=== PATIENT | male | born 1940 | race Caucasian/White ===

== ENCOUNTER 2022-07-09 14:04 | Inpatient (IN) | payer MEDICARE, BC, OTHER, SELFPAY ==
[2022-07-09] VITALS (28 sets, daily range): BP systolic 66–112; BP diastolic 41–77; PULSE 80–107; RESP 14–43; TEMP 36.3–37.1; O2SAT 85–96; BMI 31.2
--- NOTE | ~2022-07-09 | XR_ITS ---
EXAMINATION: XR chest 1V portable DATE: 07/20/2022 05:23 INDICATION: Respiratory failure. TECHNIQUE: A single frontal view of the chest was obtained. COMPARISON: Chest single view 07/19/2022 FINDINGS: The lung volumes are small. There are airspace and interstitial opacities throughout the luis ngs bilaterally. No pleural effusion or pneumothorax. The heart size is normal. The endotracheal tube tip is 3.9 cm above the grisel. A left subclavian central venous catheter is seen with tip at the stewart perior cavoatrial junction. There is compression of the catheter between the clavicle and first rib. The nasogastric tube tip is beyond the inferior margin of the radiograph, but at least to the stomach . A right internal jugular central venous catheter is seen with tip at the superior cavoatrial juncti on. A right-sided chest tube is noted. IMPRESSION: 1. Stable diffuse lung disease, consistent with pneumonia versus pulmonary edema versus acute respira tory distress syndrome (ARDS). 2. No pneumothorax. Right-sided chest tube in expected position. 3. Compression of the left subclavian central venous catheter between the clavicle and first rib, whi ch increases the risk of catheter fracture. Reviewed, dictated and finalized at location A. IMPRESSION: 1. Stable diffuse lung disease, consistent with pneumonia versus pulmonary dara a versus acute respiratory distress syndrome (ARDS). 2. No pneumothorax. Right-sided chest tube in expected position. 3. Compression of the left subclavian central venous catheter between the clavi vick and first rib, which increases the risk of catheter fracture.
--- NOTE | ~2022-07-09 | XR_ITS ---
EXAMINATION: XR chest 1V portable DATE: 07/21/2022 05:17 INDICATION: Respiratory failure. TECHNIQUE: A single frontal view of the chest was obtained. COMPARISON: Chest single view 07/20/2022 FINDINGS: Lung volumes are small. There are airspace and interstitial opacities throughout the lungs bilaterally. No pleural effusion or pneumothorax. The heart size is normal. The endotracheal tube tip is 4.3 cm above the grisel. A left subclavian central venous catheter is seen with tip in the proxim al right atrium. A right internal jugular central venous catheter is seen with tip at the superior ca voatrial junction. The nasogastric tube tip is beyond the inferior margin of the radiograph, but at l east to the stomach. A right-sided chest tube is noted. IMPRESSION: 1. Small lung volumes with stable diffuse lung disease, consistent with pneumonia versus pulmonary ed faizan versus acute respiratory distress syndrome (ARDS). 2. No pneumothorax. Right-sided chest tube in expected position. Reviewed, dictated and finalized at location A. IMPRESSION: 1. Small lung volumes with stable diffuse lung disease, consistent with pneumon ia versus pulmonary edema versus acute respiratory distress syndrome (ARDS). 2. No pneumothorax. Right-sided chest tube in expected position.
--- NOTE | ~2022-07-09 | XR_ITS ---
EXAMINATION: XR chest ET placement DATE: 07/10/2022 13:48 INDICATION: Intubation. TECHNIQUE: A single frontal view of the chest was obtained. COMPARISON: Chest single view 07/09/2022, chest CT 07/09/2022 FINDINGS: There are airspace and interstitial opacities throughout the lungs bilaterally. There is a moderate-sized right pneumothorax. No pleural effusion. The heart size is normal. The endotracheal tu be tip is 1.8 cm above the grisel. IMPRESSION: 1. Moderate-sized right pneumothorax. I discussed this finding with Dr. Silva. 2. Worsened diffuse lung disease, consistent with pneumonia versus pulmonary edema. Reviewed, dictated and finalized at location A. IMPRESSION: 1. Moderate-sized right pneumothorax. I discussed this finding with Dr. Jed eaton 2. Worsened diffuse lung disease, consistent with pneumonia versus pulmonary ed faizan.
--- NOTE | ~2022-07-09 | XR_ITS ---
EXAMINATION: XR chest 1V portable INDICATION: Respiratory failure TECHNIQUE: Portable AP chest at 1456 hours COMPARISON: 0518 hours FINDINGS: The endotracheal tube ends approximately 3.0 cm above the grisel. The nasogastric tube is f ollowed as far as the stomach. Its tip is beyond the inferior margin of the radiograph. A right-sided chest tube is unchanged in position. No pneumothorax is identified. A right internal jugular central venous catheter ends with its tip at the superior cavoatrial junction. Diffuse interstitial and airs pace opacities persist with slight worsening on the right. IMPRESSION: 1. Diffuse lung disease with interval worsening on the right, consistent with pneumonia and/or pulmon marni edema. Reviewed, dictated and finalized at location B. IMPRESSION: 1. Diffuse lung disease with interval worsening on the right, consistent with p neumonia and/or pulmonary edema.
--- NOTE | ~2022-07-09 | XR_ITS ---
EXAMINATION: XR chest 1V portable DATE: 07/24/2022 05:22 INDICATION: Respiratory failure TECHNIQUE: frontal view of the chest was obtained. COMPARISON: Chest radiograph dated 07/23/2022 FINDINGS: Endotracheal tube tip 4.0 cm above the grisel. Nasogastric tube extends below the left hemidiaphragm with distal tip collimated off the study. The large-bore dual-lumen likely tunneled left subclavian central venous catheter with distal tip at the caudal superior vena cava. There is also a smaller nadege iber right internal jugular central venous catheter with its tip also in the caudal superior vena cav a. Unchanged apically directed right chest tube. Diffuse airspace opacities throughout the left lung and to a lesser degree in the right mid and upper lung zones. No pneumothorax or definitive pleural effusion. The cardiomediastinal silhouette is norm al. IMPRESSION: 1. No significant change in diffuse bilateral lung disease which could represent pneumonia, pulmonary edema, acute respiratory distress syndrome (ARDS) or combination thereof. Reviewed, dictated and finalized at location A. IMPRESSION: 1. No significant change in diffuse bilateral lung disease which could represen t pneumonia, pulmonary edema, acute respiratory distress syndrome (ARDS) or com bination thereof.
--- NOTE | ~2022-07-09 | XR_ITS ---
EXAMINATION: XR chest 1V portable DATE: 07/14/2022 05:41 INDICATION: Acute respiratory failure. Intubation. TECHNIQUE: A single frontal view of the chest was obtained. COMPARISON: Chest single view 07/13/2022 FINDINGS: There are airspace opacities in all lung zones bilaterally with a lower lung predominance. No pleural effusion or pneumothorax. The heart size is normal. A right-sided chest tube is noted. The endotracheal tube tip is 4.2 cm above the grisel. The nasogastric tube tip is beyond the inferior ma rgin of the radiograph, but at least to the stomach. A right internal jugular central venous catheter is seen with tip at the superior cavoatrial junction. IMPRESSION: 1. Stable diffuse lung disease, consistent with pneumonia versus acute respiratory distress syndrome (ARDS). 2. No pneumothorax. Right-sided chest tube unchanged. Reviewed, dictated and finalized at location A. IMPRESSION: 1. Stable diffuse lung disease, consistent with pneumonia versus acute respirat ory distress syndrome (ARDS). 2. No pneumothorax. Right-sided chest tube unchanged.
--- NOTE | ~2022-07-09 | XR_ITS ---
EXAMINATION: XR chest 1V portable DATE: 07/19/2022 05:35 INDICATION: Respiratory failure TECHNIQUE: frontal view of the chest was obtained. COMPARISON: Chest radiograph dated 07/18/2022 FINDINGS: Endotracheal tube tip 3.9 cm above the grisel. Large-bore dual-lumen left subclavian central venous c atheter with distal tip in the superior vena cava. Smaller caliber right internal jugular central adelina ous catheter with distal tip also in the superior vena cava. Nasogastric tube extends below the left hemidiaphragm with distal tip collimated off the study. Apically directed right chest tube. Slight interval increase in diffuse airspace opacities throughout the left lung and more patchy airsp chuck opacities in the right mid and lower lung zone. No pleural effusion or pneumothorax. Heart size i s normal. IMPRESSION: 1. Lines and tubes in expected positions. 2. Slight worsening of bilateral lung disease which could represent pneumonia, atelectasis, pulmonary edema or some combination thereof. Reviewed, dictated and finalized at location A.
--- NOTE | ~2022-07-09 | US_ITS ---
EXAMINATION: US renal BI DATE: 07/16/2022 08:23 INDICATION: Acute kidney injury TECHNIQUE: Multiple grayscale and Doppler ultrasound images of the kidneys were obtained. COMPARISON: 07/10/2022 FINDINGS: The right kidney measures 10.6 x 5.1 x 5.9 cm. The left kidney measures 12.9 x 4.9 x 7.3 cm and contains a 1.8 cm cyst. The kidneys demonstrate normal parenchymal echogenicity. There is no hyd ronephrosis. The bladder is decompressed by Mitchell catheter. IMPRESSION: 1. Normal kidneys without hydronephrosis. Reviewed, dictated and finalized at location B.
--- NOTE | ~2022-07-09 | XR_ITS ---
EXAMINATION: XR abdomen NG/feed tube insert DATE: 07/10/2022 13:48 INDICATION: Orogastric tube placement. TECHNIQUE: An upright view of the abdomen was obtained. COMPARISON: CT 07/09/2022 FINDINGS: The lower abdomen is excluded. The nasogastric tube tip is in the distal stomach. Surgical clips in the right upper quadrant are likely from cholecystectomy. There are changes of posterior fus ion procedure in lumbar spine. There is a large right pneumothorax. There are airspace and interstiti al opacities throughout the visualized portions of the lungs. IMPRESSION: 1. Nasogastric tube tip in the stomach. 2. Large right pneumothorax. 3. Diffuse lung disease, consistent with pulmonary edema versus pneumonia. Reviewed, dictated and finalized at location A.
--- NOTE | ~2022-07-09 | XR_ITS ---
EXAMINATION: XR chest 1V portable DATE: 07/11/2022 06:37 INDICATION: Acute respiratory failure. TECHNIQUE: A single frontal view of the chest was obtained. COMPARISON: Chest single view 07/10/2022, chest CT 07/09/2022 FINDINGS: There are reticular opacities and patchy airspace opacities in all lung zones bilaterally. Calcified lung nodules and calcified hilar lymph nodes are consistent with old granulomatous disease. There is mild elevation of left hemidiaphragm. No pleural effusion or pneumothorax. A right-sided ch est tube is noted. The heart size is normal. The endotracheal tube tip is 4.7 cm above the grisel. Th e nasogastric tube tip is beyond the inferior margin of the radiograph, but at least to the stomach. A right internal jugular central venous catheter is seen with tip in the superior vena cava. IMPRESSION: 1. Improved diffuse lung disease, consistent with pneumonia. 2. No pneumothorax. Right-sided chest tube in expected position. Reviewed, dictated and finalized at location A.
--- NOTE | ~2022-07-09 | XR_ITS ---
EXAMINATION: XR chest 1V portable DATE: 07/22/2022 06:04 INDICATION: Respiratory failure. TECHNIQUE: A single frontal view of the chest was obtained. COMPARISON: Chest single view 07/21/2022 FINDINGS: The lung volumes are small. There are airspace and interstitial opacities in all lung zones bilaterally, left worse than right. No pleural effusion or pneumothorax. The heart size is normal. T he endotracheal tube tip is 4.9 cm above the grisel. The nasogastric tube tip is beyond the inferior margin of the radiograph, but at least to the stomach. A left subclavian central venous catheter is s een with tip in the right atrium. A right internal jugular central venous catheter is seen with tip a t the superior cavoatrial junction. A right-sided chest tube is noted. IMPRESSION: 1. Small lung volumes with diffuse lung disease with slight improvement, consistent with pneumonia ve rsus pulmonary edema versus acute respiratory distress syndrome (ARDS). 2. No pneumothorax. Right-sided chest tube in expected position. Reviewed, dictated and finalized at location A. IMPRESSION: 1. Small lung volumes with diffuse lung disease with slight improvement, consis tent with pneumonia versus pulmonary edema versus acute respiratory distress sy ndrome (ARDS). 2. No pneumothorax. Right-sided chest tube in expected position.
--- NOTE | ~2022-07-09 | US_ITS ---
EXAMINATION: US venous doppler [facility] DATE: 07/10/2022 10:05 INDICATION: Lower limb edema. TECHNIQUE: Grayscale ultrasound images without and with compression and Doppler ultrasound images of the bilateral lower extremity veins were obtained. COMPARISON: None. FINDINGS: The visualized portions of right common femoral vein, profunda (deep) femoral vein, femoral vein, pop liteal vein, peroneal veins, posterior tibial veins, and greater saphenous vein outflow are patent. The visualized portions of left common femoral vein, profunda femoral vein, femoral vein, popliteal v ein, peroneal veins, posterior tibial veins, and greater saphenous vein outflow are patent. IMPRESSION: 1. No deep venous thrombosis. Reviewed, dictated and finalized at location A.
--- NOTE | ~2022-07-09 | XR_ITS ---
EXAMINATION: XR fl guide central line place DATE: 07/16/2022 14:53 INDICATION: Central line placement. TECHNIQUE: 2 intraoperative fluoroscopic views of the chest were obtained. I was not present. Fluoros copy exposure time was 351 seconds. COMPARISON: Chest single view 07/16/2022 FINDINGS: There is a left subclavian central venous catheter with tip in right atrium. A right international account representative al jugular central venous catheter is seen with tip at superior cavoatrial junction. IMPRESSION: 1. New central line tip in right atrium. Reviewed, dictated and finalized at location A.
--- NOTE | ~2022-07-09 | XR_ITS ---
EXAMINATION: XR chest 1V portable DATE: 07/13/2022 05:44 INDICATION: Acute respiratory failure. Intubation. TECHNIQUE: A single frontal view of the chest was obtained. COMPARISON: Chest single view 07/12/2022 FINDINGS: The patient is rotated to his left. The lung volumes are small. There are airspace and inte rstitial opacities throughout the lungs bilaterally. No pleural effusion or pneumothorax. A right-argenis ed chest tube is noted. The heart size is normal. The endotracheal tube tip is 4.5 cm above the reji a. The nasogastric tube tip is beyond the inferior margin of the radiograph, but at least to the stom ach. Surgical clips in the right upper quadrant are likely from cholecystectomy. A right internal jug ular central venous catheter is seen with tip at the superior cavoatrial junction. IMPRESSION: 1. Diffuse lung disease with mild worsening on the right, consistent with pneumonia versus acute resp iratory distress syndrome (ARDS). 2. No pneumothorax. Right-sided chest tube unchanged. Reviewed, dictated and finalized at location A. IMPRESSION: 1. Diffuse lung disease with mild worsening on the right, consistent with pneum onia versus acute respiratory distress syndrome (ARDS). 2. No pneumothorax. Right-sided chest tube unchanged.
--- NOTE | ~2022-07-09 | CT_ITS ---
EXAMINATION: CTA chest PE abdomen pel DATE: 07/09/2022 15:53 INDICATION: Shortness of breath. Left upper quadrant abdominal pain. TECHNIQUE: Computed tomography angiography (CTA) of the chest was performed with 100 mL Omnipaque-350 intravenous contrast timed to evaluate the pulmonary arteries. Coronal maximum intensity projection 3D-reconstructions were created by the technologist. Computed tomography (CT) of the abdomen and pelv is was performed with intravenous contrast. Automated exposure control and iterative reconstruction t echnique were employed. The dose-length product was 1471.58 mGy-cm. COMPARISON: Chest CT 08/08/2018 FINDINGS: CTA chest: There are airspace opacities, crazy paving, and septal thickening involving all lobes. Terrance cified bilateral lung nodules and calcified hilar and mediastinal lymph nodes are consistent with old granulomatous disease. No pleural effusion. The heart size is normal. There are coronary artery calc ifications. No pericardial effusion. There is no pulmonary embolus. CT abdomen and pelvis: The liver is normal. There are changes of cholecystectomy. Calcifications in t he spleen are consistent with old granulomatous disease. There is a 2.4 cm cyst in the tail of the pa ncreas that was partially visualized on 08/08/2018. The adrenal glands are normal. There are cysts in the kidneys measuring up to 12 mm on the left. The prostate is severely enlarged. There are no dilate d loops of bowel. There are changes of appendectomy. There are no pathologically enlarged lymph nodes . There is no free intraperitoneal fluid. There is a right inguinal hernia containing fat. There are changes of posterior fusion procedure from L2 to L5. There is severe lumbar spondylosis. IMPRESSION: 1. No pulmonary embolus. 2. Diffuse lung disease, new from 08/08/18, likely atypical pneumonia such COVID-19 pneumonia. 3. 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 The differential diagnosis includes pseudocyst, intraductal papillary mucinous neoplasm (IPMN), mucinous cystic neoplasm (MCN), serous cystadenoma, and neuroendo crine tumor. Consider abdomen MRI without and with contrast in 2 years. Reviewed, dictated and finalized at location A. IMPRESSION: 1. No pulmonary embolus. 2. Diffuse lung disease, new from 08/08/18, likely atypical pneumonia such COVID -19 pneumonia. 3. 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 The differential diagnosis includes ps eudocyst, intraductal papillary mucinous neoplasm (IPMN), mucinous cystic neopl asm (MCN), serous cystadenoma, and neuroendocrine tumor. Consider abdomen MRI w ithout and with contrast in 2 years.
--- NOTE | ~2022-07-09 | XR_ITS ---
XR chest 1V portable 07/09/2022 15:14 Indication: Shortness of breath. Hypertension. Procedure: AP portable chest Comparison: No prior studies for comparison. Findings: Cardiomegaly. Patchy bilateral airspace disease. No significant effusion. No pneumothorax. Impression: 1: Patchy bilateral airspace disease which may represent pneumonia or edema. 2: Cardiomegaly. Reviewed, dictated and finalized at location B. Impression: 1: Patchy bilateral airspace disease which may represent pneumonia or edema. 2: Cardiomegaly.
--- NOTE | ~2022-07-09 | XR_ITS ---
EXAMINATION: XR chest port-a-cath/central INDICATION: Dialysis catheter insertion TECHNIQUE: Portable AP chest at 1537 hours COMPARISON: 0506 hours FINDINGS: A left subclavian dialysis catheter has been inserted which ends with its tip in the right atrium. A right internal jugular central venous catheter ends with its tip at the superior cavoatrial junction. There is a right-sided chest tube unchanged in position. No pneumothorax is identified. Th e endotracheal tube ends approximately 2.1 cm above the grisel. The nasogastric tube is followed as f ar as the stomach. Its tip is beyond the inferior margin of the radiograph. The heart size is normal. There are diffuse interstitial and airspace opacities throughout all lung zones without significant change. IMPRESSION: 1. Left subclavian dialysis catheter inserted, extending in the proximal right atrium. No pneumothora x. 2. Stable diffuse lung disease, consistent with pneumonia versus pulmonary edema. Reviewed, dictated and finalized at location B. IMPRESSION: 1. Left subclavian dialysis catheter inserted, extending in the proximal right atrium. No pneumothorax. 2. Stable diffuse lung disease, consistent with pneumonia versus pulmonary dara a.
--- NOTE | ~2022-07-09 | XR_ITS ---
EXAMINATION: XR chest 1V portable DATE: 07/12/2022 05:48 INDICATION: Acute respiratory failure. Intubation. TECHNIQUE: A single frontal view of the chest was obtained. COMPARISON: Chest single view 07/11/2022, chest CT 07/09/2022 FINDINGS: A calcified right lung nodule is consistent with old granulomatous disease. The lung volume s are small. There are airspace and interstitial opacities in all lung zones bilaterally, left worse than right. No pleural effusion or pneumothorax. A right-sided chest tube is noted. The heart size is normal. The endotracheal tube tip is 3.7 cm above the grisel. A right internal jugular central venou s catheter is seen with tip at the superior cavoatrial junction. The nasogastric tube tip is beyond t he inferior margin of the radiograph, but at least to the stomach. IMPRESSION: 1. Stable diffuse lung disease, consistent with pneumonia versus acute respiratory distress syndrome (ARDS). 2. No pneumothorax. Right-sided chest tube in expected position. Reviewed, dictated and finalized at location A. IMPRESSION: 1. Stable diffuse lung disease, consistent with pneumonia versus acute respirat ory distress syndrome (ARDS). 2. No pneumothorax. Right-sided chest tube in expected position.
--- NOTE | ~2022-07-09 | XR_ITS ---
EXAMINATION: XR chest 1V portable DATE: 07/16/2022 05:35 INDICATION: Respiratory failure. TECHNIQUE: A single frontal view of the chest was obtained. COMPARISON: Chest single view 07/15/2022 FINDINGS: The lung volumes are small. There are airspace and interstitial opacities throughout the luis ngs bilaterally. No pleural effusion or pneumothorax. The heart size is normal. The endotracheal tube tip is 3.9 cm above the grisel. The nasogastric tube tip is beyond the inferior margin of the radiog raph, but at least to the stomach. A right internal jugular central venous catheter is seen with tip at the superior cavoatrial junction. A right-sided chest tube is noted. Surgical clips in the right u pper quadrant are likely from cholecystectomy. IMPRESSION: 1. Diffuse lung disease with mild improvement, consistent with pneumonia versus acute respiratory dis tress syndrome (ARDS). 2. No pneumothorax. Right-sided chest tube unchanged. Reviewed, dictated and finalized at location A. IMPRESSION: 1. Diffuse lung disease with mild improvement, consistent with pneumonia versus acute respiratory distress syndrome (ARDS). 2. No pneumothorax. Right-sided chest tube unchanged.
--- NOTE | ~2022-07-09 | US_ITS ---
EXAMINATION: US renal BI DATE: 07/10/2022 10:05 INDICATION: Acute kidney injury. TECHNIQUE: Multiple ultrasound grayscale images of the kidneys were obtained. COMPARISON: CT 07/09/2022 FINDINGS: The right kidney measures 10.7 x 5.7 x 6.4 cm. The left kidney measures 12.3 x 6.5 x 5.6 cm. The kidn eys demonstrate normal parenchymal echogenicity. There is a 1.7 cm cyst in left kidney. There is no h ydronephrosis. The bladder is decompressed by a Mitchell catheter. IMPRESSION: 1. Normal kidney sizes. No hydronephrosis. Reviewed, dictated and finalized at location A.
--- NOTE | ~2022-07-09 | XR_ITS ---
EXAMINATION: XR chest 1V portable INDICATION: Respiratory failure TECHNIQUE: Portable AP chest at 0519 hours COMPARISON: 07/16/2022 FINDINGS: The endotracheal tube ends approximately 4.6 cm above the grisel. The nasogastric tube is f ollowed as far as the stomach. Its tip is beyond the inferior margin of the radiograph. A left subcla vian dialysis catheter ends with its tip at the proximal right atrium. A right internal jugular centr al venous catheter ends with its tip in the superior cavoatrial junction. A right-sided chest tube is unchanged position. No pleural effusion or pneumothorax. Diffuse interstitial and airspace opacities persist with slight improvement. The heart size is normal. IMPRESSION: 1. Diffuse lung disease with interval improvement, consistent with pneumonia and/or pulmonary edema. Reviewed, dictated and finalized at location A. IMPRESSION: 1. Diffuse lung disease with interval improvement, consistent with pneumonia an d/or pulmonary edema.
--- NOTE | ~2022-07-09 | US_ITS ---
EXAMINATION: US venous doppler UE DATE: 07/20/2022 11:26 INDICATION: Hypoxia and respiratory failure TECHNIQUE: Grayscale images without and with compression and Doppler images of the bilateral upper ex tremity veins were obtained. COMPARISON: None. FINDINGS: Noncompressible occlusive thrombus in the distal right basilic and cephalic veins. The right internal jugular vein, subclavian vein, axillary vein, brachial vein, radial vein, and ulnar vein are patent. Noncompressible occlusive thrombus diffusely throughout the left basilic vein. The left internal jugu lar vein, subclavian vein, axillary vein, brachial vein, cephalic vein, radial vein, and ulnar vein a re patent. IMPRESSION: 1. Thrombosis of the bilateral basilic veins and distal right cephalic vein. Findings were discussed with Fran Barrett, the nurse caring for the patient, at 11:40 AM. Reviewed, dictated and finalized at location A. IMPRESSION: 1. Thrombosis of the bilateral basilic veins and distal right cephalic vein. Fi ndings were discussed with Fran Barrett, the nurse caring for the patient, at 11:40 AM.
--- NOTE | ~2022-07-09 | XR_ITS ---
EXAMINATION: XR chest 1V portable DATE: 07/19/2022 09:25 INDICATION: Hypoxia. TECHNIQUE: A single frontal view of the chest was obtained. COMPARISON: Chest single view 07/19/2022 at 5:15 AM FINDINGS: The lung volumes are small. There are airspace and interstitial opacities throughout the luis ngs bilaterally. No pleural effusion or pneumothorax. The heart size is normal. The endotracheal tube tip is 4.2 cm above the grisel. A left subclavian central venous catheter is seen with tip at the stewart perior cavoatrial junction. There is compression of the catheter between the clavicle and first rib. There is a right-sided chest tube in expected position. A right internal jugular central venous xiomara ter is seen with tip at the superior cavoatrial junction. The nasogastric tube tip is beyond the infe rior margin of the radiograph, but at least to the stomach. IMPRESSION: 1. Stable diffuse lung disease, consistent with pneumonia versus pulmonary edema versus acute respira tory distress syndrome (ARDS). 2. No pneumothorax. Right-sided chest tube in expected position. 3. Compression of the left subclavian central venous catheter between the clavicle and first rib, whi ch increases the risk of catheter fracture. Reviewed, dictated and finalized at location A. IMPRESSION: 1. Stable diffuse lung disease, consistent with pneumonia versus pulmonary dara a versus acute respiratory distress syndrome (ARDS). 2. No pneumothorax. Right-sided chest tube in expected position. 3. Compression of the left subclavian central venous catheter between the clavi vick and first rib, which increases the risk of catheter fracture.
--- NOTE | ~2022-07-09 | CT_ITS ---
EXAMINATION: CT brain wo con DATE: 07/10/2022 16:32 INDICATION: dilated left pupil . TECHNIQUE: Computed tomography (CT) of the head was performed without intravenous contrast. The mA wa s adjusted according to patient size. Iterative reconstruction technique was employed. The dose-lengt h product was 681.00 mGy-cm. COMPARISON: None FINDINGS: No acute intracranial hemorrhage or extra-axial fluid collection. No hydrocephalus, mass, or herniation. No acute ischemic infarct. Unremarkable dural venous sinus attenuation. No acute osseous abnormality. Mucosal thickening and small retention cysts or polyps in bilateral maxillary sinuses. Mucosal thicke portillo and opacification in the ethmoid air cells. Otherwise the spaces are clear. Partially visualized endotracheal and orogastric tubes. Moderate atrophy and chronic white matter kwadwo nge. Atherosclerotic intracranial calcification. Bilateral lens replacements. IMPRESSION: No acute intracranial process. Reviewed, dictated and finalized at location K.
--- NOTE | ~2022-07-09 | XR_ITS ---
EXAMINATION: XR chest 1V portable DATE: 07/23/2022 06:02 INDICATION: Respiratory failure. TECHNIQUE: A single frontal view of the chest was obtained. COMPARISON: Chest single view 07/22/2022 FINDINGS: The lung volumes are small. There are airspace and interstitial opacities throughout the luis ngs bilaterally, left worse than right. No pleural effusion or pneumothorax. The heart size is normal . The endotracheal tube tip is 4.1 cm above the grisel. A left subclavian central venous catheter is seen with tip in the proximal right atrium. A right internal jugular central venous catheter is seen with tip at the superior cavoatrial junction. The nasogastric tube tip is in the stomach. A right-argenis ed chest tube is noted. IMPRESSION: 1. Small lung volumes with stable diffuse lung disease, consistent with pneumonia versus pulmonary ed faizan versus acute respiratory distress syndrome (ARDS). 2. No pneumothorax. Right-sided chest tube in expected position. Reviewed, dictated and finalized at location A. IMPRESSION: 1. Small lung volumes with stable diffuse lung disease, consistent with pneumon ia versus pulmonary edema versus acute respiratory distress syndrome (ARDS). 2. No pneumothorax. Right-sided chest tube in expected position.
--- NOTE | ~2022-07-09 | XR_ITS ---
EXAMINATION: XR chest 1V portable INDICATION: Respiratory failure TECHNIQUE: Portable AP chest at 0529 hours COMPARISON: 07/17/2022 FINDINGS: The endotracheal tube ends approximately 3.7 cm above the grisel. The nasogastric tube is f ollowed as far as the stomach. Its tip is beyond the inferior margin of the radiograph. A left subcla vian dialysis catheter ends with its tip in the right atrium. A right internal jugular central venous catheter ends with its tip at the superior cavoatrial junction. Diffuse interstitial and airspace op acities persist with slight worsening in the lung bases. A right-sided chest tube is unchanged in pos ition. No pleural effusion or pneumothorax. Cardiac mediastinal silhouette is stable. IMPRESSION: 1. Diffuse lung disease with interval worsening, consistent with pneumonia and/or pulmonary edema. Reviewed, dictated and finalized at location A. IMPRESSION: 1. Diffuse lung disease with interval worsening, consistent with pneumonia and/ or pulmonary edema.
--- NOTE | ~2022-07-09 | XR_ITS ---
EXAMINATION: XR abdomen obstructive series DATE: 07/20/2022 08:40 INDICATION: Small bowel obstruction. TECHNIQUE: Upright and supine views of the abdomen were obtained. COMPARISON: CT abdomen and pelvis 07/09/2022, chest single view 07/20/2022 FINDINGS: There are no dilated loops of bowel. No free intraperitoneal gas. The nasogastric tube tip is in the distal stomach. Surgical clips in the right upper quadrant are likely from cholecystectomy. The lung volumes are small. There are airspace and interstitial opacities throughout the lungs bilat erally. The endotracheal tube tip is 3.8 cm above the grisel. A left subclavian central venous cathet er is seen with tip at the superior cavoatrial junction. A right internal jugular central venous cath eter is seen with tip in the superior vena cava. A right-sided chest tube is noted. There are changes of posterior fusion procedure in lumbar spine. Surgical clips overlie the pelvis. IMPRESSION: 1. Nonobstructive bowel gas pattern. 2. Stable diffuse lung disease, consistent with pulmonary edema versus pneumonia versus acute respira tory distress syndrome (ARDS). Reviewed, dictated and finalized at location A. IMPRESSION: 1. Nonobstructive bowel gas pattern. 2. Stable diffuse lung disease, consistent with pulmonary edema versus pneumoni a versus acute respiratory distress syndrome (ARDS).
--- NOTE | ~2022-07-09 | XR_ITS ---
EXAMINATION: XR chest port-a-cath/central Exam Date/Time: 07/10/2022 at 2:45 PM and 2:47 PM HISTORY: central line placement Comparison: 07/10/2022 at 1:16 PM. RESULT: Lines, tubes, and devices: Endotracheal tube terminating 3 cm above the grisel. NG tube terminating in the distal stomach. Right chest tube terminating in the right apex. Right IJ central line terminat ing in the cavoatrial junction. Lungs and pleura: Diffuse patchy airspace disease. Confluent opacity in the left lung base. Cardiomediastinal silhouette: Partially obscured. Other: No acute osseous or upper abdominal finding. IMPRESSION: Lines and tubes described above. Left basilar consolidation/atelectasis. Diffuse airspace opacities m ay reflect edema or pneumonia. Reviewed, dictated and finalized at location K. IMPRESSION: Lines and tubes described above. Left basilar consolidation/atelectasis. Diffus e airspace opacities may reflect edema or pneumonia.
--- NOTE | ~2022-07-09 | XR_ITS ---
EXAMINATION: XR chest 1V portable DATE: 07/15/2022 05:27 INDICATION: Acute respiratory failure. Intubation. TECHNIQUE: A single frontal view of the chest was obtained. COMPARISON: Chest single view 07/14/2022 FINDINGS: There are airspace and interstitial opacities in all lung zones bilaterally. No pleural eff usion or pneumothorax. The heart size is normal. The endotracheal tube tip is 3.6 cm above the grisel . The nasogastric tube tip is beyond the inferior margin of the radiograph, but at least to the stoma ch. A right internal jugular central venous catheter is seen with tip at the superior cavoatrial junc tion. A right-sided chest tube is noted. IMPRESSION: 1. Stable diffuse lung disease, consistent with pneumonia versus acute respiratory distress syndrome (ARDS). 2. No pneumothorax. Right-sided chest tube unchanged. Reviewed, dictated and finalized at location A. IMPRESSION: 1. Stable diffuse lung disease, consistent with pneumonia versus acute respirat ory distress syndrome (ARDS). 2. No pneumothorax. Right-sided chest tube unchanged.
--- NOTE | ~2022-07-09 | XR_ITS ---
EXAMINATION: XR chest port-a-cath/central Exam Date/Time: 07/10/2022 at 2:45 PM and 2:47 PM HISTORY: central line placement Comparison: 07/10/2022 at 1:16 PM. RESULT: Lines, tubes, and devices: Endotracheal tube terminating 3 cm above the grisel. NG tube terminating in the distal stomach. Right chest tube terminating in the right apex. Right IJ central line terminat ing in the cavoatrial junction. Lungs and pleura: Diffuse patchy airspace disease. Confluent opacity in the left lung base. Cardiomediastinal silhouette: Partially obscured. Other: No acute osseous or upper abdominal finding. IMPRESSION: Lines and tubes described above. Left basilar consolidation/atelectasis. Diffuse airspace opacities m ay reflect edema or pneumonia. Reviewed, dictated and finalized at location K. IMPRESSION: Lines and tubes described above. Left basilar consolidation/atelectasis. Diffus e airspace opacities may reflect edema or pneumonia.
--- NOTE | 2022-07-09 14:13 | ECG_ITS ---
Measurements Intervals Crane Rate: 91 P: 2 CT: 137 QRS: -40 QRSD: 126 T: 30 QT: 356 QTc: 440 Interpretive Statements SINUS RHYTHM MARKED LEFT AXIS DEVIATION [QRS AXIS < -30] NONSPECIFIC ST-T CHANGES NO PREVIOUS ECG AVAILABLE FOR COMPARISON Electronically Signed On 07-10-2022 13:22:33 CDT by Jina Martinez M.D.
[2022-07-09] MEDS: SODIUM CHLORIDE 0.9% IV 1,000 ML 999 ML IV CONT ×2 (14:32→14:53)
[2022-07-09] MEDS: methylPREDNISolone SOD SUCC 125 MG VIAL 40 MG IV PUSH (14:33)
[2022-07-09 14:37] LABS: Basophils Percent Auto 0.3 % (0.2-1.2); Hematocrit 38.7 % (42.0-52.0); Hemoglobin 12.4 g/dL (14.0-18.0); Immature Granulocyte Absolute 0.22 K/mm3 (0.00-0.031); Immature Granulocyte Percent A 2.3 % (0-0.5); Lymphocytes Absolute Auto 0.53 K/mm3 (0.9-3.2); Lymphocytes Percent Auto 5.5 % (18.3-44.2); Mean Corpuscular Hemoglobin 31.2 pg (26-34); Mean Corpuscular Volume 97.5 fl (80-100); Mean Platelet Volume 9.8 fl (7.4-10.4); Monocytes Absolute Auto 0.7 K/mm3 (0.1-0.6); Monocytes Percent Auto 6.9 % (2.6-8.5); Neutrophils Absolute Auto 8.1 K/mm3 (1.3-6.7); Platelet Count Result 184 k/mm3 (150-375); Red Blood Count 3.97 M/mm3 (4.6-6.20); Red Cell Distribution Width 15.3 % (11.5-14.5); White Blood Count 9.6 K/mm3 (4.5-10.0)
[2022-07-09 14:41] LABS: Lactic Acid Reflex 3.4 mmol/L (0.7-2.0)
[2022-07-09] MEDS: ALBUTEROL SULFATE NEB 2.5 MG/3 ML INH 5 MG INHALATION (14:49)
[2022-07-09] MEDS: IPRATROPIUM BR 0.02% INH SOLN 0.5 MG/2.5 ML VIAL INHALATION (14:50)
--- NOTE | 2022-07-09 14:54 | ED.SOB ---
HPI - SOB/Dyspnea General Chief Complaint: Shortness of Breath/Dyspnea Stated Complaint: shortness of breathh Time Seen by Provider: 07/09/22 14:27 History of Present Illness HPI Narrative: Patient states that over the last few weeks he has been having increasing shortness of breath, and was having generalized weakness, denies any chest pain, back pain, abdominal pain, nausea or vomiting. Today was on his way to see his lung doctor for his adult onset asthma however was unable to make it because he was having some shortness of breath. Feels lightheaded like he may pass out no recent fevers or chills, cough. 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 Related Data Allergies Allergy/AdvReac Type Severity Reaction Status Date / Time No Known Allergies Allergy Verified 07/09/22 14:42 Review of Systems Review of Systems: CONST: generalized weakness HEENT: No sore throat C/V: No chest pain RESP: Shortness of breath GI: No nausea or vomiting : No dysuria. M/S: No joint pain. SKIN: No rash. NEURO: [No headache or focal numbness or weakness] PSYCH: [No depression] [facility] Past Medical History Medical History (Updated 07/09/22 @ 17:20 by Andie Harper PA-C) Asthma Benign prostate hyperplasia Chronic obstructive pulmonary disease Hypertension Nasal polyp Shingles Surgical History Surgical History (Updated 07/09/22 @ 17:20 by Andie Harper PA-C) History of appendectomy History of back surgery History of cholecystectomy History of colonoscopy with polypectomy History of tonsillectomy Exam Narrative: EXAMINATION OF ORGAN SYSTEMS/BODY AREAS: Constitutional: Vital signs per nursing GENERAL: Appears quite winded HEAD: Normal with no signs of head trauma. EYES: EOMI, conjunctiva normal ENT: Hearing grossly intact LUNGS: Nonlabored breathing. HEART: [Regular rate and rhythm] ABD: [Soft], mildly tender to palpation LUQ EXT: Normal range of motion SKIN: [No rashes or lesions.] NEURO: [Alert and oriented x 3. No gross focal sensory or strength deficits.] PSYCH: Normal affect Course Vital Signs Vital signs: Vital Signs Temperature 97.3 F L 07/09/22 14:07 Pulse Rate 95 07/09/22 14:07 Respiratory Rate 16 07/09/22 14:07 Blood Pressure 69/41 L 07/09/22 14:07 Pulse Oximetry 92 07/09/22 14:07 Oxygen Delivery Room Air 07/09/22 14:07 Temperature 97.3 F L 07/09/22 14:07 Pulse Rate 86 07/09/22 17:32 Respiratory Rate 22 H 07/09/22 17:32 Blood Pressure 80/64 L 07/09/22 14:51 Pulse Oximetry 91 07/09/22 17:06 Oxygen Delivery Nasal Cannula 07/09/22 17:06 Oxygen Flow Rate 6 07/09/22 17:06 MDM - SOB/Dyspnea MDM Narrative Medical decision making narrative: 81-year-old male presents with shortness of breath, generalized weakness, vital signs notable for extremely low blood pressure and hypoxia. IV and labs obtained, patient newly placed on monitors, fluids started, his airway is intact, he has breath sounds bilaterally with some coarseness, and pulses in all extremities. My ddx includes and is not limited to, dissection though patient does not endorse chest pain, massive PE, dehydration, sepsis, asthma exacerbation. I did perform bedside ultrasound and noted pericardial effusion but no tamponade. Fluids are started on the patient with immediate improvement of blood pressure, started on 5L O2. Labs including COVID swab obtained. CT-PE negative for PE but there is bilateral pneumonia; patient will be admitted for oxygen and case discussed with hospitalist. Lab Data Result diagrams: 07/09/22 14:18 07/09/22 15:34 Labs: Lab Results 07/09/22 07/09/22 07/09/22 Range/Units 14:18 14:18 15:05 WBC 9.6 (4.5-10.0) K/mm3 RBC 3.97 L (4.6-6.20) M/mm3 Hgb 12.4 L (14.0-18.0) g/dL Hct 38.7 L (42.0-52.0) % MCV 97.5 (80-100) fl MCH 31.2 (26-34) pg MCHC 32.0 (32-36) g/dl RDW 15.3 H (11.5
[2022-07-09 15:26] LABS: Alanine Aminotransferase 24 U/L (6-50); Albumin Level 3.5 g/dL (3.5-5.1); Alkaline Phosphatase 67 U/L (38-126); Anion Gap 9 mmol/L (8-16); Aspartate Amino Transferase 33 U/L (17-59); Bilirubin,Total 1.4 mg/dL (0.2-1.3); Blood Urea Nitrogen 33 mg/dL (9-20); Calcium 8.6 mg/dL (8.4-10.2); Carbon Dioxide 24 mmol/L (22-30); Chloride 98 mmol/L (98-107); Estimated CRCL calculation 32 ml/min; Estimated Glomerular Filt Rate 32; Glucose 125 mg/dL (65-110); Potassium 5.1 mmol/L (3.4-5.0); Sodium 131 mmol/L (137-145)
[2022-07-09 15:37] LABS: Estimated CRCL calculation 32 ml/min; Estimated Glomerular Filt Rate 32
[2022-07-09 15:38] LABS: Troponin I 0.031 ng/mL (0.000-0.034)
[2022-07-09 15:48] LABS: D Dimer 2.91 ug/mL (<0.48)
[2022-07-09 15:56] LABS: SARS-CoV-2 RNA PCR Negative
[2022-07-09 16:43] LABS: Appearance Urine Clear (Clear); Bilirubin Urine Negative (Negative); Blood Urine Negative (Negative); Color Urine Yellow (Yellow); Glucose Urine UA Negative (Negative); Ketones Urine Negative (Negative); Leukocyte Esterase Ur Negative LEU/UL (Negative); Nitrate Urine Negative (Negative); Protein Urine Negative (Negative); Specific Grav Ur 1.015 (1.001-1.035); Urobilinogen Urine 0.2 mg/dL (<2.0)
[2022-07-09 16:44] LABS: Add Urine Microscopic? NO
[2022-07-09 16:51] LABS: Lipase 42 U/L (23-300)
[2022-07-09] MEDS: IPRATROPIUM BR 0.02% INH SOLN 0.5 MG/2.5 ML VIAL 1 MG INHALATION (17:28)
[2022-07-09] MEDS: ALBUTEROL SULFATE NEB 2.5 MG/3 ML INH 15 MG INHALATION (17:28)
[2022-07-09 17:33] LABS: Reflex Lactic Acid Yes or No Add Lactic
--- NOTE | 2022-07-09 18:30 | PM.IMHP ---
H&P: HPI History of Present Illness Date/Time: 07/09/22 18:30 Chief Complaint: Shortness of breath. Narrative: This is an very pleasant 81-year-old male with asthma, COPD, hypertension, benign prostatic hyperplasia, and deep venous thrombosis who presented to the emergency department from home for evaluation of shortness of breath. He has chronic dyspnea on exertion (he needs to rest with a flight of steps) however over the last 3 days he has felt increasingly short of breath on lesser and lesser exertion. He has been using his nebulizers at home though they have not provided him with longstanding relief. Last night he was wakened suddenly from sleep with shortness of breath and he his breathing has been worse since that time. He has also had a nonproductive cough and generalized weakness. 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 On arrival to triage he was afebrile but hypotensive with a systolic blood pressure in the 60s; his SpO2 was 92% on room air. His blood pressure did improve with IV fluid boluses and has remained stable. He was also given a continuous nebulizer treatment which has helped tremendously. Currently his SpO2 was in the mid 90s on 6 L nasal cannula. Pertinent labs include a white blood cell count of 9.6, hemoglobin 12.4, platelets 184, D-dimer 2.91, sodium 131, potassium 5.1, BUN 33, creatinine 2.00, lactic acid 3.4, and troponin 0.026. Patchy bilateral airspace disease was noted on chest x-ray. A subsequent CTA of the chest/abdomen/pelvis showed diffuse lung disease suspicious for atypical pneumonia. There was no evidence of pulmonary embolism. SARS-CoV-2 by PCR was negative. He is now being admitted for acute respiratory failure with hypoxia and multifocal pneumonia. The patient received his COVID vaccinations and boosters. He has not had any sick contacts or exposure to COVID to his knowledge. He has occasional dysphagia with breads and meats though he denies concerns for aspiration. He has not had fever, chills, or sweats. He has chronic sinus and allergy type symptoms and that is unchanged. No sore throat. His appetite has been good. He denies nausea, vomiting, and diarrhea. Regarding his renal function, he does not think he has significant problems with his kidneys. He does have BPH and at times he does not feel as though he empties his bladder fully. Review of Systems Review of Systems: Twelve systems were reviewed and are negative except for as per HPI. [facility] Past Medical History Medical History (Updated 07/10/22 @ 00:01 by Andie Harper PA-C) Asthma Benign prostate hyperplasia Chronic obstructive pulmonary disease Deep venous thrombosis Gastroesophageal reflux disease Hypertension Nasal polyp Shingles Suspected sleep apnea Surgical History Surgical History (Updated 07/09/22 @ 23:53 by Andie Harper PA-C) History of appendectomy History of back surgery History of cataract extraction History of cholecystectomy History of colonoscopy with polypectomy History of tonsillectomy Family History Family History (Updated 07/09/22 @ 23:53 by Andie Harper PA-C) Sibling Acute myocardial infarction Asthma History of blood clots Mother Diabetes mellitus Father Cancer Social History Social History (Updated 07/09/22 @ 23:54 by Andie Harper PA-C) Social History: Surrogate medical decision maker: Lena Judge, spouse. Code status: Full code. Smoking packs per day: 3 Smoking cigarettes per day: 60.0 Smoking status: Former smoker Tobacco type: cigarettes Smoking end date: 11/21/83 Alcohol intake: never Substance use: never Additional living arrangements comments: The patient lives with his in [place]. Additional occupation/education comments: [employer]. Spiritual care concerns: No Meds Home Medications and All
[2022-07-09 18:31] LABS: Lactic Acid 3.5 mmol/L (0.7-2.0)
[2022-07-09 18:44] LABS: Troponin I 0.026 ng/mL (0.000-0.034)
--- NOTE | 2022-07-09 19:17 | PC.NURSE ---
Bedside report given to GUSTAVO Chiang
--- NOTE | 2022-07-09 22:18 | PC.NURSE ---
This patient, Moe Judge, was admitted to IMU Room 203- at 2034. Patient/family oriented to hospital policies and general routines including ID bracelet, bed and alarms, visiting hours, pain management, procedures, bathroom and other care routines, personal items, smoking policy, room service/diet, and visiting hours. Information on how to activate the Rapid Response Team has been discussed. Patient/Family are encouraged to report perceived risks to care and to ask questions if they do not understand what they are told or what they should do.
[2022-07-10] VITALS (92 sets, daily range): BP systolic 59–174; BP diastolic 41–97; PULSE 58–127; RESP 14–30; TEMP 36.5–37.9; O2SAT 82–100
--- NOTE | 2022-07-10 | ECHO_ITS ---
Patient Info Name: Moe Judge Age: 81 years : 1940 Gender: Male Ht: 70 in Wt: 217 lbs BSA: 2.23 m2 HR: 103 bpm BP: 104 / 67 mmHg Heart Rhythm: Sinus Rhythm Technical Quality: Poor Exam Date: 07/10/2022 12:47 PM Exam Location: [facility] Pulmonary Patient Status: Inpatient Admit Date: 07/09/2022 Staff Ordering Physician: Jorge Lovelace MD Maintenance Foreman: Amparo Schofield RDCS Attending Provider: Jorge Lovelace MD Exam Type: CA echo dop color flow w con Study Info Indications R07.1 - Chest pain on breathing Complete two-dimensional, color flow and Doppler transthoracic echocardiogram is performed with contrast to opacify the left ventricle and to improve the deliniation of the left ventricle endocardial borders. Contrast/Agitated Saline Contrast/Ag. Saline: Definity Amount: --- ml Administered By: Amparo Schofield RDCS Reason for Poor Study: poor patient cooperation Summary 1. Technically difficult and abbreviated study due to the patient's respiratory failure. Definity echo contrast used. 2. Normal left ventricular size with sigmoid septum. Overall good systolic function, EF 60%. Grade 1 diastolic dysfunction is present. 3. There is mild tricuspid valve regurgitation. 4. There is mild pulmonic regurgitation. 5. Mild pulmonary hypertension, estimated pulmonary arterial systolic pressure is 40 mmHg. 6. Right ventricular enlargement. 7. Normal sinus rhythm. Left Ventricle Left ventricular chamber dimension is normal. Left ventricular systolic function is normal, estimated at 55-60%. There is no increased left ventricular wall thickness. Left ventricular septal wall motion is normal. The left ventricular diastolic function is grade I diastolic dysfunction. Right Ventricle Right ventricular chamber dimension is mildly enlarged. Right ventricular systolic function is normal. Left Atria Left atrial chamber dimension is normal. Right Atria Right atrial chamber dimension is normal. Aortic Valve The aortic valve is trileaflet. There is no aortic valve sclerosis. There is no aortic valve stenosis. There is no aortic valve regurgitation. Pulmonic Valve The pulmonic valve is normal. There is no pulmonic valve stenosis. There is mild pulmonic regurgitation. Mitral Valve The mitral valve has normal leaflets. There is no mitral valve stenosis. There is no mitral valve regurgitation. Tricuspid Valve The tricuspid valve leaflets are normal. There is no significant tricuspid valve stenosis. There is mild tricuspid valve regurgitation. Mild pulmonary hypertension, estimated pulmonary arterial systolic pressure is 40 mmHg. Pericardium/Pleural The pericardium appears epicardial fat pad. There is no pericardial effusion. Inferior Vena Cava Not well visualized inferior vena cava with >50% collapse upon inspiration consistent with Empty right atrial pressure, 10 mmHg. Aorta The aortic root size at the sinus of Valsalva is not well visualized. The prox ascending aorta size is not well visualized. The aorta arch size is not well visualized measuring Empty. The abdominal aorta size is not well visualized. Left Ventricular Outflow Tract Name Value Normal LVOT 2D
[2022-07-10 00:52] LABS: Hematocrit 36.4 % (42.0-52.0); Hemoglobin 11.5 g/dL (14.0-18.0); Mean Corpuscular HGB Conc 31.6 g/dl (32-36); Mean Corpuscular Hemoglobin 31.3 pg (26-34); Mean Corpuscular Volume 98.9 fl (80-100); Mean Platelet Volume 8.9 fl (7.4-10.4); Platelet Count Result 164 k/mm3 (150-375); Red Blood Count 3.68 M/mm3 (4.6-6.20); Red Cell Distribution Width 15.5 % (11.5-14.5); White Blood Count 6.6 K/mm3 (4.5-10.0)
[2022-07-10 01:14] LABS: Anion Gap 12 mmol/L (8-16); Blood Urea Nitrogen 31 mg/dL (9-20); Calcium 8.7 mg/dL (8.4-10.2); Carbon Dioxide 23 mmol/L (22-30); Chloride 100 mmol/L (98-107); Estimated CRCL calculation 35 ml/min; Estimated Glomerular Filt Rate 36; Glucose 180 mg/dL (65-110); Lactate Dehydrogenase 392 U/L (120-246); Potassium 4.4 mmol/L (3.4-5.0); Sodium 135 mmol/L (137-145)
[2022-07-10 01:20] LABS: CRP 19.1 mg/dL (<1.0)
[2022-07-10 01:54] LABS: Procalcitonin 0.5 ng/mL
[2022-07-10] MEDS: IPRATROPIUM BR 0.02% INH SOLN 0.5 MG/2.5 ML VIAL INHALATION ×4 (02:03→20:15)
[2022-07-10] MEDS: ALBUTEROL SULFATE NEB 2.5 MG/3 ML INH INHALATION ×2 (02:04→07:58)
[2022-07-10 04:49] LABS: Basophils Percent Auto 0.4 % (0.2-1.2); Eosinophils Percent Auto 0.4 % (0-4.4); Hematocrit 35.5 % (42.0-52.0); Hemoglobin 11.5 g/dL (14.0-18.0); Immature Granulocyte Absolute 0.31 K/mm3 (0.00-0.031); Immature Granulocyte Percent A 4.4 % (0-0.5); Lymphocytes Absolute Auto 0.77 K/mm3 (0.9-3.2); Lymphocytes Percent Auto 10.9 % (18.3-44.2); Mean Corpuscular HGB Conc 32.4 g/dl (32-36); Mean Corpuscular Hemoglobin 31.5 pg (26-34); Mean Corpuscular Volume 97.3 fl (80-100); Mean Platelet Volume 9.2 fl (7.4-10.4); Monocytes Absolute Auto 0.5 K/mm3 (0.1-0.6); Monocytes Percent Auto 7.5 % (2.6-8.5); Neutrophils Absolute Auto 5.4 K/mm3 (1.3-6.7); Neutrophils Percent Auto 76.4 % (45.5-73.1); Platelet Count Result 164 k/mm3 (150-375); Red Blood Count 3.65 M/mm3 (4.6-6.20); Red Cell Distribution Width 15.5 % (11.5-14.5); White Blood Count 7.1 K/mm3 (4.5-10.0)
[2022-07-10 05:05] LABS: Alanine Aminotransferase 22 U/L (6-50); Albumin Level 3.3 g/dL (3.5-5.1); Alkaline Phosphatase 66 U/L (38-126); Anion Gap 9 mmol/L (8-16); Aspartate Amino Transferase 35 U/L (17-59); Bilirubin,Total 0.8 mg/dL (0.2-1.3); Blood Urea Nitrogen 31 mg/dL (9-20); Calcium 8.4 mg/dL (8.4-10.2); Carbon Dioxide 27 mmol/L (22-30); Chloride 100 mmol/L (98-107); Estimated CRCL calculation 37 ml/min; Estimated Glomerular Filt Rate 39; Glucose 90 mg/dL (65-110); Potassium 4.7 mmol/L (3.4-5.0); Sodium 136 mmol/L (137-145)
[2022-07-10 05:30] LABS: Cortisol Baseline 5.05 ug/dL
[2022-07-10] MEDS: FUROSEMIDE INJ 40 MG/4 ML VIAL 20 MG IV PUSH (05:40)
[2022-07-10] MEDS: WATER FOR IRRIGATION, STERILE 1,000 ML BOTTLE 1000 ML (06:06)
[2022-07-10] MEDS: ENOXAPARIN 30 MG/0.3 ML SYRINGE SUB-Q (09:49)
[2022-07-10] MEDS: guaiFENesin 12 HR 600 MG TABCR PO (09:50)
[2022-07-10] MEDS: GABAPENTIN 300 MG CAPSULE PO (09:51)
[2022-07-10] MEDS: carvediloL 6.25 MG TABLET PO (09:51)
[2022-07-10] MEDS: PANTOPRAZOLE 40 MG TABLET PO (09:51)
[2022-07-10] MEDS: LORATADINE 10 MG TABLET PO (09:51)
[2022-07-10] MEDS: predniSONE 10 MG TABLET PO (09:51)
[2022-07-10] MEDS: FINASTERIDE 5 MG TABLET PO (09:51)
[2022-07-10] MEDS: FEBUXOSTAT 40 MG TABLET PO (09:51)
[2022-07-10] MEDS: DOXAZOSIN MESYLATE 4 MG TABLET PO (09:51)
--- NOTE | 2022-07-10 11:17 | ECG_ITS ---
Measurements Intervals Dania Rate: 98 P: 18 MO: 143 QRS: -46 QRSD: 126 T: 41 QT: 341 QTc: 436 Interpretive Statements SINUS RHYTHM POSSIBLE RIGHT VENTRICULAR CONDUCTION DELAY [RSR (QR) IN V1/V2] LEFT ANTERIOR FASCICULAR BLOCK NONSPECIFIC ST AND T CHANGES COMPARED TO ECG 07/09/2022 14:16:05 NO SIGNIFICANT CHANGE Electronically Signed On 07-10-2022 13:41:13 CDT by Jina Martinez M.D.
--- NOTE | 2022-07-10 11:28 | PM.IMPN ---
Progress Note: A&P Assessment and Plan (1) Acute respiratory failure with hypoxia: Code(s): J96.01 - Acute respiratory failure with hypoxia Status: Acute Assessment and Plan: CTA chest showing no PE but does show multifocal pneumonia. COVID swab was negative. He does have asthma/COPD though there is no wheezing at this time. Concern for sepsis and acute resp failure from bacterial PNA. CPAP changed to BiPAP. ABG ordered. Will have pulmonary on consult. Returned to the room. Patient more tachypneic and hypoxic. Discussed with television reporter. Plan to move to ICU for intubation. (2) Chest pain: Code(s): R07.9 - Chest pain, unspecified Status: Acute Assessment and Plan: Paient haviing acute onset CP which has been intermittent x 1 month. EKG on admission showing minimal ST depression in the anterior leads. EKG repeated with CP and no change noted. Troponin negative x2. Consider GI etiology. Make NPO. Will repeat a set of Trop. Check Lipase. Also check Echo. Continue tele. (3) Sepsis associated hypotension: Code(s): A41.9 - Sepsis, unspecified organism; I95.9 - Hypotension, unspecified Status: Acute Assessment and Plan: Patient was hypotensive on admission to 69/41. He had elevated lactic acid and elevated CRP. Probably not tachycardic due to being on Coreg. Sepsis felt related to PNA. Blood pressures improved with IV fluid rehydration. Related to adrenal insufficiency?Antihypertensives held for now. BCx pending. CXR showing significant airspace disease. Continue supportive care. Continue IV abx. Add Vanco. Check for COVID again. Discussed with television reporter. (4) Multifocal pneumonia: Code(s): J18.9 - Pneumonia, unspecified organism Status: Acute Assessment and Plan: CTA chest showing no PE but does show multifocal pneumonia. COVID swab was negative. He does have asthma/COPD though there is no wheezing at this time. has a history of DVT and was recently taken off apixaban but no PE and LE doppler negative for DVT. Pneumococcal and Legionella antigens ordered. Will check COVID swab again. Check MRSA nasal swab. Also check for influenzaand sputum. Continue supportive care. (5) Acute kidney injury: Code(s): N17.9 - Acute kidney failure, unspecified Status: Acute Assessment and Plan: Presumed acute kidney injury as the patient does not believe that he has underlying kidney disease. Consider ATN due to the severe hypotension. CT scan showing enlarged prostate but no distended bladder. he did receive contrast last night so will need to monitor renal function closely. Renal US read as normal. He refused a Mitchell catheter. Bladder scan ordered Q shift. Monitor strict I/O. Avoid nephrotoxic agents. (6) Electrolyte abnormality: Code(s): E87.8 - Other disorders of electrolyte and fluid balance, not elsewhere classified Status: Acute Assessment and Plan: Mild hyponatremia and hyperkalemia. Cortisol level okay this morning (though low normal considering the current clinical situation). Related to adrenal suppression? Potassium normal now. Sodium better. BP okay so will hold off on stress dose steroids. (7) Suspected sleep apnea: Code(s): R29.818 - Other symptoms and signs involving the nervous system Status: Acute Assessment and Plan: Patient states to me that he has known sleep apnea but he is having difficulty getting the CPAP unit. As above. Pulmonary to see. (8) Benign prostate hyperplasia: Code(s): N40.0 - Benign prostatic hyperplasia without lower urinary tract symptoms Status: Acute Assessment and Plan: As above. Continue doxazosin and finasteride. (9) Asthma-COPD overlap syndrome: Code(s): J44.9 - Chronic obstructive pulmonary disease, unspecified Status: Acute Assessment and Plan: Continue scheduled bronchodilators and low-dose prednisone (10 mg).
[2022-07-10 11:49] LABS: Base Excess ABG -2.2 mEq/l (+/-2.0); Fractional Inspired Oxygen 60 %; HCO3 ABG 19.9 mEq/l (22.0-26.0); Oxygen Content ABG 15.4 %vol (16.0-22.0); Oxygen Saturation ABG 89.2 % (95.0-100.0); Oxyhemoglobin 88.4 % THb (90.0-100.0); PCO2 ABG 26.7 mmHg (35.0-45.0); PO2 ABG 50.4 mmHg (80.0-100.0); PO2 FiO2 Ratio Arterial Blood 0.84 %; Total Hemoglobin 12.4 g/dL (12.0-18.0)
[2022-07-10 11:51] LABS: Site Drawn LEFT RADIAL
[2022-07-10 11:52] LABS: Device NON-INVASIVE VENT; Modified Allen's Test Pass
[2022-07-10 11:53] LABS: Non-Invasive Expiratory Pressure 8 CMH2O; Non-Invasive Inspiratory Pressure 14 CMH2O; Non-Invasive Vent Rate 14 /MIN
[2022-07-10] MEDS: BELLADONNA ALK/PHENOB ELIX 10 ML, MAG HYDROX/ALUMINUM HYD/SIMETH 30 ML, LIDOCAINE HCL 2... PO (12:42)
[2022-07-10] MEDS: PERFLUTREN LIPID MICROSPHERES 1.5 ML VIAL DILUTED TO 10 ML TOTAL VOLUME IV PUSH (12:47)
[2022-07-10] MEDS: ROCURONIUM BROMIDE 50 MG/5 ML VIAL IV PUSH ×2 (13:32→15:21)
[2022-07-10] MEDS: MIDAZOLAM HCL (*CRX) 2 MG/2 ML VIAL IV PUSH ×2 (13:32→15:21)
--- NOTE | 2022-07-10 13:38 | WPDCNINT ---
Assessment and Plan Assessment and plan (1) Acute respiratory failure with hypoxia: Code(s): J96.01 - Acute respiratory failure with hypoxia Status: Acute Assessment and Plan: Patient presented to the ED on 07/09/2022 with increasing shortness of breath for the last 3 weeks which apparently worsened in the last 3 days. He was admitted to the intermediate Unit where he was placed on BiPAP, oxygen requirements were increasing, I was asked to see the patient. Patient was in impending respiratory failure, tachypneic, was breathing between 40-50 times a minute, O2 sats were in the upper 80s to low 90s. -discussed with the patient and daughters and they were agreeable for intubation -intubation was uneventful on 07/10/2022 -patient developed a right pneumothorax could be related to BiPAP bag-mask ventilation. -currently on CMV mode of ventilation, low tidal volume strategy, peep of 10, 100% FiO2 -chest x-ray reviewed post chest tube placement -ABGs post intubation pending (2) Pneumothorax on right: Code(s): J93.9 - Pneumothorax, unspecified Status: Acute Assessment and Plan: Patient with a right pneumothorax currently multifactorial, patient has COPD, asthma, was on BiPAP, could be possibly secondary bag-mask ventilation -right chest tube was inserted by surgery -O2 sats improved immediately after insertion of the chest tube. -surgery to manage the chest tube (3) Sepsis associated hypotension: Code(s): A41.9 - Sepsis, unspecified organism; I95.9 - Hypotension, unspecified Status: Acute Assessment and Plan: Patient presented to the ED was hypotensive in the 60s, was given IV fluids and then was given Lasix after that. This morning his systolic pressures was 104/67, patient was given a L bolus during intubation -blood pressures currently on the higher side with tachycardia, will continue Coreg -will check lactic acid -patient's antibiotics have been switched levofloxacin, cefepime and vancomycin all renally dosed (4) Asthma-COPD overlap syndrome: Code(s): J44.9 - Chronic obstructive pulmonary disease, unspecified Status: Acute Assessment and Plan: Continue bronchodilators, patient on p.o. prednisone will continue for now -pulmonology has been consulted (5) Acute kidney injury: Code(s): N17.9 - Acute kidney failure, unspecified Status: Acute Assessment and Plan: Acute kidney injury likely related to hypoxia, hypotension, sepsis upon arrival to the ER -urine output has improved, creatinine trending down -will hold IV fluids for now, given ARDS picture, will keep him on the dry side -continue monitor renal function, electrolytes and urine output (6) Multifocal pneumonia: Code(s): J18.9 - Pneumonia, unspecified organism Status: Acute Assessment and Plan: CT scan of the chest shows diffuse bilateral pulmonary infiltrates -continue antibiotics as above, on mechanical ventilation Plan DVT prophylaxis: Lovenox Stress ulcer prophylaxis: Protonix Nutrition: NPO Discussed with daughters and updated them with patient's condition and plan of care. They are aware of the pneumothorax, intubation and central line placement. I answered all questions Code Status: Full code Critical Care Time Spent: 59 minutes Due to a high probability of clinically significant, life threatening deterioration, the patient required my highest level of preparedness to intervene emergently and I personally spent this critical care time directly and personally managing the patient. This critical care time included obtaining a history; examining the patient; pulse oximetry; ordering and review of studies; arranging urgent treatment with development of a management plan; evaluation of patient's response to treatment; frequent reassessment; and discussions with other providers. It was exclusive of separately billable procedures and treating other patients and teaching ti
[2022-07-10] MEDS: MIDAZOLAM 100MG/NS 100ML(*CRX) 100 MG/100 ML BAG IV CONT (13:39)
[2022-07-10] MEDS: FENTANYL 2,500MCG/NS250ML(*CRX 2,500 MCG/250 ML BAG IV CONT (13:40)
[2022-07-10 13:59] LABS: Influenza A QL RT-PCR Negative (Negative); Influenza B QL RT-PCR Negative (Negative); SARS-CoV-2 RNA PCR Negative
--- NOTE | 2022-07-10 14:22 | PM.CNGS ---
Assessment and Plan Assessment and plan (1) Pneumothorax on right: Code(s): J93.9 - Pneumothorax, unspecified Status: Acute Assessment and Plan: will urgently place right chest tube. Discussed with metal sponge making machine operator, Dr. Silva. (2) Acute respiratory failure with hypoxia: Code(s): J96.01 - Acute respiratory failure with hypoxia Status: Acute (3) Sepsis associated hypotension: Code(s): A41.9 - Sepsis, unspecified organism; I95.9 - Hypotension, unspecified Status: Acute History of Present Illness Consult details Consult date: 07/10/22 Reason for consult: chest tube ( Right pneumothorax, patient intubated) Requesting physician: Ben Silva MD Narrative: patient is an 81-year-old man who was admitted yesterday with shortness of breath and bilateral pneumonia. Despite treatment, today he became more short of breath and transferred to the intensive care unit in anticipation of being intubated. He was intubated and the postprocedure chest x-ray showed a large right pneumothorax. I was called urgently to the ICU for placement of a chest tube. I discussed the patient with Dr. Silva, metal sponge making machine operator. Review of Systems Review of Systems: ROS unobtainable: Yes unobtainable due to endotracheal tube PMFSH Past Medical History Medical History (Updated 07/10/22 @ 14:28 by Alexi Philippe MD) Asthma Benign prostate hyperplasia Chronic obstructive pulmonary disease Deep venous thrombosis Gastroesophageal reflux disease Hypertension Nasal polyp Shingles Suspected sleep apnea Surgical History Surgical History (Updated 07/09/22 @ 23:53 by Andie Harper PA-C) History of appendectomy History of back surgery History of cataract extraction History of cholecystectomy History of colonoscopy with polypectomy History of tonsillectomy Family History Family History (Updated 07/09/22 @ 23:53 by Andie Harper PA-C) Sibling Acute myocardial infarction Asthma History of blood clots Mother Diabetes mellitus Father Cancer Social History Social History (Updated 07/09/22 @ 23:54 by Andie Harper PA-C) Social History: Surrogate medical decision maker: Lena Montenegroey, spouse. Code status: Full code. Smoking packs per day: 3 Smoking cigarettes per day: 60.0 Smoking status: Former smoker Tobacco type: cigarettes Smoking end date: 11/21/83 Alcohol intake: never Substance use: never Additional living arrangements comments: The patient lives with his in [place]. Additional occupation/education comments: Ret[employer]. Spiritual care concerns: No Meds Home Medications and Allergies Home Medications Medication Instructions Recorded Confirmed Type albuterol sulfate 90 mcg/actuation 2 puff inhalation Q6H PRN 07/09/22 07/09/22 History aerosol inhaler Shortness Of Breath Or Wheezing amlodipine 10 mg tablet 10 mg PO DAILY 07/09/22 07/09/22 History budesonide 0.5 mg/2 mL suspension 0.5 mg inhalation BID PRN 07/09/22 07/09/22 History for nebulization Shortness Of Breath Or Wheezing carvedilol 6.25 mg tablet 6.25 mg PO BID 07/09/22 07/09/22 History celecoxib 100 mg capsule 100 mg PO BID 07/09/22 07/09/22 History cetirizine 10 mg tablet 10 mg PO BID 07/09/22 07/09/22 History doxazosin 4 mg tablet 4 mg PO BID 07/09/22 07/09/22 History febuxostat 40 mg tablet 40 mg PO DAILY 07/09/22 07/09/22 History finasteride 5 mg tablet 5 mg PO DAILY 07/09/22 07/09/22 History gabapentin 300 mg capsule 300 mg PO TID 07/09/22 07/09/22 History lidocaine 5 % topical patch 1 patch transdermal DAILY PRN Pain 07/09/22 07/09/22 History lisinopril 20 mg tablet 20 mg PO BID 07/09/22 07/09/22 History montelukast 10 mg tablet 10 mg PO HS 07/09/22 07/09/22 History omeprazole 40 mg capsule,delayed 40 mg PO BID 07/09/22 07/09/22 History release oxycodone-acetaminophen 5 mg-325 1 tablet PO Q6H PRN Pain, Moderate 07/09/22 07/09/22 History mg tablet predn
--- NOTE | 2022-07-10 14:29 | W.PM.PROC2 ---
Procedure Note - Detailed Date of Procedure 07/10/22 Pre-op Diagnosis Right pneumothorax Post-op Diagnosis Same Procedure Performed placement right chest tube Surgeon Alexi Philippe MD Anesthesia Other ( patient is sedated on mechanical ventilator) Indications right pneumothorax on recently intubated patient Findings right pneumothorax Description of Procedure patient's right chest was shaved with clippers. Prep with ChloraPrep was carried out. Sterile draping and sterile technique was used. Over the 5th intercostal space, in the midclavicular line, an incision was made. A blunt clamp was then used to tunnel over the adjacent rib and into the right pleural space. A sutton of air came forth. A 28 Setswana trocar chest tube was then advanced along the same tunnel and passed into the right pleural space. The trocar was retracted and the chest tube advanced to the apex of the right chest. Sats immediately went from 90% to 100% once the chest tube was hooked to Pleur-evac. The chest tube was then sutured to the skin with 0 silk suture. A sterile occlusive dressing was placed over the chest tube site and taped securely. Portable chest x-ray is pending. Urine Output 350 Drains No Packing No Pathology None sent Complications No immediate complications Condition Critical Disposition ICU [facility] Billing Surgery - Charge Forward: Surgery Billing ( Placement right chest tube)
[2022-07-10 15:10] LABS: Alveolar/Arterial O2 Gradient 601.4 mmHg; Base Excess ABG -4.5 mEq/l (+/-2.0); Fractional Inspired Oxygen 100 %; HCO3 ABG 21.4 mEq/l (22.0-26.0); Oxygen Content ABG 16.7 %vol (16.0-22.0); Oxygen Saturation ABG 92.6 % (95.0-100.0); Oxyhemoglobin 91.3 % THb (90.0-100.0); PCO2 ABG 42.4 mmHg (35.0-45.0); PO2 ABG 69.2 mmHg (80.0-100.0); PO2 FiO2 Ratio Arterial Blood 0.69 %; pH ABG 7.321 (7.350-7.450)
[2022-07-10 15:11] LABS: Device VENTILATOR; Modified Allen's Test Pass; Site Drawn LEFT RADIAL
[2022-07-10 15:12] LABS: Arterial Blood Gas PEEP 10 cmH2O; Arterial Blood Gas Tidal Volume 440 ml; Arterial Blood Gas Vent Mode CMV; Arterial Blood Gas Ventilator rate 26 /MIN
[2022-07-10] MEDS: ALBUTEROL SULFATE NEB 2.5 MG/3 ML INH 5 MG INHALATION ×2 (15:13→20:14)
--- NOTE | 2022-07-10 15:22 | WPDPROCEDUR ---
Procedures Central Line Placement Right IJ: Central Line Date: 07/10/22 Central Line Time: 14:50 Discussed w/ the patient/family/POA,the placement of a central venous catheter, including its clinical necessity/indication & associated potential risks, benifits and alternatives.: Yes The patient/family/POA understand(s) and acknowledge(s) the need to proceed with central venous catheter insertion as an important element of the patient's clinical management.: Yes Consent: I have discussed with the patient and/or surrogate, the non-emergent placement of a central venous catheter, including its clinical necessity/indication and associated potential risks and complications. The patient and/or surrogate understand(s) and acknowledge(s) the need to proceed with central venous catheter insertion as an important element of the patient's clinical management. Time Out Performed: Yes Patient Position: supine Patient placed on monitor/pulse ox: Yes Provider Prep: mask, sterile gown, sterile gloves, Max. sterile barrier precautions, cap and hand hygiene with conventional soap/water or alcohol based hand rub Central line prep: 2% Chlorhexidine scrub Local anesthesia used: lidocaine 1% Amount of anesthesia used (ml): 3 Sterile US Technique with sterile gel/sterile probe covers: Yes Central line lumen inserted: triple Bengali: 12 Length (cm): 16 Depth of Insertion (cm): 14 Post Procedure: sutured in place, good blood return, all ports aspirated, flushed, capped, transparent dressing, hemostatic product, antimicrobial product, securement product and aseptic technique maintained throughout procedure Post procedure x-ray: tip of catheter in good position Patient tolerated procedure: well Complications: none
--- NOTE | 2022-07-10 15:26 | WPDPROCEDUR ---
Procedures Intubation Intubation Date: 07/10/22 Intubation Time: 13:36 A pre-procedural Time-Out was completed immediately before starting the procedure and confirmed: Patient Identification, Site, Procedure, Patient Position and the Availability of Requisite Equipment: Yes Sedative: etomidate Mg given: 24 Paralytic: rocuronium Mg given: 50 Laryngoscope: fiber optic video scope Assist device used: fiber optic device ET tube size: 8 Tube secured depth (cm): 24 Tube secured location: lips Tube placement confirmation: visualized tube passing through cords, equal breath sounds bilaterally, no breath sounds over epigastrium and confirmation by capnometry Patient tolerated procedure: well Intubation complications: none
[2022-07-10] MEDS: NOREPINEPHRINE 8 MG/D5W 250 ML 8 MG/250 ML BAG 56.25 MG IV CONT ×2 (15:30→19:26)
[2022-07-10 15:32] LABS: Hematocrit 35.1 % (42.0-52.0); Hemoglobin 11.5 g/dL (14.0-18.0); Mean Corpuscular HGB Conc 32.8 g/dl (32-36); Mean Corpuscular Hemoglobin 31.5 pg (26-34); Mean Corpuscular Volume 96.2 fl (80-100); Mean Platelet Volume 9.1 fl (7.4-10.4); Platelet Count Result 158 k/mm3 (150-375); Red Blood Count 3.65 M/mm3 (4.6-6.20); Red Cell Distribution Width 15.3 % (11.5-14.5); White Blood Count 8.7 K/mm3 (4.5-10.0)
[2022-07-10 15:41] LABS: Lactic Acid Reflex 1.6 mmol/L (0.7-2.0)
[2022-07-10 15:42] LABS: INR 1.1; Prothrombin Time 13.9 Seconds (11.1-14.7)
[2022-07-10 15:43] LABS: Partial Thromboplastin Time 32.5 SECONDS (22.3-36.8)
[2022-07-10] MEDS: hetaSTARCH 6%/NACL 500 ML 250 ML IV CONT (15:48)
[2022-07-10] MEDS: CISATRACURIUM BESYLATE 200 MG in DEXTROSE 5% 80 ML 8.89 ML IV CONT (15:50)
[2022-07-10 15:57] LABS: Lipase 31 U/L (23-300)
[2022-07-10 16:00] LABS: Band Neutrophils Percent 5 % (0-6); Lymphocytes Absolute Manual 0.26 K/mm3 (1.1-4.5); Monocytes Absolute Manual 0.43 K/mm3 (0.1-0.90); Monocytes Percent Manual 5 % (3-9); Neutrophils Percent Manual 87 % (46-73); Platelet Estimate Adequate (Adequate); Total Cells Counted 100
[2022-07-10 16:01] LABS: Anisocytosis 2+ (NORMAL)
[2022-07-10 16:07] LABS: Alanine Aminotransferase 23 U/L (6-50); Albumin Level 3.3 g/dL (3.5-5.1); Alkaline Phosphatase 67 U/L (38-126); Anion Gap 16 mmol/L (8-16); Aspartate Amino Transferase 47 U/L (17-59); Bilirubin,Total 1.8 mg/dL (0.2-1.3); Blood Urea Nitrogen 29 mg/dL (9-20); CRP 28.6 mg/dL (<1.0); Calcium 7.9 mg/dL (8.4-10.2); Carbon Dioxide 24 mmol/L (22-30); Chloride 100 mmol/L (98-107); Creatine Kinase 37 U/L (55-170); Estimated CRCL calculation 39 ml/min; Estimated Glomerular Filt Rate 42; Glucose 229 mg/dL (65-110); Magnesium 1.7 mg/dL (1.6-2.3); Phosphorus 4.6 mg/dL (2.5-4.5); Potassium 4.3 mmol/L (3.4-5.0); Sodium 140 mmol/L (137-145)
[2022-07-10] MEDS: HYDROCORTISONE SODIUM SUCCINATE 100 MG/2 ML VIAL IV PUSH ×2 (17:41→20:47)
[2022-07-10 18:48] LABS: Creatinine Urine 59.4 mg/dL
[2022-07-10 18:49] LABS: Sodium Urine Random 39 meq/L
--- NOTE | 2022-07-10 19:01 | PC.NURSE ---
Left messages for Dr. Low for consult at [id number] and [id number]. No return call has been received.
--- NOTE | 2022-07-10 19:02 | PC.NURSE ---
This patient, Moe Judge, was transferred to icu 1 ] on 07/10/22 at 1305 Personal belongings sent with patient. Report given to [ ]. Appropriate documentation sent with patient.
[2022-07-10 19:20] LABS: Eosinophil Urine None Seen % (None Seen)
[2022-07-10] MEDS: CENTRAL LINE FLUSH 10 ML IV PUSH (20:47)
[2022-07-10] MEDS: PANTOPRAZOLE SODIUM IV 40 MG VIAL IV PUSH (20:47)
[2022-07-10] MEDS: MINERAL OIL/WHITE PETROLATUM OINTMENT 1 APPLIC EACH EYE (20:48)
[2022-07-11] VITALS (82 sets, daily range): BP systolic 101–133; BP diastolic 60–75; PULSE 24–857; RESP 19–26; TEMP 34.2–37.2; O2SAT 89–99
[2022-07-11] MEDS: NOREPINEPHRINE 8 MG/D5W 250 ML 8 MG/250 ML BAG 46.88 MG IV CONT (01:40)
[2022-07-11] MEDS: CISATRACURIUM BESYLATE 200 MG in DEXTROSE 5% 80 ML 8.89 ML IV CONT ×3 (01:42→22:25)
[2022-07-11] MEDS: ALBUTEROL SULFATE NEB 2.5 MG/3 ML INH 5 MG INHALATION ×4 (02:48→20:08)
[2022-07-11] MEDS: IPRATROPIUM BR 0.02% INH SOLN 0.5 MG/2.5 ML VIAL INHALATION ×4 (02:49→20:08)
[2022-07-11] MEDS: CENTRAL LINE FLUSH 10 ML IV PUSH ×3 (04:10→19:50)
[2022-07-11] MEDS: NOREPINEPHRINE 8 MG/D5W 250 ML 8 MG/250 ML BAG 43.13 MG IV CONT (05:02)
[2022-07-11 05:44] LABS: Alveolar/Arterial O2 Gradient 307.6 mmHg; Base Excess ABG -2.7 mEq/l (+/-2.0); Carboxyhemoglobin 0.3 % THb (0-2.0); Fractional Inspired Oxygen 60 %; HCO3 ABG 20.4 mEq/l (22.0-26.0); Methemoglobin ABG 0.2 %THb (0-1.5); Oxygen Content ABG 16.4 %vol (16.0-22.0); Oxygen Saturation ABG 97.1 % (95.0-100.0); Oxyhemoglobin 95.7 % THb (90.0-100.0); PCO2 ABG 30.1 mmHg (35.0-45.0); PO2 ABG 87.1 mmHg (80.0-100.0); PO2 FiO2 Ratio Arterial Blood 1.45 %; Reduced Hemoglobin 3.8 %THb (0-5.0); Total Hemoglobin 12.1 g/dL (12.0-18.0); pH ABG 7.448 (7.350-7.450)
[2022-07-11 05:52] LABS: Arterial Blood Gas Vent Mode CMV; Arterial Blood Gas Ventilator rate 26 /MIN; Device VENTILATOR; Modified Allen's Test Pass; Site Drawn RIGHT RADIAL
[2022-07-11 05:53] LABS: Arterial Blood Gas PEEP 10 cmH2O; Arterial Blood Gas Tidal Volume 440 ml
[2022-07-11 06:14] LABS: Basophils Percent Auto 0.3 % (0.2-1.2); Hematocrit 33.3 % (42.0-52.0); Hemoglobin 11.1 g/dL (14.0-18.0); Immature Granulocyte Absolute 0.29 K/mm3 (0.00-0.031); Immature Granulocyte Percent A 3.3 % (0-0.5); Lymphocytes Absolute Auto 0.59 K/mm3 (0.9-3.2); Lymphocytes Percent Auto 6.8 % (18.3-44.2); Mean Corpuscular HGB Conc 33.3 g/dl (32-36); Mean Corpuscular Hemoglobin 31.5 pg (26-34); Mean Corpuscular Volume 94.6 fl (80-100); Mean Platelet Volume 9.4 fl (7.4-10.4); Monocytes Absolute Auto 0.4 K/mm3 (0.1-0.6); Monocytes Percent Auto 4.8 % (2.6-8.5); Neutrophils Absolute Auto 7.4 K/mm3 (1.3-6.7); Neutrophils Percent Auto 84.8 % (45.5-73.1); Platelet Count Result 163 k/mm3 (150-375); Red Blood Count 3.52 M/mm3 (4.6-6.20); White Blood Count 8.7 K/mm3 (4.5-10.0)
[2022-07-11] MEDS: HYDROCORTISONE SODIUM SUCCINATE 100 MG/2 ML VIAL IV PUSH ×3 (06:18→19:50)
[2022-07-11 06:36] LABS: Lactic Acid Reflex 1.4 mmol/L (0.7-2.0)
[2022-07-11 07:48] LABS: Alanine Aminotransferase 19 U/L (6-50); Albumin Level 2.8 g/dL (3.5-5.1); Alkaline Phosphatase 67 U/L (38-126); Anion Gap 9 mmol/L (8-16); Aspartate Amino Transferase 26 U/L (17-59); Bilirubin,Total 0.8 mg/dL (0.2-1.3); Blood Urea Nitrogen 26 mg/dL (9-20); CRP 28.3 mg/dL (<1.0); Calcium 8.3 mg/dL (8.4-10.2); Carbon Dioxide 22 mmol/L (22-30); Chloride 102 mmol/L (98-107); Estimated CRCL calculation 48 ml/min; Estimated Glomerular Filt Rate 53; Glucose 238 mg/dL (65-110); Magnesium 1.9 mg/dL (1.6-2.3); Phosphorus 3.1 mg/dL (2.5-4.5); Potassium 3.3 mmol/L (3.4-5.0); Sodium 133 mmol/L (137-145)
[2022-07-11] MEDS: MINERAL OIL/WHITE PETROLATUM OINTMENT 1 APPLIC EACH EYE ×2 (08:28→19:49)
[2022-07-11] MEDS: ENOXAPARIN 30 MG/0.3 ML SYRINGE SUB-Q (08:28)
[2022-07-11] MEDS: POTASSIUM CHLORIDE 20 MEQ PACKET (FOR LIQUID) 40 MEQ FEED TUBE (08:28)
[2022-07-11] MEDS: PANTOPRAZOLE SODIUM IV 40 MG VIAL IV PUSH ×2 (08:28→19:50)
--- NOTE | 2022-07-11 08:35 | PM.IMPN ---
Progress Note: A&P Assessment and Plan (1) Acute respiratory failure with hypoxia: Code(s): J96.01 - Acute respiratory failure with hypoxia Status: Acute Assessment and Plan: Patient presents with SOB. CTA chest showing no PE but does show multifocal pneumonia. COVID swab was negative (repeat COVID test also negative). Respiratory failure associated with sepsis and HoTN all related to PNA. Patient's condition deteriorated (related to spontaneous PTX?) requiring intubation. CXR showing improved diffuse lung disease. Currently intubated, sedated and paralyzed. Able to wean FiO2. Wean vent settings as tolerated. (2) Pneumothorax on right: Code(s): J93.9 - Pneumothorax, unspecified Status: Acute Assessment and Plan: Patient had acute onset CP prior to intubation. He stated it has been intermittent x 1 month. EKG on admission showing minimal ST depression in the anterior leads. EKG repeated with CP and no change noted. Troponin negative x2. CP could be related to spontaneous PTX which could explain why he decompensated. PTX noted BEFORE central line placement. PTX could be related to bagging/intubation. He has Chest tube in place. Management per conflicts analyst. (3) Sepsis associated hypotension: Code(s): A41.9 - Sepsis, unspecified organism; I95.9 - Hypotension, unspecified Status: Acute Assessment and Plan: Patient was hypotensive on admission to 69/41. He had elevated lactic acid and elevated CRP all consistent with sepsis. Probably not tachycardic due to being on Coreg. Sepsis felt related to PNA. Blood pressures improved with IV fluid rehydration. As patient's respiratory failure worsened, his BP dropped as well requiring Levophed. Related to adrenal insufficiency? Solu-Cortef started. Antihypertensives on hold. BCx pending. Continue IV abx. Discussed with conflicts analyst. (4) Multifocal pneumonia: Code(s): J18.9 - Pneumonia, unspecified organism Status: Acute Assessment and Plan: CTA chest showing no PE but does show multifocal pneumonia. COVID swab was negative (repeat COVID test also negative). Influenza negative. He does have asthma/COPD though there is no wheezing at this time. He has a history of DVT and was recently taken off apixaban but no PE and LE doppler negative for DVT. Pneumococcal and Legionella antigens ordered. MRSA nasal swab ordered. BCx pending. Continue IV abx with Vanco and Cefepime. Continue Nebs. Continue supportive care. Will see if we can get the sputum sample now that he is intubated. (5) Acute kidney injury: Code(s): N17.9 - Acute kidney failure, unspecified Status: Acute Assessment and Plan: Cr 2.0 on admission. Acute kidney injury as the patient does not believe that he has underlying kidney disease. Probably ATN due to the severe hypotension. CT scan showing enlarged prostate but no distended bladder. He did receive contrast 07/09/22. Renal US normal. Mitchell catheter secured. Repeat Cr better at 1.3 today. Monitor strict I/O. Avoid nephrotoxic agents. (6) Electrolyte abnormality: Code(s): E87.8 - Other disorders of electrolyte and fluid balance, not elsewhere classified Status: Acute Assessment and Plan: Mild hyponatremia and hyperkalemia. Cortisol level okay this morning (though low normal considering the current clinical situation). Related to adrenal suppression? Stress dose steroids started. Potassium low now and being replaced. Sodium about the same. Follow. 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 No wheezing. Continue scheduled nebulizers. His low-dose prednisone (10 mg) was stopped. He was started on stress dose steroids due to hypotension. As above. (8) Suspected sleep apnea: Code(s): R29.818 - Other symptoms and signs involving the nervous system
[2022-07-11] MEDS: MIDAZOLAM 100MG/NS 100ML(*CRX) 100 MG/100 ML BAG IV CONT (08:38)
[2022-07-11 08:39] LABS: Glucose Point of Care 218 mg/dl (65-105)
[2022-07-11] MEDS: INSULIN ASPART (*BKC) 100 UNITS/ML SUB-Q (08:39)
--- NOTE | 2022-07-11 09:53 | PCSTNOTE ---
Patient transferred to ICU. Speech therapy services not indicated at this time. Contacted physician and he will reorder services if needed at a later time.
--- NOTE | 2022-07-11 11:30 | WPDINTPN ---
Progress Note: A&P Assessment and Plan (1) Septic shock: Code(s): A41.9 - Sepsis, unspecified organism; R65.21 - Severe sepsis with septic shock Status: Acute Assessment and Plan: Patient presented to the ED was hypotensive in the 60s, was given IV fluids and then was given Lasix after that. This morning his systolic pressures was 104/67, patient was given a L bolus during intubation -patient currently on Levophed, will maintain mean arterial pressures greater than 65 mmHg -urine output has been adequate, lactic acid is within normal limits -continue levofloxacin, cefepime, vancomycin (07/10) -07/10/2022 blood cultures x2 pending -sputum cultures have been ordered -patient was on prednisone at home, have switch to stress dose steroids (2) Acute respiratory failure with hypoxia: Code(s): J96.01 - Acute respiratory failure with hypoxia Status: Acute Assessment and Plan: Patient presented to the ED on 07/09/2022 with increasing shortness of breath for the last 3 weeks which apparently worsened in the last 3 days. He was admitted to the intermediate Unit where he was placed on BiPAP, oxygen requirements were increasing, I was asked to see the patient. Patient was in impending respiratory failure, tachypneic, was breathing between 40-50 times a minute, O2 sats were in the upper 80s to low 90s. -discussed with the patient and daughters and they were agreeable for intubation -intubation was uneventful on 07/10/2022 -patient developed a right pneumothorax could be related to BiPAP, bag-mask ventilation. He was complaining of chest pain when I evaluated him in the intermediate Unit -currently on CMV mode of ventilation, low tidal volume strategy, PF ratio is 145, peep of 10, 60 % FiO2 -chest x-ray and ABGs reviewed, ventilator adjusted -continue fentanyl and Versed infusion, I will also continue Nimbex infusion for today for neuromuscular blockade at ventilator synchrony (3) Pneumothorax on right: Code(s): J93.9 - Pneumothorax, unspecified Status: Acute Assessment and Plan: Patient with a right pneumothorax currently multifactorial, patient has COPD, asthma, was on BiPAP, could be possibly secondary bag-mask ventilation -right chest tube was inserted by surgery -chest x-ray this morning shows right chest tube in place, pneumothorax has resolved -surgery to manage the chest tube (4) Asthma-COPD overlap syndrome: Code(s): J44.9 - Chronic obstructive pulmonary disease, unspecified Status: Acute Assessment and Plan: Continue bronchodilators, -pulmonology has been consulted (5) Acute kidney injury: Code(s): N17.9 - Acute kidney failure, unspecified Status: Acute Assessment and Plan: Acute kidney injury likely related to hypoxia, hypotension, sepsis upon arrival to the ER -urine output has improved, creatinine trending down -patient was given IV fluids for septic shock, no maintenance IV fluids as patient in ARDS -continue monitor renal function, electrolytes and urine output (6) Multifocal pneumonia: Code(s): J18.9 - Pneumonia, unspecified organism Status: Acute Assessment and Plan: CT scan of the chest shows diffuse bilateral pulmonary infiltrates -continue antibiotics as above, on mechanical ventilation Plan DVT prophylaxis: Lovenox Stress ulcer prophylaxis: Protonix Nutrition: Will start tube feeds Discussed with daughters and updated them with patient's condition and plan of care. I answered all questions Code Status: Full code Critical Care Time Spent: 38 minutes Due to a high probability of clinically significant, life threatening deterioration, the patient required my highest level of preparedness to intervene emergently and I personally spent this critical care time directly and personally managing the patient. This critical care time included obtaining a history; examining the patient; pulse oximetry; ordering and review
[2022-07-11] MEDS: NOREPINEPHRINE 8 MG/D5W 250 ML 8 MG/250 ML BAG 26.25 MG IV CONT (11:43)
[2022-07-11 11:55] LABS: Glucose Point of Care 186 mg/dl (65-105)
[2022-07-11] MEDS: FENTANYL 2,500MCG/NS250ML(*CRX 2,500 MCG/250 ML BAG 10 MCG IV CONT (15:14)
--- NOTE | 2022-07-11 15:15 | PM.PNGS ---
Progress Note: A&P Assessment and Plan (1) Pneumothorax on right: Code(s): J93.9 - Pneumothorax, unspecified Status: Acute Assessment and Plan: Chest tube in good position. Continued to suction. Follow serial chest x-rays and exams. Subjective Subjective Date/Time Seen: 07/11/22 15:15 Patient reports: other (Intubated on mechanical ventilator) Review of Systems Review of Systems: ROS unobtainable: Yes unobtainable due to endotracheal tube Exam Const: General: patient obtunded Chest: Chest palpation & inspection: abnormal inspection of the chest (Right chest tube, occasional bubbles) and no crepitus Resp: Effort & Inspection: other (On ventilator) Auscultation: rhonchi and other (Symmetric breath sounds) Objective Data Vital Signs Vital Signs: Vital Signs - 24 hr 07/10/22 15:25 07/10/22 15:50 07/10/22 15:30 Temperature Pulse Rate 106 H 94 106 H Respiratory Rate 26 H 26 H Blood Pressure 115/66 59/47 L Pulse Oximetry Oxygen Delivery Fraction of Inspired Oxygen 07/10/22 16:57 07/10/22 16:00 07/10/22 18:00 Temperature Pulse Rate 78 93 68 Respiratory Rate Blood Pressure Pulse Oximetry 100 Oxygen Delivery Mechanical Ventilation Fraction of Inspired Oxygen 100 07/10/22 18:00 07/10/22 16:00 07/10/22 16:00 Temperature 37.1 C Pulse Rate 68 92 68 Respiratory Rate 26 H 26 H Blood Pressure 125/65 Pulse Oximetry 100 100 Oxygen Delivery Mechanical Ventilation Fraction of Inspired Oxygen 100 07/10/22 18:45 07/10/22 18:00 07/10/22 18:48 Temperature Pulse Rate 68 68 67 Respiratory Rate 26 H Blood Pressure 125/65 125/65 117/65 Pulse Oximetry Oxygen Delivery Fraction of Inspired Oxygen 07/10/22 18:53 07/10/22 18:54 07/10/22 15:18 Temperature Pulse Rate 68 68 109 H Respiratory Rate 26 H 26 H 21 H Blood Pressure 98/65 L Pulse Oximetry 88 L Oxygen Delivery Fraction of Inspired Oxygen 07/10/22 15:21 07/10/22 15:26 07/10/22 15:29 Temperature Pulse Rate 111 H 106 H 107 H Respiratory Rate 29 H 26 H 26 H Blood Pressure 102/72 64/45 L 62/41 L Pulse Oximetry 88 L 83 L 83 L Oxygen Delivery Fraction of Inspired Oxygen 07/10/22 15:30 07/10/22 15:31 07/10/22 15:35 Temperature Pulse Rate 104 H 105 H 98 Respiratory Rate 26 H 26 H 27 H Blood Pressure 59/43 L 60/47 L Pulse Oximetry 82 L 83 L 86 L Oxygen Delivery Fraction of Inspired Oxygen 07/10/22 15:36 07/10/22 15:41 07/10/22 15:45 Temperature Pulse Rate 103 H 98 94 Respiratory Rate 26 H 26 H 26 H Blood Pressure 69/55 L 123/67 Pulse Oximetry 87 L 95 97 Oxygen Delivery Fraction of Inspired Oxygen 07/10/22 15:46 07/10/22 15:51 07/10/22 15:56 Temperature Pulse Rate 93 93 93 Respiratory Rate 26 H 26 H 26 H Blood Pressure 116/69 115/66 112/63 Pulse Oximetry 97 97 97 Oxygen Delivery Fraction of Inspired Oxygen 07/10/22 16:00 07/10/22 16:01 07/10/22 16:06 Temperature Pulse Rate 92 93 92 Respiratory Rate 26 H 26 H 26 H Blood Pressure 105/63 108/63 Pulse Oximetry 97 98 98 Oxygen Delivery Fraction of Inspired Oxygen 07/10/22 16:11 07/10/22 16:15 07/10/22 16:16 Temperature Pulse Rate 93 90 90 Respiratory Rate 23 H 26 H 26 H Blood Pressure 116/65 109/64 Pulse Oximetry 98 98 98 Oxygen Delivery Fraction of Inspired Oxygen 07/10/22 16:22 07/10/22 16:26 07/10/22 16:30 Temperature Pulse Rate 93 95 115 H Respiratory Rate 14 26 H 26 H Blood Pressure 138/73 121/63 Pulse Oximetry 94 90 97 Oxygen Delivery Fraction of Inspired Oxygen 07/10/22 16:31 07/10/22 16:41 07/10/22 16:45 Temperature Pulse Rate 92 90 85 Respiratory Rate 24 H 24 H 23 H Blood Pressure 114/61 109/62 Pulse Oximetry 98 100 100 Oxygen Delivery Fraction of Inspired Oxygen 07/10/22 16:46 07/10/22 17:00 07/10/22 17:01 Temperature Pulse Rate 84 76 74 Respiratory Rate 25 H
--- NOTE | 2022-07-11 15:20 | PM.CNPUL ---
Assessment and Plan Assessment and plan (1) Acute respiratory failure with hypoxia: Code(s): J96.01 - Acute respiratory failure with hypoxia Status: Acute Assessment and Plan: He has acute respiratory failure associated with right sided pneumothorax, relieved with chest tube. He has underlying COPD which contributed to his risk for pneumothorax after intubation. He has increased inflammatory markers consistent with infection. He needs mechanical ventilation, antibiotics, vent management, and close follow up. History of Present Illness History of Present Illness Consult date: 08/30/22 Requesting physician: Jorge Lovelace MD Chief complaint: PNA, Hypoxia Narrative: NEW CONSULT: Moe Judge is an 81 year old man with emphysema was having 3 weeks of increasing shortness of breath, acutely worse for 3 days prior to admission. 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 07/10/22 ABG: pH 7.49/26.7/50.4/19.2/89.2%. on 60% and BiPAP BUN was elevated 33 creatinine 2.0, elevated lactic acid 3.4. His current infusions include fentanyl 100 micrograms/hour; Levophed 13 micrograms/minute; Cis-atracurium Dr Philippe placed a right sided chest tube when he developed a right sided pneumothorax DATA * 07/11/2022 CXR: Improved diffuse lung disease, consistent with pneumonia. No pneumothorax. Right-sided chest tube in expected position. [ The left lung is the pneumonia lung.] Review of Systems Review of Systems: ROS unobtainable: Yes unobtainable due to endotracheal tube PMFSH Past Medical History Medical History Asthma Benign prostate hyperplasia Chronic obstructive pulmonary disease Deep venous thrombosis Gastroesophageal reflux disease Hypertension Nasal polyp Shingles Suspected sleep apnea Surgical History Surgical History History of appendectomy History of back surgery History of cataract extraction History of cholecystectomy History of colonoscopy with polypectomy History of tonsillectomy Family History Family History Sibling Acute myocardial infarction Asthma History of blood clots Mother Diabetes mellitus Father Cancer Social History Social History Social History: Surrogate medical decision maker: Lena Jduge, spouse. Code status: Full code. Smoking packs per day: 3 Smoking cigarettes per day: 60.0 Smoking status: Former smoker Tobacco type: cigarettes Smoking end date: 11/21/83 Alcohol intake: never Substance use: never Additional living arrangements comments: The patient lives with his in [place]. Additional occupation/education comments: Ret[employer]. Spiritual care concerns: No Meds Home Medications and Allergies Home Medications Medication Instructions Recorded Confirmed Type albuterol sulfate 90 mcg/actuation 2 puff inhalation Q6H PRN 07/09/22 07/09/22 History aerosol inhaler Shortness Of Breath Or Wheezing amlodipine 10 mg tablet 10 mg PO DAILY 07/09/22 07/09/22 History budesonide 0.5 mg/2 mL suspension 0.5 mg inhalation BID PRN 07/09/22 07/09/22 History for nebulization Shortness Of Breath Or Wheezing carvedilol 6.25 mg tablet 6.25 mg PO BID 07/09/22 07/09/22 History celecoxib 100 mg capsule 100 mg PO BID 07/09/22 07/09/22 History cetirizine 10 mg tablet 10 mg PO BID 07/09/22 07/09/22 History doxazosin 4 mg tablet 4 mg PO BID 07/09/22 07/09/22 History febuxostat 40 mg tablet 40 mg PO DAILY 07/09/22 07/09/22 History finasteride 5 mg tablet 5 mg PO DAILY 07/09/22 07/09/22 History gabapentin 300 mg capsule 300 mg PO TID 07/09/2207/09
[2022-07-11 18:25] LABS: Glucose Point of Care 200 mg/dl (65-105)
[2022-07-11 21:08] LABS: Glucose Point of Care 145 mg/dl (65-105)
[2022-07-11] MEDS: NOREPINEPHRINE 8 MG/D5W 250 ML 8 MG/250 ML BAG 24.38 MG IV CONT (21:09)
[2022-07-12] VITALS (57 sets, daily range): BP systolic 92–116; BP diastolic 58–69; PULSE 75–106; RESP 20–26; TEMP 35.9–36.8; O2SAT 91–100; BMI 30.9
[2022-07-12 00:34] LABS: Glucose Point of Care 160 mg/dl (65-105)
[2022-07-12] MEDS: IPRATROPIUM BR 0.02% INH SOLN 0.5 MG/2.5 ML VIAL INHALATION ×4 (02:36→20:05)
[2022-07-12] MEDS: ALBUTEROL SULFATE NEB 2.5 MG/3 ML INH 5 MG INHALATION (02:37)
[2022-07-12] MEDS: CENTRAL LINE FLUSH 10 ML IV PUSH ×4 (05:19→20:55)
[2022-07-12 05:37] LABS: Base Excess ABG -6.9 mEq/l (+/-2.0); Carboxyhemoglobin 0.3 % THb (0-2.0); Fractional Inspired Oxygen 90 %; HCO3 ABG 22.4 mEq/l (22.0-26.0); Methemoglobin ABG 0.4 %THb (0-1.5); Oxygen Content ABG 15.7 %vol (16.0-22.0); Oxygen Saturation ABG 95.9 % (95.0-100.0); Oxyhemoglobin 95.3 % THb (90.0-100.0); PO2 ABG 102.9 mmHg (80.0-100.0); PO2 FiO2 Ratio Arterial Blood 1.14 %; Total Hemoglobin 11.6 g/dL (12.0-18.0)
[2022-07-12 05:40] LABS: pH ABG 7.161 (7.350-7.450)
[2022-07-12 05:41] LABS: Arterial Blood Gas PEEP 10 cmH2O; Arterial Blood Gas Tidal Volume 440 ml; Arterial Blood Gas Vent Mode CMV; Arterial Blood Gas Ventilator rate 22 /MIN; Device VENTILATOR; Modified Allen's Test Unable to perform; PCO2 ABG 64.2 mmHg (35.0-45.0); Site Drawn LEFT RADIAL
[2022-07-12 06:18] LABS: Basophils Absolute Auto 0.1 K/mm3 (0.0-0.1); Basophils Percent Auto 0.5 % (0.2-1.2); Eosinophils Absolute Auto 0.3 K/mm3 (0-0.3); Eosinophils Percent Auto 2.8 % (0-4.4); Hemoglobin 10.5 g/dL (14.0-18.0); Immature Granulocyte Absolute 0.28 K/mm3 (0.00-0.031); Immature Granulocyte Percent A 2.6 % (0-0.5); Lymphocytes Absolute Auto 0.57 K/mm3 (0.9-3.2); Lymphocytes Percent Auto 5.3 % (18.3-44.2); Mean Corpuscular HGB Conc 31.8 g/dl (32-36); Mean Corpuscular Hemoglobin 31.6 pg (26-34); Mean Corpuscular Volume 99.4 fl (80-100); Mean Platelet Volume 9.1 fl (7.4-10.4); Monocytes Absolute Auto 0.9 K/mm3 (0.1-0.6); Monocytes Percent Auto 8.7 % (2.6-8.5); Neutrophils Absolute Auto 8.6 K/mm3 (1.3-6.7); Neutrophils Percent Auto 80.1 % (45.5-73.1); Platelet Count Result 170 k/mm3 (150-375); Red Blood Count 3.32 M/mm3 (4.6-6.20); Red Cell Distribution Width 15.4 % (11.5-14.5); White Blood Count 10.7 K/mm3 (4.5-10.0)
[2022-07-12 06:33] LABS: Alanine Aminotransferase 15 U/L (6-50); Albumin Level 2.6 g/dL (3.5-5.1); Alkaline Phosphatase 53 U/L (38-126); Anion Gap 7 mmol/L (8-16); Aspartate Amino Transferase 19 U/L (17-59); Bilirubin,Total 0.3 mg/dL (0.2-1.3); Blood Urea Nitrogen 35 mg/dL (9-20); Calcium 8.2 mg/dL (8.4-10.2); Carbon Dioxide 25 mmol/L (22-30); Chloride 101 mmol/L (98-107); Estimated CRCL calculation 33 ml/min; Estimated Glomerular Filt Rate 34; Glucose 188 mg/dL (65-110); Magnesium 2.1 mg/dL (1.6-2.3); Phosphorus 6.7 mg/dL (2.5-4.5); Potassium 4.5 mmol/L (3.4-5.0); Sodium 133 mmol/L (137-145)
[2022-07-12] MEDS: HYDROCORTISONE SODIUM SUCCINATE 100 MG/2 ML VIAL IV PUSH ×3 (06:36→21:00)
[2022-07-12 06:37] LABS: Lactic Acid Reflex 0.9 mmol/L (0.7-2.0)
--- NOTE | 2022-07-12 07:06 | PM.PNPUL ---
Progress Note: A&P Assessment and Plan (1) Multifocal pneumonia: Code(s): J18.9 - Pneumonia, unspecified organism Status: Acute Assessment and Plan: Patient presented on 07/09 with 3 weeks shortness of breath acutely worsening over the last 3 days with white blood cell count of 9.6, lactic acidosis, shock and a CTA scan with no PE and patchy bilateral interstitial and alveolar infiltrates in a bronchovascular pattern. Patient failed BiPAP and was intubated on 07/10 with a post intubation chest x-ray showing a new right pneumothorax and is status post right chest tube. Patient has been treated with ceftriaxone and azithromycin x1 dose on 07/10 and now vancomycin, Levaquin and cefepime started on 07/10. COVID RT PCR test negative, influenza swab negative. 07/12 patient remains intubated, sedated, paralyzed, on levophed and currently on 70% FiO2 with peep of 10. Blood gas earlier this morning was 7.16/64/103 and his respiratory rate was increased to 26 and his FiO2 was decreased to 70%. remains on Levophed 7 mcg, hydrocortisone 100 Q 8 and ipratropium and albuterol nebulizers q.6 hours with no wheezing on exam. Continue vancomycin, Levaquin and cefepime (day 3). Blood cultures negative today, sputum culture pending. I will send a extended panel for respiratory viral pathogens. I will repeat COVID RT PCR study. urine Legionella, urine pneumococcal and mycoplasma IgM pending. Ventilator management per applications support analyst. With pneumothorax requiring chest tube and positive air leak would attempt to minimize airway pressures by minimizing peep and tidal volume while using higher levels of FiO2 and higher RR. (2) Asthma-COPD overlap syndrome: Code(s): J44.9 - Chronic obstructive pulmonary disease, unspecified Status: Acute Assessment and Plan: 07/12 patient carries a diagnosis of asthma COPD overlap and had mild lower lobe bronchiectasis on CT scan 08/08/2018. In the chart it said that he smoked 3 packs per day for 26 years. Home medicines listed albuterol q.6 p.r.n. and budesonide 0.5 mg nebulizers b.i.d. p.r.n., cetirizine, montelukast and prednisone 10 Q day. I called the family to confirm this and left a voicemail. Obtain records from outside hospital. Currently no wheezing on ipratropium 0.5 nebulized q.6 hours and albuterol 2.5 mg nebs q.6 hours. Patient also on hydrocortisone 100 mg IV q.8 hours for his shock. (3) Pneumothorax on right: Code(s): J93.9 - Pneumothorax, unspecified Status: Acute Assessment and Plan: 07/12 Patient with right pneumothorax after he failed BiPAP and after intubation. Patient currently has a chest tube in place with no pneumothorax on chest x-ray. There is an intermittant breath by breath air leak today on -[address] drainage. Chest tube management per general surgery. Subjective Date/time seen: 07/12/22 07:06 Interval history: 07/11 NEW CONSULT: oMe Judge is an 81 year old man with emphysema was having 3 weeks of increasing shortness of breath, acutely worse for 3 days prior to admission.? 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 07/10/22 ABG: pH 7.49/26.7/50.4/19.2/89.2%.? on 60% and BiPAP BUN was elevated 33 creatinine 2.0, elevated lactic acid 3.4. His current infusions include fentanyl 100 micrograms/hour; Levophed 13 micrograms/minute; Cis-atracurium ?Dr Licea placed a right sided chest tube when he developed a right sided pneumothorax 07/12 patient remains intubated, sedated, paralyzed and currently on 70% FiO2 with peep of 10. Blood gas earlier this morning was 7.16/64/103 and his respiratory rate was increased to 26 and his FiO2 was decreased to 70%. remains on Levophed 7 mcg, hydrocortisone 100 Q 8 and ipratropium and albuterol nebulizers q.6 hours with no wheezing on exam.
[2022-07-12] MEDS: MIDAZOLAM 100MG/NS 100ML(*CRX) 100 MG/100 ML BAG IV CONT (07:28)
[2022-07-12] MEDS: PANTOPRAZOLE SODIUM IV 40 MG VIAL IV PUSH ×2 (08:17→20:55)
[2022-07-12] MEDS: ENOXAPARIN 30 MG/0.3 ML SYRINGE SUB-Q (08:17)
[2022-07-12] MEDS: MINERAL OIL/WHITE PETROLATUM OINTMENT 1 APPLIC EACH EYE ×2 (08:18→20:55)
[2022-07-12] MEDS: ALBUTEROL SULFATE NEB 2.5 MG/3 ML INH INHALATION ×3 (08:18→20:05)
[2022-07-12] MEDS: INSULIN ASPART (*BKC) 100 UNITS/ML SUB-Q ×2 (08:24→12:18)
[2022-07-12 08:28] LABS: Glucose Point of Care 221 mg/dl (65-105)
[2022-07-12] MEDS: SODIUM CHLORIDE 0.9% IV 1,000 ML 75 ML IV CONT ×2 (09:18→22:12)
[2022-07-12] MEDS: NOREPINEPHRINE 8 MG/D5W 250 ML 8 MG/250 ML BAG 11.25 MG IV CONT (09:36)
[2022-07-12 11:22] LABS: Alveolar/Arterial O2 Gradient 278.7 mmHg; Arterial Blood Gas Vent Mode CMV; Arterial Blood Gas Ventilator rate 26 /MIN; Base Excess ABG -5.7 mEq/l (+/-2.0); Device VENTILATOR; Fractional Inspired Oxygen 60 %; HCO3 ABG 19.6 mEq/l (22.0-26.0); Modified Allen's Test Pass; Oxygen Content ABG 16.6 %vol (16.0-22.0); Oxygen Saturation ABG 97.7 % (95.0-100.0); Oxyhemoglobin 96.7 % THb (90.0-100.0); PCO2 ABG 37.6 mmHg (35.0-45.0); PO2 ABG 107.7 mmHg (80.0-100.0); PO2 FiO2 Ratio Arterial Blood 1.79 %; Site Drawn LEFT RADIAL; Total Hemoglobin 12.1 g/dL (12.0-18.0); pH ABG 7.335 (7.350-7.450)
[2022-07-12 11:23] LABS: Arterial Blood Gas PEEP 10 cmH2O; Arterial Blood Gas Tidal Volume 440 ml
[2022-07-12 11:41] LABS: SARS-CoV-2 RNA PCR Negative
--- NOTE | 2022-07-12 11:45 | PM.IMPN ---
Progress Note: A&P Assessment and Plan (1) Acute respiratory failure with hypoxia: Code(s): J96.01 - Acute respiratory failure with hypoxia Status: Acute Assessment and Plan: Patient presents with SOB. CTA chest showing no PE but does show multifocal pneumonia. COVID swab was negative (repeat COVID x2 also negative), Influenza negative. Respiratory failure associated with sepsis and HoTN all related to PNA. Patient's condition deteriorated (related to spontaneous PTX?) requiring intubation. Currently intubated, sedated; paralytic stopped this morning. Stable on FiO2 60% and PEEP 10. CXR showing diffuse lung disease. Wean vent settings as tolerated. Discussed with certified coder. (2) Pneumothorax on right: Code(s): J93.9 - Pneumothorax, unspecified Status: Acute Assessment and Plan: Patient had acute onset CP prior to intubation. He stated it has been intermittent x 1 month. EKG on admission showing minimal ST depression in the anterior leads. EKG repeated with CP and no change noted. Troponin negative x2. CP could be related to spontaneous PTX which could explain why he decompensated. PTX was noted BEFORE central line placement. PTX could be related to bagging/intubation. Currently has Chest tube in place. Management per certified coder. (3) Sepsis associated hypotension: Code(s): A41.9 - Sepsis, unspecified organism; I95.9 - Hypotension, unspecified Status: Acute Assessment and Plan: Patient was hypotensive on admission to 69/41. He had elevated lactic acid and elevated CRP all consistent with sepsis. Probably not tachycardic due to being on Coreg. Sepsis felt related to PNA. Blood pressures improved with IV fluid rehydration. As patient's respiratory failure worsened, his BP dropped as well requiring Levophed. Related to adrenal insufficiency? Solu-Cortef started. Antihypertensives on hold. BCx NGTD. MRSA nasal swab negative. Continue IV abx. (4) Multifocal pneumonia: Code(s): J18.9 - Pneumonia, unspecified organism Status: Acute Assessment and Plan: CTA chest showing no PE but does show multifocal pneumonia. COVID swab was negative (repeat COVID test x2 also negative). Influenza negative. He does have asthma/COPD though there is no wheezing at this time. He has a history of DVT and was recently taken off apixaban but no PE and LE doppler negative for DVT. Pneumococcal and Legionella antigens ordered. MRSA nasal swab negative. BCx NGTD. Continue IV abx with Vanco and Cefepime. Continue Nebs. Continue supportive care. (5) Acute kidney injury: Code(s): N17.9 - Acute kidney failure, unspecified Status: Acute Assessment and Plan: Cr 2.0 on admission. Acute kidney injury as the patient does not believe that he has underlying kidney disease. Probably ATN due to the severe hypotension. CT scan showing enlarged prostate but no distended bladder. He did receive contrast 07/09/22. Renal US normal. Mitchell catheter secured. Cr did improve to 1.3 but back up today to 1.9; seems late for contrast induced. Monitor strict I/O. Avoid nephrotoxic agents. (6) Electrolyte abnormality: Code(s): E87.8 - Other disorders of electrolyte and fluid balance, not elsewhere classified Status: Acute Assessment and Plan: Mild hyponatremia and hyperkalemia. Cortisol level okay this morning (though low normal considering the current clinical situation). Related to adrenal suppression? Stress dose steroids started. Potassium low now and being replaced. Sodium about the same. Follow. 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 No wheezing. Continue scheduled nebulizers. His low-dose prednisone (10 mg) was stopped. He was started on stress dose steroids due to hypotension. As above. (8) Suspected sleep apnea: Code(s): R29.818 - Ot
[2022-07-12 12:19] LABS: Glucose Point of Care 231 mg/dl (65-105)
--- NOTE | 2022-07-12 13:38 | PM.PNGS ---
Progress Note: A&P Assessment and Plan (1) Pneumothorax on right: Code(s): J93.9 - Pneumothorax, unspecified Status: Acute Assessment and Plan: Chest x-ray this am shows chest tube in good position with no pneumothorax. Continue chest tube to suction. Monitor with serial chest x-rays. Plan I have discussed the patient's case and plan of care with Dr. Philippe. Subjective Subjective Date/Time Seen: 07/12/22 11:38 Interval history: This is an 81 yo M who presented with pneumonia and acute respiratory failure. He was intubated on 07/10/22 and post-intubation chest x-ray showed a new right pneumothorax. He had a right-sided chest tube placed on 07/10/2022 and remains intubated in the ICU. COVID negative x2. He is on paralytics, vasopressors, and sedation. Therefore, he is unable to answer any questions or provide history. Chart reviewed. Per nursing, no acute issues with the chest tube. Review of Systems Review of Systems: ROS unobtainable: Yes unobtainable due to endotracheal tube Exam Const: General: ill appearing acutely Orientation/consciousness: patient obtunded Chest: Chest palpation & inspection: abnormal inspection of the chest (Right chest tube with dressing intact, occasional bubbling) and no crepitus Resp: Effort & Inspection: abnormal respiratory pattern ( intubated on mechanical ventilator) Auscultation: clear to auscultation bilaterally Objective Data Vital Signs Vital Signs: Vital Signs - 24 hr 07/11/22 13:50 07/11/22 14:07 07/11/22 14:48 Temperature Pulse Rate 76 76 94 Respiratory Rate 22 H 22 H Blood Pressure Pulse Oximetry 91 Oxygen Delivery Mechanical Ventilation Fraction of Inspired Oxygen 60 07/11/22 15:14 07/11/22 15:15 07/11/22 14:00 Temperature Pulse Rate 94 94 96 Respiratory Rate 22 H Blood Pressure 121/65 Pulse Oximetry Oxygen Delivery Fraction of Inspired Oxygen 07/11/22 14:00 07/11/22 15:46 07/11/22 15:47 Temperature Pulse Rate 96 96 Respiratory Rate 24 H 22 H Blood Pressure 121/67 121/67 Pulse Oximetry 89 L Oxygen Delivery Fraction of Inspired Oxygen 100 07/11/22 15:49 07/11/22 15:51 07/11/22 16:16 Temperature Pulse Rate 94 95 Respiratory Rate 22 H 22 H Blood Pressure Pulse Oximetry Oxygen Delivery Fraction of Inspired Oxygen 90 07/11/22 16:00 07/11/22 16:00 07/11/22 13:45 Temperature 95.5 F L Pulse Rate 96 94 79 Respiratory Rate 24 H 22 H Blood Pressure Pulse Oximetry 96 91 Oxygen Delivery Mechanical Ventilation Fraction of Inspired Oxygen 100 07/11/22 14:00 07/11/22 14:01 07/11/22 14:15 Temperature 95.9 F L 95.9 F L 96.2 F L Pulse Rate 77 77 79 Respiratory Rate 22 H 22 H 22 H Blood Pressure 109/62 Pulse Oximetry 91 91 89 L Oxygen Delivery Fraction of Inspired Oxygen 07/11/22 14:30 07/11/22 14:31 07/11/22 14:45 Temperature 96.3 F L 96.4 F L 96.5 F L Pulse Rate 81 81 85 Respiratory Rate 19 22 H 20 Blood Pressure 110/62 Pulse Oximetry 91 91 90 Oxygen Delivery Fraction of Inspired Oxygen 07/11/22 15:00 07/11/22 15:01 07/11/22 15:15 Temperature 96.5 F L 96.5 F L 96.6 F L Pulse Rate 90 85 94 Respiratory Rate 21 H 20 22 H Blood Pressure 121/65 Pulse Oximetry 90 90 95 Oxygen Delivery Fraction of Inspired Oxygen 07/11/22 15:30 07/11/22 15:31 07/11/22 15:45 Temperature 96.7 F L 96.7 F L 96.8 F L Pulse Rate 96 96 96 Respiratory Rate 22 H 22 H 22 H Blood Pressure 121/67 Pulse Oximetry 96 96 95 Oxygen Delivery Fraction of Inspired Oxygen 07/11/22 16:00 07/11/22 16:01 07/11/22 16:15 Temperature 96.8 F L 96.8 F L 96.9 F L Pulse Rate 96 97 97 Respiratory Rate 22 H 22 H 22 H Blood Pressure 115/65 Pulse Oximetry 95 95 93 Oxygen Delivery Fraction of Inspired Oxygen 07/11/22 17:07 07/11/22 18:00 07/11/22 17:00 Temperature 96.7 F L Pulse Rate 94 100 88 Respiratory Rate 22 H Blood Pres
[2022-07-12] MEDS: FENTANYL 2,500MCG/NS250ML(*CRX 2,500 MCG/250 ML BAG 10 MCG IV CONT (14:05)
--- NOTE | 2022-07-12 14:23 | WPDINTPN ---
Progress Note: A&P Assessment and Plan (1) Septic shock: Code(s): A41.9 - Sepsis, unspecified organism; R65.21 - Severe sepsis with septic shock Status: Acute Assessment and Plan: Patient presented to the ED was hypotensive in the 60s, was given IV fluids and then was given Lasix after that in the ER -patient currently on Levophed, will maintain mean arterial pressures greater than 65 mmHg -urine output has been adequate, lactic acid has normalized -continue levofloxacin, cefepime, vancomycin (07/10) -07/10/2022 blood cultures x2 are negative so far -07/11/2012 sputum cultures growing gram-positive cocci -MRSA screen was positive -continue stress dose steroids (2) Acute respiratory failure with hypoxia: Code(s): J96.01 - Acute respiratory failure with hypoxia Status: Acute Assessment and Plan: Patient presented to the ED on 07/09/2022 with increasing shortness of breath for the last 3 weeks which apparently worsened in the last 3 days. He was admitted to the intermediate Unit where he was placed on BiPAP, oxygen requirements were increasing, I was asked to see the patient. Patient was in impending respiratory failure, tachypneic, was breathing between 40-50 times a minute, O2 sats were in the upper 80s to low 90s. -discussed with the patient and daughters and they were agreeable for intubation -intubation was uneventful on 07/10/2022 -patient developed a right pneumothorax could be related to BiPAP, bag-mask ventilation. He was complaining of chest pain when I evaluated him in the intermediate Unit -chest x-ray and ABGs reviewed, ventilator adjusted, increased rate back to 26 as patient had hypercapnic respiratory failure on his ABGs -currently on CMV mode of ventilation, low tidal volume strategy, PEEP of 10 wean FiO2 to maintain O2 sats greater than 92% -chest x-ray and ABGs reviewed, ventilator adjusted -continue fentanyl and Versed infusion, I have asked the bedside RN to discontinue Nimbex infusion (3) Pneumothorax on right: Code(s): J93.9 - Pneumothorax, unspecified Status: Acute Assessment and Plan: Patient with a right pneumothorax currently multifactorial, patient has COPD, asthma, was on BiPAP, could be possibly secondary bag-mask ventilation -right chest tube was inserted by surgery on 07/10/2020 -chest x-ray this morning shows right chest tube in place, pneumothorax has resolved -surgery to manage the chest tube (4) Asthma-COPD overlap syndrome: Code(s): J44.9 - Chronic obstructive pulmonary disease, unspecified Status: Acute Assessment and Plan: Continue bronchodilators, -pulmonology has been consulted (5) Acute kidney injury: Code(s): N17.9 - Acute kidney failure, unspecified Status: Acute Assessment and Plan: Acute kidney injury likely related to hypoxia, hypotension, sepsis upon arrival to the ER -urine output has improved, -creatinine is improved 1.3 on 07/11/2022, -on 07/12/2022 creatinine is up to 1.9 again. Will gently rehydrate patient with 1.5 L of IV fluids at 75 mL/hour -patient was given IV fluids for septic shock, no maintenance IV fluids as patient in ARDS -continue monitor renal function, electrolytes and urine output (6) Multifocal pneumonia: Code(s): J18.9 - Pneumonia, unspecified organism Status: Acute Assessment and Plan: CT scan of the chest shows diffuse bilateral pulmonary infiltrates -continue antibiotics as above, on mechanical ventilation Plan DVT prophylaxis: Lovenox Stress ulcer prophylaxis: Protonix Nutrition: Tolerating tube feeds Discussed with daughters and updated them with patient's condition and plan of care. I answered all questions Code Status: Full code Critical Care Time Spent: 34 minutes Due to a high probability of clinically significant, life threatening deterioration, the patient required my highest level of preparedness to intervene emergently and I abdulaziz
[2022-07-12 16:45] LABS: Glucose Point of Care 141 mg/dl (65-105)
[2022-07-12 17:00] LABS: Appearance Urine Cloudy (Clear); Bilirubin Urine Negative (Negative); Blood Urine 3+ (Negative); Color Urine Yellow (Yellow); Glucose Urine UA Negative (Negative); Ketones Urine Trace mg/dL (Negative); Leukocyte Esterase Ur Negative LEU/UL (NEGATIVE); Nitrate Urine Negative (Negative); Protein Urine 2+ mg/dL (Negative); Specific Grav Ur >= 1.030 (1.001-1.035); Urobilinogen Urine 0.2 mg/dL (<2.0); pH Urine 5.5 (5.0-9.0)
[2022-07-12 17:03] LABS: Add Urine Microscopic? YES; Budding Yeast Urine Present /hpf; Mucus Urine Few /lpf; RBC Urine >75 /hpf (0-2); WBC Urine >75 /hpf (0-3)
[2022-07-12 21:00] LABS: Glucose Point of Care 198 mg/dl (65-105)
[2022-07-12 23:55] LABS: Pneumococcal Antigen Urine Not Detected (Not Detected)
[2022-07-13] VITALS (39 sets, daily range): BP systolic 87–114; BP diastolic 59–65; PULSE 71–99; RESP 23–28; TEMP 36.3–36.8; O2SAT 96–100
[2022-07-13 00:01] LABS: Glucose Point of Care 236 mg/dl (65-105)
[2022-07-13] MEDS: INSULIN ASPART (*BKC) 100 UNITS/ML SUB-Q (00:02)
[2022-07-13] MEDS: ALBUTEROL SULFATE NEB 2.5 MG/3 ML INH INHALATION ×4 (02:11→20:44)
[2022-07-13] MEDS: IPRATROPIUM BR 0.02% INH SOLN 0.5 MG/2.5 ML VIAL INHALATION ×4 (02:11→20:44)
[2022-07-13 03:09] LABS: Basophils Percent Auto 0.3 % (0.2-1.2); Hematocrit 29.3 % (42.0-52.0); Hemoglobin 9.5 g/dL (14.0-18.0); Immature Granulocyte Absolute 0.14 K/mm3 (0.00-0.031); Immature Granulocyte Percent A 2.1 % (0-0.5); Lymphocytes Absolute Auto 0.27 K/mm3 (0.9-3.2); Lymphocytes Percent Auto 4.1 % (18.3-44.2); Mean Corpuscular HGB Conc 32.4 g/dl (32-36); Mean Corpuscular Hemoglobin 31.4 pg (26-34); Mean Corpuscular Volume 96.7 fl (80-100); Mean Platelet Volume 8.8 fl (7.4-10.4); Monocytes Absolute Auto 0.4 K/mm3 (0.1-0.6); Monocytes Percent Auto 6.2 % (2.6-8.5); Neutrophils Absolute Auto 5.8 K/mm3 (1.3-6.7); Neutrophils Percent Auto 87.3 % (45.5-73.1); Platelet Count Result 153 k/mm3 (150-375); Red Blood Count 3.03 M/mm3 (4.6-6.20); Red Cell Distribution Width 15.2 % (11.5-14.5); White Blood Count 6.6 K/mm3 (4.5-10.0)
[2022-07-13 03:21] LABS: Alanine Aminotransferase 14 U/L (6-50); Albumin Level 2.4 g/dL (3.5-5.1); Alkaline Phosphatase 48 U/L (38-126); Anion Gap 8 mmol/L (8-16); Aspartate Amino Transferase 18 U/L (17-59); Bilirubin,Total 0.2 mg/dL (0.2-1.3); Blood Urea Nitrogen 58 mg/dL (9-20); Calcium 7.7 mg/dL (8.4-10.2); Carbon Dioxide 20 mmol/L (22-30); Chloride 104 mmol/L (98-107); Estimated CRCL calculation 29 ml/min; Estimated Glomerular Filt Rate 29; Glucose 184 mg/dL (65-110); Phosphorus 3.6 mg/dL (2.5-4.5); Potassium 4.3 mmol/L (3.4-5.0); Sodium 132 mmol/L (137-145)
[2022-07-13 03:38] LABS: Vancomycin Trough 11.6 ug/mL (10.0-20.0)
[2022-07-13 05:16] LABS: Alveolar/Arterial O2 Gradient 167.3 mmHg; Carboxyhemoglobin 0.3 % THb (0-2.0); Fractional Inspired Oxygen 40 %; HCO3 ABG 17.8 mEq/l (22.0-26.0); Methemoglobin ABG 0.1 %THb (0-1.5); Oxygen Content ABG 15.5 %vol (16.0-22.0); Oxygen Saturation ABG 95.3 % (95.0-100.0); Oxyhemoglobin 94.6 % THb (90.0-100.0); PCO2 ABG 33.5 mmHg (35.0-45.0); PO2 ABG 79.4 mmHg (80.0-100.0); PO2 FiO2 Ratio Arterial Blood 1.99 %; Total Hemoglobin 11.6 g/dL (12.0-18.0); pH ABG 7.343 (7.350-7.450)
[2022-07-13 05:19] LABS: Modified Allen's Test Pass; Site Drawn RIGHT RADIAL
[2022-07-13 05:20] LABS: Arterial Blood Gas Vent Mode CMV; Arterial Blood Gas Ventilator rate 26 /MIN; Device VENTILATOR
[2022-07-13 05:21] LABS: Arterial Blood Gas PEEP 10 cmH2O; Arterial Blood Gas Tidal Volume 440 ml
[2022-07-13] MEDS: HYDROCORTISONE SODIUM SUCCINATE 100 MG/2 ML VIAL IV PUSH ×3 (05:57→21:58)
[2022-07-13] MEDS: CENTRAL LINE FLUSH 10 ML IV PUSH ×4 (05:57→20:02)
[2022-07-13] MEDS: MINERAL OIL/WHITE PETROLATUM OINTMENT 1 APPLIC EACH EYE ×2 (08:55→20:02)
[2022-07-13] MEDS: ENOXAPARIN 30 MG/0.3 ML SYRINGE SUB-Q (08:55)
[2022-07-13] MEDS: PANTOPRAZOLE SODIUM IV 40 MG VIAL IV PUSH ×2 (08:55→20:02)
[2022-07-13 09:04] LABS: Glucose Point of Care 167 mg/dl (65-105)
--- NOTE | 2022-07-13 09:07 | PM.PNPUL ---
Progress Note: A&P Assessment and Plan (1) Multifocal pneumonia: Code(s): J18.9 - Pneumonia, unspecified organism Status: Acute Assessment and Plan: Patient presented on 07/09 with 3 weeks shortness of breath acutely worsening over the last 3 days with white blood cell count of 9.6, lactic acidosis, shock and a CTA scan with no PE and patchy bilateral interstitial and alveolar infiltrates in a bronchovascular pattern. Patient failed BiPAP and was intubated on 07/10 with a post intubation chest x-ray showing a new right pneumothorax and is status post right chest tube. Patient has been treated with ceftriaxone and azithromycin x1 dose on 07/10 and now vancomycin, Levaquin and cefepime started on 07/10. COVID RT PCR test negative, influenza swab negative. 07/12 patient remains intubated, sedated, paralyzed, on levophed and currently on 70% FiO2 with peep of 10. Blood gas earlier this morning was 7.16/64/103 and his respiratory rate was increased to 26 and his FiO2 was decreased to 70%. remains on Levophed 7 mcg, hydrocortisone 100 Q 8 and ipratropium and albuterol nebulizers q.6 hours with no wheezing on exam. Continue vancomycin, Levaquin and cefepime (day 3). Blood cultures negative today, sputum culture pending. I will send a extended panel for respiratory viral pathogens. I will repeat COVID RT PCR study. urine Legionella, urine pneumococcal and mycoplasma IgM pending. Ventilator management per banner painter. With pneumothorax requiring chest tube and positive air leak would attempt to minimize airway pressures by minimizing peep and tidal volume while using higher levels of FiO2 and higher RR. 07/13 Patient remains intubated, sedated, on Levophed to mcg and 40% with 10 of peep. ABG this morning is 7.34/34/78. Chest x-ray with diffuse interstitial alveolar infiltrates mildly worse on the right, mildly improved on the left. White blood cell count is 6.6. Creatinine is 2.2. Believe this is multifocal pneumonia rather than an ARDS like reaction from his facenra injection on 07/07/22. agree with vancomycin, Levaquin and cefepime for 7-10 days. I would taper his steroids according to his septic shock and back to his home dose of 10 mg of prednisone p.o. q.day. Minimize peep due to pneumothorax with persistent air leak. Ventilator management per banner painter. Discussed with Dr. Boyce and will sign off, call with questions. (2) Asthma-COPD overlap syndrome: Code(s): J44.9 - Chronic obstructive pulmonary disease, unspecified Status: Acute Assessment and Plan: 07/12 patient carries a diagnosis of asthma COPD overlap and had mild lower lobe bronchiectasis on CT scan 08/08/2018. In the chart it said that he smoked 3 packs per day for 26 years. Home medicines listed albuterol q.6 p.r.n. and budesonide 0.5 mg nebulizers b.i.d. p.r.n., cetirizine, montelukast and prednisone 10 Q day. I called the family to confirm this and left a voicemail. Obtain records from outside hospital. Currently no wheezing on ipratropium 0.5 nebulized q.6 hours and albuterol 2.5 mg nebs q.6 hours. Patient also on hydrocortisone 100 mg IV q.8 hours for his shock. 07/13 The patient was diagnosed with asthma approximately 6 months ago and started on a biologic agent at that time. He was not improving and he was changed to fesenra and received his 1st injection on 07/07/2022. Patient did not have anaphylaxis and returned home that day and was essentially unchanged with his continued shortness of breath and presented to the hospital on 07/09. There have been case reports of ARDS with dupixent within the first month but I do not see case reports of ARDS with fasenra. His outpatient Pulmonary team should be made aware of this hospitalization. No wheezes on albuterol and ipratropium nebulizers q.6 hours. He is on hydrocortisone 100 mg IV q.8 hours with an eventual taper to his home dose of prednisone 10. (3) Pneumothorax on right:
--- NOTE | 2022-07-13 10:26 | PCNFU ---
Nutrition Follow-Up Complete: Inadequate Oral Intake as related to mechanical ventilation as evidenced by Tube feedings. Goal: Meet estimated nutritional needs Patient is progressing towards goal. We will continue current goal. Pt current nutrition is Vital AF 1.2 at 60 ml/hr over 22 hours. Last recorded weight is 104.2 kg, up from 98 kg on admit. Bowel Motility: No BM reported. Labs Reviewed:Glu 184, GFR 29, BUN 58, Cr 2.2,Hct 29.3,Hgb 9.5 Meds Noted:Fentanyl, Versed, Vancomycin,Atrovent, Lovenox Skin: Friction noted-right buttock Additional Notes: Patient remains on mechanical vent and tube feedings of Vital AF 1.2 at 60 ml/hr. Current tube feeding is providing 1584 kcals/99 gms protein/1071 ml water. This is meeting 86% kcals needs and 100% protein needs. Free water flush 30 ml q 4 hours. Agree with diet orders. Will monitor daily in ICU rounds and reassessing every Tuesday and Tuesday.
[2022-07-13] MEDS: CALCIUM GLUC 2,000 MG/NS 100ML 2,000 MG/100 ML BAG 100 MG IVPB (10:34)
--- NOTE | 2022-07-13 11:01 | PM.IMPN ---
Progress Note: A&P Assessment and Plan (1) Acute respiratory failure with hypoxia: Code(s): J96.01 - Acute respiratory failure with hypoxia Status: Acute Assessment and Plan: Patient presents with SOB. CTA chest showing no PE but does show multifocal pneumonia. COVID swab was negative (repeat COVID x2 also negative), Influenza negative. Respiratory failure associated with sepsis and HoTN all related to bacterial PNA. Patient's condition deteriorated (related to spontaneous PTX?) requiring intubation. Currently intubated, sedated; paralytic stopped yesterday morning. Resp failure improved with FiO2 now at 40%; PEEP remains at 10. CXR showing diffuse lung disease. Wean vent settings as tolerated. (2) Pneumothorax on right: Code(s): J93.9 - Pneumothorax, unspecified Status: Acute Assessment and Plan: Patient had acute onset CP prior to intubation. He stated it has been intermittent x 1 month. EKG on admission showing minimal ST depression in the anterior leads. Repeat EKG with CP showing no change. Troponin negative x2. CP could be related to spontaneous PTX which could explain why he decompensated. PTX was noted BEFORE central line placement. PTX could be related to bagging/intubation. Currently has Chest tube in place. Management per photostat operator. (3) Sepsis associated hypotension: Code(s): A41.9 - Sepsis, unspecified organism; I95.9 - Hypotension, unspecified Status: Acute Assessment and Plan: Patient was hypotensive on admission to 69/41. He had elevated lactic acid and elevated CRP all consistent with sepsis. Probably not tachycardic due to being on Coreg. Sepsis felt related to PNA. Blood pressures improved initially with IV fluid rehydration. As patient's respiratory failure worsened, his BP dropped again requiring Levophed. Related to adrenal insufficiency? Solu-Cortef started. Antihypertensives on hold. BCx NGTD. MRSA nasal swab negative. Able to wean off Levophed on 07/12. Continue IV abx. (4) Multifocal pneumonia: Code(s): J18.9 - Pneumonia, unspecified organism Status: Acute Assessment and Plan: CTA chest showing no PE but does show multifocal pneumonia. COVID swab was negative (repeat COVID test x2 also negative). Influenza negative. He does have asthma/COPD treated with Fesenra 2 days prior to admission. He has a history of DVT and was recently taken off apixaban but no PE and LE doppler negative for DVT. Pneumococcal Ag negative; Legionella antigens pending. MRSA nasal swab negative. Sputum growing normal denise. BCx NGTD. [place] his PNA related to the Fesenra. Continue IV abx with Levaquin, Vanco and Cefepime. Continue Nebs. Continue supportive care. (5) Acute kidney injury: Code(s): N17.9 - Acute kidney failure, unspecified Status: Acute Assessment and Plan: Cr 2.0 on admission. Acute kidney injury as the patient does not believe that he has underlying kidney disease. Probably ATN due to the severe hypotension. CT scan showing enlarged prostate but no distended bladder. He did receive contrast 07/09/22. Renal US normal. Mitchell catheter secured. Cr did improve to 1.3 but back up today to 2.2 today. Monitor strict I/O. Avoid nephrotoxic agents. (6) Electrolyte abnormality: Code(s): E87.8 - Other disorders of electrolyte and fluid balance, not elsewhere classified Status: Acute Assessment and Plan: Mild hyponatremia and hyperkalemia. Cortisol level okay. Related to adrenal suppression? Stress dose steroids started. Potassium normal now. Sodium at 132. Follow. 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 No wheezing. Continue scheduled nebulizers. His low-dose prednisone (10 mg) was stopped. He was started on stress dose steroids due to hypotension. As above. (8) Suspected sleep apnea:
--- NOTE | 2022-07-13 11:35 | PM.PNGS ---
Progress Note: A&P Assessment and Plan (1) Pneumothorax on right: Code(s): J93.9 - Pneumothorax, unspecified Status: Acute Assessment and Plan: Chest x-ray this am shows chest tube in good position with no pneumothorax. Continue chest tube to suction. Monitor with serial chest x-rays. Plan I have discussed the patient's case and plan of care with Dr. Clifford. Subjective Subjective Date/Time Seen: 07/13/22 09:55 Interval history: Patient intubated and sedated. Per nursing, no acute events overnight. Review of Systems Review of Systems: ROS unobtainable: Yes unobtainable due to endotracheal tube Exam Const: General: ill appearing acutely Orientation/consciousness: patient obtunded Chest: Chest palpation & inspection: abnormal inspection of the chest (Right chest tube with dressing intact, no bubbling suggestive of air leak) and no crepitus Resp: Effort & Inspection: abnormal respiratory pattern ( intubated on mechanical ventilator) Auscultation: clear to auscultation bilaterally Objective Data Vital Signs Vital Signs: Vital Signs - 24 hr 07/12/22 11:53 07/12/22 11:53 07/12/22 12:18 Temperature Pulse Rate Respiratory Rate Blood Pressure 105/64 Pulse Oximetry 100 Oxygen Delivery Mechanical Ventilation Fraction of Inspired Oxygen 50 50 07/12/22 12:19 07/12/22 12:19 07/12/22 12:00 Temperature 97.0 F L Pulse Rate 81 81 82 Respiratory Rate 26 H 26 H 26 H Blood Pressure 105/64 Pulse Oximetry 100 Oxygen Delivery Fraction of Inspired Oxygen 07/12/22 12:00 07/12/22 12:00 07/12/22 12:00 Temperature Pulse Rate 80 Respiratory Rate Blood Pressure Pulse Oximetry 100 Oxygen Delivery Mechanical Ventilation Fraction of Inspired Oxygen 50 50 07/12/22 13:10 07/12/22 13:37 07/12/22 13:30 Temperature Pulse Rate 80 87 Respiratory Rate 26 H Blood Pressure 104/59 L Pulse Oximetry 100 Oxygen Delivery Mechanical Ventilation Fraction of Inspired Oxygen 50 07/12/22 13:40 07/12/22 14:03 07/12/22 14:05 Temperature Pulse Rate 90 75 75 Respiratory Rate 26 H 26 H 26 H Blood Pressure Pulse Oximetry Oxygen Delivery Fraction of Inspired Oxygen 07/12/22 14:05 07/12/22 14:01 07/12/22 14:00 Temperature 97.3 F L Pulse Rate 75 81 81 Respiratory Rate 26 H 26 H Blood Pressure 99/63 L Pulse Oximetry 100 Oxygen Delivery Fraction of Inspired Oxygen 07/12/22 16:29 07/12/22 16:30 07/12/22 16:30 Temperature Pulse Rate 81 81 Respiratory Rate 26 H 26 H Blood Pressure 105/67 Pulse Oximetry Oxygen Delivery Fraction of Inspired Oxygen 07/12/22 16:00 07/12/22 16:00 07/12/22 16:00 Temperature 97.6 F Pulse Rate 83 Respiratory Rate 26 H Blood Pressure 105/67 Pulse Oximetry 100 100 Oxygen Delivery Mechanical Ventilation Fraction of Inspired Oxygen 50 50 07/12/22 16:43 07/12/22 16:00 07/12/22 17:41 Temperature Pulse Rate 88 81 Respiratory Rate Blood Pressure 111/67 Pulse Oximetry 100 Oxygen Delivery Mechanical Ventilation Fraction of Inspired Oxygen 40 07/12/22 17:41 07/12/22 17:42 07/12/22 18:00 Temperature Pulse Rate 80 81 82 Respiratory Rate 26 H 26 H Blood Pressure Pulse Oximetry Oxygen Delivery Fraction of Inspired Oxygen 07/12/22 18:01 07/12/22 18:00 07/12/22 18:30 Temperature 97.9 F Pulse Rate 75 Respiratory Rate 26 H Blood Pressure 112/67 112/67 106/64 Pulse Oximetry 100 Oxygen Delivery Fraction of Inspired Oxygen 07/12/22 19:55 07/12/22 19:56 07/12/22 20:05 Temperature Pulse Rate 84 81 Respiratory Rate 26 H Blood Pressure Pulse Oximetry Oxygen Delivery Fraction of Inspired Oxygen 50 07/12/22 20:06 07/12/22 20:20 07/12/22 20:00 Temperature Pulse Rate 82 83 Respiratory Rate 26 H Blood Pressure Pulse Oximetry 100 100 Oxygen Delivery Mechanical
[2022-07-13 11:57] LABS: Glucose Point of Care 172 mg/dl (65-105)
[2022-07-13] MEDS: ALBUMIN HUMAN 25% 25 GM/100 ML 100 ML IVPB ×3 (12:09→23:52)
[2022-07-13 13:16] LABS: Mycoplasma IgM Antibody Titer 10 U/mL (<770)
--- NOTE | 2022-07-13 13:40 | WPDINTPN ---
Progress Note: A&P Assessment and Plan (1) Septic shock: Code(s): A41.9 - Sepsis, unspecified organism; R65.21 - Severe sepsis with septic shock Status: Acute Assessment and Plan: Patient presented to the ED was hypotensive in the 60s, was given IV fluids and then was given Lasix after that in the ER -patient currently on Levophed, will maintain mean arterial pressures greater than 65 mmHg -urine output remains low although lactic acid has normalized -continue levofloxacin, cefepime, vancomycin (07/10) -07/10/2022 blood cultures x2 are negative so far -07/11/2012 sputum cultures growing gram-positive cocci -MRSA screen was positive -vasopressors have been weaned off -continue stress dose steroids for another 24 hours (2) Acute respiratory failure with hypoxia: Code(s): J96.01 - Acute respiratory failure with hypoxia Status: Acute Assessment and Plan: Patient presented to the ED on 07/09/2022 with increasing shortness of breath for the last 3 weeks which apparently worsened in the last 3 days. He was admitted to the intermediate Unit where he was placed on BiPAP, oxygen requirements were increasing, I was asked to see the patient. Patient was in impending respiratory failure, tachypneic, was breathing between 40-50 times a minute, O2 sats were in the upper 80s to low 90s. Patient was intubated on 07/10/2022 ARDS versus healthcare assert pneumonia patient was on immunosuppressants COVID PCR was negative -patient developed a right pneumothorax could be related to BiPAP, bag-mask ventilation. -chest x-ray reviewed IMPRESSION: 1. Diffuse lung disease with mild worsening on the right, consistent with pneumonia versus acute respiratory distress syndrome (ARDS). 2. No pneumothorax. Right-sided chest tube unchanged. - ABG and ventilator settings reviewed-decrease PEEP to 8, wean FiO2 -continue fentanyl and Versed infusion -Off Nimbex infusion -case discussed with Pulmonary -continue bronchodilators (3) Pneumothorax on right: Code(s): J93.9 - Pneumothorax, unspecified Status: Acute Assessment and Plan: Patient with a right pneumothorax currently multifactorial, patient has COPD, asthma, was on BiPAP, could be possibly secondary bag-mask ventilation -right chest tube was inserted by surgery on 07/10/2020 -chest x-ray this morning shows right chest tube in place, pneumothorax has resolved -intermittent air leak -surgery to manage the chest tube (4) Asthma-COPD overlap syndrome: Code(s): J44.9 - Chronic obstructive pulmonary disease, unspecified Status: Acute Assessment and Plan: See above (5) Acute kidney injury: Code(s): N17.9 - Acute kidney failure, unspecified Status: Acute Assessment and Plan: Acute kidney injury likely related to hypoxia, hypotension, sepsis upon arrival to the ER -urine output remains low -creatinine increased to 2.2 -off IV fluids at this time -continue albumin -continue monitor renal function, electrolytes and urine output -renal ultrasound showed normal kidney sizes with no hydronephrosis (6) Multifocal pneumonia: Code(s): J18.9 - Pneumonia, unspecified organism Status: Acute Assessment and Plan: CT scan of the chest shows diffuse bilateral pulmonary infiltrates -continue antibiotics as above, on mechanical ventilation Plan DVT prophylaxis: Lovenox Stress ulcer prophylaxis: Protonix Nutrition: Tolerating tube feeds Code Status: Full code Critical Care Time Spent: 32 minutes Due to a high probability of clinically significant, life threatening deterioration, the patient required my highest level of preparedness to intervene emergently and I personally spent this critical care time directly and personally managing the patient. This critical care time included obtaining a history; examining the patient; pulse oximetry; ordering and review of studies; arranging urgent treatment with development of a
[2022-07-13] MEDS: FENTANYL 2,500MCG/NS250ML(*CRX 2,500 MCG/250 ML BAG 10 MCG IV CONT (14:14)
[2022-07-13] MEDS: MIDAZOLAM 100MG/NS 100ML(*CRX) 100 MG/100 ML BAG IV CONT (14:14)
[2022-07-13 16:28] LABS: Glucose Point of Care 190 mg/dl (65-105)
[2022-07-13 18:12] LABS: Glucose Point of Care 208 mg/dl (65-105)
[2022-07-13 20:08] LABS: Glucose Point of Care 193 mg/dl (65-105)
[2022-07-14] VITALS (45 sets, daily range): BP systolic 110–159; BP diastolic 59–77; PULSE 68–126; RESP 12–35; TEMP 36.6–37.1; O2SAT 89–97
[2022-07-14 00:08] LABS: Glucose Point of Care 177 mg/dl (65-105)
[2022-07-14] MEDS: IPRATROPIUM BR 0.02% INH SOLN 0.5 MG/2.5 ML VIAL INHALATION ×4 (02:39→19:46)
[2022-07-14] MEDS: ALBUTEROL SULFATE NEB 2.5 MG/3 ML INH INHALATION ×4 (02:39→19:46)
[2022-07-14 03:52] LABS: Legionella pneumophila Ag Ur Not Detected (Not Detected)
[2022-07-14 05:04] LABS: Alveolar/Arterial O2 Gradient 149.1 mmHg; Carboxyhemoglobin 0.3 % THb (0-2.0); Fractional Inspired Oxygen 35 %; HCO3 ABG 16.9 mEq/l (22.0-26.0); Methemoglobin ABG 0.1 %THb (0-1.5); Oxygen Content ABG 15.5 %vol (16.0-22.0); Oxygen Saturation ABG 93.1 % (95.0-100.0); Oxyhemoglobin 91.8 % THb (90.0-100.0); PCO2 ABG 29.4 mmHg (35.0-45.0); PO2 ABG 66.3 mmHg (80.0-100.0); PO2 FiO2 Ratio Arterial Blood 1.89 %; Reduced Hemoglobin 7.8 %THb (0-5.0); pH ABG 7.378 (7.350-7.450)
[2022-07-14 05:04] LABS: Basophils Percent Auto 0.3 % (0.2-1.2); Hematocrit 26.8 % (42.0-52.0); Hemoglobin 8.7 g/dL (14.0-18.0); Immature Granulocyte Absolute 0.28 K/mm3 (0.00-0.031); Immature Granulocyte Percent A 3.8 % (0-0.5); Lymphocytes Absolute Auto 0.57 K/mm3 (0.9-3.2); Lymphocytes Percent Auto 7.7 % (18.3-44.2); Mean Corpuscular HGB Conc 32.5 g/dl (32-36); Mean Corpuscular Volume 95.4 fl (80-100); Mean Platelet Volume 9.2 fl (7.4-10.4); Monocytes Absolute Auto 0.7 K/mm3 (0.1-0.6); Monocytes Percent Auto 8.9 % (2.6-8.5); Neutrophils Absolute Auto 5.9 K/mm3 (1.3-6.7); Neutrophils Percent Auto 79.3 % (45.5-73.1); Platelet Count Result 151 k/mm3 (150-375); Red Blood Count 2.81 M/mm3 (4.6-6.20); Red Cell Distribution Width 15.3 % (11.5-14.5); White Blood Count 7.5 K/mm3 (4.5-10.0)
[2022-07-14 05:06] LABS: Arterial Blood Gas PEEP 8 cmH2O; Arterial Blood Gas Tidal Volume 440 ml; Arterial Blood Gas Vent Mode CMV; Arterial Blood Gas Ventilator rate 26 /MIN; Device VENTILATOR; Modified Allen's Test Pass; Site Drawn RIGHT RADIAL
[2022-07-14 05:17] LABS: Alanine Aminotransferase 17 U/L (6-50); Albumin Level 3.3 g/dL (3.5-5.1); Alkaline Phosphatase 43 U/L (38-126); Anion Gap 11 mmol/L (8-16); Aspartate Amino Transferase 34 U/L (17-59); Bilirubin,Total 0.4 mg/dL (0.2-1.3); Blood Urea Nitrogen 84 mg/dL (9-20); Calcium 8.5 mg/dL (8.4-10.2); Carbon Dioxide 20 mmol/L (22-30); Chloride 102 mmol/L (98-107); Estimated CRCL calculation 31 ml/min; Estimated Glomerular Filt Rate 31; Glucose 176 mg/dL (65-110); Magnesium 2.3 mg/dL (1.6-2.3); Phosphorus 3.2 mg/dL (2.5-4.5); Sodium 133 mmol/L (137-145)
[2022-07-14] MEDS: ALBUMIN HUMAN 25% 25 GM/100 ML 100 ML IVPB ×4 (05:33→23:30)
[2022-07-14] MEDS: CENTRAL LINE FLUSH 10 ML IV PUSH ×4 (05:34→20:10)
[2022-07-14] MEDS: HYDROCORTISONE SODIUM SUCCINATE 100 MG/2 ML VIAL IV PUSH (05:34)
[2022-07-14 07:31] LABS: Glucose Point of Care 170 mg/dl (65-105)
[2022-07-14] MEDS: PANTOPRAZOLE SODIUM IV 40 MG VIAL IV PUSH ×2 (08:21→20:09)
[2022-07-14] MEDS: MINERAL OIL/WHITE PETROLATUM OINTMENT 1 APPLIC EACH EYE ×2 (08:21→20:09)
[2022-07-14] MEDS: SODIUM BICARBONATE TAB 650 MG TABLET PO ×3 (08:25→16:16)
[2022-07-14] MEDS: LORATADINE 10 MG TABLET PO ×2 (08:25→20:10)
--- NOTE | 2022-07-14 09:15 | WPDINTPN ---
Progress Note: A&P Assessment and Plan (1) Septic shock: Code(s): A41.9 - Sepsis, unspecified organism; R65.21 - Severe sepsis with septic shock Status: Acute Assessment and Plan: Patient presented to the ED was hypotensive in the 60s, was given IV fluids and then was given Lasix after that in the ER -patient currently off of Levophed, will maintain mean arterial pressures greater than 65 mmHg -continue cefepime, vancomycin (07/10). 07/13 levofloxacin discontinued -07/10/2022 blood cultures x2 are negative so far -07/11/2012 sputum cultures growing gram-positive cocci -MRSA screen was positive -vasopressors have been weaned off -07/14 discontinue stress dose steroids (2) Acute respiratory failure with hypoxia: Code(s): J96.01 - Acute respiratory failure with hypoxia Status: Acute Assessment and Plan: Patient presented to the ED on 07/09/2022 with increasing shortness of breath for the last 3 weeks which apparently worsened in the last 3 days. He was admitted to the intermediate Unit where he was placed on BiPAP, oxygen requirements were increasing, I was asked to see the patient. Patient was in impending respiratory failure, tachypneic, was breathing between 40-50 times a minute, O2 sats were in the upper 80s to low 90s. Patient was intubated on 07/10/2022 ARDS versus healthcare assert pneumonia patient was on immunosuppressants COVID PCR was negative -patient developed a right pneumothorax could be related to BiPAP, bag-mask ventilation. -chest x-ray reviewed -advance ET tube by 2 cm - ABG and ventilator settings reviewed-decrease PEEP to 5, wean FiO2 -continue fentanyl and change Versed to propofol infusion -Off Nimbex infusion -case discussed with Pulmonary -continue bronchodilators (3) Pneumothorax on right: Code(s): J93.9 - Pneumothorax, unspecified Status: Acute Assessment and Plan: Patient with a right pneumothorax currently multifactorial, patient has COPD, asthma, was on BiPAP, could be possibly secondary bag-mask ventilation -right chest tube was inserted by surgery on 07/10/2020 -chest x-ray this morning shows right chest tube in place, pneumothorax has resolved -intermittent air leak -surgery to manage the chest tube (4) Asthma-COPD overlap syndrome: Code(s): J44.9 - Chronic obstructive pulmonary disease, unspecified Status: Acute Assessment and Plan: See above (5) Acute kidney injury: Code(s): N17.9 - Acute kidney failure, unspecified Status: Acute Assessment and Plan: Acute kidney injury likely related to hypoxia, hypotension, sepsis upon arrival to the ER -urine output improved -creatinine is 2.1 -off IV fluids at this time -continue albumin -continue monitor renal function, electrolytes and urine output -renal ultrasound showed normal kidney sizes with no hydronephrosis (6) Multifocal pneumonia: Code(s): J18.9 - Pneumonia, unspecified organism Status: Acute Assessment and Plan: CT scan of the chest shows diffuse bilateral pulmonary infiltrates -continue antibiotics as above, on mechanical ventilation (7) Anemia: Code(s): D64.9 - Anemia, unspecified Status: Acute Assessment and Plan: Hemoglobin has been trending down over last 2 days Increased BUN although patient is in acute kidney injury No obvious signs of bleeding but patient has not had any bowel movement Check stool for Hemoccult Continue PPI q.12 hours Monitor hemoglobin Hold Lovenox Plan DVT prophylaxis: SCDs Stress ulcer prophylaxis: Protonix Nutrition: Tolerating tube feeds Code Status: Full code Critical Care Time Spent: 30 minutes Due to a high probability of clinically significant, life threatening deterioration, the patient required my highest level of preparedness to intervene emergently and I personally spent this critical care time directly and personally managing the patient. This critical care time in
[2022-07-14] MEDS: PROPOFOL IV EMULSION 100 ML 3.16 MG IV CONT (09:32)
--- NOTE | 2022-07-14 10:38 | PCFNICU ---
ICU Rounding Note: Pt current nutrition is Vital AF 1.2 at 60 ml/hr. Last recorded weight is 105.3 kg, up from 98 kg on admit. Bowel Motility:No Bm reported. Miralax has been ordered. Labs Reviewed:Glu 176, GFR 31, BUN 84, Na 133, K 3.3,Cr 2.1, Hct 26.8,Hgb 8.7 Meds Noted:Propofol at 3.16 ml/hr=83 kcals, Fentanyl, Maxipime, Vancomycin, Miralax, Versed. Skin:Friction noted right buttock. Additional Notes: Patient remain on mechanical ventilation. Tube feedings are being tolerated on Vital AF 1.2 at 60 ml/hr. Free water flush at 30 ml q 4 hours. Propofol infusion at 3.16 ml/hr is providing an additional 83 kcals. Agree with diet orders. noted chest tube placed by surgery on 07/10/2022 for right pneumothorax. Agree with diet orders. Following daily in ICU rounds. Will monitor daily in ICU rounds and reassessing every Tuesday and Tuesday.
[2022-07-14 12:12] LABS: Hematocrit 26.6 % (42.0-52.0); Hemoglobin 8.7 g/dL (14.0-18.0)
[2022-07-14 12:15] LABS: Glucose Point of Care 181 mg/dl (65-105)
--- NOTE | 2022-07-14 12:58 | PM.PNGS ---
Progress Note: A&P Assessment and Plan (1) Pneumothorax on right: Code(s): J93.9 - Pneumothorax, unspecified Status: Acute Assessment and Plan: Chest x-ray this am shows chest tube in good position with no pneumothorax. Continue chest tube to suction. Monitor with serial chest x-rays. Additional Plan will need to leave the tube in at least to water seal until patient able to be off positive pressure breathing with the ventilator. Subjective Subjective Date/Time Seen: 07/14/22 12:58 Post Op day: 4 (Status post right chest tube placement) Patient reports: other ( patient intubated --unable to respond) Review of Systems Review of Systems: ROS unobtainable: Yes unobtainable due to endotracheal tube, unobtainable due to medical condition and unobtainable due to mental status Exam Const: General: ill appearing acutely Orientation/consciousness: patient obtunded Chest: Chest palpation & inspection: abnormal inspection of the chest (Rt. chest tube w/ dressing intact, no bubbling suggestive of air leak at my) and no crepitus Resp: Effort & Inspection: abnormal respiratory pattern ( intubated on mechanical ventilator) Auscultation: clear to auscultation bilaterally Objective Data Vital Signs Vital Signs: Vital Signs - 24 hr 07/13/22 14:09 07/13/22 14:12 07/13/22 14:14 Temperature Pulse Rate 79 81 80 Respiratory Rate 26 H 26 H Blood Pressure Pulse Oximetry 96 Oxygen Delivery Mechanical Ventilation Fraction of Inspired Oxygen 40 07/13/22 14:14 07/13/22 14:14 07/13/22 14:19 Temperature Pulse Rate 80 80 80 Respiratory Rate 26 H 26 H 26 H Blood Pressure Pulse Oximetry Oxygen Delivery Fraction of Inspired Oxygen 07/13/22 14:01 07/13/22 14:00 07/13/22 16:00 Temperature 36.8 C Pulse Rate 83 80 Respiratory Rate 26 H Blood Pressure 102/62 Pulse Oximetry 97 100 Oxygen Delivery Mechanical Ventilation Fraction of Inspired Oxygen 40 07/13/22 16:00 07/13/22 16:00 07/13/22 16:22 Temperature 36.8 C Pulse Rate 74 74 Respiratory Rate 26 H 26 H Blood Pressure 104/65 Pulse Oximetry 100 Oxygen Delivery Fraction of Inspired Oxygen 40 07/13/22 16:22 07/13/22 16:00 07/13/22 17:28 Temperature Pulse Rate 74 75 73 Respiratory Rate 26 H Blood Pressure Pulse Oximetry 98 Oxygen Delivery Mechanical Ventilation Fraction of Inspired Oxygen 40 07/13/22 17:30 07/13/22 17:31 07/13/22 18:00 Temperature 36.6 C Pulse Rate 76 76 81 Respiratory Rate 26 H 26 H 24 H Blood Pressure 114/61 Pulse Oximetry 98 Oxygen Delivery Fraction of Inspired Oxygen 07/13/22 18:00 07/13/22 20:00 07/13/22 20:00 Temperature Pulse Rate 78 76 Respiratory Rate Blood Pressure Pulse Oximetry 97 Oxygen Delivery Mechanical Ventilation Fraction of Inspired Oxygen 40 07/13/22 20:00 07/13/22 20:00 07/13/22 22:00 Temperature 36.4 C L Pulse Rate 77 80 Respiratory Rate 26 H Blood Pressure 111/61 Pulse Oximetry 98 Oxygen Delivery Fraction of Inspired Oxygen 40 07/13/22 22:00 07/14/22 00:00 07/14/22 00:00 Temperature 36.6 C Pulse Rate 80 70 Respiratory Rate 26 H Blood Pressure 107/59 L Pulse Oximetry 97 97 Oxygen Delivery Mechanical Ventilation Fraction of Inspired Oxygen 35 07/14/22 00:00 07/14/22 00:00 07/13/22 20:45 Temperature 36.7 C Pulse Rate 73 77 Respiratory Rate 26 H Blood Pressure 110/61 Pulse Oximetry 97 98 Oxygen Delivery Mechanical Ventilation Fraction of Inspired Oxygen 40 40 07/13/22 20:47 07/13/22 23:00 07/13/22 23:25 Temperature Pulse Rate 77 71 Respiratory Rate 28 H Blood Pressure Pulse Oximetry 98 98 Oxygen Delivery Mechanical Ventilation Fraction of Inspired Oxygen 40 35 07/13/22 21:03 07/14/22 02:00 07/14/22 02:00 Temperature 36.6 C Pulse Rate 79 72 72 Respiratory Rate 28 H 26 H Blood Pressure 111/62 Puls
[2022-07-14] MEDS: FENTANYL 2,500MCG/NS250ML(*CRX 2,500 MCG/250 ML BAG 10 MCG IV CONT (16:05)
[2022-07-14 16:29] LABS: Glucose Point of Care 158 mg/dl (65-105)
[2022-07-14] MEDS: PROPOFOL IV EMULSION 100 ML 12.64 MG IV CONT (16:49)
--- NOTE | 2022-07-14 17:25 | PM.IMPN ---
Progress Note: A&P Assessment and Plan (1) Acute respiratory failure with hypoxia: Code(s): J96.01 - Acute respiratory failure with hypoxia Status: Acute Assessment and Plan: Patient presents with SOB. CTA chest showing no PE but does show multifocal pneumonia. COVID swab was negative (repeat COVID x2 also negative), Influenza negative. Respiratory failure associated with sepsis and HoTN all related to bacterial PNA. Patient's condition deteriorated (related to spontaneous PTX?) requiring intubation. Currently intubated, sedated;Resp failure improved with FiO2 now at 40%; PEEP remains at 10. CXR showing diffuse lung disease. Wean vent settings as tolerated. lunchroom attendant on board and managing ventilator (2) Pneumothorax on right: Code(s): J93.9 - Pneumothorax, unspecified Status: Acute Assessment and Plan: Patient had acute onset CP prior to intubation. He stated it has been intermittent x 1 month. EKG on admission showing minimal ST depression in the anterior leads. Repeat EKG with CP showing no change. Troponin negative x2. CP could be related to spontaneous PTX which could explain why he decompensated. PTX was noted BEFORE central line placement. PTX could be related to bagging/intubation. Currently has Chest tube in place. Management per lunchroom attendant. (3) Sepsis associated hypotension: Code(s): A41.9 - Sepsis, unspecified organism; I95.9 - Hypotension, unspecified Status: Acute Assessment and Plan: Patient was hypotensive on admission to 69/41. He had elevated lactic acid and elevated CRP all consistent with sepsis. Probably not tachycardic due to being on Coreg. Sepsis felt related to PNA. Blood pressures improved initially with IV fluid rehydration. As patient's respiratory failure worsened, his BP dropped again requiring Levophed. Related to adrenal insufficiency? Solu-Cortef started. Antihypertensives on hold. BCx NGTD. MRSA nasal swab negative. Able to wean off Levophed on 07/12. Continue IV abx. (4) Multifocal pneumonia: Code(s): J18.9 - Pneumonia, unspecified organism Status: Acute Assessment and Plan: CTA chest showing no PE but does show multifocal pneumonia. COVID swab was negative (repeat COVID test x2 also negative). Influenza negative. He does have asthma/COPD treated with Fesenra 2 days prior to admission. He has a history of DVT and was recently taken off apixaban but no PE and LE doppler negative for DVT. Pneumococcal Ag negative; Legionella antigens pending. MRSA nasal swab negative. Sputum growing normal denise. BCx NGTD. [place] his PNA related to the Fesenra. Continue IV abx with Levaquin, Vanco and Cefepime. Continue Nebs. Continue supportive care. (5) Acute kidney injury: Code(s): N17.9 - Acute kidney failure, unspecified Status: Acute Assessment and Plan: Cr 2.0 on admission. Acute kidney injury as the patient does not believe that he has underlying kidney disease. Probably ATN due to the severe hypotension. CT scan showing enlarged prostate but no distended bladder. He did receive contrast 07/09/22. Renal US normal. Micthell catheter secured. Cr did improve to 1.3 but back up today to 2.2. Stable today. Monitor strict I/O. Avoid nephrotoxic agents. (6) Electrolyte abnormality: Code(s): E87.8 - Other disorders of electrolyte and fluid balance, not elsewhere classified Status: Acute Assessment and Plan: Mild hyponatremia and hyperkalemia. Cortisol level okay. Related to adrenal suppression? Stress dose steroids started. Potassium normal now. Sodium at 132. Follow. 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 No wheezing. Continue scheduled nebulizers. His low-dose prednisone (10 mg) was stopped. He was started on stress dose steroids due to hypotension. As above. (8) Suspected sl
[2022-07-14 17:51] LABS: Hematocrit 25.7 % (42.0-52.0); Hemoglobin 8.7 g/dL (14.0-18.0)
[2022-07-14 20:13] LABS: Glucose Point of Care 144 mg/dl (65-105)
[2022-07-14] MEDS: PROPOFOL IV EMULSION 100 ML 18.95 MG IV CONT (22:06)
[2022-07-14 23:41] LABS: Glucose Point of Care 122 mg/dl (65-105)
[2022-07-15] VITALS (58 sets, daily range): BP systolic 78–129; BP diastolic 49–80; PULSE 83–118; RESP 13–31; TEMP 36.4–37.1; O2SAT 82–99
[2022-07-15] MEDS: ALBUTEROL SULFATE NEB 2.5 MG/3 ML INH INHALATION ×4 (02:02→20:08)
[2022-07-15] MEDS: IPRATROPIUM BR 0.02% INH SOLN 0.5 MG/2.5 ML VIAL INHALATION ×4 (02:02→20:09)
[2022-07-15] MEDS: PROPOFOL IV EMULSION 100 ML 25.27 MG IV CONT ×2 (02:09→06:02)
[2022-07-15 04:42] LABS: Basophils Percent Auto 0.2 % (0.2-1.2); Hematocrit 26.8 % (42.0-52.0); Hemoglobin 8.9 g/dL (14.0-18.0); Immature Granulocyte Absolute 0.46 K/mm3 (0.00-0.031); Immature Granulocyte Percent A 5.6 % (0-0.5); Lymphocytes Absolute Auto 0.87 K/mm3 (0.9-3.2); Lymphocytes Percent Auto 10.6 % (18.3-44.2); Mean Corpuscular HGB Conc 33.2 g/dl (32-36); Mean Corpuscular Hemoglobin 31.8 pg (26-34); Mean Corpuscular Volume 95.7 fl (80-100); Mean Platelet Volume 8.9 fl (7.4-10.4); Monocytes Absolute Auto 0.7 K/mm3 (0.1-0.6); Monocytes Percent Auto 8.2 % (2.6-8.5); Neutrophils Absolute Auto 6.2 K/mm3 (1.3-6.7); Neutrophils Percent Auto 75.4 % (45.5-73.1); Platelet Count Result 152 k/mm3 (150-375); Red Cell Distribution Width 15.7 % (11.5-14.5); White Blood Count 8.2 K/mm3 (4.5-10.0)
[2022-07-15 04:54] LABS: Alanine Aminotransferase 36 U/L (6-50); Albumin Level 3.9 g/dL (3.5-5.1); Alkaline Phosphatase 57 U/L (38-126); Anion Gap 12 mmol/L (8-16); Aspartate Amino Transferase 76 U/L (17-59); Bilirubin,Total 0.9 mg/dL (0.2-1.3); Blood Urea Nitrogen 94 mg/dL (9-20); Calcium 8.3 mg/dL (8.4-10.2); Carbon Dioxide 21 mmol/L (22-30); Chloride 105 mmol/L (98-107); Estimated CRCL calculation 30 ml/min; Estimated Glomerular Filt Rate 29; Glucose 104 mg/dL (65-110); Magnesium 2.5 mg/dL (1.6-2.3); Potassium 3.8 mmol/L (3.4-5.0); Sodium 138 mmol/L (137-145); Triglycerides 56 mg/dL (<150)
[2022-07-15] MEDS: CENTRAL LINE FLUSH 10 ML IV PUSH ×4 (04:55→20:32)
[2022-07-15] MEDS: ALBUMIN HUMAN 25% 25 GM/100 ML 100 ML IVPB (05:24)
[2022-07-15 05:28] LABS: Alveolar/Arterial O2 Gradient 334.5 mmHg; Base Excess ABG -7.8 mEq/l (+/-2.0); Carboxyhemoglobin 0.4 % THb (0-2.0); Fractional Inspired Oxygen 60 %; HCO3 ABG 16.9 mEq/l (22.0-26.0); Methemoglobin ABG 0.2 %THb (0-1.5); Oxygen Content ABG 17.9 %vol (16.0-22.0); Oxygen Saturation ABG 88.8 % (95.0-100.0); Oxyhemoglobin 88.4 % THb (90.0-100.0); PCO2 ABG 32.2 mmHg (35.0-45.0); PO2 ABG 57.9 mmHg (80.0-100.0); PO2 FiO2 Ratio Arterial Blood 0.97 %; Total Hemoglobin 14.4 g/dL (12.0-18.0); pH ABG 7.337 (7.350-7.450)
[2022-07-15 05:29] LABS: Arterial Blood Gas PEEP 5 cmH2O; Arterial Blood Gas Tidal Volume 440 ml; Arterial Blood Gas Vent Mode CMV; Arterial Blood Gas Ventilator rate 26 /MIN; Device VENTILATOR; Modified Allen's Test Pass; Site Drawn RIGHT RADIAL
[2022-07-15 07:15] LABS: Glucose Point of Care 115 mg/dl (65-105)
[2022-07-15] MEDS: FENTANYL 2,500MCG/NS250ML(*CRX 2,500 MCG/250 ML BAG 17.5 MCG IV CONT ×2 (07:35→21:18)
[2022-07-15] MEDS: MINERAL OIL/WHITE PETROLATUM OINTMENT 1 APPLIC EACH EYE ×2 (08:41→20:32)
[2022-07-15] MEDS: PANTOPRAZOLE SODIUM IV 40 MG VIAL IV PUSH ×2 (08:41→20:32)
[2022-07-15] MEDS: polyethylene glycoL 3350 17 GM POWD.PACK PO (08:41)
[2022-07-15] MEDS: SODIUM BICARBONATE TAB 650 MG TABLET 1300 MG PO ×2 (08:41→18:06)
[2022-07-15] MEDS: LORATADINE 10 MG TABLET PO ×2 (08:41→20:32)
[2022-07-15] MEDS: PROPOFOL IV EMULSION 100 ML 26.33 MG IV CONT ×3 (08:42→14:00)
[2022-07-15] MEDS: BISACODYL 10 MG SUPPOSITORY RECTAL (08:48)
[2022-07-15] MEDS: BUMETANIDE INJ 1 MG/4 ML VIAL 2 MG IV PUSH (09:03)
--- NOTE | 2022-07-15 09:23 | WPDINTPN ---
Progress Note: A&P Assessment and Plan (1) Septic shock: Code(s): A41.9 - Sepsis, unspecified organism; R65.21 - Severe sepsis with septic shock Status: Acute Assessment and Plan: Patient presented to the ED was hypotensive in the 60s, was given IV fluids and then was given Lasix after that in the ER -patient currently off of Levophed, will maintain mean arterial pressures greater than 65 mmHg -continue cefepime, vancomycin (07/10). 07/13 levofloxacin discontinued -07/10/2022 blood cultures x2 are negative so far -07/11/2012 sputum cultures -g stains show Gram-positive cocci but cultures have been negative. Will discontinue vancomycin if cultures stay negative.i -MRSA screen was positive -vasopressors have been weaned off -07/14 discontinue stress dose steroids (2) Acute respiratory failure with hypoxia: Code(s): J96.01 - Acute respiratory failure with hypoxia Status: Acute Assessment and Plan: Patient presented to the ED on 07/09/2022 with increasing shortness of breath for the last 3 weeks which apparently worsened in the last 3 days. He was admitted to the intermediate Unit where he was placed on BiPAP, oxygen requirements were increasing, I was asked to see the patient. Patient was in impending respiratory failure, tachypneic, was breathing between 40-50 times a minute, O2 sats were in the upper 80s to low 90s. Patient was intubated on 07/10/2022 ARDS versus healthcare associated pneumonia patient was on immunosuppressants COVID PCR was negative -patient developed a right pneumothorax could be related to BiPAP, bag-mask ventilation. -chest x-ray reviewed - ABG and ventilator settings reviewed. Increased FiO2 requirement as patient is on 65%. His PEEP was decreased to 5 yesterday I will increase it back to 10 -continue fentanyl and propofol infusion -Off Nimbex infusion -case discussed with Pulmonary -continue bronchodilators -will give dose of Bumex (3) Pneumothorax on right: Code(s): J93.9 - Pneumothorax, unspecified Status: Acute Assessment and Plan: Patient with a right pneumothorax currently multifactorial, patient has COPD, asthma, was on BiPAP, could be possibly secondary bag-mask ventilation -right chest tube was inserted by surgery on 07/10/2020 -chest x-ray this morning shows right chest tube in place, pneumothorax has resolved -intermittent air leak -surgery to manage the chest tube (4) Asthma-COPD overlap syndrome: Code(s): J44.9 - Chronic obstructive pulmonary disease, unspecified Status: Acute Assessment and Plan: See above (5) Acute kidney injury: Code(s): N17.9 - Acute kidney failure, unspecified Status: Acute Assessment and Plan: Acute kidney injury likely related to hypoxia, hypotension, sepsis upon arrival to the ER -urine output improved -creatinine is 2.2 -off IV fluids at this time -off albumin now -Bumex IV due to increased oxygen requirement -continue monitor renal function, electrolytes and urine output -renal ultrasound showed normal kidney sizes with no hydronephrosis -consult nephrology (6) Multifocal pneumonia: Code(s): J18.9 - Pneumonia, unspecified organism Status: Acute Assessment and Plan: CT scan of the chest shows diffuse bilateral pulmonary infiltrates -continue antibiotics as above, on mechanical ventilation (7) Anemia: Code(s): D64.9 - Anemia, unspecified Status: Acute Assessment and Plan: Hemoglobin has been trending down over last 2 days Increased BUN although patient is in acute kidney injury No obvious signs of bleeding but patient has not had any bowel movement Pending stool for Hemoccult Continue PPI q.12 hours Monitor hemoglobin which has been stable over last 24 hours Continue to Hold Lovenox for another 24 hours Plan DVT prophylaxis: SCDs Stress ulcer prophylaxis: Protonix Nutrition: Tolerating tube feeds Code Status: Full code Criti
--- NOTE | 2022-07-15 10:34 | PM.PNGS ---
Progress Note: A&P Assessment and Plan (1) Pneumothorax on right: Code(s): J93.9 - Pneumothorax, unspecified Status: Acute Assessment and Plan: Chest x-ray this am shows chest tube in good position with no pneumothorax. Continue chest tube to suction. Monitor with serial chest x-rays. Additional Plan Care discussed with Dr. Boyce Subjective Subjective Date/Time Seen: 07/15/22 08:34 Post Op day: 5 ( Status post placement of chest tube) Patient reports: other ( intubated and sedated so not responding.) Review of Systems Review of Systems: ROS unobtainable: Yes unobtainable due to endotracheal tube, unobtainable due to medical condition and unobtainable due to mental status Exam Const: General: ill appearing acutely Orientation/consciousness: patient obtunded Chest: Chest palpation & inspection: abnormal inspection of the chest (Rt. CT w/ dressing intact, no bubbling suggestive of air leak at my exam) and no crepitus Resp: Effort & Inspection: abnormal respiratory pattern ( intubated on mechanical ventilator) Auscultation: clear to auscultation bilaterally Objective Data Vital Signs Vital Signs: Vital Signs - 24 hr 07/14/22 11:10 07/14/22 11:21 07/14/22 11:15 Temperature Pulse Rate 100 123 H 111 H Respiratory Rate 35 H 33 H Blood Pressure Pulse Oximetry 91 Oxygen Delivery Mechanical Ventilation Fraction of Inspired Oxygen 35 07/14/22 11:23 07/14/22 11:28 07/14/22 11:37 Temperature Pulse Rate 108 H 111 H 103 H Respiratory Rate 33 H 32 H 31 H Blood Pressure Pulse Oximetry Oxygen Delivery Fraction of Inspired Oxygen 07/14/22 12:00 07/14/22 12:34 07/14/22 12:00 Temperature 37.0 C Pulse Rate 80 79 87 Respiratory Rate 17 26 H Blood Pressure 112/60 Pulse Oximetry 91 Oxygen Delivery Fraction of Inspired Oxygen 07/14/22 12:00 07/14/22 12:00 07/14/22 13:11 Temperature Pulse Rate 82 Respiratory Rate 26 H Blood Pressure Pulse Oximetry 91 Oxygen Delivery Mechanical Ventilation Fraction of Inspired Oxygen 35 35 07/14/22 14:39 07/14/22 14:42 07/14/22 14:49 Temperature Pulse Rate 79 78 77 Respiratory Rate 29 H 29 H Blood Pressure Pulse Oximetry 92 Oxygen Delivery Mechanical Ventilation Fraction of Inspired Oxygen 40 07/14/22 14:00 07/14/22 14:00 07/14/22 16:00 Temperature Pulse Rate 71 71 77 Respiratory Rate 18 29 H Blood Pressure 118/59 L Pulse Oximetry 94 Oxygen Delivery Fraction of Inspired Oxygen 07/14/22 16:05 07/14/22 16:00 07/14/22 16:49 Temperature 37.1 C Pulse Rate 77 104 H 94 Respiratory Rate 29 H 12 32 H Blood Pressure 120/69 Pulse Oximetry 93 Oxygen Delivery Fraction of Inspired Oxygen 07/14/22 16:49 07/14/22 16:51 07/14/22 16:00 Temperature Pulse Rate 94 110 H Respiratory Rate 32 H 32 H Blood Pressure Pulse Oximetry Oxygen Delivery Fraction of Inspired Oxygen 45 07/14/22 16:50 07/14/22 16:00 07/14/22 16:00 Temperature Pulse Rate 90 85 Respiratory Rate Blood Pressure Pulse Oximetry 91 90 Oxygen Delivery Mechanical Ventilation Mechanical Ventilation Fraction of Inspired Oxygen 45 45 07/14/22 18:00 07/14/22 18:00 07/14/22 19:14 Temperature Pulse Rate 86 86 109 H Respiratory Rate 30 H 30 H Blood Pressure 143/70 H Pulse Oximetry 90 Oxygen Delivery Fraction of Inspired Oxygen 07/14/22 19:15 07/14/22 19:46 07/14/22 19:47 Temperature Pulse Rate 86 83 83 Respiratory Rate 30 H 26 H Blood Pressure Pulse Oximetry 91 Oxygen Delivery Mechanical Ventilation Fraction of Inspired Oxygen 50 07/14/22 19:57 07/14/22 19:59 07/14/22 20:00 Temperature Pulse Rate 89 84 Respiratory Rate 34 H 29 H Blood Pressure Pulse Oximetry 91 Oxygen Delivery Mechanical Ventilation Fraction of Inspired Oxygen 50 50 07/14/22 20:00 07/14/22 20:00 07/14/22 22:00
--- NOTE | 2022-07-15 11:41 | PCFNICU ---
ICU Rounding Note: Pt current nutrition is changed to Nepro. Last recorded weight is 109.7 kg, up from 98 kg on admit. Bowel Motility: No BM reported. Labs Reviewed:Mg 2.5, GFR 29, Cr 2.2, BUN 94, Hct 26.8,Hgb 8.9 Meds Noted: Fentanyl, Maxipime, Vancomycin, Versed, Propofol 26.33 ml/vp=923 kcals,Miralax,Atrovent Skin: friction noted on buttock. Additional Notes: Patient remains on mechanical vent. Renal labs elevated, tube feeding change to Nepro. Due to Propofol infusion, tube feeding rate recommendations at 30 ml/hr. Free water flush 30 ml q 4 hours. Nephrology consult. Agree with diet orders. Following daily in ICU rounds. Will monitor daily in ICU rounds and reassessing every Tuesday and Tuesday.
--- NOTE | 2022-07-15 11:57 | P.CONNP_ITS ---
Assessment and Plan Assessment and plan (1) Acute kidney injury: Code(s): N17.9 - Acute kidney failure, unspecified Status: Acute Assessment and Plan: * presumably normal baseline creatinine (1.1mg/dl in March 2019) * initial insult noted on admission * secondary to a combination of hypoxia, hypotension/hemodyanmic instability, and sepsis * responded to therapy (vasopressor support, IVF resuscitation...etc) * creatinine improved from 2.0 to 1.3mg/dl * however, second insult noted on 07/12/22 with creatinine rising from 1.3mg/dl to 1.9mg/dl * previous evaluation noted: * renal ultrasound without obstruction * urine electrolytes look slightly prerenal * urine eosinophils negative * CPK okay * still making urine with no critical electrolytes * possible delayed reaction to contrast/dye?? (CT with contrast done on 07/09/22) * follow trend of repeat labs and UOP (2) Acute respiratory failure with hypoxia: Code(s): J96.01 - Acute respiratory failure with hypoxia Status: Acute Assessment and Plan: * intubated on 07/10/22 for impending respiratory failure (tachypneic in associated with hypoxia) * now complicated by pneumonia, pneumothorax, and possible ARDS * known history of COPD and asthma as well * remains on full ventilator support (3) Multifocal pneumonia: Code(s): J18.9 - Pneumonia, unspecified organism Status: Acute Assessment and Plan: * as noted by CT of chest * on IV antibiotics * continue ventilator support (4) Anemia: Code(s): D64.9 - Anemia, unspecified Status: Acute Assessment and Plan: * possibly related to EDMOND and acute illness * trend of H/H over the last few days noted * follow stool guaiacs * follow trend of H/H (5) Pneumothorax on right: Code(s): J93.9 - Pneumothorax, unspecified Status: Acute Assessment and Plan: * multifactorial: * COPD * asthma * BiPAP use * possibly due to bag-mask ventilation * chest tube in place (done on 07/10/22) * Surgery following Will continue to follow. History of Present Illness Reason for Consult Consult date: 07/15/22 Reason for consult: acute renal failure Chief Complaint Chief complaint: PNA, Hypoxia History of Present Illness Narrative: All the information I have obtained is review of the electronic medical record as well as discussion with the physicians/nurses involved in his care as the patient is currently unable to provide any history as he is currently intubated/sedated and on mechanical ventilation. The patient is an 81-year-old male with extensive past medical history as outlined below who initially presented to [facility] Emergency room for further evaluation of shortness of breath. Apparently, the patient has a history of chronic dyspnea on exertion but his symptoms of shortness of breath had progressively deteriorated over the last three days prior to his presentation to the emergency room. His shortness of breath has become worse with less exertion and eventually to the point when he is at rest. In effort to try to treat the symptoms, he was using his home nebulizer machine although this apparently did not provide much benefit. The night prior to admission, he was suddenly awakened from sleep due to acute shortness of breath and his respiratory status has been quite poor since that time. Associated symptoms included nonproductive cough and generalized weakness as well. Given these symptoms, he presented to [facility] Emergency room
--- NOTE | 2022-07-15 11:57 | PM.CNNEP ---
Assessment and Plan Assessment and plan (1) Acute kidney injury: Code(s): N17.9 - Acute kidney failure, unspecified Status: Acute Assessment and Plan: presumably normal baseline creatinine (1.1mg/dl in March 2019) initial insult noted on admission secondary to a combination of hypoxia, hypotension/hemodyanmic instability, and sepsis responded to therapy (vasopressor support, IVF resuscitation...etc) creatinine improved from 2.0 to 1.3mg/dl however, second insult noted on 07/12/22 with creatinine rising from 1.3mg/dl to 1.9mg/dl previous evaluation noted: renal ultrasound without obstruction urine electrolytes look slightly prerenal urine eosinophils negative CPK okay still making urine with no critical electrolytes possible delayed reaction to contrast/dye?? (CT with contrast done on 07/09/22) follow trend of repeat labs and UOP (2) Acute respiratory failure with hypoxia: Code(s): J96.01 - Acute respiratory failure with hypoxia Status: Acute Assessment and Plan: intubated on 07/10/22 for impending respiratory failure (tachypneic in associated with hypoxia) now complicated by pneumonia, pneumothorax, and possible ARDS known history of COPD and asthma as well remains on full ventilator support (3) Multifocal pneumonia: Code(s): J18.9 - Pneumonia, unspecified organism Status: Acute Assessment and Plan: as noted by CT of chest on IV antibiotics continue ventilator support (4) Anemia: Code(s): D64.9 - Anemia, unspecified Status: Acute Assessment and Plan: possibly related to EDMOND and acute illness trend of H/H over the last few days noted follow stool guaiacs follow trend of H/H (5) Pneumothorax on right: Code(s): J93.9 - Pneumothorax, unspecified Status: Acute Assessment and Plan: multifactorial: COPD asthma BiPAP use possibly due to bag-mask ventilation chest tube in place (done on 07/10/22) Surgery following Will continue to follow. History of Present Illness Reason for Consult Consult date: 07/15/22 Reason for consult: acute renal failure Chief Complaint Chief complaint: PNA, Hypoxia History of Present Illness Narrative: All the information I have obtained is review of the electronic medical record as well as discussion with the physicians/nurses involved in his care as the patient is currently unable to provide any history as he is currently intubated/sedated and on mechanical ventilation. The patient is an 81-year-old male with extensive past medical history as outlined below who initially presented to [facility] Emergency room for further evaluation of shortness of breath. Apparently, the patient has a history of chronic dyspnea on exertion but his symptoms of shortness of breath had progressively deteriorated over the last three days prior to his presentation to the emergency room. His shortness of breath has become worse with less exertion and eventually to the point when he is at rest. In effort to try to treat the symptoms, he was using his home nebulizer machine although this apparently did not provide much benefit. The night prior to admission, he was suddenly awakened from sleep due to acute shortness of breath and his respiratory status has been quite poor since that time. Associated symptoms included nonproductive cough and generalized weakness as well. Given these symptoms, he presented to [facility] Emergency room for further evaluation. Workup and evaluation emergency room demonstrated the patient be quite hypotensive with systolic BP is in the 60s although his oxygen saturations were reasonable on room air (92%). With aggressive IV fluid boluses, his blood pressure did improve and he did receive a continuous nebulizer treatment in the emergency room which seemed to help quite as well. He was placed on supplemental oxygen with oxygen satu
[2022-07-15 13:03] LABS: Glucose Point of Care 138 mg/dl (65-105)
[2022-07-15 13:22] LABS: Creatinine Urine 91.2 mg/dL
[2022-07-15 13:23] LABS: Sodium Urine Random 18 meq/L
[2022-07-15] MEDS: ROCURONIUM BROMIDE 50 MG/5 ML VIAL IV PUSH (13:25)
[2022-07-15] MEDS: NOREPINEPHRINE 8 MG/D5W 250 ML 8 MG/250 ML BAG 9.38 MG IV CONT (13:35)
[2022-07-15 15:10] LABS: Chloride Rand Ur <20 mmol/L (32-290); Creatinine Random Urine 51 mg/dL (20-320)
[2022-07-15] MEDS: MIDAZOLAM 100MG/NS 100ML(*CRX) 100 MG/100 ML BAG IV CONT (15:11)
[2022-07-15 15:16] LABS: Alveolar/Arterial O2 Gradient 442.7 mmHg; Carboxyhemoglobin 0.3 % THb (0-2.0); Fractional Inspired Oxygen 85 %; HCO3 ABG 18.3 mEq/l (22.0-26.0); Methemoglobin ABG 0.2 %THb (0-1.5); Oxygen Content ABG 14.4 %vol (16.0-22.0); Oxygen Saturation ABG 97.5 % (95.0-100.0); Oxyhemoglobin 96.5 % THb (90.0-100.0); PCO2 ABG 45.5 mmHg (35.0-45.0); PO2 ABG 116.2 mmHg (80.0-100.0); PO2 FiO2 Ratio Arterial Blood 1.37 %; Total Hemoglobin 10.5 g/dL (12.0-18.0)
[2022-07-15 15:18] LABS: pH ABG 7.222 (7.350-7.450)
[2022-07-15 15:19] LABS: Arterial Blood Gas Vent Mode CMV; Arterial Blood Gas Ventilator rate 26 /MIN; Device VENTILATOR; Modified Allen's Test Pass; Site Drawn LEFT RADIAL
[2022-07-15 15:20] LABS: Arterial Blood Gas PEEP 14 cmH2O; Arterial Blood Gas Tidal Volume 440 ml
[2022-07-15] MEDS: CISATRACURIUM BESYLATE 200 MG in DEXTROSE 5% 80 ML 9.87 ML IV CONT ×2 (15:31→23:45)
[2022-07-15] MEDS: CISATRACURIUM BESYLATE 20 MG/10 ML VIAL 15 MG IV PUSH (15:31)
--- NOTE | 2022-07-15 15:33 | PM.IMPN ---
Progress Note: A&P Assessment and Plan (1) Acute respiratory failure with hypoxia: Code(s): J96.01 - Acute respiratory failure with hypoxia Status: Acute Assessment and Plan: Patient presents with SOB. CTA chest showing no PE but does show multifocal pneumonia. COVID swab was negative (repeat COVID x2 also negative), Influenza negative. Respiratory failure associated with sepsis and HoTN all related to bacterial PNA. Patient's condition deteriorated (related to spontaneous PTX?) requiring intubation. Currently intubated, sedated;Resp failure improved with FiO2 now at 40%; PEEP remains at 10. CXR showing diffuse lung disease. Wean vent settings as tolerated. medical chemist on board and managing ventilator (2) Pneumothorax on right: Code(s): J93.9 - Pneumothorax, unspecified Status: Acute Assessment and Plan: Patient had acute onset CP prior to intubation. He stated it has been intermittent x 1 month. EKG on admission showing minimal ST depression in the anterior leads. Repeat EKG with CP showing no change. Troponin negative x2. CP could be related to spontaneous PTX which could explain why he decompensated. PTX was noted BEFORE central line placement. PTX could be related to bagging/intubation. Currently has Chest tube in place. Management per medical chemist. (3) Sepsis associated hypotension: Code(s): A41.9 - Sepsis, unspecified organism; I95.9 - Hypotension, unspecified Status: Acute Assessment and Plan: Patient was hypotensive on admission to 69/41. He had elevated lactic acid and elevated CRP all consistent with sepsis. Probably not tachycardic due to being on Coreg. Sepsis felt related to PNA. Blood pressures improved initially with IV fluid rehydration. As patient's respiratory failure worsened, his BP dropped again requiring Levophed. Related to adrenal insufficiency? Solu-Cortef started. Antihypertensives on hold. BCx NGTD. MRSA nasal swab negative. Able to wean off Levophed on 07/12. Continue IV abx. Blood pressure low. Restarted on Levophed (4) Multifocal pneumonia: Code(s): J18.9 - Pneumonia, unspecified organism Status: Acute Assessment and Plan: CTA chest showing no PE but does show multifocal pneumonia. COVID swab was negative (repeat COVID test x2 also negative). Influenza negative. He does have asthma/COPD treated with Fesenra 2 days prior to admission. He has a history of DVT and was recently taken off apixaban but no PE and LE doppler negative for DVT. Pneumococcal Ag negative; Legionella antigens pending. MRSA nasal swab negative. Sputum growing normal denise. BCx NGTD. [place] his PNA related to the Fesenra. Continue IV abx with Levaquin, Vanco and Cefepime. Continue Nebs. Continue supportive care. (5) Acute kidney injury: Code(s): N17.9 - Acute kidney failure, unspecified Status: Acute Assessment and Plan: Cr 2.0 on admission. Acute kidney injury as the patient does not believe that he has underlying kidney disease. Probably ATN due to the severe hypotension. CT scan showing enlarged prostate but no distended bladder. He did receive contrast 07/09/22. Renal US normal. Mitchell catheter secured. Cr did improve to 1.3 but back up today to 2.2. Stable today. Monitor strict I/O. Avoid nephrotoxic agents. Nephrology consulted (6) Electrolyte abnormality: Code(s): E87.8 - Other disorders of electrolyte and fluid balance, not elsewhere classified Status: Acute Assessment and Plan: Mild hyponatremia and hyperkalemia. Cortisol level okay. Related to adrenal suppression? Stress dose steroids started. Potassium normal now. Sodium at 132. Follow. 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 No wheezing. Continue scheduled nebulizers. His low-dose prednisone (10 mg) was stopped. He was started on stress
[2022-07-15] MEDS: SODIUM BICARBONATE 8.4% 50 MEQ/50 ML SYRINGE 100 MEQ IV PUSH (15:59)
[2022-07-15 17:45] LABS: Glucose Point of Care 170 mg/dl (65-105)
--- NOTE | 2022-07-15 20:14 | PC.NURSE ---
Spoke with Dr. Boyce with regarding 300ml Tube feeding residual. Start reglan 10mg per OG q6h. Hold tube feed for 2 hours. Then just keep rate at 10ml/hr when restarted. Decrease PEEP to 12 from 14.
[2022-07-15] MEDS: METOCLOPRAMIDE HCL 10 MG/10 ML SOLN UDC PO (20:32)
[2022-07-15 20:40] LABS: Glucose Point of Care 149 mg/dl (65-105)
[2022-07-15] MEDS: NOREPINEPHRINE 8 MG/D5W 250 ML 8 MG/250 ML BAG 22.5 MG IV CONT (21:18)
[2022-07-16] VITALS (52 sets, daily range): BP systolic 88–123; BP diastolic 50–75; PULSE 77–106; RESP 28–32; TEMP 36–37.2; O2SAT 93–100
[2022-07-16 01:41] LABS: Glucose Point of Care 165 mg/dl (65-105)
[2022-07-16] MEDS: ALBUTEROL SULFATE NEB 2.5 MG/3 ML INH INHALATION ×3 (02:07→20:25)
[2022-07-16] MEDS: IPRATROPIUM BR 0.02% INH SOLN 0.5 MG/2.5 ML VIAL INHALATION ×3 (02:07→20:25)
[2022-07-16] MEDS: CENTRAL LINE FLUSH 10 ML IV PUSH ×4 (04:35→23:23)
[2022-07-16] MEDS: METOCLOPRAMIDE HCL 10 MG/10 ML SOLN UDC PO ×4 (04:35→23:19)
[2022-07-16 04:56] LABS: Alveolar/Arterial O2 Gradient 223.5 mmHg; Base Excess ABG -8.7 mEq/l (+/-2.0); Carboxyhemoglobin 0.5 % THb (0-2.0); Fractional Inspired Oxygen 50 %; HCO3 ABG 20.2 mEq/l (22.0-26.0); Methemoglobin ABG 0.3 %THb (0-1.5); Oxygen Saturation ABG 89.6 % (95.0-100.0); Oxyhemoglobin 91.5 % THb (90.0-100.0); PCO2 ABG 55.6 mmHg (35.0-45.0); PO2 ABG 70.5 mmHg (80.0-100.0); PO2 FiO2 Ratio Arterial Blood 1.41 %; Reduced Hemoglobin 7.7 %THb (0-5.0); Total Hemoglobin 14.8 g/dL (12.0-18.0)
[2022-07-16 04:57] LABS: Device VENTILATOR; Modified Allen's Test Pass; Site Drawn LEFT RADIAL; pH ABG 7.179 (7.350-7.450)
[2022-07-16 04:58] LABS: Arterial Blood Gas PEEP 12 cmH2O; Arterial Blood Gas Tidal Volume 440 ml; Arterial Blood Gas Vent Mode CMV; Arterial Blood Gas Ventilator rate 28 /MIN
[2022-07-16] MEDS: MIDAZOLAM 100MG/NS 100ML(*CRX) 100 MG/100 ML BAG 7 MG IV CONT ×2 (05:11→20:01)
[2022-07-16 05:16] LABS: Hematocrit 29.3 % (42.0-52.0); Hemoglobin 9.4 g/dL (14.0-18.0); Mean Corpuscular HGB Conc 32.1 g/dl (32-36); Mean Corpuscular Hemoglobin 31.2 pg (26-34); Mean Corpuscular Volume 97.3 fl (80-100); Mean Platelet Volume 9.8 fl (7.4-10.4); Platelet Count Result 190 k/mm3 (150-375); Red Blood Count 3.01 M/mm3 (4.6-6.20); Red Cell Distribution Width 16.1 % (11.5-14.5); White Blood Count 15.3 K/mm3 (4.5-10.0)
[2022-07-16 05:21] LABS: Urea Random Urine 396 MG/DL
[2022-07-16 05:35] LABS: Alanine Aminotransferase 61 U/L (6-50); Albumin Level 3.5 g/dL (3.5-5.1); Alkaline Phosphatase 146 U/L (38-126); Anion Gap 14 mmol/L (8-16); Aspartate Amino Transferase 60 U/L (17-59); Bilirubin,Total 2.1 mg/dL (0.2-1.3); Blood Urea Nitrogen 109 mg/dL (9-20); Carbon Dioxide 23 mmol/L (22-30); Chloride 101 mmol/L (98-107); Estimated CRCL calculation 21 ml/min; Estimated Glomerular Filt Rate 19; Glucose 162 mg/dL (65-110); Magnesium 2.6 mg/dL (1.6-2.3); Potassium 4.9 mmol/L (3.4-5.0); Sodium 138 mmol/L (137-145)
[2022-07-16] MEDS: SODIUM BICARBONATE 8.4% 50 MEQ/50 ML SYRINGE 100 MEQ IV PUSH (06:46)
[2022-07-16 07:52] LABS: Glucose Point of Care 172 mg/dl (65-105)
--- NOTE | 2022-07-16 08:34 | WPDINTPN ---
Progress Note: A&P Assessment and Plan (1) Septic shock: Code(s): A41.9 - Sepsis, unspecified organism; R65.21 - Severe sepsis with septic shock Status: Acute Assessment and Plan: Patient presented to the ED was hypotensive in the 60s, was given IV fluids and then was given Lasix after that in the ER Patient was started on vasopressors and eventually was weaned off but had to be restarted on 07/15 Continue Levophed titration to maintain mean arterial pressures greater than 65 mmHg -continue? cefepime started 07/10. 07/13 levofloxacin discontinued. 07/15 vancomycin discontinued -07/10/2022 blood cultures x2 are negative so far -07/11/2012 sputum cultures -gram stain show Gram-positive cocci but cultures have been negative.? Will discontinue vancomycin if cultures stay negative.i -MRSA screen was positive Resume stress dose steroids and albumin (2) Acute respiratory failure with hypoxia: Code(s): J96.01 - Acute respiratory failure with hypoxia Status: Acute Assessment and Plan: Patient presented to the ED on 07/09/2022 with increasing shortness of breath for the last 3 weeks which apparently worsened in the last 3 days.? He was admitted to the intermediate Unit where he was placed on BiPAP, oxygen requirements were increasing, I was asked to see the patient.? Patient was in impending respiratory failure, tachypneic, was breathing between 40-50 times a minute, O2 sats were in the upper 80s to low 90s. Patient was intubated on?07/10/2022 ARDS versus healthcare? associated pneumonia patient was on immunosuppressants COVID PCR was negative -patient developed a right pneumothorax could be related to BiPAP, bag-mask ventilation.? -chest x-ray reviewed - 07/15 post sedation holiday patient had increased oxygen requirement and FiO2 and PEEP had to be increased. And 1 point patient was on 100% FiO2 and 14 of PEEP. Chest x-ray was done and reviewed. Patient was started on Nimbex infusion asynchrony with the ventilator. Sedation was switched back to Versed from propofol -currently on 12 of PEEP and 50% FiO2 -ABG reviewed-sodium bicarb given for metabolic acidosis, respiratory rate increased to 32 -chest x-ray reviewed.? -continue fentanyl and?Versed infusion -continue Nimbex infusion -continue bronchodilators -patient was given dose of Bumex on 07/15 with poor response (3) Pneumothorax on right: Code(s): J93.9 - Pneumothorax, unspecified Status: Acute Assessment and Plan: Patient with a right pneumothorax currently multifactorial, patient has COPD, asthma, was on BiPAP, could be possibly secondary bag-mask ventilation -right chest tube was inserted by surgery on 07/10/2020 -chest x-ray this morning shows right chest tube in place, pneumothorax has resolved -no significant air leak -surgery to manage the chest tube (4) Asthma-COPD overlap syndrome: Code(s): J44.9 - Chronic obstructive pulmonary disease, unspecified Status: Acute Assessment and Plan: See above (5) Acute kidney injury: Code(s): N17.9 - Acute kidney failure, unspecified Status: Acute Assessment and Plan: Acute kidney injury likely related to hypoxia, hypotension, sepsis upon arrival to the ER -urine output continues to be low despite of Bumex dose on 07/15 -creatinine increased to 3.2 -off IV fluids at this time due to concerns of volume overload and worsening respiratory failure -resume albumin -continue monitor renal function, electrolytes and urine output -renal ultrasound showed normal kidney sizes with no hydronephrosis -nephrology following -patient may need hemodialysis. Will discuss with nephrology and patient's family today (6) Multifocal pneumonia: Code(s): J18.9 - Pneumonia, unspecified organism Status: Acute Assessment and Plan: CT scan of the chest shows diffuse bilateral pulmonary infiltrates -continue antibiotics as above, on mechanical ventilation (7) Anemia:
--- NOTE | 2022-07-16 09:45 | P.PNNP_ITS ---
Progress Note: A&P Assessment and Plan (1) Acute kidney injury: Code(s): N17.9 - Acute kidney failure, unspecified Status: Acute Assessment and Plan: * presumably normal baseline creatinine (1.1mg/dl in March 2019) * initial insult noted on admission * secondary to a combination of hypoxia, hypotension/hemodyanmic instability, and sepsis * responded to therapy (vasopressor support, IVF resuscitation...etc) * creatinine improved from 2.0 to 1.3mg/dl * however, second insult noted on 07/12/22 with creatinine rising from 1.3mg/dl to 1.9mg/dl * previous evaluation noted: * renal ultrasound without obstruction * urine electrolytes look slightly prerenal * urine eosinophils negative * CPK okay * possible delayed reaction to contrast/dye?? (CT with contrast done on 07/09/22) * maybe recurrence of ATN due to hemodynamic instability (back on pressors) and infection/ARDS(?) * repeat evaluation done: * urine electrolytes suggestive of prerenal azotemia * repeat renal ultrasound (07/16/22) okay * drop in urine output noted in the last 24 hours with poor response of IV diuretic challenge (IV bumex on 07/15/22) * probably going to need CRITICAL CARE UNIT NURSE/dialysis support soon (due to acidosis, volume overload, ARDS...etc) * Dr. Boyce to discuss with family * follow trend of repeat labs and UOP (2) Septic shock: Code(s): A41.9 - Sepsis, unspecified organism; R65.21 - Severe sepsis with septic shock Status: Acute Assessment and Plan: * initially weaned off vasopressors following admission * vasopressors restarted on 07/15/22 * continue to maintain MAP * blood culture to date negative * repeat blood cultures pending * on antibiotics * back on stress dose steroids and albumin (3) Acute respiratory failure with hypoxia: Code(s): J96.01 - Acute respiratory failure with hypoxia Status: Acute Assessment and Plan: * intubated on 07/10/22 for impending respiratory failure (tachypneic in associated with hypoxia) * now complicated by pneumonia, pneumothorax, and possible ARDS * known history of COPD and asthma as well * remains on full ventilator support (4) Multifocal pneumonia: Code(s): J18.9 - Pneumonia, unspecified organism Status: Acute Assessment and Plan: * as noted by CT of chest * on IV antibiotics * continue ventilator support (5) Anemia: Code(s): D64.9 - Anemia, unspecified Status: Acute Assessment and Plan: * possibly related to EDMOND and acute illness * trend of H/H over the last few days noted * consider empiric Epogen * follow stool guaiacs * follow trend of H/H (6) Pneumothorax on right: Code(s): J93.9 - Pneumothorax, unspecified Status: Acute Assessment and Plan: * multifactorial: * COPD * asthma * BiPAP use * possibly due to bag-mask ventilation * chest tube in place (done on 07/10/22) * Surgery following Discussed with Dr. Boyce. Will continue to follow. Subjective Date/time seen: 07/16/22 09:45 Noted deterioration in the the last 24 hours; increased oxygen requirements noted with poor urine output with poor response to trial of IV diuretics; renal function continues to deteriorate as well with noted acidosis by ABG; remains intubated/sedated/paralyzed with ongoing ventilator support; started on vasopressor therapy (levophed) yesterday as well. Exam Narrative: General: elderly male intubated/sedated/paralyzed Hea
--- NOTE | 2022-07-16 09:45 | PM.PNNEP ---
Progress Note: A&P Assessment and Plan (1) Acute kidney injury: Code(s): N17.9 - Acute kidney failure, unspecified Status: Acute Assessment and Plan: presumably normal baseline creatinine (1.1mg/dl in March 2019) initial insult noted on admission secondary to a combination of hypoxia, hypotension/hemodyanmic instability, and sepsis responded to therapy (vasopressor support, IVF resuscitation...etc) creatinine improved from 2.0 to 1.3mg/dl however, second insult noted on 07/12/22 with creatinine rising from 1.3mg/dl to 1.9mg/dl previous evaluation noted: renal ultrasound without obstruction urine electrolytes look slightly prerenal urine eosinophils negative CPK okay possible delayed reaction to contrast/dye?? (CT with contrast done on 07/09/22) maybe recurrence of ATN due to hemodynamic instability (back on pressors) and infection/ARDS(?) repeat evaluation done: urine electrolytes suggestive of prerenal azotemia repeat renal ultrasound (07/16/22) okay drop in urine output noted in the last 24 hours with poor response of IV diuretic challenge (IV bumex on 07/15/22) probably going to need SPINNING BATH PATROLLER/dialysis support soon (due to acidosis, volume overload, ARDS...etc) Dr. Boyce to discuss with family follow trend of repeat labs and UOP (2) Septic shock: Code(s): A41.9 - Sepsis, unspecified organism; R65.21 - Severe sepsis with septic shock Status: Acute Assessment and Plan: initially weaned off vasopressors following admission vasopressors restarted on 07/15/22 continue to maintain MAP blood culture to date negative repeat blood cultures pending on antibiotics back on stress dose steroids and albumin (3) Acute respiratory failure with hypoxia: Code(s): J96.01 - Acute respiratory failure with hypoxia Status: Acute Assessment and Plan: intubated on 07/10/22 for impending respiratory failure (tachypneic in associated with hypoxia) now complicated by pneumonia, pneumothorax, and possible ARDS known history of COPD and asthma as well remains on full ventilator support (4) Multifocal pneumonia: Code(s): J18.9 - Pneumonia, unspecified organism Status: Acute Assessment and Plan: as noted by CT of chest on IV antibiotics continue ventilator support (5) Anemia: Code(s): D64.9 - Anemia, unspecified Status: Acute Assessment and Plan: possibly related to EDMOND and acute illness trend of H/H over the last few days noted consider empiric Epogen follow stool guaiacs follow trend of H/H (6) Pneumothorax on right: Code(s): J93.9 - Pneumothorax, unspecified Status: Acute Assessment and Plan: multifactorial: COPD asthma BiPAP use possibly due to bag-mask ventilation chest tube in place (done on 07/10/22) Surgery following Discussed with Dr. Boyce. Will continue to follow. Subjective Date/time seen: 07/16/22 09:45 Noted deterioration in the the last 24 hours; increased oxygen requirements noted with poor urine output with poor response to trial of IV diuretics; renal function continues to deteriorate as well with noted acidosis by ABG; remains intubated/sedated/paralyzed with ongoing ventilator support; started on vasopressor therapy (levophed) yesterday as well. Exam Narrative: General: elderly male intubated/sedated/paralyzed Heart: normal S1 and S2; no rub Lungs: coarse breath sounds; right chest tube noted Abdomen: soft, nontender, nondistended, hypoactive bowel sounds Extremities: no cyanosis or clubbing; trace - 1+ edema Skin: warm and dry Objective Data Vital Signs Vital Signs: Vital Signs Temp Pulse Resp BP Pulse Ox O2 Del Method FiO2 07/16/22 08:49 36.9 C 80 94/67 L 100 07/16/22 08:00 88 32 H 07/16/22 08:14 96 98 Mechanical Ventilation 50 07/16/22 07:45 96 32 H 07/16/22 08:00 50 08
[2022-07-16] MEDS: ENOXAPARIN 30 MG/0.3 ML SYRINGE SUB-Q (10:03)
[2022-07-16] MEDS: SODIUM BICARBONATE TAB 650 MG TABLET 1300 MG PO ×2 (10:05→19:06)
[2022-07-16] MEDS: PANTOPRAZOLE SODIUM IV 40 MG VIAL IV PUSH ×2 (10:05→20:02)
[2022-07-16] MEDS: MINERAL OIL/WHITE PETROLATUM OINTMENT 1 APPLIC EACH EYE ×2 (10:05→20:02)
[2022-07-16] MEDS: CISATRACURIUM BESYLATE 200 MG in DEXTROSE 5% 80 ML 9.87 ML IV CONT (10:06)
[2022-07-16] MEDS: LORATADINE 10 MG TABLET PO ×2 (10:06→20:02)
--- NOTE | 2022-07-16 10:46 | PCNFU ---
Addendum entered by Deidre Jiang RD, LDN 07/16/22 10:56: Noted pt is not tolerating tube feeds still. Nursing reported 750ml residual just now while at 20ml/hr. Tube feed on hold again at this time. Will continue to monitor. Original Note: Nutrition Follow-Up Complete: Inadequate Oral Intake as related to mechanical ventilation as evidenced by Tube feedings. Goal:Meet estimated nutritional needs Pt current nutrition is Nepro. Nutrition recommendation: Continue with current plan of care. Last recorded weight is 109.5 kg - up from 98kg on admit. Bowel Motility: +BM 07/15 Labs Reviewed: Hgb:9.4, HCT:29.3, BUN:109 Cr:3.2, glu: 172 Meds Noted:Fentanyl, Maxipime, Vancomycin, Versed, Reglan Skin: friction to buttocks Additional Notes: Pt remains on mechanical vent. Renal labs elevated, tube feedings have been changed to Nepro, were held initially due to intolerance. Reglan added for motility and tube feeds resumed. Currently at 20ml/hr with a goal of 30ml/hr. This will provide 1188kcals, 53g protein over 22 hrs. Noted pt is no longer on propofol. New recommendation to increase tube feeding to a goal rate of 45ml/hr to better meet estimated needs by providing 1782kcals, 80g protein. Will monitor daily in ICU rounds and reassessing every Tuesday and Tuesday.
[2022-07-16 11:32] LABS: Glucose Point of Care 182 mg/dl (65-105)
--- NOTE | 2022-07-16 11:46 | P.HPUP_ITS ---
History and Physical Update Update Date/Time: 07/16/22 11:46 History and Physical has been reviewed, including an updated exam of the patient. There are changes in the patient's condition. Patient originally admitted with severe bacterial pneumonia. He also developed a right-sided pneu mothorax after intubation. He has a right-sided chest tube. Now with his sepsis he has developed acute renal failure and is in need of dialysis. Risks, benefits, and alternatives of a tunneled dialysis catheter placement been discussed and questions answered. Patient agrees to proceed with procedure.
[2022-07-16] MEDS: FENTANYL 2,500MCG/NS250ML(*CRX 2,500 MCG/250 ML BAG 17.5 MCG IV CONT (12:03)
[2022-07-16 12:08] LABS: Base Excess ABG -3.3 mEq/l (+/-2.0); Fractional Inspired Oxygen 50 %; HCO3 ABG 20.7 mEq/l (22.0-26.0); Oxygen Saturation ABG 95.2 % (95.0-100.0); Oxyhemoglobin 93.5 % THb (90.0-100.0); PCO2 ABG 33.4 mmHg (35.0-45.0); PO2 ABG 73.9 mmHg (80.0-100.0); PO2 FiO2 Ratio Arterial Blood 1.48 %; Total Hemoglobin 9.8 g/dL (12.0-18.0); pH ABG 7.411 (7.350-7.450)
[2022-07-16 12:11] LABS: Device VENTILATOR; Modified Allen's Test Pass; Site Drawn RIGHT RADIAL
[2022-07-16 12:12] LABS: Arterial Blood Gas PEEP 10 cmH2O; Arterial Blood Gas Tidal Volume 440 ml; Arterial Blood Gas Vent Mode CMV; Arterial Blood Gas Ventilator rate 32 /MIN
[2022-07-16] MEDS: ALBUMIN HUMAN 25% 25 GM/100 ML 100 ML IVPB ×3 (12:38→23:23)
[2022-07-16] MEDS: HYDROCORTISONE SODIUM SUCCINATE 100 MG/2 ML VIAL IV PUSH ×2 (12:38→23:19)
--- NOTE | 2022-07-16 12:51 | WPDANESEPPF ---
Anes - Initial Pre Proc Eval Procedure: Operation Date: 07/16/22 14:00 Proposed Procedures p Insertion Tunnelled Dialysis Catherter - Ronald Clifford MD Date/Time: 07/16/22 12:51 Surgeon: He Thomas MD Pre Op Diagnosis: PNA, Hypoxia Patient Data Age: 81 Gender: M Height: 1.78 m Weight: 109.5 kg Last Vital Signs Temp 37.2 C 07/16/22 12:01 Pulse 87 07/16/22 12:03 Resp 32 H 07/16/22 12:03 BP 103/66 07/16/22 12:40 Pulse Ox 100 07/16/22 12:01 O2 Del Method Mechanical Ventilation 07/16/22 10:37 O2 Flow Rate 15 07/10/22 07:59 FiO2 50 07/16/22 10:37 Allergies Allergy/AdvReac Type Severity Reaction Status Date / Time No Known Allergies Allergy Verified 07/09/22 14:42 Home Medications Medication Instructions Recorded Confirmed Type albuterol sulfate 90 mcg/actuation 2 puff inhalation Q6H PRN 07/09/22 07/09/22 History aerosol inhaler Shortness Of Breath Or Wheezing amlodipine 10 mg tablet 10 mg PO DAILY 07/09/22 07/09/22 History budesonide 0.5 mg/2 mL suspension 0.5 mg inhalation BID PRN 07/09/22 07/09/22 History for nebulization Shortness Of Breath Or Wheezing carvedilol 6.25 mg tablet 6.25 mg PO BID 07/09/22 07/09/22 History celecoxib 100 mg capsule 100 mg PO BID 07/09/22 07/09/22 History cetirizine 10 mg tablet 10 mg PO BID 07/09/22 07/09/22 History doxazosin 4 mg tablet 4 mg PO BID 07/09/22 07/09/22 History febuxostat 40 mg tablet 40 mg PO DAILY 07/09/22 07/09/22 History finasteride 5 mg tablet 5 mg PO DAILY 07/09/22 07/09/22 History gabapentin 300 mg capsule 300 mg PO TID 07/09/22 07/09/22 History lidocaine 5 % topical patch 1 patch transdermal DAILY PRN Pain 07/09/22 07/09/22 History lisinopril 20 mg tablet 20 mg PO BID 07/09/22 07/09/22 History montelukast 10 mg tablet 10 mg PO HS 07/09/22 07/09/22 History omeprazole 40 mg capsule,delayed 40 mg PO BID 07/09/22 07/09/22 History release oxycodone-acetaminophen 5 mg-325 1 tablet PO Q6H PRN Pain, Moderate 07/09/22 07/09/22 History mg tablet prednisone 10 mg tablet 10 mg PO DAILY 07/09/22 07/09/22 History torsemide 10 mg tablet 10 mg PO DAILY 07/09/22 07/09/22 History Laboratory Tests 07/10/22 07/15/22 07/15/22 18:32 12:54 12:58 WBC RBC Hgb Hct MCV MCH MCHC RDW Plt Count MPV Puncture Site ABG pH ABG pCO2 ABG pO2 ABG PO2/FiO2 Ratio ABG HCO3 ABG O2 Saturation ABG O2 Content ABG Base Excess A-a Gradient Oxyhemoglobin Carboxyhemoglobin Methemoglobin Reduced Hemoglobin Total Hemoglobin O2 Delivery Device O2 Liters/Min Minute Volume Vent Rate Vent Mode FiO2 Tidal Volume PEEP Peak Inspir Pressure Pressure Support Sodium Potassium Chloride Carbon Dioxide Anion Gap BUN Creatinine Estim Creat Clear Calc Estimated GFR Glucose POC Capillary Glucose 138 mg/dl H mg/dl (65-105) Calcium Magnesium Total Bilirubin AST ALT Alkaline Phosphatase Total Protein Albumin Ur Random Creatinine 51 mg/dL mg/dL (20-320) Ur Random Sodium 18 meq/L meq/L Ur Random Chloride <20 mmol/L L mmol/L (32-290) U Random Chloride/Creat see below (23-275) Ur Random Urea Urine Creatinine 91.2 mg/dL mg/dL 07/15/22 07/15/22 07/15/22 15:03 17:42 20:30 WBC RBC Hgb Hct
[2022-07-16] MEDS: HEPARIN SODIUM, PORCINE 10,000 UNITS/10 ML VIAL 10000 UNITS IRRIGATION (13:09)
[2022-07-16] MEDS: HEPARIN SODIUM 1,000 UNITS/ML VIAL 1000 UNITS IV PUSH (13:09)
--- NOTE | 2022-07-16 15:19 | W.PM.PROC2 ---
Procedure Note - Detailed Date of Procedure 07/16/22 Pre-op Diagnosis 1. Acute renal failure 2.PNA, Hypoxia Post-op Diagnosis Same Procedure Performed Ultrasound-guided placement of tunneled dialysis catheter. Surgeon Ronald Clifford MD Infrastructure Tech Miguel [email or web address] legal executive assistant Anesthesia Other (GIVS) Indications The patient has acute renal failure possibly related to sepsis with need for access for hemodialysis Findings Normal Vascular anatomy in the Rt. neck. Description of Procedure The patient was placed in the supine position on the operating table and after carefully positioning all his tubes and monitors. We then carefully rotated the patient's head and tilted slightly to the rightthen prepping the left side of the neck and chest with chlorhexidine. After waiting 3 minutes I carefully draped the patient, and we performed a time-out confirming the patient's site of surgery. (left side because he already has a right IJ catheter). Due to the patients size and because we were working on the left side a 36 cm DuraFlow catheter was selected. Using the ultrasound probe we carefully examined the anatomy in the right neck and saved a image of this in the chart. I used ultrasound to identify the left jugular vein in the mid neck and this was cannulated under direct vision with an 18-gauge Arrow needle on a syringe. Good dark blood was aspirated, the J-guidewire was advanced through the needle and into the central venous system using the usual Seldinger technique. As we 1st tried to pass it several times we had to the watch with the fluoroscopy to get it to pass and it would not seem to pass easily and the J-tip seemed to kink. I did use the C-Arm fluoroscopy to confirm that the wire was then through the central venous system and then we removed the needle and blue guide off the wire. Following this, we measured the DuraFlow catheter such that the tip would be just into the right atrium or in the distal superior vena cava. A hemostat was placed on the drapes over the chest to guide where we would place this. Then the catheter was measured back to the entry site of the J- wire in a curvilinear fashion and down to the patient's chest overlying the left clavicle. Local anesthetic was placed into 3 blair, the exit site and then 2 more on the patient's lateral neck such that a curvilinear path could be dissected through the subcutaneous tissues up to the insertion site on he patients left neck. Local anesthetic was infiltrated along the tract prior to tunneling. Incisions were made with a 15 blade knife at the exit site and the 2 counter incisions and then an 11 blade at the wire. The tunneling device was connected to the catheter and this was pulled through these incisions to make the subcutaneous tunnel a curvilinear course through the subcutaneous tissues to the insertion site. Then the wire was serially dilated with a 12, 14, and then a 16-Kenyan dilator over the pull away sheath. We watched the 16-Kenyan dilator and sheath go down into the central venous system with C-arm fluoroscopy and then removed the dilator wire after carefully covering the end of the catheter. I lost some blood, as we then inserted the catheter down into the central venous system. The catheter was held in place with a DeBakey forceps and then we carefully tore away the sheath leaving the catheter within the subcutaneous tissues and down into the juglar vein. Following this, C-arm fluoroscopy was used to examine the full course of the catheter. The tip was just into the right atrium and there was a good curvilinear course of the catheter in the neck down to the exit site over the left clavicle. Following this a try to aspirate blood from each of the ports in either of the macerated good dark blood. Therefore under fluoro guidance we carefully began pulling the catheter back hoping that we would get into a position where we could then advance it into appropriate position boykin
[2022-07-16] MEDS: NOREPINEPHRINE 8 MG/D5W 250 ML 8 MG/250 ML BAG 11.25 MG IV CONT (16:35)
--- NOTE | 2022-07-16 16:59 | PM.IMPN ---
Progress Note: A&P Assessment and Plan (1) Acute respiratory failure with hypoxia: Code(s): J96.01 - Acute respiratory failure with hypoxia Status: Acute Assessment and Plan: Patient presents with SOB. CTA chest showing no PE but does show multifocal pneumonia. COVID swab was negative (repeat COVID x2 also negative), Influenza negative. Respiratory failure associated with sepsis and HoTN all related to bacterial PNA. Patient's condition deteriorated (related to spontaneous PTX?) requiring intubation. Currently intubated, sedated;Resp failure improved with FiO2 now at 40%; PEEP remains at 10. CXR showing diffuse lung disease. Wean vent settings as tolerated. roller helper on board and managing ventilator 07/16 ABGs reviewed chest x-ray reviewed. Received Bumex 07/15 with poor response. plan to start on dialysis (2) Pneumothorax on right: Code(s): J93.9 - Pneumothorax, unspecified Status: Acute Assessment and Plan: Patient had acute onset CP prior to intubation. He stated it has been intermittent x 1 month. EKG on admission showing minimal ST depression in the anterior leads. Repeat EKG with CP showing no change. Troponin negative x2. CP could be related to spontaneous PTX which could explain why he decompensated. PTX was noted BEFORE central line placement. PTX could be related to bagging/intubation. Currently has Chest tube in place. Management per roller helper. (3) Sepsis associated hypotension: Code(s): A41.9 - Sepsis, unspecified organism; I95.9 - Hypotension, unspecified Status: Acute Assessment and Plan: Patient was hypotensive on admission to 69/41. He had elevated lactic acid and elevated CRP all consistent with sepsis. Probably not tachycardic due to being on Coreg. Sepsis felt related to PNA. Blood pressures improved initially with IV fluid rehydration. As patient's respiratory failure worsened, his BP dropped again requiring Levophed. Related to adrenal insufficiency? Solu-Cortef started. Antihypertensives on hold. BCx NGTD. MRSA nasal swab negative. Able to wean off Levophed on 07/12. Continue IV abx. Blood pressure low. Restarted on Levophed 07/15 (4) Multifocal pneumonia: Code(s): J18.9 - Pneumonia, unspecified organism Status: Acute Assessment and Plan: CTA chest showing no PE but does show multifocal pneumonia. COVID swab was negative (repeat COVID test x2 also negative). Influenza negative. He does have asthma/COPD treated with Fesenra 2 days prior to admission. He has a history of DVT and was recently taken off apixaban but no PE and LE doppler negative for DVT. Pneumococcal Ag negative; Legionella antigens pending. MRSA nasal swab negative. Sputum growing normal denise. BCx NGTD. [place] his PNA related to the Fesenra. Continue IV abx with Levaquin, Vanco and Cefepime. Continue Nebs. Continue supportive care. (5) Acute kidney injury: Code(s): N17.9 - Acute kidney failure, unspecified Status: Acute Assessment and Plan: Cr 2.0 on admission. Acute kidney injury as the patient does not believe that he has underlying kidney disease. Probably ATN due to the severe hypotension. CT scan showing enlarged prostate but no distended bladder. He did receive contrast 07/09/22. Renal US normal. Mitchell catheter secured. Cr did improve to 1.3 but back up today to 2.2. Stable today. Monitor strict I/O. Avoid nephrotoxic agents. Nephrology consulted. Creatinine continues to worsen to 3.2 poor urine output with Bumex given on 07/15 Dialysis planned. Dialysis catheter placed 07/16 (6) Electrolyte abnormality: Code(s): E87.8 - Other disorders of electrolyte and fluid balance, not elsewhere classified Status: Acute Assessment and Plan: Mild hyponatremia and hyperkalemia. Cortisol level okay. Related to adrenal suppression? Stress dose steroids started. Potassium normal now. Sodium at 132. Follow. (7) Asthma-COPD overlap syndrom
[2022-07-16 17:03] LABS: Glucose Point of Care 172 mg/dl (65-105)
[2022-07-16] MEDS: SODIUM CHLORIDE 0.9% IV 1,000 ML 999 ML IV CONT (17:45)
[2022-07-16] MEDS: HEPARIN SODIUM 1,000 UNITS/ML VIAL 5000 UNITS (17:45)
[2022-07-16] MEDS: CISATRACURIUM BESYLATE 200 MG in DEXTROSE 5% 80 ML 13.16 ML IV CONT (20:12)
[2022-07-16 20:26] LABS: Glucose Point of Care 176 mg/dl (65-105)
[2022-07-16] MEDS: INSULIN ASPART (*BKC) 100 UNITS/ML SUB-Q (23:28)
[2022-07-16 23:29] LABS: Glucose Point of Care 240 mg/dl (65-105)
[2022-07-17] VITALS (87 sets, daily range): BP systolic 105–132; BP diastolic 54–76; PULSE 32–94; RESP 17–65; TEMP 35.5–36.9; O2SAT 94–100
[2022-07-17] MEDS: FENTANYL 2,500MCG/NS250ML(*CRX 2,500 MCG/250 ML BAG 17.5 MCG IV CONT (01:54)
[2022-07-17] MEDS: ALBUTEROL SULFATE NEB 2.5 MG/3 ML INH INHALATION ×4 (02:00→20:04)
[2022-07-17] MEDS: IPRATROPIUM BR 0.02% INH SOLN 0.5 MG/2.5 ML VIAL INHALATION ×4 (02:00→20:04)
[2022-07-17] MEDS: CISATRACURIUM BESYLATE 200 MG in DEXTROSE 5% 80 ML 13.16 ML IV CONT (03:51)
[2022-07-17 05:18] LABS: Hematocrit 21.9 % (42.0-52.0); Hemoglobin 7.3 g/dL (14.0-18.0); Mean Corpuscular HGB Conc 33.3 g/dl (32-36); Mean Corpuscular Hemoglobin 31.5 pg (26-34); Mean Corpuscular Volume 94.4 fl (80-100); Mean Platelet Volume 9.8 fl (7.4-10.4); Platelet Count Result 141 k/mm3 (150-375); Red Blood Count 2.32 M/mm3 (4.6-6.20); Red Cell Distribution Width 15.8 % (11.5-14.5); White Blood Count 8.9 K/mm3 (4.5-10.0)
[2022-07-17] MEDS: ALBUMIN HUMAN 25% 25 GM/100 ML 100 ML IVPB (05:22)
[2022-07-17] MEDS: HYDROCORTISONE SODIUM SUCCINATE 100 MG/2 ML VIAL IV PUSH (05:26)
[2022-07-17] MEDS: CENTRAL LINE FLUSH 10 ML IV PUSH ×4 (05:26→20:49)
[2022-07-17] MEDS: METOCLOPRAMIDE HCL 10 MG/10 ML SOLN UDC PO ×3 (05:28→18:06)
[2022-07-17 05:29] LABS: Alanine Aminotransferase 39 U/L (6-50); Albumin Level 3.8 g/dL (3.5-5.1); Alkaline Phosphatase 99 U/L (38-126); Anion Gap 14 mmol/L (8-16); Aspartate Amino Transferase 34 U/L (17-59); Bilirubin,Total 0.8 mg/dL (0.2-1.3); Blood Urea Nitrogen 89 mg/dL (9-20); Calcium 8.3 mg/dL (8.4-10.2); Carbon Dioxide 27 mmol/L (22-30); Chloride 96 mmol/L (98-107); Estimated CRCL calculation 23 ml/min; Estimated Glomerular Filt Rate 21; Glucose 209 mg/dL (65-110); Magnesium 2.6 mg/dL (1.6-2.3); Potassium 4.6 mmol/L (3.4-5.0); Sodium 137 mmol/L (137-145)
[2022-07-17 06:02] LABS: Alveolar/Arterial O2 Gradient 227.4 mmHg; Base Excess ABG 0.3 mEq/l (+/-2.0); Carboxyhemoglobin 0.3 % THb (0-2.0); Device VENTILATOR; Fractional Inspired Oxygen 50 %; HCO3 ABG 24.2 mEq/l (22.0-26.0); Methemoglobin ABG 0.2 %THb (0-1.5); Modified Allen's Test Pass; Oxygen Content ABG 13.9 %vol (16.0-22.0); Oxygen Saturation ABG 97.1 % (95.0-100.0); Oxyhemoglobin 95.3 % THb (90.0-100.0); PCO2 ABG 35.9 mmHg (35.0-45.0); PO2 ABG 88.7 mmHg (80.0-100.0); PO2 FiO2 Ratio Arterial Blood 1.77 %; Reduced Hemoglobin 4.2 %THb (0-5.0); Site Drawn RIGHT RADIAL; Total Hemoglobin 10.3 g/dL (12.0-18.0); pH ABG 7.446 (7.350-7.450)
[2022-07-17 06:03] LABS: Arterial Blood Gas PEEP 10 cmH2O; Arterial Blood Gas Tidal Volume 440 ml; Arterial Blood Gas Vent Mode CMV; Arterial Blood Gas Ventilator rate 30 /MIN
[2022-07-17 06:10] LABS: Glucose Point of Care 227 mg/dl (65-105)
[2022-07-17] MEDS: INSULIN ASPART (*BKC) 100 UNITS/ML SUB-Q ×4 (06:10→20:46)
[2022-07-17 06:15] LABS: Hepatitis B Surface Antigen Negative (Negative)
[2022-07-17 06:33] LABS: Hepatitis B Surface Anti Res Negative
[2022-07-17 08:15] LABS: Glucose Point of Care 210 mg/dl (65-105)
[2022-07-17] MEDS: MINERAL OIL/WHITE PETROLATUM OINTMENT 1 APPLIC EACH EYE ×2 (08:23→20:49)
[2022-07-17] MEDS: polyethylene glycoL 3350 17 GM POWD.PACK PO (08:23)
[2022-07-17] MEDS: PANTOPRAZOLE SODIUM IV 40 MG VIAL IV PUSH ×2 (08:23→20:49)
[2022-07-17] MEDS: ENOXAPARIN 30 MG/0.3 ML SYRINGE SUB-Q (08:23)
[2022-07-17] MEDS: LORATADINE 10 MG TABLET PO ×2 (08:29→20:48)
--- NOTE | 2022-07-17 09:11 | WPDANESPN ---
Anes - Prog Note Post-Op Date/Time: 07/17/22 09:11 Respiratory status: other (pt remains onventilator) Airway patency: other (endotracheal intubation) Mental status: other (sedated) Post-Op hydration status: other (nurse reports pt was dialyzed after catheter placement yesterday) Vital Signs: Last Vital Signs Temp 97.5 F L 07/17/22 06:00 Pulse 66 07/17/22 08:13 Resp 30 H 07/17/22 08:13 BP 124/72 07/17/22 06:00 Pulse Ox 99 07/17/22 08:10 O2 Del Method Mechanical Ventilation 07/17/22 08:10 O2 Flow Rate 15 07/10/22 07:59 FiO2 40 07/17/22 08:10 Pain Score (VAS): 0 I/O: Intake & Output 07/16/22 07/17/22 07/17/22 23:59 07:59 15:59 Intake Total 710 787 240 Output Total 1075 103 Balance -365 684 240 Laboratory Tests 07/17/22 05:11 07/17/22 05:10 07/16/22 07/16/22 07/16/22 11:23 11:55 17:01 WBC RBC Hgb Hct MCV MCH MCHC RDW Plt Count MPV Puncture Site Right radial ABG pH 7.411 ABG pCO2 33.4 L ABG pO2 73.9 L ABG PO2/FiO2 Ratio 1.48 ABG HCO3 20.7 L ABG O2 Saturation 95.2 ABG O2 Content 13.0 L ABG Base Excess -3.3 A-a Gradient 245.0 Oxyhemoglobin 93.5 Carboxyhemoglobin Methemoglobin Reduced Hemoglobin Total Hemoglobin 9.8 L O2 Delivery Device Ventilator O2 Liters/Min Not Reportable Minute Volume Not Reportable Vent Rate 32 Vent Mode Cmv FiO2 50 Tidal Volume 440 PEEP 10 Peak Inspir Pressure Not Reportable Pressure Support Not Reportable Sodium Potassium Chloride Carbon Dioxide Anion Gap BUN Creatinine Estim Creat Clear Calc Estimated GFR Glucose POC Capillary Glucose 182 H 172 H Calcium Magnesium Total Bilirubin AST ALT Alkaline Phosphatase Total Protein Albumin Hep Bs Antigen Hep Bs Antibody Hep B Core Total Ab 07/16/22 07/16/22 07/17/22 20:09 23:26 05:10 WBC RBC Hgb Hct MCV MCH MCHC RDW Plt Count MPV Puncture Site ABG pH ABG pCO2 ABG pO2 ABG PO2/FiO2 Ratio ABG HCO3 ABG O2 Saturation ABG O2 Content ABG Base Excess A-a Gradient Oxyhemoglobin Carboxyhemoglobin Methemoglobin Reduced Hemoglobin Total Hemoglobin O2 Delivery Device O2 Liters/Min Minute Volume Vent Rate Vent Mode FiO2 Tidal Volume PEEP Peak Inspir Pressure Pressure Support Sodium 137 Potassium 4.6 Chloride 96 L Carbon Dioxide 27 Anion Gap 14 BUN 89 H D Creatinine 2.90 H Estim Creat Clear Calc 23 Estimated GFR 21 L Glucose 209 H POC Capillary Glucose 176 H 240 H Calcium 8.3 L Magnesium 2.6 H Total Bilirubin 0.8 AST 34 ALT 39 Alkaline Phosphatase 99 Total Protein 6.0 L Albumin 3.8 Hep Bs Antigen Hep Bs Antibody Hep B Core Total Ab 07/17/22 07/17/22 07/17/22 05:11 05:11 05:11 WBC 8.9 RBC 2.32 L Hgb 7.3 L Hct 21.9 L MCV 94.4 MCH 31.5 MCHC 33.3 RDW 15.8 H Plt Count 141 L MPV 9.8 Puncture Site ABG pH ABG pCO2 ABG pO2 ABG PO2/FiO2 Ratio ABG HCO3 ABG O2 Saturation ABG O2 Content ABG Base Excess A-a Gradient Oxyhemoglobin Carboxyhemoglobin Methemoglobin Reduced Hemoglobin Total Hemoglobin O2 Delivery Device O2 Liters/Min Minute Volume Vent Rate Vent Mode FiO2 Tidal Volume PEEP Peak Inspir Pressure Pressure Support Sodium Potassium Chloride Carbon Dioxide Anion Gap BUN Creatinine Estim Creat Clear Calc Estimated GFR Glucose POC Capillary Glucose Calcium Magnesium Total Bilirubin AST ALT Alkaline Phosphatase Total Protein Albumin Hep Bs Antigen Negative Hep Bs Antibody Negative Hep B Core Total Ab Pending 06/22
--- NOTE | 2022-07-17 09:31 | WPDINTPN ---
Progress Note: A&P Assessment and Plan (1) Septic shock: Code(s): A41.9 - Sepsis, unspecified organism; R65.21 - Severe sepsis with septic shock Status: Acute Assessment and Plan: Patient presented to the ED was hypotensive in the 60s, was given IV fluids and then was given Lasix after that in the ER Patient was started on vasopressors and eventually was weaned off but had to be restarted on 07/15 Levophed weaned off at this time -continue? cefepime started 07/10. 07/13 levofloxacin discontinued. 07/15 vancomycin discontinued -07/10/2022 blood cultures x2 are negative so far -07/11/2012 sputum cultures -gram stain show Gram-positive cocci but cultures have been negative.? vancomycin discontinue07/16 -MRSA screen was positive Wean stress dose steroids Discontinue albumin (2) Acute respiratory failure with hypoxia: Code(s): J96.01 - Acute respiratory failure with hypoxia Status: Acute Assessment and Plan: Patient presented to the ED on 07/09/2022 with increasing shortness of breath for the last 3 weeks which apparently worsened in the last 3 days.? He was admitted to the intermediate Unit where he was placed on BiPAP, oxygen requirements were increasing, I was asked to see the patient.? Patient was in impending respiratory failure, tachypneic, was breathing between 40-50 times a minute, O2 sats were in the upper 80s to low 90s. Patient was intubated on?07/10/2022 ARDS versus healthcare? associated pneumonia patient was on immunosuppressants COVID PCR was negative -patient developed a right pneumothorax could be related to BiPAP, bag-mask ventilation.? -chest x-ray reviewed - 07/15 post sedation holiday patient had increased oxygen requirement and FiO2 and PEEP had to be increased. And 1 point patient was on 100% FiO2 and 14 of PEEP. Chest x-ray was done and reviewed. Patient was started on Nimbex infusion asynchrony with the ventilator. Sedation was switched back to Versed from propofol -currently on 10 of PEEP and 50% FiO2 rate of 30 -ABG reviewed -chest x-ray reviewed.? -continue fentanyl and?Versed infusion -will wean off Nimbex infusion -continue bronchodilators -started on hemodialysis will be continued for fluid removal (3) Pneumothorax on right: Code(s): J93.9 - Pneumothorax, unspecified Status: Acute Assessment and Plan: Patient with a right pneumothorax currently multifactorial, patient has COPD, asthma, was on BiPAP, could be possibly secondary bag-mask ventilation -right chest tube was inserted by surgery on 07/10/2020 -chest x-ray this morning shows right chest tube in place, pneumothorax has resolved -no significant air leak -surgery to manage the chest tube (4) Asthma-COPD overlap syndrome: Code(s): J44.9 - Chronic obstructive pulmonary disease, unspecified Status: Acute Assessment and Plan: See above (5) Acute kidney injury: Code(s): N17.9 - Acute kidney failure, unspecified Status: Acute Assessment and Plan: Acute kidney injury likely related to hypoxia, hypotension, sepsis upon arrival to the ER -urine output continues to be low despite of Bumex dose on 07/15 -07/16 hemodialysis catheter was placed and patient was started on hemodialysis. 1 L UF - 07/17 he is scheduled for another dialysis session today -continue monitor renal function, electrolytes and urine output -renal ultrasound showed normal kidney sizes with no hydronephrosis -nephrology following (6) Multifocal pneumonia: Code(s): J18.9 - Pneumonia, unspecified organism Status: Acute Assessment and Plan: CT scan of the chest shows diffuse bilateral pulmonary infiltrates -continue antibiotics as above, on mechanical ventilation (7) Anemia: Code(s): D64.9 - Anemia, unspecified Status: Acute Assessment and Plan: Hemoglobin initially trending down but now has remained stable last 2 days Increased BUN although patient is in acute kidney
[2022-07-17] MEDS: MIDAZOLAM 100MG/NS 100ML(*CRX) 100 MG/100 ML BAG 7 MG IV CONT (10:55)
--- NOTE | 2022-07-17 11:43 | P.PNNP_ITS ---
Progress Note: A&P Assessment and Plan (1) Acute kidney injury: Code(s): N17.9 - Acute kidney failure, unspecified Status: Acute Assessment and Plan: * presumably normal baseline creatinine (1.1mg/dl in March 2019) * initial insult noted on admission * secondary to a combination of hypoxia, hypotension/hemodyanmic instability, and sepsis * responded to therapy (vasopressor support, IVF resuscitation...etc) * creatinine improved from 2.0 to 1.3mg/dl * however, second insult noted on 07/12/22 with creatinine rising from 1.3mg/dl to 1.9mg/dl * previous evaluation noted: * renal ultrasound without obstruction * urine electrolytes look slightly prerenal * urine eosinophils negative * CPK okay * possible delayed reaction to contrast/dye?? (CT with contrast done on 07/09/22) * maybe recurrence of ATN due to hemodynamic instability +/- hypoxia and/or infection/ARDS(?) * repeat evaluation done: * urine electrolytes suggestive of prerenal azotemia * repeat renal ultrasound (07/16/22) okay * declining urine output with poor response of IV diuretic challenge (IV bumex on 07/15/22) * initiated on DENTAL OFFICE COORDINATOR/dialysis (on 07/16/22) after HD catheter placement * HD today for further optimization of acidosis, clearance, fluid status/volume overload * azotemia partly related to dropping H/H(?) * follow trend of repeat labs and UOP for potential renal recovery (2) Septic shock: Code(s): A41.9 - Sepsis, unspecified organism; R65.21 - Severe sepsis with septic shock Status: Acute Assessment and Plan: * initially weaned off vasopressors following admission * vasopressors restarted on 07/15/22 but off currently * blood culture to date negative * repeat blood cultures pending * on antibiotics * back on stress dose steroids and albumin (3) Acute respiratory failure with hypoxia: Code(s): J96.01 - Acute respiratory failure with hypoxia Status: Acute Assessment and Plan: * intubated on 07/10/22 for impending respiratory failure (tachypneic in associated with hypoxia) * now complicated by pneumonia, pneumothorax, and possible ARDS * known history of COPD and asthma as well * remains on full ventilator support (4) Multifocal pneumonia: Code(s): J18.9 - Pneumonia, unspecified organism Status: Acute Assessment and Plan: * as noted by CT of chest * on IV antibiotics * continue ventilator support (5) Anemia: Code(s): D64.9 - Anemia, unspecified Status: Acute Assessment and Plan: * possibly related to EDMOND and acute illness * trend of H/H over the last few days noted * consider empiric Epogen * follow stool guaiacs * follow trend of H/H (6) Pneumothorax on right: Code(s): J93.9 - Pneumothorax, unspecified Status: Acute Assessment and Plan: * multifactorial: * COPD * asthma * BiPAP use * possibly due to bag-mask ventilation * chest tube in place (done on 07/10/22) * Surgery following Will continue to follow. Subjective Date/time seen: 07/17/22 11:43 S/P tunneled HD catheter placement yesterday afternoon followed by dialysis treatment with 1L fluid removal and appears to have tolerated both treatments reasonably well; weaned off vasopressors and tolerated hemodialysis treatment at the time of my visit (seen on HD at ~ 11:30); daughter at bedside and we discussed the situation. Exam Narrative: General: elderly male intubated/sedated/paralyzed Heart: milly
--- NOTE | 2022-07-17 11:43 | PM.PNNEP ---
Progress Note: A&P Assessment and Plan (1) Acute kidney injury: Code(s): N17.9 - Acute kidney failure, unspecified Status: Acute Assessment and Plan: presumably normal baseline creatinine (1.1mg/dl in March 2019) initial insult noted on admission secondary to a combination of hypoxia, hypotension/hemodyanmic instability, and sepsis responded to therapy (vasopressor support, IVF resuscitation...etc) creatinine improved from 2.0 to 1.3mg/dl however, second insult noted on 07/12/22 with creatinine rising from 1.3mg/dl to 1.9mg/dl previous evaluation noted: renal ultrasound without obstruction urine electrolytes look slightly prerenal urine eosinophils negative CPK okay possible delayed reaction to contrast/dye?? (CT with contrast done on 07/09/22) maybe recurrence of ATN due to hemodynamic instability +/- hypoxia and/or infection/ARDS(?) repeat evaluation done: urine electrolytes suggestive of prerenal azotemia repeat renal ultrasound (07/16/22) okay declining urine output with poor response of IV diuretic challenge (IV bumex on 07/15/22) initiated on NURSING SERVICE DIRECTOR/dialysis (on 07/16/22) after HD catheter placement HD today for further optimization of acidosis, clearance, fluid status/volume overload azotemia partly related to dropping H/H(?) follow trend of repeat labs and UOP for potential renal recovery (2) Septic shock: Code(s): A41.9 - Sepsis, unspecified organism; R65.21 - Severe sepsis with septic shock Status: Acute Assessment and Plan: initially weaned off vasopressors following admission vasopressors restarted on 07/15/22 but off currently blood culture to date negative repeat blood cultures pending on antibiotics back on stress dose steroids and albumin (3) Acute respiratory failure with hypoxia: Code(s): J96.01 - Acute respiratory failure with hypoxia Status: Acute Assessment and Plan: intubated on 07/10/22 for impending respiratory failure (tachypneic in associated with hypoxia) now complicated by pneumonia, pneumothorax, and possible ARDS known history of COPD and asthma as well remains on full ventilator support (4) Multifocal pneumonia: Code(s): J18.9 - Pneumonia, unspecified organism Status: Acute Assessment and Plan: as noted by CT of chest on IV antibiotics continue ventilator support (5) Anemia: Code(s): D64.9 - Anemia, unspecified Status: Acute Assessment and Plan: possibly related to EDMOND and acute illness trend of H/H over the last few days noted consider empiric Epogen follow stool guaiacs follow trend of H/H (6) Pneumothorax on right: Code(s): J93.9 - Pneumothorax, unspecified Status: Acute Assessment and Plan: multifactorial: COPD asthma BiPAP use possibly due to bag-mask ventilation chest tube in place (done on 07/10/22) Surgery following Will continue to follow. Subjective Date/time seen: 07/17/22 11:43 S/P tunneled HD catheter placement yesterday afternoon followed by dialysis treatment with 1L fluid removal and appears to have tolerated both treatments reasonably well; weaned off vasopressors and tolerated hemodialysis treatment at the time of my visit (seen on HD at ~ 11:30); daughter at bedside and we discussed the situation. Exam Narrative: General: elderly male intubated/sedated/paralyzed Heart: normal S1 and S2; no rub Lungs: coarse breath sounds; right chest tube noted Abdomen: soft, nontender, nondistended, hypoactive bowel sounds Extremities: no cyanosis or clubbing; trace - 1+ edema Skin: warm and intact Objective Data Vital Signs Vital Signs: Vital Signs Temp Pulse Resp BP Pulse Ox O2 Del Method FiO2 07/17/22 11:30 62 112/64 07/17/22 11:00 36.1 C L 63 30 H 116/68 97 07/17/22 11:12 63 117/68 07/17/22 11:16 64 97 Mechanical Ventilation 40 07/17/22 10
[2022-07-17 12:18] LABS: Glucose Point of Care 199 mg/dl (65-105)
[2022-07-17] MEDS: SODIUM CHLORIDE 0.9% IV 1,000 ML 999 ML IV CONT (12:18)
[2022-07-17] MEDS: EPOETIN ALFA-EPBX 20,000 UNITS/ML VIAL 20000 UNITS IV PUSH (12:18)
--- NOTE | 2022-07-17 14:08 | PM.PNGS ---
Progress Note: A&P Assessment and Plan (1) Pneumothorax on right: Code(s): J93.9 - Pneumothorax, unspecified Status: Acute Assessment and Plan: Chest x-ray this am shows chest tube in good position with no pneumothorax. Continue chest tube to suction. Monitor with serial chest x-rays. If in settings continue to come down may be able to convert to water seal Ericka take Pleur-evac off suction. Wounds and dialysis catheter on the left unremarkable. Additional Plan Care discussed with Dr. Boyce Subjective Subjective Date/Time Seen: 07/17/22 14:08 Post Op day: 1 ( status post tunneled dialysis catheter placement, pod 6 from right chest tube placement.) Patient reports: other ( patient intubated but still sedated) Review of Systems Review of Systems: ROS unobtainable: Yes unobtainable due to endotracheal tube, unobtainable due to medical condition and unobtainable due to mental status Exam Const: General: ill appearing acutely Orientation/consciousness: patient obtunded Chest: Chest palpation & inspection: abnormal inspection of the chest (Rt. CT w/ dressing intact, no bubbling suggestive of air leak at my exam) and no crepitus Other: patient now has a dual-lumen tunneled dialysis catheter exiting in the lateral anterior left chest incisions from recent placement on neck and anterior chest all healing well with surgical glue in place. Resp: Effort & Inspection: abnormal respiratory pattern ( intubated on mechanical ventilator) Auscultation: clear to auscultation bilaterally Objective Data Vital Signs Vital Signs: Vital Signs - 24 hr 07/16/22 16:00 07/16/22 16:00 07/16/22 16:00 Temperature 36.6 C Pulse Rate 80 80 Respiratory Rate 30 H Blood Pressure 107/58 L Pulse Oximetry 94 Oxygen Delivery Fraction of Inspired Oxygen 60 07/16/22 16:00 07/16/22 16:32 07/16/22 16:00 Temperature 36.5 C Pulse Rate 82 84 Respiratory Rate 30 H Blood Pressure 107/53 L 107/58 L Pulse Oximetry 94 98 Oxygen Delivery Mechanical Ventilation Fraction of Inspired Oxygen 60 07/16/22 17:00 07/16/22 17:15 07/16/22 16:00 Temperature Pulse Rate 84 86 Respiratory Rate Blood Pressure 102/60 105/63 Pulse Oximetry Oxygen Delivery Fraction of Inspired Oxygen 55 07/16/22 17:30 07/16/22 17:45 07/16/22 18:00 Temperature Pulse Rate 82 87 84 Respiratory Rate Blood Pressure 100/62 95/61 L 100/60 Pulse Oximetry Oxygen Delivery Fraction of Inspired Oxygen 07/16/22 18:15 07/16/22 18:30 07/16/22 18:45 Temperature Pulse Rate 82 88 90 Respiratory Rate Blood Pressure 97/64 L 100/63 93/67 L Pulse Oximetry Oxygen Delivery Fraction of Inspired Oxygen 07/16/22 16:45 07/16/22 17:00 07/16/22 17:58 Temperature Pulse Rate 81 89 Respiratory Rate Blood Pressure 104/63 Pulse Oximetry 98 Oxygen Delivery Mechanical Ventilation Fraction of Inspired Oxygen 55 55 07/16/22 18:00 07/16/22 18:00 07/16/22 19:07 Temperature 36.4 C Pulse Rate 95 86 88 Respiratory Rate 30 H 30 H Blood Pressure 100/60 88/50 L Pulse Oximetry 97 Oxygen Delivery Fraction of Inspired Oxygen 07/16/22 20:01 07/16/22 20:01 07/16/22 19:58 Temperature Pulse Rate 84 84 Respiratory Rate 30 H 30 H 30 H Blood Pressure 96/55 L Pulse Oximetry Oxygen Delivery Fraction of Inspired Oxygen 07/16/22 20:12 07/16/22 20:26 07/16/22 20:26 Temperature Pulse Rate 81 81 Respiratory Rate 30 H 30 H Blood Pressure Pulse Oximetry 98 Oxygen Delivery Mechanical Ventilation Fraction of Inspired Oxygen 55 07/16/22 20:36 07/16/22 19:00 07/16/22 19:15 Temperature 36.6 C Pulse Rate 86 86 79 Respiratory Rate 30 H 30 H Blood Pressure 95/62 L 104/70 Pulse Oximetry 99 Oxygen Delivery Fraction of Inspired Oxygen 07/16/22 19:02 07/16/22 20:00 07/16/22 20:00 Temperature Pulse Rate 87 85 Respirato
[2022-07-17 14:26] LABS: Hematocrit 24.2 % (42.0-52.0); Hemoglobin 8.1 g/dL (14.0-18.0); Mean Corpuscular HGB Conc 33.5 g/dl (32-36); Mean Corpuscular Hemoglobin 31.3 pg (26-34); Mean Corpuscular Volume 93.4 fl (80-100); Platelet Count Result 161 k/mm3 (150-375); Red Blood Count 2.59 M/mm3 (4.6-6.20); Red Cell Distribution Width 15.7 % (11.5-14.5); White Blood Count 9.3 K/mm3 (4.5-10.0)
--- NOTE | 2022-07-17 15:20 | PM.IMPN ---
Progress Note: A&P Assessment and Plan (1) Acute respiratory failure with hypoxia: Code(s): J96.01 - Acute respiratory failure with hypoxia Status: Acute Assessment and Plan: Patient presents with SOB. CTA chest showing no PE but does show multifocal pneumonia. COVID swab was negative (repeat COVID x2 also negative), Influenza negative. Respiratory failure associated with sepsis and HoTN all related to bacterial PNA. Patient's condition deteriorated (related to spontaneous PTX?) requiring intubation. Currently intubated, sedated;Resp failure improved with FiO2 now at 40%; PEEP remains at 10. CXR showing diffuse lung disease. Wean vent settings as tolerated. drying and winding supervisor on board and managing ventilator Received Bumex 07/15 with poor response. Started on hemodialysis for acute renal failure 07/16/2022 after placement of dialysis catheter by General surgery (2) Pneumothorax on right: Code(s): J93.9 - Pneumothorax, unspecified Status: Acute Assessment and Plan: Patient had acute onset CP prior to intubation. He stated it has been intermittent x 1 month. EKG on admission showing minimal ST depression in the anterior leads. Repeat EKG with CP showing no change. Troponin negative x2. CP could be related to spontaneous PTX which could explain why he decompensated. PTX was noted BEFORE central line placement. PTX could be related to bagging/intubation. Currently has Chest tube in place. Management per drying and winding supervisor. (3) Sepsis associated hypotension: Code(s): A41.9 - Sepsis, unspecified organism; I95.9 - Hypotension, unspecified Status: Acute Assessment and Plan: Patient was hypotensive on admission to 69/41. He had elevated lactic acid and elevated CRP all consistent with sepsis. Probably not tachycardic due to being on Coreg. Sepsis felt related to PNA. Blood pressures improved initially with IV fluid rehydration. As patient's respiratory failure worsened, his BP dropped again requiring Levophed. Related to adrenal insufficiency? Solu-Cortef started. Antihypertensives on hold. BCx NGTD. MRSA nasal swab negative. Able to wean off Levophed on 07/12. Continue IV abx. Blood pressure low. Restarted on Levophed 07/15 now again off Levophed (4) Multifocal pneumonia: Code(s): J18.9 - Pneumonia, unspecified organism Status: Acute Assessment and Plan: CTA chest showing no PE but does show multifocal pneumonia. COVID swab was negative (repeat COVID test x2 also negative). Influenza negative. He does have asthma/COPD treated with Fesenra 2 days prior to admission. He has a history of DVT and was recently taken off apixaban but no PE and LE doppler negative for DVT. Pneumococcal Ag negative; Legionella antigens pending. MRSA nasal swab negative. Sputum growing normal denise. BCx NGTD. Gomer his PNA related to the Fesenra. Continue IV abx with Levaquin, Vanco and Cefepime. Continue Nebs. Continue supportive care. (5) Acute kidney injury: Code(s): N17.9 - Acute kidney failure, unspecified Status: Acute Assessment and Plan: Cr 2.0 on admission. Acute kidney injury as the patient does not believe that he has underlying kidney disease. Probably ATN due to the severe hypotension. CT scan showing enlarged prostate but no distended bladder. He did receive contrast 07/09/22. Renal US normal. Mitchell catheter secured. Cr did improve to 1.3 but back up today to 2.2. Stable today. Monitor strict I/O. Avoid nephrotoxic agents. Nephrology consulted. Creatinine continues to worsen to 3.2 poor urine output with Bumex given on 07/15 Dialysis started 07/16 Dialysis catheter placed 07/16 (6) Electrolyte abnormality: Code(s): E87.8 - Other disorders of electrolyte and fluid balance, not elsewhere classified Status: Acute Assessment and Plan: Mild hyponatremia and hyperkalemia. Cortisol level okay. Related to adrenal suppression? Stress dose steroids started. Potassium no
[2022-07-17] MEDS: FENTANYL 2,500MCG/NS250ML(*CRX 2,500 MCG/250 ML BAG 15 MCG IV CONT (15:59)
[2022-07-17 17:09] LABS: Glucose Point of Care 213 mg/dl (65-105)
[2022-07-17 17:16] LABS: IFOB Positive Control Positive; Immunochemical Fecal Occult Bl Positive (N)
[2022-07-17 20:58] LABS: Glucose Point of Care 210 mg/dl (65-105)
[2022-07-18] VITALS (104 sets, daily range): BP systolic 115–150; BP diastolic 56–73; PULSE 63–103; RESP 17–34; TEMP 36.9–37.5; O2SAT 88–100
[2022-07-18 00:01] LABS: Glucose Point of Care 175 mg/dl (65-105)
[2022-07-18] MEDS: ALBUTEROL SULFATE NEB 2.5 MG/3 ML INH INHALATION ×4 (01:59→20:41)
[2022-07-18] MEDS: IPRATROPIUM BR 0.02% INH SOLN 0.5 MG/2.5 ML VIAL INHALATION ×4 (01:59→20:41)
[2022-07-18] MEDS: CENTRAL LINE FLUSH 10 ML IV PUSH ×4 (04:46→20:53)
[2022-07-18 05:10] LABS: Alveolar/Arterial O2 Gradient 192.9 mmHg; Carboxyhemoglobin 0.2 % THb (0-2.0); Fractional Inspired Oxygen 40 %; Methemoglobin ABG 0.2 %THb (0-1.5); Oxygen Content ABG 12.9 %vol (16.0-22.0); Oxyhemoglobin 89.7 % THb (90.0-100.0); PCO2 ABG 28.4 mmHg (35.0-45.0); PO2 ABG 59.6 mmHg (80.0-100.0); PO2 FiO2 Ratio Arterial Blood 1.49 %; Reduced Hemoglobin 9.9 %THb (0-5.0); Total Hemoglobin 10.2 g/dL (12.0-18.0)
[2022-07-18 05:13] LABS: Device VENTILATOR; Modified Allen's Test Pass; Site Drawn RIGHT RADIAL; pH ABG 7.544 (7.350-7.450)
[2022-07-18 05:14] LABS: Arterial Blood Gas PEEP 5 cmH2O; Arterial Blood Gas Tidal Volume 440 ml; Arterial Blood Gas Vent Mode CMV; Arterial Blood Gas Ventilator rate 30 /MIN
[2022-07-18] MEDS: METOCLOPRAMIDE HCL 10 MG/10 ML SOLN UDC PO ×2 (06:18→17:41)
[2022-07-18 06:22] LABS: Hematocrit 23.5 % (42.0-52.0); Mean Platelet Volume 10.8 fl (7.4-10.4); Platelet Count Result 172 k/mm3 (150-375); Red Cell Distribution Width 15.5 % (11.5-14.5); White Blood Count 11.1 K/mm3 (4.5-10.0)
[2022-07-18 06:39] LABS: Alanine Aminotransferase 33 U/L (6-50); Albumin Level 3.8 g/dL (3.5-5.1); Alkaline Phosphatase 102 U/L (38-126); Anion Gap 14 mmol/L (8-16); Aspartate Amino Transferase 29 U/L (17-59); Bilirubin,Total 0.6 mg/dL (0.2-1.3); Blood Urea Nitrogen 88 mg/dL (9-20); Carbon Dioxide 30 mmol/L (22-30); Chloride 92 mmol/L (98-107); Estimated CRCL calculation 24 ml/min; Estimated Glomerular Filt Rate 23; Glucose 145 mg/dL (65-110); Magnesium 2.6 mg/dL (1.6-2.3); Potassium 3.7 mmol/L (3.4-5.0); Sodium 136 mmol/L (137-145); Triglycerides 135 mg/dL (<150)
[2022-07-18 08:18] LABS: Glucose Point of Care 157 mg/dl (65-105)
--- NOTE | 2022-07-18 08:36 | WPDINTPN ---
Progress Note: A&P Assessment and Plan (1) Septic shock: Code(s): A41.9 - Sepsis, unspecified organism; R65.21 - Severe sepsis with septic shock Status: Acute Assessment and Plan: Patient presented to the ED was hypotensive in the 60s, was given IV fluids and then was given Lasix after that in the ER Patient was started on vasopressors and eventually was weaned off but had to be restarted on 07/15 Levophed weaned off at this time -continue? cefepime started 07/10. 07/13 levofloxacin discontinued. 07/15 vancomycin discontinued 07/16 -07/10/2022 blood cultures x2 are negative so far -07/11/2012 sputum cultures -gram stain show Gram-positive cocci but cultures have been negative except he has -MRSA screen was positive Wean stress dose steroids Discontinued albumin (2) Acute respiratory failure with hypoxia: Code(s): J96.01 - Acute respiratory failure with hypoxia Status: Acute Assessment and Plan: Patient presented to the ED on 07/09/2022 with increasing shortness of breath for the last 3 weeks which apparently worsened in the last 3 days.? He was admitted to the intermediate Unit where he was placed on BiPAP, oxygen requirements were increasing, I was asked to see the patient.? Patient was in impending respiratory failure, tachypneic, was breathing between 40-50 times a minute, O2 sats were in the upper 80s to low 90s. Patient was intubated on?07/10/2022 ARDS versus healthcare? associated pneumonia patient was on immunosuppressants which was later complicated by fluid over COVID PCR was negative -patient developed a right pneumothorax could be related to BiPAP, bag-mask ventilation.? - 07/15 post sedation holiday patient had increased oxygen requirement and FiO2 and PEEP had to be increased. And 1 point patient was on 100% FiO2 and 14 of PEEP. Chest x-ray was done and reviewed. Patient was started on Nimbex infusion asynchrony with the ventilator. Sedation was switched back to Versed from propofol -ABG reviewed -change tidal volume to 400 rate to 25 and PEEP to 8 -chest x-ray reviewed.? -continue fentanyl and?Versed infusion -now off of Nimbex infusion -continue bronchodilators - Hemodialysis will be continued for further fluid removal (3) Pneumothorax on right: Code(s): J93.9 - Pneumothorax, unspecified Status: Acute Assessment and Plan: Patient with a right pneumothorax currently multifactorial, patient has COPD, asthma, was on BiPAP, could be possibly secondary bag-mask ventilation -right chest tube was inserted by surgery on 07/10/2020 -chest x-ray this morning shows right chest tube in place, pneumothorax has resolved -no significant air leak -surgery managing the chest tube (4) Asthma-COPD overlap syndrome: Code(s): J44.9 - Chronic obstructive pulmonary disease, unspecified Status: Acute Assessment and Plan: See above (5) Acute kidney injury: Code(s): N17.9 - Acute kidney failure, unspecified Status: Acute Assessment and Plan: Acute kidney injury likely related to hypoxia, hypotension, sepsis upon arrival to the ER -urine output continues to be low despite of Bumex dose on 07/15 -07/16 hemodialysis catheter was placed and patient was started on hemodialysis. 1 L UF - 07/17 had dialysis session and 2 L fluid was removed -continue monitor renal function, electrolytes and urine output -renal ultrasound showed normal kidney sizes with no hydronephrosis -nephrology following (6) Multifocal pneumonia: Code(s): J18.9 - Pneumonia, unspecified organism Status: Acute Assessment and Plan: CT scan of the chest shows diffuse bilateral pulmonary infiltrates -continue antibiotics as above, on mechanical ventilation (7) Anemia: Code(s): D64.9 - Anemia, unspecified Status: Acute Assessment and Plan: Hemoglobin initially trending down but now has remained stable last 2 days Increased BUN although patient is in acute kidn
[2022-07-18] MEDS: polyethylene glycoL 3350 17 GM POWD.PACK PO (08:45)
[2022-07-18] MEDS: PANTOPRAZOLE SODIUM IV 40 MG VIAL IV PUSH ×2 (08:45→20:53)
[2022-07-18] MEDS: MINERAL OIL/WHITE PETROLATUM OINTMENT 1 APPLIC EACH EYE ×2 (08:45→20:52)
[2022-07-18] MEDS: HYDROCORTISONE SODIUM SUCCINATE 100 MG/2 ML VIAL IV PUSH (08:45)
[2022-07-18] MEDS: LORATADINE 10 MG TABLET PO ×2 (08:45→20:53)
[2022-07-18] MEDS: FENTANYL 2,500MCG/NS250ML(*CRX 2,500 MCG/250 ML BAG 12.5 MCG IV CONT (08:55)
[2022-07-18 12:19] LABS: Glucose Point of Care 197 mg/dl (65-105)
--- NOTE | 2022-07-18 12:21 | PM.PNNEP ---
Progress Note: A&P Assessment and Plan (1) Acute kidney injury: Code(s): N17.9 - Acute kidney failure, unspecified Status: Acute Assessment and Plan: presumably normal baseline creatinine (1.1mg/dl in March 2019) initial insult noted on admission secondary to a combination of hypoxia, hypotension/hemodyanmic instability, and sepsis responded to therapy (vasopressor support, IVF resuscitation...etc) creatinine improved from 2.0 to 1.3mg/dl at that time however, second insult noted on 07/12/22 with creatinine rising from 1.3mg/dl to 1.9mg/dl previous evaluation noted: renal ultrasound without obstruction urine electrolytes look slightly prerenal urine eosinophils negative CPK okay possible delayed reaction to contrast/dye?? 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 on REGIONAL SALES COORDINATOR/dialysis (on 07/16/22) after HD catheter placement HD day before yesterday and yesterday surprising not significant change in BUN + creatinine by AM labs with dialysis yesterday azotemia may be a manifestion of catabolic state +/- steroid therapy watch H/H as well likely plan HD tomorrow follow trend of repeat labs and UOP for potential renal recovery (2) Septic shock: Code(s): A41.9 - Sepsis, unspecified organism; R65.21 - Severe sepsis with septic shock Status: Acute Assessment and Plan: initially weaned off vasopressors following admission vasopressors restarted on 07/15/22 but off currently blood culture to date negative repeat blood cultures pending on antibiotics (3) Acute respiratory failure with hypoxia: Code(s): J96.01 - Acute respiratory failure with hypoxia Status: Acute Assessment and Plan: intubated on 07/10/22 for impending respiratory failure (tachypneic in associated with hypoxia) now complicated by pneumonia, pneumothorax, and possible ARDS known history of COPD and asthma as well remains on full ventilator support (4) Multifocal pneumonia: Code(s): J18.9 - Pneumonia, unspecified organism Status: Acute Assessment and Plan: as noted by CT of chest on IV antibiotics continue ventilator support (5) Anemia: Code(s): D64.9 - Anemia, unspecified Status: Acute Assessment and Plan: possibly related to EDMOND and acute illness trend of H/H over the last few days noted consider empiric Epogen follow stool guaiacs follow trend of H/H (6) Pneumothorax on right: Code(s): J93.9 - Pneumothorax, unspecified Status: Acute Assessment and Plan: multifactorial: COPD asthma BiPAP use possibly due to bag-mask ventilation chest tube in place (done on 07/10/22) Surgery following Will continue to follow. Subjective Date/time seen: 07/18/22 12:21 Tolerated dialysis yesterday with 2L fluid removal; remains hemodynamically stable off vasopressor therapy; urine output remains low and despite dialysis yesterday, no significant change in BUN and creatinine; remains intubated/sedated and on mechanical ventilation; no acute issues/events overnight or earlier this AM. Exam Narrative: General: elderly male intubated/sedated Heart: normal S1 and S2; no rub Lungs: coarse breath sounds; right chest tube noted Abdomen: soft, nontender, nondistended, hypoactive bowel sounds Extremities: no cyanosis or clubbing; trace - 1+ edema Skin: no rash Objective Data Vital Signs Vital Signs: Vital Signs Temp Pulse Resp BP Pulse Ox O2 Del Method FiO2 07/18/22 12:30 37.2 C 80 25 H 89 L 07/18/22 12:15 37.1 C 76 25 H 93 07/18/22 12:01 37.1 C 79 25 H 92
--- NOTE | 2022-07-18 12:21 | P.PNNP_ITS ---
Progress Note: A&P Assessment and Plan (1) Acute kidney injury: Code(s): N17.9 - Acute kidney failure, unspecified Status: Acute Assessment and Plan: * presumably normal baseline creatinine (1.1mg/dl in March 2019) * initial insult noted on admission * secondary to a combination of hypoxia, hypotension/hemodyanmic instability, and sepsis * responded to therapy (vasopressor support, IVF resuscitation...etc) * creatinine improved from 2.0 to 1.3mg/dl at that time * however, second insult noted on 07/12/22 with creatinine rising from 1.3mg/dl to 1.9mg/dl * previous evaluation noted: * renal ultrasound without obstruction * urine electrolytes look slightly prerenal * urine eosinophils negative * CPK okay * possible delayed reaction to contrast/dye?? (CT with contrast done on 07/09/22) * maybe recurrence of ATN due to hemodynamic instability +/- hypoxia and/or infection/ARDS(?) * repeat evaluation done: * urine electrolytes suggestive of prerenal azotemia * repeat renal ultrasound (07/16/22) okay * declining urine output with poor response of IV diuretic challenge (IV bumex given on 07/15/22) * initiated on BEAD WIRE INSULATOR/dialysis (on 07/16/22) after HD catheter placement * HD day before yesterday and yesterday * surprising not significant change in BUN + creatinine by AM labs with dialysis yesterday * azotemia may be a manifestion of catabolic state +/- steroid therapy * watch H/H as well * likely plan HD tomorrow * follow trend of repeat labs and UOP for potential renal recovery (2) Septic shock: Code(s): A41.9 - Sepsis, unspecified organism; R65.21 - Severe sepsis with septic shock Status: Acute Assessment and Plan: * initially weaned off vasopressors following admission * vasopressors restarted on 07/15/22 but off currently * blood culture to date negative * repeat blood cultures pending * on antibiotics (3) Acute respiratory failure with hypoxia: Code(s): J96.01 - Acute respiratory failure with hypoxia Status: Acute Assessment and Plan: * intubated on 07/10/22 for impending respiratory failure (tachypneic in associated with hypoxia) * now complicated by pneumonia, pneumothorax, and possible ARDS * known history of COPD and asthma as well * remains on full ventilator support (4) Multifocal pneumonia: Code(s): J18.9 - Pneumonia, unspecified organism Status: Acute Assessment and Plan: * as noted by CT of chest * on IV antibiotics * continue ventilator support (5) Anemia: Code(s): D64.9 - Anemia, unspecified Status: Acute Assessment and Plan: * possibly related to EDMOND and acute illness * trend of H/H over the last few days noted * consider empiric Epogen * follow stool guaiacs * follow trend of H/H (6) Pneumothorax on right: Code(s): J93.9 - Pneumothorax, unspecified Status: Acute Assessment and Plan: * multifactorial: * COPD * asthma * BiPAP use * possibly due to bag-mask ventilation * chest tube in place (done on 07/10/22) * Surgery following Will continue to follow. Subjective Date/time seen: 07/18/22 12:21 Tolerated dialysis yesterday with 2L fluid removal; remains hemodynamically stable off vasopressor therapy; urine output remains low and despite dialysis yesterday, no significant change in BUN and creatinine; remains intubated/sedated and on mechanical ventilation; no acute issues/events overnight or earlier this AM. Exam
--- NOTE | 2022-07-18 13:56 | PM.PNGS ---
Progress Note: A&P Assessment and Plan (1) Pneumothorax on right: Code(s): J93.9 - Pneumothorax, unspecified Status: Acute Assessment and Plan: Chest x-ray this am shows chest tube in good position with no pneumothorax. Continue chest tube to suction. Monitor with serial chest x-rays. If in settings continue to come down may be able to convert to water seal ie -- take Pleur-evac off suction. Wounds and dialysis catheter on the left unremarkable. (2) Acute kidney injury: Code(s): N17.9 - Acute kidney failure, unspecified Status: Acute Assessment and Plan: Now on dialysis via a tunneled dialysis catheter. Additional Plan Care discussed with Dr. Boyce Subjective Subjective Date/Time Seen: 07/18/22 07:56 Post Op day: POD#8 from Interval history: Postop day 8 from chest tube Postop day 2 from left subclavian dialysis catheter placement He is still on ventilator and not responding much. Now off of sedation. Review of Systems Review of Systems: ROS unobtainable: Yes unobtainable due to endotracheal tube Exam Const: General: ill appearing acutely Orientation/consciousness: patient obtunded Chest: Chest palpation & inspection: abnormal inspection of the chest (Rt. CT w/ dressing intact, no bubbling suggestive of air leak at my exam) and no crepitus Other: patient now has a dual-lumen tunneled dialysis catheter exiting in the lateral anterior left chest. The incisions from recent placement on neck and anterior chest all healing well with surgical glue in place. Resp: Effort & Inspection: abnormal respiratory pattern ( intubated on mechanical ventilator) Auscultation: clear to auscultation bilaterally Objective Data Vital Signs Vital Signs: Vital Signs - 24 hr 07/17/22 14:00 07/17/22 14:15 07/17/22 14:00 Temperature Pulse Rate 61 58 L 61 Respiratory Rate Blood Pressure 111/67 120/72 Pulse Oximetry Oxygen Delivery Fraction of Inspired Oxygen 07/17/22 14:00 07/17/22 14:00 07/17/22 14:00 Temperature 36.1 C L Pulse Rate 61 61 61 Respiratory Rate 30 H 30 H 30 H Blood Pressure 111/67 Pulse Oximetry 97 Oxygen Delivery Fraction of Inspired Oxygen 07/17/22 14:55 07/17/22 14:28 07/17/22 14:40 Temperature 36.1 C L Pulse Rate 58 L 56 L 54 L Respiratory Rate 30 H 28 H Blood Pressure 115/71 124/54 L Pulse Oximetry 97 Oxygen Delivery Fraction of Inspired Oxygen 07/17/22 15:59 07/17/22 15:59 07/17/22 16:01 Temperature Pulse Rate 62 62 62 Respiratory Rate 30 H 30 H 30 H Blood Pressure Pulse Oximetry Oxygen Delivery Fraction of Inspired Oxygen 07/17/22 16:47 07/17/22 16:00 07/17/22 16:00 Temperature 36.4 C Pulse Rate 55 L 61 62 Respiratory Rate 28 H Blood Pressure 132/72 Pulse Oximetry 95 96 Oxygen Delivery Mechanical Ventilation Fraction of Inspired Oxygen 40 07/17/22 16:00 07/17/22 16:00 07/17/22 14:00 Temperature 36.1 C L Pulse Rate 59 L Respiratory Rate 30 H Blood Pressure 111/67 Pulse Oximetry 97 98 Oxygen Delivery Mechanical Ventilation Fraction of Inspired Oxygen 40 40 07/17/22 14:01 07/17/22 14:15 07/17/22 14:16 Temperature 36.1 C L 36.1 C L 36.1 C L Pulse Rate 61 55 L 58 L Respiratory Rate 30 H 27 H 27 H Blood Pressure 120/72 Pulse Oximetry 97 96 97 Oxygen Delivery Fraction of Inspired Oxygen 07/17/22 14:27 07/17/22 14:30 07/17/22 14:31 Temperature 36.1 C L 36.1 C L 36.1 C L Pulse Rate 58 L 58 L 58 L Respiratory Rate 17 22 H 19 Blood Pressure 115/71 128/73 Pulse Oximetry 98 97 98 Oxygen Delivery Fraction of Inspired Oxygen 07/17/22 14:45 07/17/22 14:46 07/17/22 15:00 Temperature 36.2 C L 36.2 C L 36.3 C L Pulse Rate 63 62 62 Respiratory Rate 25 H 28 H 30 H Blood Pressure 129/73 122/70 Pulse Oximetry 96 95 98 Oxygen Delivery Fraction of Inspired Oxygen 07/17/22 15:01 07/17/22 15:15 07/17/22 15:30 T
[2022-07-18] MEDS: MIDAZOLAM 100MG/NS 100ML(*CRX) 100 MG/100 ML BAG IV CONT (15:21)
--- NOTE | 2022-07-18 16:01 | PM.IMPN ---
Progress Note: A&P Assessment and Plan (1) Acute respiratory failure with hypoxia: Code(s): J96.01 - Acute respiratory failure with hypoxia Status: Acute Assessment and Plan: Patient presents with SOB. CTA chest showing no PE but does show multifocal pneumonia. COVID swab was negative (repeat COVID x2 also negative), Influenza negative. Respiratory failure associated with sepsis and HoTN all related to bacterial PNA. Patient's condition deteriorated (related to spontaneous PTX?) requiring intubation. Currently intubated, sedated;Resp failure improved with FiO2 now at 40%; PEEP remains at 10. CXR showing diffuse lung disease. Wean vent settings as tolerated. allergist/md on board and managing ventilator Received Bumex 07/15 with poor response. Started on hemodialysis for acute renal failure 07/16/2022 after placement of dialysis catheter by General surgery On intermittent dialysis per Nephrology (2) Pneumothorax on right: Code(s): J93.9 - Pneumothorax, unspecified Status: Acute Assessment and Plan: Patient had acute onset CP prior to intubation. He stated it has been intermittent x 1 month. EKG on admission showing minimal ST depression in the anterior leads. Repeat EKG with CP showing no change. Troponin negative x2. CP could be related to spontaneous PTX which could explain why he decompensated. PTX was noted BEFORE central line placement. PTX could be related to bagging/intubation. Currently has Chest tube in place. Management per allergist/md. (3) Sepsis associated hypotension: Code(s): A41.9 - Sepsis, unspecified organism; I95.9 - Hypotension, unspecified Status: Acute Assessment and Plan: Patient was hypotensive on admission to 69/41. He had elevated lactic acid and elevated CRP all consistent with sepsis. Probably not tachycardic due to being on Coreg. Sepsis felt related to PNA. Blood pressures improved initially with IV fluid rehydration. As patient's respiratory failure worsened, his BP dropped again requiring Levophed. Related to adrenal insufficiency? Solu-Cortef started. Antihypertensives on hold. BCx NGTD. MRSA nasal swab negative. Able to wean off Levophed on 07/12. Continue IV abx. Blood pressure low. Restarted on Levophed 07/15 now again off Levophed (4) Multifocal pneumonia: Code(s): J18.9 - Pneumonia, unspecified organism Status: Acute Assessment and Plan: CTA chest showing no PE but does show multifocal pneumonia. COVID swab was negative (repeat COVID test x2 also negative). Influenza negative. He does have asthma/COPD treated with Fesenra 2 days prior to admission. He has a history of DVT and was recently taken off apixaban but no PE and LE doppler negative for DVT. Pneumococcal Ag negative; Legionella antigens pending. MRSA nasal swab negative. Sputum growing normal denise. BCx NGTD. [place]lee his PNA related to the Fesenra. Continue IV abx with Levaquin, Vanco and Cefepime. Continue Nebs. Continue supportive care. (5) Acute kidney injury: Code(s): N17.9 - Acute kidney failure, unspecified Status: Acute Assessment and Plan: Cr 2.0 on admission. Acute kidney injury as the patient does not believe that he has underlying kidney disease. Probably ATN due to the severe hypotension. CT scan showing enlarged prostate but no distended bladder. He did receive contrast 07/09/22. Renal US normal. Mitchell catheter secured. Cr did improve to 1.3 but back up today to 2.2. Stable today. Monitor strict I/O. Avoid nephrotoxic agents. Nephrology consulted. Creatinine continues to worsen to 3.2 poor urine output with Bumex given on 07/15 Dialysis started 07/16 Dialysis catheter placed 07/16 (6) Electrolyte abnormality: Code(s): E87.8 - Other disorders of electrolyte and fluid balance, not elsewhere classified Status: Acute Assessment and Plan: Mild hyponatremia and hyperkalemia. Cortisol level okay. Related to adrenal suppression? S
[2022-07-18 17:46] LABS: Glucose Point of Care 186 mg/dl (65-105)
[2022-07-18 21:07] LABS: Glucose Point of Care 168 mg/dl (65-105)
[2022-07-19] VITALS (143 sets, daily range): BP systolic 82–157; BP diastolic 39–90; PULSE 57–115; RESP 5–36; TEMP 35.5–37.7; O2SAT 87–100
[2022-07-19 00:28] LABS: Glucose Point of Care 139 mg/dl (65-105)
--- NOTE | 2022-07-19 01:35 | PC.NURSE ---
0130 Dr Boyce updated on oxygen requirements, RR, and Bp. Orders received.
--- NOTE | 2022-07-19 01:35 | PC.NURSE ---
0005 Fio2 increased to 60% for O2 sats 86-87%
[2022-07-19] MEDS: MIDAZOLAM HCL (*CRX) 2 MG/2 ML VIAL 5 MG IV PUSH (01:42)
[2022-07-19] MEDS: IPRATROPIUM BR 0.02% INH SOLN 0.5 MG/2.5 ML VIAL INHALATION ×4 (02:37→20:00)
[2022-07-19] MEDS: ALBUTEROL SULFATE NEB 2.5 MG/3 ML INH INHALATION ×4 (02:37→20:00)
[2022-07-19] MEDS: PROPOFOL IV EMULSION 100 ML 3.07 MG IV CONT (03:22)
[2022-07-19] MEDS: FENTANYL 2,500MCG/NS250ML(*CRX 2,500 MCG/250 ML BAG 15 MCG IV CONT (03:27)
[2022-07-19 05:18] LABS: Hematocrit 26.2 % (42.0-52.0); Hemoglobin 8.7 g/dL (14.0-18.0); Mean Corpuscular HGB Conc 33.2 g/dl (32-36); Mean Corpuscular Hemoglobin 31.3 pg (26-34); Mean Corpuscular Volume 94.2 fl (80-100); Mean Platelet Volume 10.1 fl (7.4-10.4); Platelet Count Result 196 k/mm3 (150-375); Red Blood Count 2.78 M/mm3 (4.6-6.20); Red Cell Distribution Width 15.9 % (11.5-14.5)
[2022-07-19 05:37] LABS: Alanine Aminotransferase 34 U/L (6-50); Albumin Level 3.4 g/dL (3.5-5.1); Alkaline Phosphatase 122 U/L (38-126); Anion Gap 7 mmol/L (8-16); Aspartate Amino Transferase 56 U/L (17-59); Bilirubin,Total 0.6 mg/dL (0.2-1.3); Blood Urea Nitrogen 117 mg/dL (9-20); Calcium 8.4 mg/dL (8.4-10.2); Carbon Dioxide 29 mmol/L (22-30); Chloride 93 mmol/L (98-107); Estimated CRCL calculation 16 ml/min; Estimated Glomerular Filt Rate 14; Glucose 140 mg/dL (65-110); Magnesium 2.7 mg/dL (1.6-2.3); Potassium 4.2 mmol/L (3.4-5.0); Sodium 129 mmol/L (137-145)
[2022-07-19 05:38] LABS: Alveolar/Arterial O2 Gradient 448.3 mmHg; Base Excess ABG 0.6 mEq/l (+/-2.0); Carboxyhemoglobin 0.2 % THb (0-2.0); Fractional Inspired Oxygen 80 %; HCO3 ABG 24.8 mEq/l (22.0-26.0); Methemoglobin ABG 0.3 %THb (0-1.5); Oxygen Content ABG 13.4 %vol (16.0-22.0); Oxygen Saturation ABG 95.1 % (95.0-100.0); Oxyhemoglobin 92.7 % THb (90.0-100.0); PCO2 ABG 38.2 mmHg (35.0-45.0); PO2 FiO2 Ratio Arterial Blood 0.91 %; Reduced Hemoglobin 6.8 %THb (0-5.0); Total Hemoglobin 10.2 g/dL (12.0-18.0); pH ABG 7.431 (7.350-7.450)
[2022-07-19 05:40] LABS: Device VENTILATOR; Modified Allen's Test Pass; Site Drawn RIGHT RADIAL
[2022-07-19 05:44] LABS: Arterial Blood Gas PEEP 8 cmH2O; Arterial Blood Gas Tidal Volume 400 ml; Arterial Blood Gas Vent Mode CMV; Arterial Blood Gas Ventilator rate 25 /MIN
[2022-07-19] MEDS: CENTRAL LINE FLUSH 10 ML IV PUSH ×4 (05:47→20:04)
[2022-07-19] MEDS: LORATADINE 10 MG TABLET PO ×2 (08:08→20:04)
[2022-07-19] MEDS: MINERAL OIL/WHITE PETROLATUM OINTMENT 1 APPLIC EACH EYE ×2 (08:08→20:04)
[2022-07-19] MEDS: PANTOPRAZOLE SODIUM IV 40 MG VIAL IV PUSH ×2 (08:09→20:04)
[2022-07-19 08:23] LABS: Glucose Point of Care 142 mg/dl (65-105)
--- NOTE | 2022-07-19 08:38 | WPDINTPN ---
Progress Note: A&P Assessment and Plan (1) Septic shock: Code(s): A41.9 - Sepsis, unspecified organism; R65.21 - Severe sepsis with septic shock Status: Acute Assessment and Plan: Patient presented to the ED was hypotensive in the 60s, was given IV fluids and then was given Lasix after that in the ER Patient was started on vasopressors and eventually was weaned off but had to be restarted on 07/15 Levophed weaned off at this time -continue? cefepime started 07/10 for a 10 day course - 07/13 levofloxacin discontinued. 07/15 vancomycin discontinued 07/16 -07/10/2022 blood cultures x2 are negative so far -07/11/2012 sputum cultures -gram stain show Gram-positive cocci but cultures have been negative except he has yeast -MRSA screen was positive Weaned off stress dose steroids Discontinued albumin (2) Acute respiratory failure with hypoxia: Code(s): J96.01 - Acute respiratory failure with hypoxia Status: Acute Assessment and Plan: Patient presented to the ED on 07/09/2022 with increasing shortness of breath for the last 3 weeks which apparently worsened in the last 3 days.? He was admitted to the intermediate Unit where he was placed on BiPAP, oxygen requirements were increasing, I was asked to see the patient.? Patient was in impending respiratory failure, tachypneic, was breathing between 40-50 times a minute, O2 sats were in the upper 80s to low 90s. Patient was intubated on?07/10/2022 ARDS versus healthcare? associated pneumonia patient was on immunosuppressants which was later complicated by fluid over COVID PCR was negative -patient developed a right pneumothorax could be related to BiPAP, bag-mask ventilation.? - 07/15 post sedation holiday patient had increased oxygen requirement and FiO2 and PEEP had to be increased. And 1 point patient was on 100% FiO2 and 14 of PEEP. Chest x-ray was done and reviewed. Patient was started on Nimbex infusion asynchrony with the ventilator. Sedation was switched back to Versed from propofol - 07/19 overnight patient again had increased oxygen requirement with EEGs FiO2 to 80%. Patient was breathing over the ventilator and was a synchronous with the vent. Increased pulmonary edema could also be contributing. Propofol was started. Patient is scheduled for hemodialysis today -increase PEEP to 10 -ABG reviewed -continue tidal volume at 400 rate at 25 -chest x-ray reviewed.? -continue fentanyl and?Versed infusion. Propofol added -now off of Nimbex infusion but may have to restart if unable to manage just with sedation -continue bronchodilators - Hemodialysis will be continued for further fluid removal (3) Pneumothorax on right: Code(s): J93.9 - Pneumothorax, unspecified Status: Acute Assessment and Plan: Patient with a right pneumothorax currently multifactorial, patient has COPD, asthma, was on BiPAP, could be possibly secondary bag-mask ventilation -right chest tube was inserted by surgery on 07/10/2020 -chest x-ray this morning shows right chest tube in place, pneumothorax has resolved -no significant air leak -surgery managing the chest tube (4) Asthma-COPD overlap syndrome: Code(s): J44.9 - Chronic obstructive pulmonary disease, unspecified Status: Acute Assessment and Plan: See above (5) Acute kidney injury: Code(s): N17.9 - Acute kidney failure, unspecified Status: Acute Assessment and Plan: Acute kidney injury likely related to hypoxia, hypotension, sepsis upon arrival to the ER -urine output continues to be low despite of Bumex dose on 07/15 -07/16 hemodialysis catheter was placed and patient was started on hemodialysis. 1 L UF - 07/17 had dialysis session and 2 L fluid was removed -urine output remains low with increase in BUN creatinine. He will continue to need dialysis at this time -continue monitor renal function, electrolytes and urine output -renal ultrasound showed normal kidney sizes with no hydronephros
[2022-07-19] MEDS: PROPOFOL IV EMULSION 100 ML 30.72 MG IV CONT ×2 (09:13→12:08)
[2022-07-19] MEDS: ROCURONIUM BROMIDE 50 MG/5 ML VIAL IV PUSH (09:17)
[2022-07-19] MEDS: MIDAZOLAM 100MG/NS 100ML(*CRX) 100 MG/100 ML BAG 8 MG IV CONT ×2 (10:32→23:05)
[2022-07-19] MEDS: CISATRACURIUM BESYLATE 200 MG in DEXTROSE 5% 80 ML 9.58 ML IV CONT (10:39)
[2022-07-19] MEDS: CISATRACURIUM BESYLATE 20 MG/10 ML VIAL 15 MG IV PUSH (10:39)
[2022-07-19 12:04] LABS: Glucose Point of Care 167 mg/dl (65-105)
--- NOTE | 2022-07-19 12:04 | PCFNICU ---
ICU Rounding Note: Pt current nutrition is Nepro at 30 ml/h 22 hours. Flushes 30 ml q 4 h. 1190 kcals. Residuals good. Nutrition recommendation: Titrate Nepro down to 25 ml/h due to increased propofol. Communicated with GUSTAVO Lewis. Last recorded weight is 106.4 kg. Bowel Motility: +1 BM 07/18/22. Labs Reviewed: 07/19/22: Na 129, K+ 4.2, BUN 117, Creat 4.2, Glucose 142 Meds Noted: Propofol increased to 30.7 ml/h = 810 kcals. Sedation with Versed and propofol. Levophed not given since 07/17/22. Skin: Friction to buttocks. Not open, monitoring. Additional Notes: Propofol increased to 30.7 ml/h. Recommend titrating Nepro down to 25 ml/h 22 h until propofol is titrated down. Following daily in ICU rounds. Will monitor daily in ICU rounds and reassessing every Tuesday and Tuesday..
[2022-07-19] MEDS: EPOETIN ALFA-EPBX 10,000 UNITS/ML VIAL 10000 UNITS IV PUSH (12:40)
[2022-07-19] MEDS: HEPARIN SODIUM 1,000 UNITS/ML VIAL 6000 UNITS (12:41)
[2022-07-19] MEDS: SODIUM CHLORIDE 0.9% IV 1,000 ML 999 ML IV CONT ×2 (12:41→12:42)
--- NOTE | 2022-07-19 13:10 | P.PNNP_ITS ---
Progress Note: A&P Assessment and Plan (1) Acute kidney injury: Code(s): N17.9 - Acute kidney failure, unspecified Status: Acute Assessment and Plan: * presumably normal baseline creatinine (1.1mg/dl in March 2019) * initial insult noted on admission * secondary to a combination of hypoxia, hypotension/hemodyanmic instability, and sepsis * responded to therapy (vasopressor support, IVF resuscitation...etc) * creatinine improved from 2.0 to 1.3mg/dl at that time * however, second insult noted on 07/12/22 with creatinine rising from 1.3mg/dl to 1.9mg/dl * previous evaluation noted: * renal ultrasound without obstruction * urine electrolytes look slightly prerenal * urine eosinophils negative * CPK okay * possible delayed reaction to contrast/dye?? (CT with contrast done on 07/09/22) * maybe recurrence of ATN due to hemodynamic instability +/- hypoxia and/or infection/ARDS(?) * repeat evaluation done: * urine electrolytes suggestive of prerenal azotemia * repeat renal ultrasound (07/16/22) okay * declining urine output with poor response of IV diuretic challenge (IV bumex given on 07/15/22) * initiated on [employer]BACCO CURER/dialysis (on 07/16/22) after HD catheter placement * HD today * azotemia may be a manifestion of catabolic state +/- steroid therapy * watch H/H as well * follow trend of repeat labs and UOP for potential renal recovery (2) Septic shock: Code(s): A41.9 - Sepsis, unspecified organism; R65.21 - Severe sepsis with septic shock Status: Acute Assessment and Plan: * initially weaned off vasopressors following admission * vasopressors restarted on 07/15/22 but off currently * blood culture to date negative * repeat blood cultures pending * on antibiotics (3) Acute respiratory failure with hypoxia: Code(s): J96.01 - Acute respiratory failure with hypoxia Status: Acute Assessment and Plan: * intubated on 07/10/22 for impending respiratory failure (tachypneic in associated with hypoxia) * now complicated by pneumonia, pneumothorax, and possible ARDS * known history of COPD and asthma as well * remains on full ventilator support (4) Multifocal pneumonia: Code(s): J18.9 - Pneumonia, unspecified organism Status: Acute Assessment and Plan: * as noted by CT of chest * on IV antibiotics * continue ventilator support (5) Anemia: Code(s): D64.9 - Anemia, unspecified Status: Acute Assessment and Plan: * possibly related to EDMOND and acute illness * trend of H/H over the last few days noted * consider empiric Epogen * follow stool guaiacs * follow trend of H/H (6) Pneumothorax on right: Code(s): J93.9 - Pneumothorax, unspecified Status: Acute Assessment and Plan: * multifactorial: * COPD * asthma * BiPAP use * possibly due to bag-mask ventilation * chest tube in place (done on 07/10/22) * Surgery following Will continue to follow. Subjective Date/time seen: 07/19/22 13:10 Tolerating hemodialyis treatment at the time of my visit (seen on HD at 12:55PM); remains hemodynamically stable but still requiring mechanical ventilation with fluctuating oxygen needs; no other acute issues/events overnight or earlier this AM. Exam Narrative: General: elderly male intubated/sedated Heart: normal S1 and S2; no rub Lungs: coarse breath sounds; right chest tube noted Abdomen: soft, nontender, nondistended, hypoactive bowel sounds Ex
--- NOTE | 2022-07-19 13:10 | PM.PNNEP ---
Progress Note: A&P Assessment and Plan (1) Acute kidney injury: Code(s): N17.9 - Acute kidney failure, unspecified Status: Acute Assessment and Plan: presumably normal baseline creatinine (1.1mg/dl in March 2019) initial insult noted on admission secondary to a combination of hypoxia, hypotension/hemodyanmic instability, and sepsis responded to therapy (vasopressor support, IVF resuscitation...etc) creatinine improved from 2.0 to 1.3mg/dl at that time however, second insult noted on 07/12/22 with creatinine rising from 1.3mg/dl to 1.9mg/dl previous evaluation noted: renal ultrasound without obstruction urine electrolytes look slightly prerenal urine eosinophils negative CPK okay possible delayed reaction to contrast/dye?? 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 on [employer]/dialysis (on 07/16/22) after HD catheter placement HD today azotemia may be a manifestion of catabolic state +/- steroid therapy watch H/H as well follow trend of repeat labs and UOP for potential renal recovery (2) Septic shock: Code(s): A41.9 - Sepsis, unspecified organism; R65.21 - Severe sepsis with septic shock Status: Acute Assessment and Plan: initially weaned off vasopressors following admission vasopressors restarted on 07/15/22 but off currently blood culture to date negative repeat blood cultures pending on antibiotics (3) Acute respiratory failure with hypoxia: Code(s): J96.01 - Acute respiratory failure with hypoxia Status: Acute Assessment and Plan: intubated on 07/10/22 for impending respiratory failure (tachypneic in associated with hypoxia) now complicated by pneumonia, pneumothorax, and possible ARDS known history of COPD and asthma as well remains on full ventilator support (4) Multifocal pneumonia: Code(s): J18.9 - Pneumonia, unspecified organism Status: Acute Assessment and Plan: as noted by CT of chest on IV antibiotics continue ventilator support (5) Anemia: Code(s): D64.9 - Anemia, unspecified Status: Acute Assessment and Plan: possibly related to EDMOND and acute illness trend of H/H over the last few days noted consider empiric Epogen follow stool guaiacs follow trend of H/H (6) Pneumothorax on right: Code(s): J93.9 - Pneumothorax, unspecified Status: Acute Assessment and Plan: multifactorial: COPD asthma BiPAP use possibly due to bag-mask ventilation chest tube in place (done on 07/10/22) Surgery following Will continue to follow. Subjective Date/time seen: 07/19/22 13:10 Tolerating hemodialyis treatment at the time of my visit (seen on HD at 12:55PM); remains hemodynamically stable but still requiring mechanical ventilation with fluctuating oxygen needs; no other acute issues/events overnight or earlier this AM. Exam Narrative: General: elderly male intubated/sedated Heart: normal S1 and S2; no rub Lungs: coarse breath sounds; right chest tube noted Abdomen: soft, nontender, nondistended, hypoactive bowel sounds Extremities: no cyanosis or clubbing; trace - 1+ edema Skin: no rash Objective Data Vital Signs Vital Signs: Vital Signs Temp Pulse Resp BP Pulse Ox O2 Del Method FiO2 07/19/22 12:30 97 93/55 L 07/19/22 12:15 98 102/58 L 07/19/22 12:11 96 104/39 L 07/19/22 12:16 37.1 C 97 22 H 102/58 L 96 07/19/22 12:15 37.1 C 97 25 H 96 07/19/22 12:14 37.1 C 97 20 104/59 L 95 07/19/22 12:01 37.2 C 98 25 H 102/56 L 96 07/19/22 12:00 37.2 C 99 17 95
[2022-07-19] MEDS: ALBUMIN HUMAN 25% 25 GM/100 ML 100 ML IVPB (13:34)
[2022-07-19] MEDS: ALBUMIN HUMAN 25% 12.5 GM/50ML 50 ML IVPB (13:35)
--- NOTE | 2022-07-19 13:59 | PM.PNGS ---
Progress Note: A&P Assessment and Plan (1) Pneumothorax on right: Code(s): J93.9 - Pneumothorax, unspecified Status: Acute Assessment and Plan: Chest x-ray this am shows chest tube in good position with no pneumothorax. Monitor with serial chest x-rays. May consider switching to water seal once ventilator settings are weaned down, but will continue with chest tube to wall suction for now. (2) Acute kidney injury: Code(s): N17.9 - Acute kidney failure, unspecified Status: Acute Assessment and Plan: Now on dialysis via a tunneled dialysis catheter. Plan I have discussed the patient's case and plan of care with Dr. Clifford. Additional Plan Care discussed with Dr. Boyce Subjective Subjective Date/Time Seen: 07/19/22 11:59 Interval history: Patient remains intubated and sedated in the ICU. Currently undergoing hemodialysis. His daughter and [id number] are at the bedside. No acute events per nursing overnight. Review of Systems Review of Systems: ROS unobtainable: Yes unobtainable due to endotracheal tube Exam Const: General: ill appearing acutely and patient obtunded Chest: Chest palpation & inspection: abnormal inspection of the chest (Rt. chest tube w/ dressing intact, no bubbling suggestive of air leak ) Resp: Effort & Inspection: abnormal respiratory pattern ( intubated on mechanical ventilator) Auscultation: clear to auscultation bilaterally Objective Data Vital Signs Vital Signs: Vital Signs - 24 hr 07/18/22 14:00 07/18/22 14:00 07/18/22 14:01 Temperature 98.9 F 98.9 F Pulse Rate 82 82 80 Respiratory Rate 27 H 26 H Blood Pressure 123/66 Pulse Oximetry 94 95 Oxygen Delivery Fraction of Inspired Oxygen 07/18/22 15:21 07/18/22 16:00 07/18/22 16:00 Temperature Pulse Rate 78 79 Respiratory Rate 20 26 H Blood Pressure Pulse Oximetry 96 Oxygen Delivery Mechanical Ventilation Fraction of Inspired Oxygen 50 50 07/18/22 16:00 07/18/22 14:15 07/18/22 14:30 Temperature 98.9 F 98.8 F Pulse Rate 79 82 80 Respiratory Rate 25 H 28 H Blood Pressure Pulse Oximetry 95 94 Oxygen Delivery Fraction of Inspired Oxygen 07/18/22 14:45 07/18/22 15:00 07/18/22 15:01 Temperature 98.9 F 98.8 F 98.9 F Pulse Rate 80 79 79 Respiratory Rate 25 H 21 H 25 H Blood Pressure 117/56 L Pulse Oximetry 95 93 94 Oxygen Delivery Fraction of Inspired Oxygen 07/18/22 15:15 07/18/22 15:30 07/18/22 15:45 Temperature 98.9 F 98.8 F 98.7 F Pulse Rate 83 81 81 Respiratory Rate 29 H 26 H 26 H Blood Pressure Pulse Oximetry 96 96 96 Oxygen Delivery Fraction of Inspired Oxygen 07/18/22 16:00 07/18/22 16:01 07/18/22 16:15 Temperature 98.7 F 98.7 F 98.7 F Pulse Rate 77 81 78 Respiratory Rate 22 H 24 H 22 H Blood Pressure 121/66 Pulse Oximetry 95 96 96 Oxygen Delivery Fraction of Inspired Oxygen 07/18/22 16:30 07/18/22 16:45 07/18/22 16:32 Temperature 98.7 F 98.7 F Pulse Rate 76 78 76 Respiratory Rate 21 H 17 Blood Pressure Pulse Oximetry 96 95 96 Oxygen Delivery Mechanical Ventilation Fraction of Inspired Oxygen 50 07/18/22 18:00 07/18/22 17:00 07/18/22 17:01 Temperature 98.7 F 98.7 F Pulse Rate 77 81 80 Respiratory Rate 21 H 25 H Blood Pressure 120/65 Pulse Oximetry 96 95 Oxygen Delivery Fraction of Inspired Oxygen 07/18/22 17:15 07/18/22 17:30 07/18/22 17:45 Temperature 98.7 F 98.7 F 98.7 F Pulse Rate 79 79 77 Respiratory Rate 24 H 24 H 21 H Blood Pressure Pulse Oximetry 96 95 95 Oxygen Delivery Fraction of Inspired Oxygen 07/18/22 18:00 07/18/22 18:01 07/18/22 20:42 Temperature 98.7 F 98.7 F Pulse Rate 78 77 79 Respiratory Rate 24 H 22 H Blood Pressure 115/64 Pulse Oximetry 95 95 94 Oxygen Delivery Mechanical Ventilation Fraction of Inspired Oxygen 50 07/18/22 20:42 07/18/22 20:00 07/18/22 20:00 Temperature Pulse Rate 79
[2022-07-19 15:32] LABS: Reference Lab Test Result Not Detected
[2022-07-19 16:21] LABS: Glucose Point of Care 132 mg/dl (65-105)
--- NOTE | 2022-07-19 16:32 | PM.IMPN ---
Progress Note: A&P Assessment and Plan (1) Acute respiratory failure with hypoxia: Code(s): J96.01 - Acute respiratory failure with hypoxia Status: Acute Assessment and Plan: Patient presents with SOB. CTA chest showing no PE but does show multifocal pneumonia. COVID swab was negative (repeat COVID x2 also negative), Influenza negative. Respiratory failure associated with sepsis and HoTN all related to bacterial PNA. Patient's condition deteriorated (related to spontaneous PTX?) requiring intubation. Currently intubated, sedated;Resp failure improved with FiO2 now at 40%; PEEP remains at 10. CXR showing diffuse lung disease. Wean vent settings as tolerated. pharmaceutical detailer on board and managing ventilator Received Bumex 07/15 with poor response. Started on hemodialysis for acute renal failure 07/16/2022 after placement of dialysis catheter by General surgery On intermittent dialysis per Nephrology to Last dialysis planned for dialysis today (2) Pneumothorax on right: Code(s): J93.9 - Pneumothorax, unspecified Status: Acute Assessment and Plan: Patient had acute onset CP prior to intubation. He stated it has been intermittent x 1 month. EKG on admission showing minimal ST depression in the anterior leads. Repeat EKG with CP showing no change. Troponin negative x2. CP could be related to spontaneous PTX which could explain why he decompensated. PTX was noted BEFORE central line placement. PTX could be related to bagging/intubation. Currently has Chest tube in place. Management per pharmaceutical detailer and General surgery. (3) Sepsis associated hypotension: Code(s): A41.9 - Sepsis, unspecified organism; I95.9 - Hypotension, unspecified Status: Acute Assessment and Plan: Patient was hypotensive on admission to 69/41. He had elevated lactic acid and elevated CRP all consistent with sepsis. Probably not tachycardic due to being on Coreg. Sepsis felt related to PNA. Blood pressures improved initially with IV fluid rehydration. As patient's respiratory failure worsened, his BP dropped again requiring Levophed. Related to adrenal insufficiency? Solu-Cortef started. Antihypertensives on hold. BCx NGTD. MRSA nasal swab negative. Able to wean off Levophed on 07/12. Continue IV abx. Blood pressure low. Restarted on Levophed 07/15 now again off Levophed (4) Multifocal pneumonia: Code(s): J18.9 - Pneumonia, unspecified organism Status: Acute Assessment and Plan: CTA chest showing no PE but does show multifocal pneumonia. COVID swab was negative (repeat COVID test x2 also negative). Influenza negative. He does have asthma/COPD treated with Fesenra 2 days prior to admission. He has a history of DVT and was recently taken off apixaban but no PE and LE doppler negative for DVT. Pneumococcal Ag negative; Legionella antigens pending. MRSA nasal swab negative. Sputum growing normal denise. BCx NGTD. [place] his PNA related to the Fesenra. Continue IV abx with Levaquin, Vanco and Cefepime. Continue Nebs. Continue supportive care. (5) Acute kidney injury: Code(s): N17.9 - Acute kidney failure, unspecified Status: Acute Assessment and Plan: Cr 2.0 on admission. Acute kidney injury as the patient does not believe that he has underlying kidney disease. Probably ATN due to the severe hypotension. CT scan showing enlarged prostate but no distended bladder. He did receive contrast 07/09/22. Renal US normal. Mitchell catheter secured. Cr did improve to 1.3 but back up today to 2.2. Stable today. Monitor strict I/O. Avoid nephrotoxic agents. Nephrology consulted. Creatinine continues to worsen to 3.2 poor urine output with Bumex given on 07/15 Dialysis started 07/16 Dialysis catheter placed 07/16 (6) Electrolyte abnormality: Code(s): E87.8 - Other disorders of electrolyte and fluid balance, not elsewhere classified Status: Acute Assessment and Plan: Mild hyponatrem
[2022-07-19] MEDS: FENTANYL 2,500MCG/NS250ML(*CRX 2,500 MCG/250 ML BAG 20 MCG IV CONT (17:43)
[2022-07-19] MEDS: CISATRACURIUM BESYLATE 200 MG in DEXTROSE 5% 80 ML 12.77 ML IV CONT (17:45)
[2022-07-19] MEDS: PROPOFOL IV EMULSION 100 ML 12.29 MG IV CONT (19:41)
[2022-07-19 20:53] LABS: Glucose Point of Care 123 mg/dl (65-105)
[2022-07-19 23:36] LABS: Glucose Point of Care 119 mg/dl (65-105)
[2022-07-20] VITALS (44 sets, daily range): BP systolic 83–154; BP diastolic 54–71; PULSE 78–99; RESP 25–28; TEMP 36.4–37.3; O2SAT 91–99
[2022-07-20] MEDS: CISATRACURIUM BESYLATE 200 MG in DEXTROSE 5% 80 ML 12.77 ML IV CONT (01:32)
[2022-07-20] MEDS: ALBUTEROL SULFATE NEB 2.5 MG/3 ML INH INHALATION ×4 (02:12→20:38)
[2022-07-20] MEDS: IPRATROPIUM BR 0.02% INH SOLN 0.5 MG/2.5 ML VIAL INHALATION ×4 (02:12→20:39)
[2022-07-20 04:39] LABS: Hematocrit 25.5 % (42.0-52.0); Hemoglobin 8.1 g/dL (14.0-18.0); Mean Corpuscular HGB Conc 31.8 g/dl (32-36); Mean Corpuscular Hemoglobin 31.5 pg (26-34); Mean Corpuscular Volume 99.2 fl (80-100); Mean Platelet Volume 10.1 fl (7.4-10.4); Platelet Count Result 163 k/mm3 (150-375); Red Blood Count 2.57 M/mm3 (4.6-6.20); Red Cell Distribution Width 16.3 % (11.5-14.5); White Blood Count 17.1 K/mm3 (4.5-10.0)
[2022-07-20 04:51] LABS: Alanine Aminotransferase 33 U/L (6-50); Albumin Level 3.7 g/dL (3.5-5.1); Alkaline Phosphatase 120 U/L (38-126); Anion Gap 14 mmol/L (8-16); Aspartate Amino Transferase 41 U/L (17-59); Bilirubin,Total 0.9 mg/dL (0.2-1.3); Blood Urea Nitrogen 63 mg/dL (9-20); Calcium 8.6 mg/dL (8.4-10.2); Carbon Dioxide 27 mmol/L (22-30); Chloride 96 mmol/L (98-107); Estimated CRCL calculation 21 ml/min; Estimated Glomerular Filt Rate 19; Glucose 131 mg/dL (65-110); Magnesium 2.4 mg/dL (1.6-2.3); Potassium 4.8 mmol/L (3.4-5.0); Sodium 137 mmol/L (137-145)
[2022-07-20 05:25] LABS: Alveolar/Arterial O2 Gradient 330.2 mmHg; Base Excess ABG -0.4 mEq/l (+/-2.0); Carboxyhemoglobin 0.3 % THb (0-2.0); Fractional Inspired Oxygen 65 %; HCO3 ABG 26.8 mEq/l (22.0-26.0); Methemoglobin ABG 0.2 %THb (0-1.5); Oxygen Content ABG 11.5 %vol (16.0-22.0); Oxygen Saturation ABG 91.4 % (95.0-100.0); Oxyhemoglobin 90.8 % THb (90.0-100.0); PCO2 ABG 58.6 mmHg (35.0-45.0); PO2 ABG 69.5 mmHg (80.0-100.0); PO2 FiO2 Ratio Arterial Blood 1.07 %; Reduced Hemoglobin 8.7 %THb (0-5.0); Total Hemoglobin 8.9 g/dL (12.0-18.0)
[2022-07-20 05:30] LABS: Arterial Blood Gas PEEP 14 cmH2O; Arterial Blood Gas Tidal Volume 400 ml; Arterial Blood Gas Vent Mode CMV; Arterial Blood Gas Ventilator rate 25 /MIN; Device VENTILATOR; Modified Allen's Test Unable to perform; Site Drawn RIGHT RADIAL; pH ABG 7.278 (7.350-7.450)
[2022-07-20] MEDS: FENTANYL 2,500MCG/NS250ML(*CRX 2,500 MCG/250 ML BAG 20 MCG IV CONT (05:56)
[2022-07-20] MEDS: CENTRAL LINE FLUSH 10 ML IV PUSH ×4 (05:58→20:22)
--- NOTE | 2022-07-20 08:15 | WPDINTPN ---
Progress Note: A&P Assessment and Plan (1) Septic shock: Code(s): A41.9 - Sepsis, unspecified organism; R65.21 - Severe sepsis with septic shock Status: Acute Assessment and Plan: Patient presented to the ED was hypotensive in the 60s, was given IV fluids and then was given Lasix after that in the ER Patient was started on vasopressors and eventually was weaned off but had to be restarted on 07/15 -OFF pressors -continue? cefepime started 07/10 for a 10 day course - 07/13 levofloxacin discontinued. 07/15 vancomycin discontinued 07/16 -07/10/2022 blood cultures x2 are negative so far -07/11/2012 sputum cultures -gram stain show Gram-positive cocci but cultures have been negative except he has yeast -MRSA screen was positive Weaned off stress dose steroids Discontinued albumin (2) Acute respiratory failure with hypoxia: Code(s): J96.01 - Acute respiratory failure with hypoxia Status: Acute Assessment and Plan: Patient presented to the ED on 07/09/2022 with increasing shortness of breath for the last 3 weeks which apparently worsened in the last 3 days.? He was admitted to the intermediate Unit where he was placed on BiPAP, oxygen requirements were increasing, I was asked to see the patient.? Patient was in impending respiratory failure, tachypneic, was breathing between 40-50 times a minute, O2 sats were in the upper 80s to low 90s. Patient was intubated on?07/10/2022 ARDS versus healthcare? associated pneumonia patient was on immunosuppressants which was later complicated by fluid over COVID PCR was negative -patient developed a right pneumothorax could be related to BiPAP, bag-mask ventilation.? - 07/15 post sedation holiday patient had increased oxygen requirement and FiO2 and PEEP had to be increased. - 07/19 patient again had increased oxygen requirements with FiO2 increased to 80%. Patient was dyssynchronous, propofol was started. Increased PEEP to 10 -07/20 overnight patient was desaturating, dyssynchronous, started on Nimbex, peep was increased to 14 and FiO2 at 65%. -chest x-ray and ABGs reviewed, continue tidal volume at 400 mL, rate has been increased to 28, peep decreased to 12 and FiO2 increased to 75%. Also set up the patient > 30?, O2 sats have improved with these interventions -continue fentanyl Versed, propofol, will have the nurse is decrease the doses slightly -currently on Nimbex infusion which was started on 07/19 -continue bronchodilators - Hemodialysis will be continued for further fluid removal (3) Pneumothorax on right: Code(s): J93.9 - Pneumothorax, unspecified Status: Acute Assessment and Plan: Patient with a right pneumothorax currently multifactorial, patient has COPD, asthma, was on BiPAP, could be possibly secondary bag-mask ventilation -right chest tube was inserted by surgery on 07/10/2020 -chest x-ray this morning shows right chest tube in place, pneumothorax has resolved -no significant air leak -surgery managing the chest tube (4) Asthma-COPD overlap syndrome: Code(s): J44.9 - Chronic obstructive pulmonary disease, unspecified Status: Acute Assessment and Plan: See above (5) Acute kidney injury: Code(s): N17.9 - Acute kidney failure, unspecified Status: Acute Assessment and Plan: Acute kidney injury likely related to hypoxia, hypotension, sepsis upon arrival to the ER -urine output continues to be low despite of Bumex dose on 07/15 -07/16 hemodialysis catheter was placed and patient was started on hemodialysis. -urine output remains low with increase in BUN creatinine. Continue dialysis per Nephrology -continue monitor renal function, electrolytes and urine output -07/16 renal ultrasound showed normal kidney sizes with no hydronephrosis -nephrology following (6) Multifocal pneumonia: Code(s): J18.9 - Pneumonia, unspecified organism Status: Acute Assessment and Plan: 07/09 CT scan of the chest show
[2022-07-20] MEDS: MINERAL OIL/WHITE PETROLATUM OINTMENT 1 APPLIC EACH EYE ×2 (09:39→20:21)
[2022-07-20] MEDS: LORATADINE 10 MG TABLET PO ×2 (09:39→20:22)
[2022-07-20] MEDS: PANTOPRAZOLE SODIUM IV 40 MG VIAL IV PUSH ×2 (09:39→20:22)
[2022-07-20] MEDS: CISATRACURIUM BESYLATE 200 MG in DEXTROSE 5% 80 ML 14.36 ML IV CONT ×3 (09:51→23:29)
[2022-07-20 10:22] LABS: Glucose Point of Care 138 mg/dl (65-105)
[2022-07-20] MEDS: MIDAZOLAM 100MG/NS 100ML(*CRX) 100 MG/100 ML BAG 6 MG IV CONT (11:19)
--- NOTE | 2022-07-20 11:20 | P.PNNP_ITS ---
Progress Note: A&P Assessment and Plan (1) Acute kidney injury: Code(s): N17.9 - Acute kidney failure, unspecified Status: Acute Assessment and Plan: * presumably normal baseline creatinine (1.1mg/dl in March 2019) * initial insult noted on admission * secondary to a combination of hypoxia, hypotension/hemodyanmic instability, and sepsis * responded to therapy (vasopressor support, IVF resuscitation...etc) * creatinine improved from 2.0 to 1.3mg/dl at that time * however, second insult noted on 07/12/22 with creatinine rising from 1.3mg/dl to 1.9mg/dl * previous evaluation noted: * renal ultrasound without obstruction * urine electrolytes look slightly prerenal * urine eosinophils negative * CPK okay * possible delayed reaction to contrast/dye?? (CT with contrast done on 07/09/22) * maybe recurrence of ATN due to hemodynamic instability +/- hypoxia and/or infection/ARDS(?) * repeat evaluation done: * urine electrolytes suggestive of prerenal azotemia * repeat renal ultrasound (07/16/22) okay * declining urine output with poor response of IV diuretic challenge (IV bumex given on 07/15/22) * initiated on INDUCTION MACHINE SETTER/dialysis (on 07/16/22) after HD catheter placement * HD yesterday and plan again tomorrow * azotemia may be a manifestion of catabolic state +/- previous steroid therapy * follow trend of repeat labs and UOP for potential renal recovery (2) Septic shock: Code(s): A41.9 - Sepsis, unspecified organism; R65.21 - Severe sepsis with septic shock Status: Acute Assessment and Plan: * initially weaned off vasopressors following admission * vasopressors restarted on 07/15/22 but off currently * blood culture to date negative * repeat blood cultures pending * on antibiotics (3) Acute respiratory failure with hypoxia: Code(s): J96.01 - Acute respiratory failure with hypoxia Status: Acute Assessment and Plan: * intubated on 07/10/22 for impending respiratory failure (tachypneic in associated with hypoxia) * now complicated by pneumonia, pneumothorax, and possible ARDS * known history of COPD and asthma as well * remains on full ventilator support (4) Multifocal pneumonia: Code(s): J18.9 - Pneumonia, unspecified organism Status: Acute Assessment and Plan: * as noted by CT of chest * on IV antibiotics * continue ventilator support (5) Anemia: Code(s): D64.9 - Anemia, unspecified Status: Acute Assessment and Plan: * possibly related to EDMOND and acute illness * trend of H/H over the last few days noted * consider empiric Epogen * follow stool guaiacs * follow trend of H/H (6) Pneumothorax on right: Code(s): J93.9 - Pneumothorax, unspecified Status: Acute Assessment and Plan: * multifactorial: * COPD * asthma * BiPAP use * possibly due to bag-mask ventilation * chest tube in place (done on 07/10/22) * Surgery following Will continue to follow. Subjective Date/time seen: 07/20/22 11:20 Tolerated dialysis yesterday with 3L fluid removal; remain on mechanical ventilation and currently sedated/intubated/paralyzed; remains hemodynamically stable without the need for vasopressor therapy; no other acute issues/events overnight or earlier this AM; minimal urine output noted. Exam Narrative: General: elderly male intubated/sedated/paralyzed Heart: normal S1 and S2; no rub Lungs: coarse breath sounds; right chest tube noted A
--- NOTE | 2022-07-20 11:20 | PM.PNNEP ---
Progress Note: A&P Assessment and Plan (1) Acute kidney injury: Code(s): N17.9 - Acute kidney failure, unspecified Status: Acute Assessment and Plan: presumably normal baseline creatinine (1.1mg/dl in March 2019) initial insult noted on admission secondary to a combination of hypoxia, hypotension/hemodyanmic instability, and sepsis responded to therapy (vasopressor support, IVF resuscitation...etc) creatinine improved from 2.0 to 1.3mg/dl at that time however, second insult noted on 07/12/22 with creatinine rising from 1.3mg/dl to 1.9mg/dl previous evaluation noted: renal ultrasound without obstruction urine electrolytes look slightly prerenal urine eosinophils negative CPK okay possible delayed reaction to contrast/dye?? 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 on CORPORATE COMPLIANCE DIRECTOR/dialysis (on 07/16/22) after HD catheter placement HD yesterday and plan again tomorrow azotemia may be a manifestion of catabolic state +/- previous steroid therapy follow trend of repeat labs and UOP for potential renal recovery (2) Septic shock: Code(s): A41.9 - Sepsis, unspecified organism; R65.21 - Severe sepsis with septic shock Status: Acute Assessment and Plan: initially weaned off vasopressors following admission vasopressors restarted on 07/15/22 but off currently blood culture to date negative repeat blood cultures pending on antibiotics (3) Acute respiratory failure with hypoxia: Code(s): J96.01 - Acute respiratory failure with hypoxia Status: Acute Assessment and Plan: intubated on 07/10/22 for impending respiratory failure (tachypneic in associated with hypoxia) now complicated by pneumonia, pneumothorax, and possible ARDS known history of COPD and asthma as well remains on full ventilator support (4) Multifocal pneumonia: Code(s): J18.9 - Pneumonia, unspecified organism Status: Acute Assessment and Plan: as noted by CT of chest on IV antibiotics continue ventilator support (5) Anemia: Code(s): D64.9 - Anemia, unspecified Status: Acute Assessment and Plan: possibly related to EDMOND and acute illness trend of H/H over the last few days noted consider empiric Epogen follow stool guaiacs follow trend of H/H (6) Pneumothorax on right: Code(s): J93.9 - Pneumothorax, unspecified Status: Acute Assessment and Plan: multifactorial: COPD asthma BiPAP use possibly due to bag-mask ventilation chest tube in place (done on 07/10/22) Surgery following Will continue to follow. Subjective Date/time seen: 07/20/22 11:20 Tolerated dialysis yesterday with 3L fluid removal; remain on mechanical ventilation and currently sedated/intubated/paralyzed; remains hemodynamically stable without the need for vasopressor therapy; no other acute issues/events overnight or earlier this AM; minimal urine output noted. Exam Narrative: General: elderly male intubated/sedated/paralyzed Heart: normal S1 and S2; no rub Lungs: coarse breath sounds; right chest tube noted Abdomen: soft, nontender, nondistended, hypoactive bowel sounds Extremities: no cyanosis or clubbing; trace - 1+ edema Skin: no nodules Objective Data Vital Signs Vital Signs: Vital Signs Temp Pulse Resp BP Pulse Ox O2 Del Method FiO2 07/20/22 10:00 92 07/20/22 08:00 95 07/20/22 10:27 99 95 Mechanical Ventilation 75 07/20/22 10:00 37.1 C 92 28 H 154/71 H 96 07/20/22 10:14 91 28 H 07/20/22 10:13 91 28 H 07/20/22 09:51 92 28 H 125/63 07/20/22 0
[2022-07-20] MEDS: METOCLOPRAMIDE HCL INJ 10 MG/2 ML VIAL IV PUSH ×3 (11:21→23:35)
--- NOTE | 2022-07-20 11:44 | PCNFU ---
Nutrition Follow-Up Complete: Inadequate Oral Intake as related to mechanical ventilation as evidenced by Tube feedings. Goal: Meet estimated nutritional needs Patient has limited progress towards goal. We will continue current goal. Pt current nutrition is Nepro at 30 ml/hr. Last recorded weight is 106.8 kg, up from 90 kg on admit. Bowel Motility:+Bm reported 07/19 Labs Reviewed: Cr 3.1,GFR 19, BUN 63, Glu 131, Hgb 8.1, Hct 25.5 Meds Noted:Propofol 11/18 ml/ch=662 kcals, Reglan, Bumex, Versed, Fentanyl, Skin:Friction noted to right buttock Additional Notes: Patient remains on mechanical vent. Tube feeding currently on hold due to elevated residuals. Reglan given. When tube feedings restart recommend Nepro at 40 ml/hr for goal rate. Total caloric intake would be 1716 kcals/71 gms protein. Meeting 93% caloric needs and 79% protein needs. Free water flush 30 ml q 4 hours. Will continue to make recommendations regarding tube feeding rate as propofol infusion adjusts. Agree with diet orders. Will monitor daily in ICU rounds and reassessing every Tuesday and Tuesday.
[2022-07-20 12:03] LABS: Hematocrit 24.8 % (42.0-52.0); Hemoglobin 7.7 g/dL (14.0-18.0); Mean Corpuscular Hemoglobin 31.2 pg (26-34); Mean Corpuscular Volume 100.4 fl (80-100); Mean Platelet Volume 10.4 fl (7.4-10.4); Platelet Count Result 157 k/mm3 (150-375); Red Blood Count 2.47 M/mm3 (4.6-6.20); Red Cell Distribution Width 16.1 % (11.5-14.5)
[2022-07-20 12:06] LABS: Alveolar/Arterial O2 Gradient 393.8 mmHg; Fractional Inspired Oxygen 75 %; HCO3 ABG 22.1 mEq/l (22.0-26.0); Oxygen Content ABG 12.2 %vol (16.0-22.0); Oxygen Saturation ABG 96.4 % (95.0-100.0); Oxyhemoglobin 95.1 % THb (90.0-100.0); PCO2 ABG 45.4 mmHg (35.0-45.0); PO2 ABG 92.7 mmHg (80.0-100.0); PO2 FiO2 Ratio Arterial Blood 1.24 %; pH ABG 7.306 (7.350-7.450)
[2022-07-20 12:07] LABS: Device VENTILATOR; Modified Allen's Test Pass; Site Drawn RIGHT RADIAL
[2022-07-20 12:08] LABS: Arterial Blood Gas PEEP 12 cmH2O; Arterial Blood Gas Tidal Volume 400 ml; Arterial Blood Gas Vent Mode CMV; Arterial Blood Gas Ventilator rate 28 /MIN
[2022-07-20] MEDS: HEPARIN SOD/D5W 100 UNITS/ML 25,000 UNITS/250 ML BAG 15 UNITS IV CONT (12:12)
[2022-07-20 12:13] LABS: INR 1.4; Partial Thromboplastin Time 31.3 SECONDS (22.3-36.8); Prothrombin Time 16.8 Seconds (11.1-14.7)
--- NOTE | 2022-07-20 12:13 | PM.PNGS ---
Progress Note: A&P Assessment and Plan (1) Pneumothorax on right: Code(s): J93.9 - Pneumothorax, unspecified Status: Acute Assessment and Plan: Chest x-ray this am shows chest tube in good position with no pneumothorax. Monitor with serial chest x-rays. May consider switching to water seal once ventilator settings are weaned down, but will continue with chest tube to wall suction for now. (2) Acute kidney injury: Code(s): N17.9 - Acute kidney failure, unspecified Status: Acute Assessment and Plan: Now on dialysis via a left subclavian tunneled dialysis catheter, unsuccessful with IJ placement. Aware of chest x-ray showing compression of the left subclavian central venous catheter between the clavicle and first rib. No issues with dilating patient yesterday. Will continue to monitor for now. If they begin to have issues with hemodialysis, then we may need to consider replacing the catheter. Plan I have discussed the patient's case and plan of care with Dr. Clifford. Subjective Subjective Date/Time Seen: 07/20/22 12:13 Interval history: Patient remains intubated, sedated, and on paralytics in the ICU. No acute events per nursing overnight. No issues with hemodialysis through his left subclavian tunneled dialysis catheter yesterday. Review of Systems Review of Systems: ROS unobtainable: Yes unobtainable due to endotracheal tube Exam Const: General: ill appearing acutely and patient obtunded Chest: Chest palpation & inspection: abnormal inspection of the chest (Rt. chest tube w/ dressing intact, no bubbling suggestive of air leak ) and no crepitus Other: patient now has a dual-lumen tunneled dialysis catheter exiting in the lateral anterior left chest. The incisions from recent placement on neck and anterior chest all healing well with surgical glue in place. Resp: Effort & Inspection: abnormal respiratory pattern ( intubated on mechanical ventilator) Auscultation: rhonchi Objective Data Vital Signs Vital Signs: Vital Signs - 24 hr 07/19/22 12:14 07/19/22 12:15 07/19/22 12:16 Temperature 98.8 F 98.8 F 98.7 F Pulse Rate 97 97 97 Respiratory Rate 20 25 H 22 H Blood Pressure 104/59 L 102/58 L Pulse Oximetry 95 96 96 Oxygen Delivery Fraction of Inspired Oxygen 07/19/22 12:45 07/19/22 12:15 07/19/22 12:30 Temperature Pulse Rate 97 98 97 Respiratory Rate Blood Pressure 84/53 L 102/58 L 93/55 L Pulse Oximetry Oxygen Delivery Fraction of Inspired Oxygen 07/19/22 12:54 07/19/22 13:00 07/19/22 13:15 Temperature Pulse Rate 97 97 96 Respiratory Rate Blood Pressure 89/55 L 82/51 L 96/59 L Pulse Oximetry Oxygen Delivery Fraction of Inspired Oxygen 07/19/22 13:30 07/19/22 13:45 07/19/22 14:00 Temperature Pulse Rate 98 98 98 Respiratory Rate Blood Pressure 104/60 100/63 103/61 Pulse Oximetry Oxygen Delivery Fraction of Inspired Oxygen 07/19/22 14:30 07/19/22 14:45 07/19/22 15:00 Temperature Pulse Rate 90 97 93 Respiratory Rate Blood Pressure 102/59 L 98/63 L 96/90 L Pulse Oximetry Oxygen Delivery Fraction of Inspired Oxygen 07/19/22 15:15 07/19/22 15:30 07/19/22 15:45 Temperature Pulse Rate 92 94 89 Respiratory Rate Blood Pressure 97/66 L 88/39 L 98/60 L Pulse Oximetry Oxygen Delivery Fraction of Inspired Oxygen 07/19/22 12:17 07/19/22 12:30 07/19/22 12:31 Temperature 98.7 F 98.6 F 98.6 F Pulse Rate 97 97 98 Respiratory Rate 25 H 25 H 25 H Blood Pressure 93/55 L Pulse Oximetry 96 95 95 Oxygen Delivery Fraction of Inspired Oxygen 07/19/22 12:45 07/19/22 12:46 07/19/22 12:55 Temperature 98.5 F 98.5 F 98.5 F Pulse Rate 99 97 97 Respiratory Rate 25 H 25 H 25 H Blood Pressure 84/53 L 89/55 L Pulse Oximetry 94 94 94 Oxygen Delivery Fraction of Inspired Oxygen 07/19/22 13:00 07/19/22 13:01 07/19/22 13:15 Temperature 98.4 F 98.
[2022-07-20] MEDS: HEPARIN SODIUM 5,000 UNITS/ML VIAL 7000 UNITS IV PUSH (12:14)
[2022-07-20] MEDS: PROPOFOL IV EMULSION 100 ML 20 MG IV CONT (12:56)
[2022-07-20 13:01] LABS: Band Neutrophils Percent 3 % (0-6); Lymphocytes Absolute Manual 0.68 K/mm3 (1.1-4.5); Monocytes Absolute Manual 0.51 K/mm3 (0.1-0.90); Monocytes Percent Manual 3 % (3-9); Neutrophils Absolute Manual 15.81 K/mm3 (1.3-6.7); Neutrophils Percent Manual 90 % (46-73); Platelet Estimate Adequate (Adequate); Total Cells Counted 100
[2022-07-20 13:02] LABS: Anisocytosis 2+ (NORMAL)
[2022-07-20 13:31] LABS: Glucose Point of Care 142 mg/dl (65-105)
[2022-07-20 16:11] LABS: Glucose Point of Care 139 mg/dl (65-105)
--- NOTE | 2022-07-20 17:16 | PM.IMPN ---
Progress Note: A&P Assessment and Plan (1) Acute respiratory failure with hypoxia: Code(s): J96.01 - Acute respiratory failure with hypoxia Status: Acute Assessment and Plan: Patient presents with SOB. CTA chest showing no PE but does show multifocal pneumonia. COVID swab was negative (repeat COVID x2 also negative), Influenza negative. Respiratory failure associated with sepsis and HoTN all related to bacterial PNA. Patient's condition deteriorated (related to spontaneous PTX?) requiring intubation. Currently intubated, sedated;Resp failure improved with FiO2 now at 40%; PEEP remains at 10. CXR showing diffuse lung disease. Wean vent settings as tolerated. scrubber system attendant on board and managing ventilator Received Bumex 07/15 with poor response. Started on hemodialysis for acute renal failure 07/16/2022 after placement of dialysis catheter by General surgery On intermittent dialysis per Nephrology to Last dialysis 07/19/22 (2) Pneumothorax on right: Code(s): J93.9 - Pneumothorax, unspecified Status: Acute Assessment and Plan: Patient had acute onset CP prior to intubation. He stated it has been intermittent x 1 month. EKG on admission showing minimal ST depression in the anterior leads. Repeat EKG with CP showing no change. Troponin negative x2. CP could be related to spontaneous PTX which could explain why he decompensated. PTX was noted BEFORE central line placement. PTX could be related to bagging/intubation. Currently has Chest tube in place. Management per scrubber system attendant and General surgery. (3) Sepsis associated hypotension: Code(s): A41.9 - Sepsis, unspecified organism; I95.9 - Hypotension, unspecified Status: Acute Assessment and Plan: Patient was hypotensive on admission to 69/41. He had elevated lactic acid and elevated CRP all consistent with sepsis. Probably not tachycardic due to being on Coreg. Sepsis felt related to PNA. Blood pressures improved initially with IV fluid rehydration. As patient's respiratory failure worsened, his BP dropped again requiring Levophed. Related to adrenal insufficiency? Solu-Cortef started. Antihypertensives on hold. BCx NGTD. MRSA nasal swab negative. Able to wean off Levophed on 07/12. Continue IV abx. Blood pressure low. Restarted on Levophed 07/15 now again off Levophed (4) Multifocal pneumonia: Code(s): J18.9 - Pneumonia, unspecified organism Status: Acute Assessment and Plan: CTA chest showing no PE but does show multifocal pneumonia. COVID swab was negative (repeat COVID test x2 also negative). Influenza negative. He does have asthma/COPD treated with Fesenra 2 days prior to admission. He has a history of DVT and was recently taken off apixaban but no PE and LE doppler negative for DVT. Pneumococcal Ag negative; Legionella antigens pending. MRSA nasal swab negative. Sputum growing normal denise. BCx NGTD. [place] his PNA related to the Fesenra. Continue IV abx with Levaquin, Vanco and Cefepime. Continue Nebs. Continue supportive care. (5) Acute kidney injury: Code(s): N17.9 - Acute kidney failure, unspecified Status: Acute Assessment and Plan: Cr 2.0 on admission. Acute kidney injury as the patient does not believe that he has underlying kidney disease. Probably ATN due to the severe hypotension. CT scan showing enlarged prostate but no distended bladder. He did receive contrast 07/09/22. Renal US normal. Mitchell catheter secured. Cr did improve to 1.3 but back up today to 2.2. Stable today. Monitor strict I/O. Avoid nephrotoxic agents. Nephrology consulted. Creatinine continues to worsen to 3.2 poor urine output with Bumex given on 07/15 Dialysis started 07/16 Dialysis catheter placed 07/16 (6) Electrolyte abnormality: Code(s): E87.8 - Other disorders of electrolyte and fluid balance, not elsewhere classified Status: Acute Assessment and Plan: Mild hyponatremia and hyperkalemia. Cortiso
[2022-07-20 18:34] LABS: Partial Thromboplastin Time 123.5 SECONDS (22.3-36.8)
[2022-07-20 19:34] LABS: Hepatitis B Core Ab Total Nonreactive (Nonreactive)
[2022-07-20 20:58] LABS: Glucose Point of Care 126 mg/dl (65-105)
[2022-07-20 23:38] LABS: Glucose Point of Care 124 mg/dl (65-105)
[2022-07-21] VITALS (62 sets, daily range): BP systolic 81–116; BP diastolic 48–68; PULSE 80–108; RESP 25–28; TEMP 36–38.1; O2SAT 92–100
[2022-07-21] MEDS: FENTANYL 2,500MCG/NS250ML(*CRX 2,500 MCG/250 ML BAG 15 MCG IV CONT ×2 (01:29→18:01)
[2022-07-21] MEDS: PROPOFOL IV EMULSION 100 ML 6.14 MG IV CONT ×2 (01:30→16:57)
[2022-07-21 02:04] LABS: Partial Thromboplastin Time 62.8 SECONDS (22.3-36.8)
[2022-07-21] MEDS: ALBUTEROL SULFATE NEB 2.5 MG/3 ML INH INHALATION ×4 (02:59→20:57)
[2022-07-21] MEDS: IPRATROPIUM BR 0.02% INH SOLN 0.5 MG/2.5 ML VIAL INHALATION ×4 (02:59→20:57)
[2022-07-21] MEDS: MIDAZOLAM 100MG/NS 100ML(*CRX) 100 MG/100 ML BAG 6 MG IV CONT ×2 (03:03→17:56)
[2022-07-21 04:47] LABS: Hematocrit 23.8 % (42.0-52.0); Hemoglobin 7.6 g/dL (14.0-18.0); Mean Corpuscular HGB Conc 31.9 g/dl (32-36); Mean Corpuscular Hemoglobin 31.3 pg (26-34); Mean Corpuscular Volume 97.9 fl (80-100); Mean Platelet Volume 10.8 fl (7.4-10.4); Platelet Count Result 175 k/mm3 (150-375); Red Blood Count 2.43 M/mm3 (4.6-6.20); White Blood Count 15.4 K/mm3 (4.5-10.0)
[2022-07-21] MEDS: HEPARIN SOD/D5W 100 UNITS/ML 25,000 UNITS/250 ML BAG 15 UNITS IV CONT (04:48)
[2022-07-21 05:09] LABS: Alanine Aminotransferase 28 U/L (6-50); Albumin Level 3.4 g/dL (3.5-5.1); Alkaline Phosphatase 121 U/L (38-126); Anion Gap 14 mmol/L (8-16); Aspartate Amino Transferase 27 U/L (17-59); Bilirubin,Total 0.5 mg/dL (0.2-1.3); Blood Urea Nitrogen 81 mg/dL (9-20); Calcium 8.1 mg/dL (8.4-10.2); Carbon Dioxide 22 mmol/L (22-30); Chloride 94 mmol/L (98-107); Estimated CRCL calculation 15 ml/min; Estimated Glomerular Filt Rate 12; Glucose 132 mg/dL (65-110); Magnesium 2.6 mg/dL (1.6-2.3); Potassium 4.9 mmol/L (3.4-5.0); Sodium 130 mmol/L (137-145); Triglycerides 151 mg/dL (<150)
[2022-07-21 05:16] LABS: Alveolar/Arterial O2 Gradient 229.8 mmHg; Base Excess ABG -5.1 mEq/l (+/-2.0); Carboxyhemoglobin 0.3 % THb (0-2.0); Fractional Inspired Oxygen 50 %; HCO3 ABG 21.4 mEq/l (22.0-26.0); Methemoglobin ABG 0.4 %THb (0-1.5); Oxygen Content ABG 12.4 %vol (16.0-22.0); Oxygen Saturation ABG 93.4 % (95.0-100.0); Reduced Hemoglobin 7.3 %THb (0-5.0); Total Hemoglobin 9.5 g/dL (12.0-18.0)
[2022-07-21] MEDS: METOCLOPRAMIDE HCL INJ 10 MG/2 ML VIAL IV PUSH ×3 (05:17→17:12)
[2022-07-21] MEDS: CENTRAL LINE FLUSH 10 ML IV PUSH ×4 (05:17→20:22)
[2022-07-21 05:21] LABS: Device VENTILATOR; Modified Allen's Test Pass; Site Drawn RIGHT RADIAL; pH ABG 7.285 (7.350-7.450)
[2022-07-21 05:22] LABS: Arterial Blood Gas PEEP 12 cmH2O; Arterial Blood Gas Tidal Volume 400 ml; Arterial Blood Gas Vent Mode CMV; Arterial Blood Gas Ventilator rate 28 /MIN
[2022-07-21 05:31] LABS: Band Neutrophils Percent 9 % (0-6); Eosinophils Absolute Manual 0.15 K/mm3 (0.02-0.5); Eosinophils Percent Manual 1 % (0-4); Lymphocytes Absolute Manual 1.07 K/mm3 (1.1-4.5); Metamyelocytes Percent 8 %; Monocytes Absolute Manual 0.92 K/mm3 (0.1-0.90); Monocytes Percent Manual 6 % (3-9); Neutrophils Percent Manual 68 % (46-73); Promyelocytes Percent 1 %; Total Cells Counted 100
[2022-07-21 05:32] LABS: Anisocytosis 1+ (NORMAL); Microcytosis 1+ (NORMAL); Platelet Estimate Adequate (Adequate); Poikilocytosis 1+ (NORMAL)
[2022-07-21 05:33] LABS: Acanthocytes 1+ (NORMAL); Atypical Lymphocytes Present; Hypochromasia 1+ (NORMAL)
[2022-07-21] MEDS: CISATRACURIUM BESYLATE 200 MG in DEXTROSE 5% 80 ML 14.36 ML IV CONT (06:16)
[2022-07-21 08:16] LABS: Partial Thromboplastin Time 58.7 SECONDS (22.3-36.8)
[2022-07-21] MEDS: PANTOPRAZOLE SODIUM IV 40 MG VIAL IV PUSH ×2 (08:50→20:14)
[2022-07-21] MEDS: LORATADINE 10 MG TABLET PO ×2 (08:50→20:13)
[2022-07-21] MEDS: MINERAL OIL/WHITE PETROLATUM OINTMENT 1 APPLIC EACH EYE ×2 (08:51→20:13)
[2022-07-21] MEDS: HEPARIN SODIUM 5,000 UNITS/ML VIAL 3500 UNITS IV PUSH (09:04)
[2022-07-21 09:09] LABS: Glucose Point of Care 129 mg/dl (65-105)
--- NOTE | 2022-07-21 09:29 | WPDINTPN ---
Progress Note: A&P Assessment and Plan (1) Septic shock: Code(s): A41.9 - Sepsis, unspecified organism; R65.21 - Severe sepsis with septic shock Status: Acute Assessment and Plan: Patient presented to the ED was hypotensive in the 60s, was given IV fluids and then was given Lasix after that in the ER Patient was started on vasopressors and eventually was weaned off but had to be restarted on 07/15 -currently OFF pressors -status post cefepime times 10 days - 07/13 levofloxacin discontinued. 07/15 vancomycin discontinued 07/16 -07/10/2022 blood cultures x2 are negative so far -07/11/2012 sputum cultures -gram stain show Gram-positive cocci but cultures have been negative except he has yeast -MRSA screen was positive - off stress dose steroids -Discontinued albumin (2) Acute respiratory failure with hypoxia: Code(s): J96.01 - Acute respiratory failure with hypoxia Status: Acute Assessment and Plan: Patient presented to the ED on 07/09/2022 with increasing shortness of breath for the last 3 weeks which apparently worsened in the last 3 days.? He was admitted to the intermediate Unit where he was placed on BiPAP, oxygen requirements were increasing, I was asked to see the patient.? Patient was in impending respiratory failure, tachypneic, was breathing between 40-50 times a minute, O2 sats were in the upper 80s to low 90s. Patient was intubated on?07/10/2022 ARDS versus healthcare? associated pneumonia patient was on immunosuppressants which was later complicated by fluid over COVID PCR was negative -patient developed a right pneumothorax could be related to BiPAP, bag-mask ventilation.? - 07/15 post sedation holiday patient had increased oxygen requirement and FiO2 and PEEP had to be increased. - 07/19 patient again had increased oxygen requirements with FiO2 increased to 80%. Patient was dyssynchronous, propofol was started. Increased PEEP to 10 -07/20 overnight patient was desaturating, dyssynchronous, started on Nimbex, peep was increased to 14 and FiO2 at 65%. -chest x-ray and ABGs reviewed, continue tidal volume at 400 mL, rate has been increased to 28, peep decreased to 12 and FiO2 increased to 75%. Also sat up the patient > 30?, O2 sats have improved with these interventions 07/21: Chest x-ray and ABGs reviewed, volume increased to 440 (6 mL/kg) -continue fentanyl Versed, propofol, will have the nurse is decrease the doses slightly -currently on Nimbex infusion which was started on 07/19, advised the bedside RN to start weaning the Nimbex -continue bronchodilators - Hemodialysis will be continued for further fluid removal (3) Pneumothorax on right: Code(s): J93.9 - Pneumothorax, unspecified Status: Acute Assessment and Plan: Patient with a right pneumothorax currently multifactorial, patient has COPD, asthma, was on BiPAP, could be possibly secondary bag-mask ventilation -right chest tube was inserted by surgery on 07/10/2020 -chest x-ray this morning shows right chest tube in place, pneumothorax has resolved -no significant air leak -surgery managing the chest tube (4) Asthma-COPD overlap syndrome: Code(s): J44.9 - Chronic obstructive pulmonary disease, unspecified Status: Acute Assessment and Plan: See above (5) Acute kidney injury: Code(s): N17.9 - Acute kidney failure, unspecified Status: Acute Assessment and Plan: Acute kidney injury likely related to hypoxia, hypotension, sepsis upon arrival to the ER -urine output continues to be low despite of Bumex dose on 07/15 -07/16 hemodialysis catheter was placed and patient was started on hemodialysis. -urine output remains low with increase in BUN creatinine. Continue dialysis per Nephrology -continue monitor renal function, electrolytes and urine output -07/16 renal ultrasound showed normal kidney sizes with no hydronephrosis -nephrology following (6) Multifocal pneumonia: Code(s): J18.9
[2022-07-21] MEDS: EPOETIN ALFA-EPBX 10,000 UNITS/ML VIAL 10000 UNITS IV PUSH (10:35)
--- NOTE | 2022-07-21 10:41 | P.PNNP_ITS ---
Progress Note: A&P Assessment and Plan (1) Acute kidney injury: Code(s): N17.9 - Acute kidney failure, unspecified Status: Acute Assessment and Plan: * presumably normal baseline creatinine (1.1mg/dl in March 2019) * initial insult noted on admission * secondary to a combination of hypoxia, hypotension/hemodyanmic instability, and sepsis * responded to therapy (vasopressor support, IVF resuscitation...etc) * creatinine improved from 2.0 to 1.3mg/dl at that time * however, second insult noted on 07/12/22 with creatinine rising from 1.3mg/dl to 1.9mg/dl * previous evaluation noted: * renal ultrasound without obstruction * urine electrolytes look slightly prerenal * urine eosinophils negative * CPK okay * possible delayed reaction to contrast/dye?? (CT with contrast done on 07/09/22) * maybe recurrence of ATN due to hemodynamic instability +/- hypoxia and/or infection/ARDS(?) * repeat evaluation done: * urine electrolytes suggestive of prerenal azotemia * repeat renal ultrasound (07/16/22) okay * declining urine output with poor response of IV diuretic challenge (IV bumex given on 07/15/22) * initiated on DESIGN ANALYST/dialysis (on 07/16/22) after HD catheter placement * HD today * azotemia may be a manifestion of catabolic state +/- previous steroid therapy * follow trend of repeat labs and UOP for potential renal recovery (2) Septic shock: Code(s): A41.9 - Sepsis, unspecified organism; R65.21 - Severe sepsis with septic shock Status: Acute Assessment and Plan: * initially weaned off vasopressors following admission * vasopressors restarted on 07/15/22 but off currently * blood culture to date negative * repeat blood cultures pending * on antibiotics (3) Acute respiratory failure with hypoxia: Code(s): J96.01 - Acute respiratory failure with hypoxia Status: Acute Assessment and Plan: * intubated on 07/10/22 for impending respiratory failure (tachypneic in associated with hypoxia) * now complicated by pneumonia, pneumothorax, and possible ARDS * known history of COPD and asthma as well * remains on full ventilator support (4) Multifocal pneumonia: Code(s): J18.9 - Pneumonia, unspecified organism Status: Acute Assessment and Plan: * as noted by CT of chest * on IV antibiotics * continue ventilator support (5) Anemia: Code(s): D64.9 - Anemia, unspecified Status: Acute Assessment and Plan: * possibly related to EDMOND and acute illness * trend of H/H over the last few days noted * consider empiric Epogen * follow stool guaiacs * follow trend of H/H (6) Pneumothorax on right: Code(s): J93.9 - Pneumothorax, unspecified Status: Acute Assessment and Plan: * multifactorial: * COPD * asthma * BiPAP use * possibly due to bag-mask ventilation * chest tube in place (done on 07/10/22) * Surgery following Will continue to follow. Subjective Date/time seen: 07/21/22 10:41 Tolerating hemodialysis treatment at the time of my visit (seen on HD at ~ 10:30PM); remain intubated/sedated and on mechanical ventilation; otherwise, hemodynamically stable without the need for vasopressor therapy; attempting to go for 3 - 4L fluid removal/ultrafiltration as tolerated. Exam Narrative: General: elderly male intubated/sedated/paralyzed Heart: normal S1 and S2; no rub Lungs: coarse breath sounds; right chest tube noted Abdomen: soft, nontender, no
--- NOTE | 2022-07-21 10:41 | PM.PNNEP ---
Progress Note: A&P Assessment and Plan (1) Acute kidney injury: Code(s): N17.9 - Acute kidney failure, unspecified Status: Acute Assessment and Plan: presumably normal baseline creatinine (1.1mg/dl in March 2019) initial insult noted on admission secondary to a combination of hypoxia, hypotension/hemodyanmic instability, and sepsis responded to therapy (vasopressor support, IVF resuscitation...etc) creatinine improved from 2.0 to 1.3mg/dl at that time however, second insult noted on 07/12/22 with creatinine rising from 1.3mg/dl to 1.9mg/dl previous evaluation noted: renal ultrasound without obstruction urine electrolytes look slightly prerenal urine eosinophils negative CPK okay possible delayed reaction to contrast/dye?? 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 on [employer]/dialysis (on 07/16/22) after HD catheter placement HD today azotemia may be a manifestion of catabolic state +/- previous steroid therapy follow trend of repeat labs and UOP for potential renal recovery (2) Septic shock: Code(s): A41.9 - Sepsis, unspecified organism; R65.21 - Severe sepsis with septic shock Status: Acute Assessment and Plan: initially weaned off vasopressors following admission vasopressors restarted on 07/15/22 but off currently blood culture to date negative repeat blood cultures pending on antibiotics (3) Acute respiratory failure with hypoxia: Code(s): J96.01 - Acute respiratory failure with hypoxia Status: Acute Assessment and Plan: intubated on 07/10/22 for impending respiratory failure (tachypneic in associated with hypoxia) now complicated by pneumonia, pneumothorax, and possible ARDS known history of COPD and asthma as well remains on full ventilator support (4) Multifocal pneumonia: Code(s): J18.9 - Pneumonia, unspecified organism Status: Acute Assessment and Plan: as noted by CT of chest on IV antibiotics continue ventilator support (5) Anemia: Code(s): D64.9 - Anemia, unspecified Status: Acute Assessment and Plan: possibly related to EDMOND and acute illness trend of H/H over the last few days noted consider empiric Epogen follow stool guaiacs follow trend of H/H (6) Pneumothorax on right: Code(s): J93.9 - Pneumothorax, unspecified Status: Acute Assessment and Plan: multifactorial: COPD asthma BiPAP use possibly due to bag-mask ventilation chest tube in place (done on 07/10/22) Surgery following Will continue to follow. Subjective Date/time seen: 07/21/22 10:41 Tolerating hemodialysis treatment at the time of my visit (seen on HD at ~ 10:30PM); remain intubated/sedated and on mechanical ventilation; otherwise, hemodynamically stable without the need for vasopressor therapy; attempting to go for 3 - 4L fluid removal/ultrafiltration as tolerated. Exam Narrative: General: elderly male intubated/sedated/paralyzed Heart: normal S1 and S2; no rub Lungs: coarse breath sounds; right chest tube noted Abdomen: soft, nontender, nondistended, hypoactive bowel sounds Extremities: no cyanosis or clubbing; trace - 1+ edema Skin: warm and dry Objective Data Vital Signs Vital Signs: Vital Signs Temp Pulse Resp BP Pulse Ox O2 Del Method FiO2 07/21/22 10:00 91 07/21/22 10:00 36.6 C 81 28 H 100/59 L 100 07/21/22 08:00 94 07/21/22 08:30 89 28 H 07/21/22 08:18 89 98 Mechanical Ventilation 50 07/21/22 08:15 86 28 H 07/21/22 08:47 89 28 H 07/21/22 08:46 89 28 H 07/21/22 0
--- NOTE | 2022-07-21 11:35 | PCFNICU ---
ICU Rounding Note: Pt current nutrition is Nepro at 30 ml/hr. Last recorded weight is 107.4 kg, up from 98 kg on admit. Bowel Motility:Last BM reported 07/19 Labs Reviewed:Glu 132, TF 151, BUN 81, Cr 4.6,Na 130, Hct 23.8,Hgb 7.6 Meds Noted:Reglan,Nimbex, Versed, Fentanyl, Propofol at 10 ctxc=669 kcals. Skin: Friction on right buttock. Additional Notes: Patient remains on vent Day 11. Tube feedings restarted at currently at 30 ml/hr of Nepro and tolerating. Recommend goal rate at this time at 40 ml/hr to better meet caloric needs 1746 kcals/72 gms protein. Free water flush 30 ml q 4 hours. Dialysis today. DVT noted in right arm. MD and family plan to have discussions regarding plan of care. Following daily in ICU rounds. Will monitor daily in ICU rounds and reassessing every Tuesday and Tuesday.
[2022-07-21 12:37] LABS: Glucose Point of Care 117 mg/dl (65-105)
[2022-07-21] MEDS: CISATRACURIUM BESYLATE 200 MG in DEXTROSE 5% 80 ML 9.58 ML IV CONT (15:13)
[2022-07-21 15:21] LABS: Anion Gap 15 mmol/L (8-16); Blood Urea Nitrogen 36 mg/dL (9-20); Calcium 8.8 mg/dL (8.4-10.2); Carbon Dioxide 26 mmol/L (22-30); Chloride 97 mmol/L (98-107); Estimated CRCL calculation 30 ml/min; Estimated Glomerular Filt Rate 29; Glucose 136 mg/dL (65-110); Magnesium 2.4 mg/dL (1.6-2.3); Phosphorus 4.2 mg/dL (2.5-4.5); Potassium 3.8 mmol/L (3.4-5.0); Sodium 138 mmol/L (137-145)
[2022-07-21 16:45] LABS: Glucose Point of Care 134 mg/dl (65-105)
[2022-07-21 20:20] LABS: Glucose Point of Care 149 mg/dl (65-105)
[2022-07-21] MEDS: HEPARIN SOD/D5W 100 UNITS/ML 25,000 UNITS/250 ML BAG 17 UNITS IV CONT (20:22)
[2022-07-21 22:37] LABS: Partial Thromboplastin Time 79.3 SECONDS (22.3-36.8)
[2022-07-22] VITALS (41 sets, daily range): BP systolic 95–144; BP diastolic 55–80; PULSE 71–97; RESP 28–30; TEMP 37.2–37.9; O2SAT 93–99
[2022-07-22 00:21] LABS: Glucose Point of Care 149 mg/dl (65-105)
[2022-07-22] MEDS: METOCLOPRAMIDE HCL INJ 10 MG/2 ML VIAL IV PUSH ×2 (00:21→05:50)
[2022-07-22] MEDS: ALBUTEROL SULFATE NEB 2.5 MG/3 ML INH INHALATION ×4 (01:35→20:00)
[2022-07-22] MEDS: IPRATROPIUM BR 0.02% INH SOLN 0.5 MG/2.5 ML VIAL INHALATION ×4 (01:36→20:00)
[2022-07-22 04:31] LABS: Glucose Point of Care 120 mg/dl (65-105)
[2022-07-22 05:03] LABS: Alveolar/Arterial O2 Gradient 175.6 mmHg; Base Excess ABG -1.8 mEq/l (+/-2.0); Carboxyhemoglobin 0.3 % THb (0-2.0); Fractional Inspired Oxygen 40 %; HCO3 ABG 22.6 mEq/l (22.0-26.0); Methemoglobin ABG 0.3 %THb (0-1.5); Oxygen Content ABG 18.5 %vol (16.0-22.0); Oxygen Saturation ABG 93.2 % (95.0-100.0); Oxyhemoglobin 91.5 % THb (90.0-100.0); PCO2 ABG 37.6 mmHg (35.0-45.0); PO2 ABG 66.4 mmHg (80.0-100.0); PO2 FiO2 Ratio Arterial Blood 1.66 %; Reduced Hemoglobin 7.9 %THb (0-5.0); Total Hemoglobin 14.4 g/dL (12.0-18.0); pH ABG 7.397 (7.350-7.450)
[2022-07-22 05:05] LABS: Device VENTILATOR; Modified Allen's Test Pass; Site Drawn LEFT RADIAL
[2022-07-22 05:06] LABS: Arterial Blood Gas PEEP 12 cmH2O; Arterial Blood Gas Tidal Volume 440 ml; Arterial Blood Gas Vent Mode CMV; Arterial Blood Gas Ventilator rate 28 /MIN
[2022-07-22] MEDS: CENTRAL LINE FLUSH 10 ML IV PUSH ×4 (05:44→20:03)
[2022-07-22 05:52] LABS: Hematocrit 23.3 % (42.0-52.0); Hemoglobin 7.5 g/dL (14.0-18.0); Mean Corpuscular HGB Conc 32.2 g/dl (32-36); Mean Corpuscular Hemoglobin 31.3 pg (26-34); Mean Corpuscular Volume 97.1 fl (80-100); Mean Platelet Volume 10.8 fl (7.4-10.4); Platelet Count Result 205 k/mm3 (150-375); Red Cell Distribution Width 15.8 % (11.5-14.5); White Blood Count 13.7 K/mm3 (4.5-10.0)
[2022-07-22 06:09] LABS: Partial Thromboplastin Time 96.5 SECONDS (22.3-36.8)
[2022-07-22 06:16] LABS: Alanine Aminotransferase 27 U/L (6-50); Albumin Level 3.4 g/dL (3.5-5.1); Alkaline Phosphatase 123 U/L (38-126); Anion Gap 17 mmol/L (8-16); Aspartate Amino Transferase 32 U/L (17-59); Bilirubin,Total 0.5 mg/dL (0.2-1.3); Blood Urea Nitrogen 57 mg/dL (9-20); Calcium 8.4 mg/dL (8.4-10.2); Carbon Dioxide 25 mmol/L (22-30); Chloride 95 mmol/L (98-107); Estimated CRCL calculation 18 ml/min; Estimated Glomerular Filt Rate 17; Glucose 140 mg/dL (65-110); Magnesium 2.5 mg/dL (1.6-2.3); Sodium 137 mmol/L (137-145)
[2022-07-22] MEDS: LORATADINE 10 MG TABLET PO ×2 (08:22→20:02)
[2022-07-22] MEDS: MINERAL OIL/WHITE PETROLATUM OINTMENT 1 APPLIC EACH EYE ×2 (08:23→20:02)
[2022-07-22] MEDS: PANTOPRAZOLE SODIUM IV 40 MG VIAL IV PUSH ×2 (08:23→20:02)
[2022-07-22] MEDS: polyethylene glycoL 3350 17 GM POWD.PACK PO (08:49)
--- NOTE | 2022-07-22 09:16 | PM.PNNEP ---
Progress Note: A&P Assessment and Plan (1) Acute kidney injury: Code(s): N17.9 - Acute kidney failure, unspecified Status: Acute Assessment and Plan: presumably normal baseline creatinine (1.1mg/dl in March 2019) initial insult noted on admission secondary to a combination of hypoxia, hypotension/hemodyanmic instability, and sepsis responded to therapy (vasopressor support, IVF resuscitation...etc) creatinine improved from 2.0 to 1.3mg/dl at that time however, second insult noted on 07/12/22 with creatinine rising from 1.3mg/dl to 1.9mg/dl previous evaluation noted: renal ultrasound without obstruction urine electrolytes look slightly prerenal urine eosinophils negative CPK okay maybe recurrence of ATN due to previous hemodynamic instability +/- hypoxia and/or infection/ARDS(?) repeat evaluation done: urine electrolytes suggestive of prerenal azotemia repeat renal ultrasound (07/16/22) okay declining urine output with poor response of IV diuretic challenge (IV bumex given on 07/15/22) initiated on [facility]ADER/dialysis (on 07/16/22) after HD catheter placement HD tomorrow azotemia may be a manifestion of catabolic state +/- previous steroid therapy follow trend of repeat labs and UOP for potential renal recovery (2) Septic shock: Code(s): A41.9 - Sepsis, unspecified organism; R65.21 - Severe sepsis with septic shock Status: Acute Assessment and Plan: improving initially weaned off vasopressors following admission vasopressors restarted on 07/15/22 but off currently blood culture to date negative repeat blood cultures negative as well on antibiotics (3) Acute respiratory failure with hypoxia: Code(s): J96.01 - Acute respiratory failure with hypoxia Status: Acute Assessment and Plan: intubated on 07/10/22 for impending respiratory failure (tachypneic in associated with hypoxia) now complicated by pneumonia, pneumothorax, and possible ARDS known history of COPD and asthma as well remains on ventilator support (4) Multifocal pneumonia: Code(s): J18.9 - Pneumonia, unspecified organism Status: Acute Assessment and Plan: as noted by CT of chest on antibiotics continue ventilator support (5) Anemia: Code(s): D64.9 - Anemia, unspecified Status: Acute Assessment and Plan: possibly related to EDMOND and acute illness Epogen with HD follow trend of H/H (6) Pneumothorax on right: Code(s): J93.9 - Pneumothorax, unspecified Status: Acute Assessment and Plan: multifactorial: COPD asthma BiPAP use possibly due to bag-mask ventilation chest tube in place (done on 07/10/22) Surgery following Will continue to follow. Subjective Date/time seen: 07/22/22 09:16 Tolerated hemodialysis yesterday with 4L fluid removal; remains intubated/sedated and on mechanical ventilation; urine remains low (anuria); hemodynamically stable without the need for vasopressor support; no other acute issues/events overnight or earlier this morning. Exam Narrative: General: elderly male intubated/sedated Heart: normal S1 and S2; no rub Lungs: coarse breath sounds; right chest tube noted Abdomen: soft, nontender, nondistended, hypoactive bowel sounds Extremities: no cyanosis or clubbing; trace - 1+ edema Skin: warm and intac Objective Data Vital Signs Vital Signs: Vital Signs Temp Pulse Resp BP Pulse Ox O2 Del Method FiO2 07/22/22 10:43 84 28 H 07/22/22 10:25 84 28 H 07/22/22 10:40 87 28 H 07/22/22 10:34 87 28 H 07/22/22 08:00 86 07/22/22 08:45 85 28 H 07/22/22 08:30 80 28 H 07/22/22 09:24 80 98 Mechanical Ventilation 35 07/22/22 08:00 86 28 H 98 Mechanical Ventilation 40 07/22/22 08:00 37.4 C 86 28 H 113/62 98 07/22/22 08:00 40 07/22/22 07:47 84 28 H 07/22/22 07:40
--- NOTE | 2022-07-22 09:16 | P.PNNP_ITS ---
Progress Note: A&P Assessment and Plan (1) Acute kidney injury: Code(s): N17.9 - Acute kidney failure, unspecified Status: Acute Assessment and Plan: * presumably normal baseline creatinine (1.1mg/dl in March 2019) * initial insult noted on admission * secondary to a combination of hypoxia, hypotension/hemodyanmic instability, and sepsis * responded to therapy (vasopressor support, IVF resuscitation...etc) * creatinine improved from 2.0 to 1.3mg/dl at that time * however, second insult noted on 07/12/22 with creatinine rising from 1.3mg/dl to 1.9mg/dl * previous evaluation noted: * renal ultrasound without obstruction * urine electrolytes look slightly prerenal * urine eosinophils negative * CPK okay * maybe recurrence of ATN due to previous hemodynamic instability +/- hypoxia and/or infection/ARDS(?) * repeat evaluation done: * urine electrolytes suggestive of prerenal azotemia * repeat renal ultrasound (07/16/22) okay * declining urine output with poor response of IV diuretic challenge (IV bumex given on 07/15/22) * initiated on [facility] [employer]/dialysis (on 07/16/22) after HD catheter placement * HD tomorrow * azotemia may be a manifestion of catabolic state +/- previous steroid therapy * follow trend of repeat labs and UOP for potential renal recovery (2) Septic shock: Code(s): A41.9 - Sepsis, unspecified organism; R65.21 - Severe sepsis with septic shock Status: Acute Assessment and Plan: * improving * initially weaned off vasopressors following admission * vasopressors restarted on 07/15/22 but off currently * blood culture to date negative * repeat blood cultures negative as well * on antibiotics (3) Acute respiratory failure with hypoxia: Code(s): J96.01 - Acute respiratory failure with hypoxia Status: Acute Assessment and Plan: * intubated on 07/10/22 for impending respiratory failure (tachypneic in associated with hypoxia) * now complicated by pneumonia, pneumothorax, and possible ARDS * known history of COPD and asthma as well * remains on ventilator support (4) Multifocal pneumonia: Code(s): J18.9 - Pneumonia, unspecified organism Status: Acute Assessment and Plan: * as noted by CT of chest * on antibiotics * continue ventilator support (5) Anemia: Code(s): D64.9 - Anemia, unspecified Status: Acute Assessment and Plan: * possibly related to EDMOND and acute illness * Epogen with HD * follow trend of H/H (6) Pneumothorax on right: Code(s): J93.9 - Pneumothorax, unspecified Status: Acute Assessment and Plan: * multifactorial: * COPD * asthma * BiPAP use * possibly due to bag-mask ventilation * chest tube in place (done on 07/10/22) * Surgery following Will continue to follow. Subjective Date/time seen: 07/22/22 09:16 Tolerated hemodialysis yesterday with 4L fluid removal; remains intubated/sedated and on mechanical ventilation; urine remains low (anuria); hemodynamically stable without the need for vasopressor support; no other acute issues/events overnight or earlier this morning. Exam Narrative: General: elderly male intubated/sedated Heart: normal S1 and S2; no rub Lungs: coarse breath sounds; right chest tube noted Abdomen: soft, nontender, nondistended, hypoactive bowel sounds Extremities: no cyanosis or clubbing; trace
--- NOTE | 2022-07-22 09:50 | WPDINTPN ---
Progress Note: A&P Assessment and Plan (1) Septic shock: Code(s): A41.9 - Sepsis, unspecified organism; R65.21 - Severe sepsis with septic shock Status: Acute Assessment and Plan: Patient presented to the ED was hypotensive in the 60s, was given IV fluids and then was given Lasix after that in the ER Patient was started on vasopressors and eventually was weaned off but had to be restarted on 07/15 -currently OFF pressors -status post cefepime times 10 days - 07/13 levofloxacin discontinued. 07/15 vancomycin discontinued 07/16 -07/10/2022 blood cultures x2 are negative so far -07/11/2012 sputum cultures -gram stain show Gram-positive cocci but cultures have been negative except he has yeast -MRSA screen was positive - off stress dose steroids -Discontinued albumin (2) Acute respiratory failure with hypoxia: Code(s): J96.01 - Acute respiratory failure with hypoxia Status: Acute Assessment and Plan: Patient presented to the ED on 07/09/2022 with increasing shortness of breath for the last 3 weeks which apparently worsened in the last 3 days.? He was admitted to the intermediate Unit where he was placed on BiPAP, oxygen requirements were increasing, I was asked to see the patient.? Patient was in impending respiratory failure, tachypneic, was breathing between 40-50 times a minute, O2 sats were in the upper 80s to low 90s. Patient was intubated on?07/10/2022 ARDS versus healthcare? associated pneumonia patient was on immunosuppressants which was later complicated by fluid over COVID PCR was negative -patient developed a right pneumothorax could be related to BiPAP, bag-mask ventilation.? 07/22 chest x-ray: Small lung volumes with diffuse lung disease with slight improvement, consistent with pneumonia versus pulmonary edema versus acute respiratory distress syndrome (ARDS).2. No pneumothorax. Right-sided chest tube in expected position -currently on CMV mode of ventilation, peep of 12 and 40% FiO2, will decrease PEEP to 10 -continue fentanyl and Versed for sedation -07/21/2022 discontinue propofol and Nimbex -continue bronchodilators - Hemodialysis will be continued for further fluid removal (3) Pneumothorax on right: Code(s): J93.9 - Pneumothorax, unspecified Status: Acute Assessment and Plan: Patient with a right pneumothorax currently multifactorial, patient has COPD, asthma, was on BiPAP, could be possibly secondary bag-mask ventilation -right chest tube was inserted by surgery on 07/10/2020 -chest x-ray this morning shows right chest tube in place, pneumothorax has resolved -no significant air leak -surgery managing the chest tube (4) Asthma-COPD overlap syndrome: Code(s): J44.9 - Chronic obstructive pulmonary disease, unspecified Status: Acute Assessment and Plan: See above (5) Acute kidney injury: Code(s): N17.9 - Acute kidney failure, unspecified Status: Acute Assessment and Plan: Acute kidney injury likely related to hypoxia, hypotension, sepsis upon arrival to the ER -urine output continues to be low despite of Bumex dose on 07/15 -07/16 hemodialysis catheter was placed and patient was started on hemodialysis. -urine output remains low with increase in BUN creatinine. Continue dialysis per Nephrology -continue monitor renal function, electrolytes and urine output -07/16 renal ultrasound showed normal kidney sizes with no hydronephrosis -nephrology following (6) Multifocal pneumonia: Code(s): J18.9 - Pneumonia, unspecified organism Status: Acute Assessment and Plan: 07/09 CT scan of the chest shows diffuse bilateral pulmonary infiltrates -status post antibiotic course, on mechanical ventilation (7) Anemia: Code(s): D64.9 - Anemia, unspecified Status: Acute Assessment and Plan: Hemoglobin initially trending down but now has remained stable Increased BUN although patient is in acute kidney injury No ob
[2022-07-22] MEDS: MIDAZOLAM 100MG/NS 100ML(*CRX) 100 MG/100 ML BAG IV CONT (10:40)
[2022-07-22] MEDS: FENTANYL 2,500MCG/NS250ML(*CRX 2,500 MCG/250 ML BAG 10 MCG IV CONT (10:43)
[2022-07-22] MEDS: HEPARIN SOD/D5W 100 UNITS/ML 25,000 UNITS/250 ML BAG 17 UNITS IV CONT (10:54)
--- NOTE | 2022-07-22 11:10 | PCFNICU ---
ICU Rounding Note: Pt current nutrition is Nepro at 30 ml/hr. Nutrition recommendation: Orders to advance to 45 ml/hr Last recorded weight is 97.4 kg-stable Bowel Motility:Last BM reported 07/19-Miralax given today. Labs Reviewed:Hgb 7.5,Hct 23.3,GFR 17, BUN 57, CR 3.5,Glu 140, Mg 2.5 Meds Noted:Reglan,Nimbex, Versed, Fentanyl, Miralax,Heparin,Atrovent, Protonix Skin: WNL Additional Notes: Patient remains on mechanical vent and tube feedings of Nepro. Plans to advance to goal rate of 45 ml/hr today. Propofol has been discontinued. Free water flush 30 ml q 4 hours. Possible Dialysis again today. Agree diet orders. Following daily in ICU rounds. Will monitor daily in ICU rounds and reassessing every Tuesday and Tuesday.
[2022-07-22 12:31] LABS: Glucose Point of Care 123 mg/dl (65-105)
[2022-07-22 12:31] LABS: Glucose Point of Care 151 mg/dl (65-105)
[2022-07-22 17:10] LABS: Glucose Point of Care 144 mg/dl (65-105)
[2022-07-22 20:10] LABS: Glucose Point of Care 141 mg/dl (65-105)
[2022-07-22 23:35] LABS: Glucose Point of Care 137 mg/dl (65-105)
[2022-07-23] VITALS (49 sets, daily range): BP systolic 104–177; BP diastolic 52–83; PULSE 80–130; RESP 20–35; TEMP 36–38.4; O2SAT 86–98
[2022-07-23] MEDS: IPRATROPIUM BR 0.02% INH SOLN 0.5 MG/2.5 ML VIAL INHALATION ×4 (02:00→20:48)
[2022-07-23] MEDS: ALBUTEROL SULFATE NEB 2.5 MG/3 ML INH INHALATION ×4 (02:00→20:48)
[2022-07-23] MEDS: HEPARIN SOD/D5W 100 UNITS/ML 25,000 UNITS/250 ML BAG 17 UNITS IV CONT ×2 (02:09→16:31)
[2022-07-23 04:31] LABS: Glucose Point of Care 156 mg/dl (65-105)
[2022-07-23] MEDS: CENTRAL LINE FLUSH 10 ML IV PUSH ×2 (05:10→20:15)
[2022-07-23 05:11] LABS: Hemoglobin 8.2 g/dL (14.0-18.0); Mean Corpuscular HGB Conc 32.8 g/dl (32-36); Mean Corpuscular Hemoglobin 31.2 pg (26-34); Mean Corpuscular Volume 95.1 fl (80-100); Mean Platelet Volume 10.5 fl (7.4-10.4); Platelet Count Result 268 k/mm3 (150-375); Red Blood Count 2.63 M/mm3 (4.6-6.20); Red Cell Distribution Width 15.8 % (11.5-14.5); White Blood Count 15.5 K/mm3 (4.5-10.0)
[2022-07-23 05:21] LABS: Alanine Aminotransferase 39 U/L (6-50); Albumin Level 3.4 g/dL (3.5-5.1); Alkaline Phosphatase 162 U/L (38-126); Anion Gap 14 mmol/L (8-16); Aspartate Amino Transferase 57 U/L (17-59); Bilirubin,Total 0.5 mg/dL (0.2-1.3); Blood Urea Nitrogen 81 mg/dL (9-20); Calcium 8.7 mg/dL (8.4-10.2); Carbon Dioxide 23 mmol/L (22-30); Chloride 96 mmol/L (98-107); Glucose 161 mg/dL (65-110); Magnesium 2.6 mg/dL (1.6-2.3); Potassium 4.2 mmol/L (3.4-5.0); Sodium 133 mmol/L (137-145)
[2022-07-23 05:23] LABS: Partial Thromboplastin Time 71.5 SECONDS (22.3-36.8)
[2022-07-23 05:26] LABS: Estimated CRCL calculation 15 ml/min; Estimated Glomerular Filt Rate 12
--- NOTE | 2022-07-23 05:46 | ECG_ITS ---
Measurements Intervals [place] Rate: 127 P: ND: 0 QRS: -46 QRSD: 122 T: 74 QT: 316 QTc: 461 Interpretive Statements SINUS OR ECTOPIC ATRIAL TACHYCARDIA ATRIAL PREMATURE COMPLEXES RIGHT BUNDLE BRANCH BLOCK LEFT ANTERIOR FASCICULAR BLOCK BASELINE ARTIFACT- AVR, AVL, AVF, V1-V6 ABNORMAL ECG COMPARED TO ECG 07/10/2022 10:22:44 SINUS OR ECTOPIC ATRIAL TACHYCARDIA NOW PRESENT Electronically Signed On 07-23-2022 7:53:12 CDT by Alexi Delacruz D.O.
[2022-07-23 05:49] LABS: Alveolar/Arterial O2 Gradient 322.4 mmHg; Base Excess ABG -2.3 mEq/l (+/-2.0); Carboxyhemoglobin 0.3 % THb (0-2.0); Device VENTILATOR; Fractional Inspired Oxygen 60 %; HCO3 ABG 22.3 mEq/l (22.0-26.0); Methemoglobin ABG 0.3 %THb (0-1.5); Modified Allen's Test Unable to perform; Oxygen Content ABG 11.6 %vol (16.0-22.0); Oxygen Saturation ABG 92.6 % (95.0-100.0); Oxyhemoglobin 90.2 % THb (90.0-100.0); PCO2 ABG 37.4 mmHg (35.0-45.0); PO2 ABG 64.3 mmHg (80.0-100.0); PO2 FiO2 Ratio Arterial Blood 1.07 %; Reduced Hemoglobin 9.2 %THb (0-5.0); Site Drawn RIGHT RADIAL; Total Hemoglobin 9.1 g/dL (12.0-18.0); pH ABG 7.394 (7.350-7.450)
[2022-07-23 05:50] LABS: Arterial Blood Gas PEEP 10 cmH2O; Arterial Blood Gas Tidal Volume 440 ml; Arterial Blood Gas Vent Mode CMV; Arterial Blood Gas Ventilator rate 28 /MIN
[2022-07-23] MEDS: METOPROLOL TARTRATE INJ 5 MG/5 ML VIAL IV PUSH (06:19)
[2022-07-23] MEDS: ACETAMINOPHEN 325 MG TABLET 650 MG FEED TUBE (08:02)
[2022-07-23] MEDS: polyethylene glycoL 3350 17 GM POWD.PACK PO (08:03)
[2022-07-23] MEDS: PANTOPRAZOLE SODIUM IV 40 MG VIAL IV PUSH ×2 (08:04→20:15)
[2022-07-23] MEDS: LORATADINE 10 MG TABLET PO ×2 (08:04→20:15)
[2022-07-23] MEDS: MINERAL OIL/WHITE PETROLATUM OINTMENT 1 APPLIC EACH EYE ×2 (08:05→20:16)
[2022-07-23 08:56] LABS: Glucose Point of Care 154 mg/dl (65-105)
--- NOTE | 2022-07-23 09:27 | WPDINTPN ---
Progress Note: A&P Assessment and Plan (1) Septic shock: Code(s): A41.9 - Sepsis, unspecified organism; R65.21 - Severe sepsis with septic shock Status: Acute Assessment and Plan: Patient presented to the ED was hypotensive in the 60s, was given IV fluids and then was given Lasix after that in the ER Patient was started on vasopressors and eventually was weaned off but had to be restarted on 07/15 -currently OFF pressors -status post cefepime times 10 days - 07/13 levofloxacin discontinued. 07/15 vancomycin discontinued 07/16 -07/10/2022 blood cultures x2 are negative so far -07/11/2012 sputum cultures -gram stain show Gram-positive cocci but cultures have been negative except he has yeast -MRSA screen was positive - off stress dose steroids -Discontinued albumin -07/23 patient with T-max of 101.1?, WBC count trending patient recently completed a 10 day course of antibiotics, will continue to monitor for now (2) Acute respiratory failure with hypoxia: Code(s): J96.01 - Acute respiratory failure with hypoxia Status: Acute Assessment and Plan: Patient presented to the ED on 07/09/2022 with increasing shortness of breath for the last 3 weeks which apparently worsened in the last 3 days.? He was admitted to the intermediate Unit where he was placed on BiPAP, oxygen requirements were increasing, I was asked to see the patient.? Patient was in impending respiratory failure, tachypneic, was breathing between 40-50 times a minute, O2 sats were in the upper 80s to low 90s. Patient was intubated on?07/10/2022 ARDS versus healthcare? associated pneumonia patient was on immunosuppressants which was later complicated by fluid over COVID PCR was negative -patient developed a right pneumothorax could be related to BiPAP, bag-mask ventilation.? 07/22 chest x-ray: Small lung volumes with diffuse lung disease with slight improvement, consistent with pneumonia versus pulmonary edema versus acute respiratory distress syndrome (ARDS).2. No pneumothorax. Right-sided chest tube in expected position -currently on CMV mode of ventilation, peep of 10 and 60% FiO2, -ABGs and chest x-ray reviewed, ventilator adjusted -have discussed with Nephrology, will dialyze patient today -continue fentanyl and Versed for sedation -07/21/2022: off propofol and Nimbex -continue bronchodilators (3) Pneumothorax on right: Code(s): J93.9 - Pneumothorax, unspecified Status: Acute Assessment and Plan: Patient with a right pneumothorax currently multifactorial, patient has COPD, asthma, was on BiPAP, could be possibly secondary bag-mask ventilation -right chest tube was inserted by surgery on 07/10/2020 -chest x-ray this morning shows right chest tube in place, pneumothorax has resolved -no significant air leak -surgery managing the chest tube (4) Asthma-COPD overlap syndrome: Code(s): J44.9 - Chronic obstructive pulmonary disease, unspecified Status: Acute Assessment and Plan: See above (5) Acute kidney injury: Code(s): N17.9 - Acute kidney failure, unspecified Status: Acute Assessment and Plan: Acute kidney injury likely related to hypoxia, hypotension, sepsis upon arrival to the ER -urine output continues to be low despite of Bumex dose on 07/15 -07/16 hemodialysis catheter was placed and patient was started on hemodialysis. -urine output remains low with increase in BUN creatinine. Continue dialysis per Nephrology -continue monitor renal function, electrolytes and urine output -07/16 renal ultrasound showed normal kidney sizes with no hydronephrosis -nephrology following (6) Multifocal pneumonia: Code(s): J18.9 - Pneumonia, unspecified organism Status: Acute Assessment and Plan: 07/09 CT scan of the chest shows diffuse bilateral pulmonary infiltrates -status post antibiotic course, on mechanical ventilation (7) Anemia: Code(s): D64.9 - Anemia, unspecified
--- NOTE | 2022-07-23 09:39 | PM.IMPN ---
Progress Note: A&P Assessment and Plan (1) Septic shock: Code(s): A41.9 - Sepsis, unspecified organism; R65.21 - Severe sepsis with septic shock Status: Acute Assessment and Plan: Patient was hypotensive on admission to 69/41. He had elevated lactic acid and elevated CRP all consistent with sepsis. Probably not tachycardic due to being on Coreg. Sepsis felt related to PNA. Blood pressures improved initially with IV fluid rehydration. As patient's respiratory failure worsened, his BP dropped again requiring Levophed. He did receive a dose of Lasix. Solu-Cortef started as well. Antihypertensives held. BCx, UCx and MRSA nasal swab negative. Eventually was weaned off pressors but had to be restarted on 07/15. Levophed weaned off on 07/17. Currently remains off pressors. He completed cefepime on 07/20; levofloxacin discontinued 07/13 and vancomycin discontinued 07/14. Sputum growing yeast. Solu-Cortef stopped. Patient now with fevers again. Will re-culture but hold on abx. (2) Acute respiratory failure with hypoxia: Code(s): J96.01 - Acute respiratory failure with hypoxia Status: Acute Assessment and Plan: Patient presented to the ED on 07/09/2022 with increasing shortness of breath for the last 3 weeks which apparently worsened in the last 3 days.? He was admitted to the intermediate Unit where he was placed on BiPAP. CTA chest showing no PE but does show multifocal pneumonia. COVID swab was negative (repeat COVID x2 also negative), Influenza negative. Respiratory failure associated with sepsis and HoTN all related to bacterial PNA. Patient's condition deteriorated (related to spontaneous PTX?) requiring intubation on 07/10. 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 Discussed. (3) Multifocal pneumonia: Code(s): J18.9 - Pneumonia, unspecified organism Status: Acute Assessment and Plan: CTA chest showing no PE but does show multifocal pneumonia.? COVID swab was negative (repeat COVID test x2 also negative).? Influenza negative. He does have asthma/COPD treated with Fesenra 2 days prior to admission. He has a history of DVT and was recently taken off apixaban but no PE and LE doppler negative for DVT.? Pneumococcal and Legionella Ag negative. MRSA nasal swab negative. Sputum growing Yeast. BCx negative. [place] his PNA related to the Fesenra. He has completed abx course. Now having fevers again. Will re-culture (4) Pneumothorax on right: Code(s): J93.9 - Pneumothorax, unspecified Status: Acute Assessment and Plan: Patient with a right pneumothorax who was on BiPAP. Could be possibly secondary bag-mask ventilation. Right chest tube was inserted by surgery on 07/10/22. PTX has resolved by CXR. Surgery managing the chest tube (5) Acute kidney injury: Code(s): N17.9 - Acute kidney failure, unspecified Status: Acute Assessment and Plan: Acute kidney injury present on admission with Cr 2.0 likely related to hypoxia, hypotension and sepsis upon arrival. Cr improved initially before worsening. Urine output was low despite of Bumex dose on 07/15. Renal US showing normal sized kidneys without hydro. On 07/16, a hemodialysis catheter was placed and patient was started on hemodialysis. UOP remains low. HD performed on 07/21with plans for HD today and again tomorrow. Continue monitor renal function, electrolytes and urine output. Nephrology following and appreciate their input. 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 Increased BUN although patient is in acute kidney injury. No obvious signs of bleeding but Hemoccult was positive. Remains on heparin drip. Continue Pro
[2022-07-23] MEDS: MIDAZOLAM 100MG/NS 100ML(*CRX) 100 MG/100 ML BAG IV CONT (09:59)
[2022-07-23 11:27] LABS: Appearance Urine Cloudy (Clear); Bilirubin Urine 1+ (Negative); Blood Urine 3+ (Negative); Glucose Urine UA Negative (Negative); Ketones Urine Trace mg/dL (Negative); Leukocyte Esterase Ur 1+ LEU/UL (Negative); Nitrate Urine Negative (Negative); Protein Urine 3+ mg/dL (Negative); Specific Grav Ur 1.025 (1.001-1.035); Urobilinogen Urine 0.2 mg/dL (<2.0); pH Urine 5.5 (5.0-9.0)
[2022-07-23 11:33] LABS: Add Urine Microscopic? YES; Color Urine Dark Yellow (Yellow)
[2022-07-23 11:36] LABS: Bacteria Urine Trace /hpf; Mucus Urine Rare /lpf; RBC Urine >75 /hpf (0-2); Squamous Epithelial Cell Urine Rare /hpf (Few); WBC Urine 51-75 /hpf
--- NOTE | 2022-07-23 12:10 | PCNFU ---
Nutrition Follow-Up Complete: Inadequate Oral Intake as related to mechanical ventilation as evidenced by Tube feedings. Goal: Meet estimated nutritional needs patient is progressing towards goal. We will continue current goal. Pt current nutrition is Nepro at 45 ml/hr over 22 hours. Last recorded weight is 109.2 kg, up from 98 kg on admit. Bowel Motility:+Bm reported 07/19-Miralax given today. Labs Reviewed:Mg 2.6, GFR 12, BUN 81, Cr 4.6,Na 133, Alb 3.4 Meds Noted:Versed, Fentanyl, Miralax,Heparin,Atrovent, Protonix Skin: WNL Additional Notes: Patient remains on mechanical vent and tube feedings of Nepro at 45 ml/hr over 22 hours. Tolerating tube feedings, which are providing 1782 kcals and 80 gms protein. Meeting 97% kcal needs and 89% protein needs. Free water flush 30 ml q 4 hours. Dialysis again today. Miralax has been scheduled. Agree with diet orders. Will monitor daily in ICU rounds and reassessing every Tuesday and Tuesday.
[2022-07-23 13:09] LABS: Glucose Point of Care 127 mg/dl (65-105)
--- NOTE | 2022-07-23 13:41 | PC.NURSE ---
1310-Call placed to [facility] answering service regarding dialysis treatment ordered for today. Awaiting call back.
--- NOTE | 2022-07-23 13:43 | PM.PNNEP ---
Progress Note: A&P Assessment and Plan (1) Acute kidney injury: Code(s): N17.9 - Acute kidney failure, unspecified Status: Acute Assessment and Plan: presumably normal baseline creatinine (1.1mg/dl in March 2019) initial insult noted on admission secondary to a combination of hypoxia, hypotension/hemodyanmic instability, and sepsis responded to therapy (vasopressor support, IVF resuscitation...etc) creatinine improved from 2.0 to 1.3mg/dl at that time however, second insult noted on 07/12/22 with creatinine rising from 1.3mg/dl to 1.9mg/dl previous evaluation noted: renal ultrasound without obstruction urine electrolytes look slightly prerenal urine eosinophils negative CPK okay maybe recurrence of ATN due to previous hemodynamic instability +/- hypoxia and/or infection/ARDS(?) repeat evaluation done: urine electrolytes suggestive of prerenal azotemia repeat renal ultrasound (07/16/22) okay declining urine output with poor response of IV diuretic challenge (IV bumex given on 07/15/22) initiated on A R SPECIALIST/dialysis (on 07/16/22) after HD catheter placement HD today azotemia may be a manifestion of catabolic state +/- previous steroid therapy follow trend of repeat labs and UOP for potential renal recovery (2) Septic shock: Code(s): A41.9 - Sepsis, unspecified organism; R65.21 - Severe sepsis with septic shock Status: Acute Assessment and Plan: concerning with regard to on/off fevers initially weaned off vasopressors following admission vasopressors restarted on 07/15/22 but off currently blood culture to date negative to date completed course of antibiotics (3) Acute respiratory failure with hypoxia: Code(s): J96.01 - Acute respiratory failure with hypoxia Status: Acute Assessment and Plan: intubated on 07/10/22 for impending respiratory failure (tachypneic in associated with hypoxia) now complicated by pneumonia, pneumothorax, and possible ARDS known history of COPD and asthma as well remains on ventilator support suspect will eventually need tracheostomy (4) Multifocal pneumonia: Code(s): J18.9 - Pneumonia, unspecified organism Status: Acute Assessment and Plan: as noted by CT of chest completed course of antibiotics continue ventilator support push fluid removal with HD ot further optimize respiratory status (5) Anemia: Code(s): D64.9 - Anemia, unspecified Status: Acute Assessment and Plan: possibly related to EDMOND and acute illness Epogen with HD follow trend of H/H (6) Pneumothorax on right: Code(s): J93.9 - Pneumothorax, unspecified Status: Acute Assessment and Plan: multifactorial: COPD asthma BiPAP use possibly due to bag-mask ventilation chest tube in place (done on 07/10/22) Surgery following Will continue to follow. Subjective Date/time seen: 07/23/22 13:43 Due for dialysis treatment today; issues with fevers as well as afib with RVR in the last 24 hours in association with elevated WBC; remains hemodynamically stable without the need for vasopressor therapy; remains on ventilator support; no other acute issues noted. Exam Narrative: General: elderly male intubated/sedated Heart: normal S1 and S2; no rub Lungs: coarse breath sounds; right chest tube noted Abdomen: soft, nontender, nondistended, hypoactive bowel sounds Extremities: no cyanosis or clubbing; trace - 1+ edema Skin: no rash Objective Data Vital Signs Vital Signs: Vital Signs Temp Pulse Resp BP Pulse Ox O2 Del Method FiO2 07/23/22 13:04 95 27 H 07/23/22 12:00 37.4 C 93 28 H 129/72 96 07/23/22 12:00 93 07/23/22 12:22 93 26 H 07/23/22 10:59 94 26 H 07/23/22 10:57 94 92 Mechanical Ventilation 40 07/23/22 10:00 37.6 C 97 26 H 112/71 96 07/23/22 08:00 50 07/23/22 08:00 38.1 C H
--- NOTE | 2022-07-23 13:43 | P.PNNP_ITS ---
Progress Note: A&P Assessment and Plan (1) Acute kidney injury: Code(s): N17.9 - Acute kidney failure, unspecified Status: Acute Assessment and Plan: * presumably normal baseline creatinine (1.1mg/dl in March 2019) * initial insult noted on admission * secondary to a combination of hypoxia, hypotension/hemodyanmic instability, and sepsis * responded to therapy (vasopressor support, IVF resuscitation...etc) * creatinine improved from 2.0 to 1.3mg/dl at that time * however, second insult noted on 07/12/22 with creatinine rising from 1.3mg/dl to 1.9mg/dl * previous evaluation noted: * renal ultrasound without obstruction * urine electrolytes look slightly prerenal * urine eosinophils negative * CPK okay * maybe recurrence of ATN due to previous hemodynamic instability +/- hypoxia and/or infection/ARDS(?) * repeat evaluation done: * urine electrolytes suggestive of prerenal azotemia * repeat renal ultrasound (07/16/22) okay * declining urine output with poor response of IV diuretic challenge (IV bumex given on 07/15/22) * 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 (on 07/16/22) after HD catheter placement * HD today * azotemia may be a manifestion of catabolic state +/- previous steroid therapy * follow trend of repeat labs and UOP for potential renal recovery (2) Septic shock: Code(s): A41.9 - Sepsis, unspecified organism; R65.21 - Severe sepsis with septic shock Status: Acute Assessment and Plan: * concerning with regard to on/off fevers * initially weaned off vasopressors following admission * vasopressors restarted on 07/15/22 but off currently * blood culture to date negative to date * completed course of antibiotics (3) Acute respiratory failure with hypoxia: Code(s): J96.01 - Acute respiratory failure with hypoxia Status: Acute Assessment and Plan: * intubated on 07/10/22 for impending respiratory failure (tachypneic in associated with hypoxia) * now complicated by pneumonia, pneumothorax, and possible ARDS * known history of COPD and asthma as well * remains on ventilator support * suspect will eventually need tracheostomy (4) Multifocal pneumonia: Code(s): J18.9 - Pneumonia, unspecified organism Status: Acute Assessment and Plan: * as noted by CT of chest * completed course of antibiotics * continue ventilator support * push fluid removal with HD ot further optimize respiratory status (5) Anemia: Code(s): D64.9 - Anemia, unspecified Status: Acute Assessment and Plan: * possibly related to EDMOND and acute illness * Epogen with HD * follow trend of H/H (6) Pneumothorax on right: Code(s): J93.9 - Pneumothorax, unspecified Status: Acute Assessment and Plan: * multifactorial: * COPD * asthma * BiPAP use * possibly due to bag-mask ventilation * chest tube in place (done on 07/10/22) * Surgery following Will continue to follow. Subjective Date/time seen: 07/23/22 13:43 Due for dialysis treatment today; issues with fevers as well as afib with RVR in the last 24 hours in association with elevated WBC; remains hemodynamically stable without the need for vasopressor therapy; remains on ventilator support; no other acute issues noted. Exam Narrative: General: elderly male intubated/sedated Heart: normal S1 and S2; no rub Lungs: coarse breath sounds; r
--- NOTE | 2022-07-23 13:58 | PC.NURSE ---
1358-[facility] answering service called for 2nd time. Still awaiting call back.
[2022-07-23] MEDS: dexmedeTOMIDine 400 MCG/100 ML 400 MCG/100 ML BAG 5.46 MCG IV CONT (14:26)
[2022-07-23 17:08] LABS: Glucose Point of Care 141 mg/dl (65-105)
[2022-07-23] MEDS: BETAMETHASONE/CLOTRIMAZOLE CR 15 GM TUBE 1 APPLIC TOPICAL (20:16)
[2022-07-23] MEDS: TOLNAFTATE 1% POWDER 45 GM BTL 1 APPLIC TOPICAL (20:16)
[2022-07-23 20:41] LABS: Glucose Point of Care 139 mg/dl (65-105)
[2022-07-23] MEDS: ALBUMIN HUMAN 25% 12.5 GM/50ML 50 ML IVPB ×2 (21:30→22:20)
[2022-07-23] MEDS: SODIUM CHLORIDE 0.9% IV 1,000 ML 999 ML IV CONT (21:33)
[2022-07-23] MEDS: HEPARIN SODIUM 1,000 UNITS/ML VIAL 6000 UNITS (21:33)
[2022-07-23] MEDS: EPOETIN ALFA-EPBX 10,000 UNITS/ML VIAL 10000 UNITS IV PUSH (22:19)
[2022-07-23] MEDS: dexmedeTOMIDine 400 MCG/100 ML 400 MCG/100 ML BAG 10.92 MCG IV CONT (22:45)
[2022-07-24] VITALS (42 sets, daily range): BP systolic 92–161; BP diastolic 60–79; PULSE 77–119; RESP 26–39; TEMP 36.9–39.1; O2SAT 90–100
[2022-07-24 00:23] LABS: Glucose Point of Care 110 mg/dl (65-105)
--- NOTE | 2022-07-24 01:46 | PC.NURSE ---
4.5 L removed in dialysis.
[2022-07-24] MEDS: IPRATROPIUM BR 0.02% INH SOLN 0.5 MG/2.5 ML VIAL INHALATION ×4 (02:45→20:05)
[2022-07-24] MEDS: ALBUTEROL SULFATE NEB 2.5 MG/3 ML INH INHALATION ×4 (02:46→20:04)
[2022-07-24] MEDS: CENTRAL LINE FLUSH 10 ML IV PUSH ×3 (04:47→21:20)
[2022-07-24 05:06] LABS: Glucose Point of Care 149 mg/dl (65-105)
[2022-07-24 05:15] LABS: Partial Thromboplastin Time 92.1 SECONDS (22.3-36.8)
[2022-07-24 05:17] LABS: Hematocrit 24.1 % (42.0-52.0); Mean Corpuscular HGB Conc 33.2 g/dl (32-36); Mean Corpuscular Hemoglobin 31.1 pg (26-34); Mean Corpuscular Volume 93.8 fl (80-100); Mean Platelet Volume 10.6 fl (7.4-10.4); Platelet Count Result 272 k/mm3 (150-375); Red Blood Count 2.57 M/mm3 (4.6-6.20); Red Cell Distribution Width 15.6 % (11.5-14.5); White Blood Count 14.2 K/mm3 (4.5-10.0)
[2022-07-24 05:42] LABS: Alanine Aminotransferase 36 U/L (6-50); Albumin Level 3.8 g/dL (3.5-5.1); Alkaline Phosphatase 152 U/L (38-126); Anion Gap 13 mmol/L (8-16); Aspartate Amino Transferase 48 U/L (17-59); Bilirubin,Total 0.9 mg/dL (0.2-1.3); Blood Urea Nitrogen 38 mg/dL (9-20); Calcium 8.7 mg/dL (8.4-10.2); Carbon Dioxide 27 mmol/L (22-30); Chloride 97 mmol/L (98-107); Estimated CRCL calculation 28 ml/min; Estimated Glomerular Filt Rate 27; Glucose 165 mg/dL (65-110); Magnesium 2.2 mg/dL (1.6-2.3); Potassium 3.6 mmol/L (3.4-5.0); Sodium 137 mmol/L (137-145)
[2022-07-24 06:00] LABS: Alveolar/Arterial O2 Gradient 240.5 mmHg; Base Excess ABG 2.2 mEq/l (+/-2.0); Carboxyhemoglobin 0.3 % THb (0-2.0); Fractional Inspired Oxygen 50 %; HCO3 ABG 25.5 mEq/l (22.0-26.0); Methemoglobin ABG 0.3 %THb (0-1.5); Oxygen Content ABG 12.3 %vol (16.0-22.0); Oxygen Saturation ABG 96.4 % (95.0-100.0); PCO2 ABG 34.5 mmHg (35.0-45.0); PO2 ABG 77.2 mmHg (80.0-100.0); PO2 FiO2 Ratio Arterial Blood 1.54 %; Reduced Hemoglobin 5.4 %THb (0-5.0); Total Hemoglobin 9.2 g/dL (12.0-18.0); pH ABG 7.487 (7.350-7.450)
[2022-07-24 06:02] LABS: Device VENTILATOR; Modified Allen's Test Pass; Site Drawn RIGHT RADIAL
[2022-07-24 06:03] LABS: Arterial Blood Gas PEEP 10 cmH2O; Arterial Blood Gas Tidal Volume 440 ml; Arterial Blood Gas Vent Mode CMV; Arterial Blood Gas Ventilator rate 26 /MIN
[2022-07-24] MEDS: dexmedeTOMIDine 400 MCG/100 ML 400 MCG/100 ML BAG 10.92 MCG IV CONT (07:10)
[2022-07-24] MEDS: PROPOFOL IV EMULSION 100 ML 3.1 MG IV CONT (08:15)
[2022-07-24] MEDS: HEPARIN SOD/D5W 100 UNITS/ML 25,000 UNITS/250 ML BAG 17 UNITS IV CONT ×2 (08:18→22:29)
[2022-07-24] MEDS: PANTOPRAZOLE SODIUM IV 40 MG VIAL IV PUSH ×2 (08:28→20:09)
--- NOTE | 2022-07-24 08:28 | WPDINTPN ---
Progress Note: A&P Assessment and Plan (1) Encephalopathy: Code(s): G93.40 - Encephalopathy, unspecified Status: Acute Assessment and Plan: Patient encephalopathy, likely multifactorial, patient has been hypoxic prior to being placed on mechanical ventilation, a will obtain CT scan of the brain -patient currently on Precedex infusion, not following commands or opening his eyes -will start propofol as patient is tachypneic (2) Septic shock: Code(s): A41.9 - Sepsis, unspecified organism; R65.21 - Severe sepsis with septic shock Status: Acute Assessment and Plan: Patient presented to the ED was hypotensive in the 60s, was given IV fluids and then was given Lasix after that in the ER Patient was started on vasopressors and eventually was weaned off but had to be restarted on 07/15 -currently OFF pressors -status post cefepime, levofloxacin and vancomycin -07/10/2022 blood cultures x2 are negative so far -07/11/2012 sputum cultures -gram stain show Gram-positive cocci but cultures have been negative except he has yeast -MRSA screen was positive - off stress dose steroids -Discontinued albumin -07/24 remains febrile with T-max of 102? F, elevated WBC, blood pressures are stable. -07/23: Blood, urine, sputum cultures, fungal cultures have been obtained and pending (3) Acute respiratory failure with hypoxia: Code(s): J96.01 - Acute respiratory failure with hypoxia Status: Acute Assessment and Plan: Patient presented to the ED on 07/09/2022 with increasing shortness of breath for the last 3 weeks which apparently worsened in the last 3 days.? He was admitted to the intermediate Unit where he was placed on BiPAP, oxygen requirements were increasing, I was asked to see the patient.? Patient was in impending respiratory failure, tachypneic, was breathing between 40-50 times a minute, O2 sats were in the upper 80s to low 90s. Patient was intubated on?07/10/2022 ARDS versus healthcare? associated pneumonia patient was on immunosuppressants which was later complicated by fluid over COVID PCR was negative -patient developed a right pneumothorax could be related to BiPAP, bag-mask ventilation.? 07/24 chest x-ray: ?No significant change in diffuse bilateral lung disease which could represent pneumonia, pulmonary edema, acute respiratory distress syndrome (ARDS) or combination thereof -currently on CMV mode of ventilation, peep of 10 and 50% FiO2, -patient has been febrile with T-max of 102.0?F with no change in chest x-ray even after 4 L fluid removal on 07/23/2022. -07/24: Start patient on Zosyn, vancomycin, Levaquin and micafungin -off all sedation, patient currently on Precedex infusion, not responding to pain, does not open his eyes or follow simple commands. Patient is tachypneic, will start propofol then discontinue Precedex -continue bronchodilators 07/24: Will obtain CT scan of the chest/abdomen and pelvis (4) Pneumothorax on right: Code(s): J93.9 - Pneumothorax, unspecified Status: Acute Assessment and Plan: Patient with a right pneumothorax currently multifactorial, patient has COPD, asthma, was on BiPAP, could be possibly secondary bag-mask ventilation -right chest tube was inserted by surgery on 07/10/2020 -chest x-ray this morning shows right chest tube in place, pneumothorax has resolved -no significant air leak -surgery managing the chest tube (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 likely related to hypoxia, hypotension, sepsis upon arrival to the ER -urine output continues to be low despite of Bumex dose on 07/15 -07/16 hemodialysis catheter was placed and patient was started on hemodialysis.
[2022-07-24] MEDS: MINERAL OIL/WHITE PETROLATUM OINTMENT 1 APPLIC EACH EYE ×2 (08:29→20:09)
[2022-07-24] MEDS: ACETAMINOPHEN 325 MG TABLET 650 MG FEED TUBE (08:29)
[2022-07-24] MEDS: LORATADINE 10 MG TABLET PO ×2 (08:29→20:09)
[2022-07-24] MEDS: polyethylene glycoL 3350 17 GM POWD.PACK PO (08:33)
[2022-07-24] MEDS: BETAMETHASONE/CLOTRIMAZOLE CR 15 GM TUBE 1 APPLIC TOPICAL ×2 (08:33→20:09)
[2022-07-24] MEDS: TOLNAFTATE 1% POWDER 45 GM BTL 1 APPLIC TOPICAL ×2 (08:33→20:09)
--- NOTE | 2022-07-24 08:35 | ECG_ITS ---
Measurements Intervals [place] Rate: 109 P: IA: 0 QRS: -52 QRSD: 128 T: 67 QT: 356 QTc: 480 Interpretive Statements ATRIAL FLUTTER/TACHYCARDIA WITH RAPID VENTRICULAR RESPONSE RIGHT BUNDLE BRANCH BLOCK LEFT ANTERIOR FASCICULAR BLOCK VOLTAGE CRITERIA FOR LVH ABNORMAL ECG COMPARED TO ECG 07/23/2022 04:54:06 ATRIAL FLUTTER NOW PRESENT Electronically Signed On 07-24-2022 18:35:15 CDT by Alexi Delacruz D.O.
[2022-07-24] MEDS: METOPROLOL TARTRATE 12.5 MG TABLET PO ×2 (08:57→20:10)
--- NOTE | 2022-07-24 09:22 | PM.IMPN ---
Progress Note: A&P Assessment and Plan (1) Septic shock: Code(s): A41.9 - Sepsis, unspecified organism; R65.21 - Severe sepsis with septic shock Status: Acute Assessment and Plan: Patient was hypotensive on admission to 69/41. He had elevated lactic acid and elevated CRP all consistent with sepsis. Probably not tachycardic due to being on Coreg. Sepsis felt related to PNA. Blood pressures improved initially with IV fluid rehydration. As patient's respiratory failure worsened, his BP dropped again requiring Levophed. He did receive a dose of Lasix. Solu-Cortef started as well. Antihypertensives held. BCx, UCx and MRSA nasal swab negative. Eventually was weaned off pressors but had to be restarted on 07/15. Levophed weaned off again on 07/17. Currently remains off pressors. He completed cefepime on 07/20; levofloxacin discontinued 07/13 and vancomycin discontinued 07/14. Sputum growing yeast. Solu-Cortef stopped. Patient now with fevers again. Patient re-cultured 07/23. Abx to be resumed. Also check CT brain to exclude fever from UNSCRAMBLER event (he is on heparin). (2) Acute respiratory failure with hypoxia: Code(s): J96.01 - Acute respiratory failure with hypoxia Status: Acute Assessment and Plan: Patient presented to the ED on 07/09/2022 with increasing shortness of breath for the last 3 weeks which apparently worsened in the last 3 days prior to admission.? He was admitted to the IMU where he was placed on BiPAP. CTA chest showing no PE but does show multifocal pneumonia. COVID swab was negative (repeat COVID x2 also negative), Influenza negative. Respiratory failure associated with sepsis and HoTN all related to bacterial PNA. Patient's condition deteriorated (related to spontaneous PTX?) requiring intubation on 07/10. CXR reviewed and much wore on the left. Vent management per tube mounter. Discussed. Consider bronch. Plan for repeat CT chest. (3) Multifocal pneumonia: Code(s): J18.9 - Pneumonia, unspecified organism Status: Acute Assessment and Plan: CTA chest showing no PE but does show multifocal pneumonia.? COVID swab was negative (repeat COVID test x2 also negative).? Influenza negative. He does have asthma/COPD treated with Fesenra 2 days prior to admission. Pneumococcal and Legionella Ag negative. MRSA nasal swab negative. Sputum growing Yeast. BCx negative. [place] his PNA related to the Fesenra. He completed abx course but now having fevers again. Birgit was re-cultured. Abx and antifungal treatment to be started. (4) Pneumothorax on right: Code(s): J93.9 - Pneumothorax, unspecified Status: Acute Assessment and Plan: Patient with a right pneumothorax who was on BiPAP. Could be possibly secondary bag-mask ventilation. Right chest tube was inserted by surgery on 07/10/22. PTX has resolved by CXR. Surgery managing the chest tube (5) Acute kidney injury: Code(s): N17.9 - Acute kidney failure, unspecified Status: Acute Assessment and Plan: Acute kidney injury present on admission with Cr 2.0 likely related to hypoxia, hypotension and sepsis upon arrival. Cr improved initially before worsening. Urine output was low despite of Bumex dose on 07/15. Renal US showing normal sized kidneys without hydro. On 07/16, a hemodialysis catheter was placed and patient was started on hemodialysis. UOP remains low. HD performed on 07/21 and 07/23 with plans for HD today. Continue monitor renal function, electrolytes and urine output. Nephrology following and appreciate their input. (6) Atrial fibrillation: Code(s): I48.91 - Unspecified atrial fibrillation Status: Acute Assessment and Plan: Patient with intermittent AFib. Currently on metoprolol and toerlating this well. Was on Coreg on admission. He is also on Heparin drip as well. Contine the same. Check EKG to assess rhythm (7) Deep vein thrombosis, upper right extremity: Code(s): I82.621 - A
[2022-07-24 09:28] LABS: Glucose Point of Care 142 mg/dl (65-105)
--- NOTE | 2022-07-24 09:41 | P.PNNP_ITS ---
Progress Note: A&P Assessment and Plan (1) Acute kidney injury: Code(s): N17.9 - Acute kidney failure, unspecified Status: Acute Assessment and Plan: * presumably normal baseline creatinine (1.1mg/dl in March 2019) * initial insult noted on admission * secondary to a combination of hypoxia, hypotension/hemodyanmic instability, and sepsis * responded to therapy (vasopressor support, IVF resuscitation...etc) * creatinine improved from 2.0 to 1.3mg/dl at that time * however, second insult noted on 07/12/22 with creatinine rising from 1.3mg/dl to 1.9mg/dl * previous evaluation noted: * renal ultrasound without obstruction * urine electrolytes look slightly prerenal * urine eosinophils negative * CPK okay * maybe recurrence of ATN due to previous hemodynamic instability +/- hypoxia and/or infection/ARDS(?) * repeat evaluation done: * urine electrolytes suggestive of prerenal azotemia * repeat renal ultrasound (07/16/22) okay * declining urine output with poor response of IV diuretic challenge (IV bumex given on 07/15/22) * 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 (on 07/16/22) after HD catheter placement * HD today * azotemia may be a manifestion of catabolic state +/- previous steroid therapy * follow trend of repeat labs and UOP for potential renal recovery (2) Septic shock: Code(s): A41.9 - Sepsis, unspecified organism; R65.21 - Severe sepsis with septic shock Status: Acute Assessment and Plan: * concerning with regard to on/off fevers * initially weaned off vasopressors following admission * vasopressors restarted on 07/15/22 but off currently * blood culture to date negative to date * completed course of antibiotics (3) Acute respiratory failure with hypoxia: Code(s): J96.01 - Acute respiratory failure with hypoxia Status: Acute Assessment and Plan: * intubated on 07/10/22 for impending respiratory failure (tachypneic in associated with hypoxia) * now complicated by pneumonia, pneumothorax, and possible ARDS * known history of COPD and asthma as well * remains on ventilator support * suspect will eventually need tracheostomy and likely PEG along with LTACH placement (4) Multifocal pneumonia: Code(s): J18.9 - Pneumonia, unspecified organism Status: Acute Assessment and Plan: * as noted by CT of chest * completed course of antibiotics * continue ventilator support * push fluid removal with HD ot further optimize respiratory status (5) Anemia: Code(s): D64.9 - Anemia, unspecified Status: Acute Assessment and Plan: * possibly related to EDMOND and acute illness * Epogen with HD * follow trend of H/H (6) Pneumothorax on right: Code(s): J93.9 - Pneumothorax, unspecified Status: Acute Assessment and Plan: * multifactorial: * COPD * asthma * BiPAP use * possibly due to bag-mask ventilation * chest tube in place (done on 07/10/22) * Surgery following Will continue to follow. Subjective Date/time seen: 07/24/22 09:41 Tolerated dialysis treatment yesterday evening with 4.5L fluid removal; on schedule today for a session of dry ultrafiltration for further fluid removal; remains on ventilator support and intubated/sedated; remains hemodynamically stable without the need for vasopressor therapy; however, febrile this AM. Exam Narrative: General: elderly male in
--- NOTE | 2022-07-24 09:41 | PM.PNNEP ---
Progress Note: A&P Assessment and Plan (1) Acute kidney injury: Code(s): N17.9 - Acute kidney failure, unspecified Status: Acute Assessment and Plan: presumably normal baseline creatinine (1.1mg/dl in March 2019) initial insult noted on admission secondary to a combination of hypoxia, hypotension/hemodyanmic instability, and sepsis responded to therapy (vasopressor support, IVF resuscitation...etc) creatinine improved from 2.0 to 1.3mg/dl at that time however, second insult noted on 07/12/22 with creatinine rising from 1.3mg/dl to 1.9mg/dl previous evaluation noted: renal ultrasound without obstruction urine electrolytes look slightly prerenal urine eosinophils negative CPK okay maybe recurrence of ATN due to previous hemodynamic instability +/- hypoxia and/or infection/ARDS(?) repeat evaluation done: urine electrolytes suggestive of prerenal azotemia repeat renal ultrasound (07/16/22) okay declining urine output with poor response of IV diuretic challenge (IV bumex given on 07/15/22) initiated on [employer] DIRECT[employer]/dialysis (on 07/16/22) after HD catheter placement HD today azotemia may be a manifestion of catabolic state +/- previous steroid therapy follow trend of repeat labs and UOP for potential renal recovery (2) Septic shock: Code(s): A41.9 - Sepsis, unspecified organism; R65.21 - Severe sepsis with septic shock Status: Acute Assessment and Plan: concerning with regard to on/off fevers initially weaned off vasopressors following admission vasopressors restarted on 07/15/22 but off currently blood culture to date negative to date completed course of antibiotics (3) Acute respiratory failure with hypoxia: Code(s): J96.01 - Acute respiratory failure with hypoxia Status: Acute Assessment and Plan: intubated on 07/10/22 for impending respiratory failure (tachypneic in associated with hypoxia) now complicated by pneumonia, pneumothorax, and possible ARDS known history of COPD and asthma as well remains on ventilator support suspect will eventually need tracheostomy and likely PEG along with LTACH placement (4) Multifocal pneumonia: Code(s): J18.9 - Pneumonia, unspecified organism Status: Acute Assessment and Plan: as noted by CT of chest completed course of antibiotics continue ventilator support push fluid removal with HD ot further optimize respiratory status (5) Anemia: Code(s): D64.9 - Anemia, unspecified Status: Acute Assessment and Plan: possibly related to EDMOND and acute illness Epogen with HD follow trend of H/H (6) Pneumothorax on right: Code(s): J93.9 - Pneumothorax, unspecified Status: Acute Assessment and Plan: multifactorial: COPD asthma BiPAP use possibly due to bag-mask ventilation chest tube in place (done on 07/10/22) Surgery following Will continue to follow. Subjective Date/time seen: 07/24/22 09:41 Tolerated dialysis treatment yesterday evening with 4.5L fluid removal; on schedule today for a session of dry ultrafiltration for further fluid removal; remains on ventilator support and intubated/sedated; remains hemodynamically stable without the need for vasopressor therapy; however, febrile this AM. Exam Narrative: General: elderly male intubated/sedated Heart: normal S1 and S2; no rub Lungs: coarse breath sounds; right chest tube noted Abdomen: soft, nontender, nondistended, hypoactive bowel sounds Extremities: no cyanosis or clubbing; trace - 1+ edema Skin: no rash Objective Data Vital Signs Vital Signs: Vital Signs Temp Pulse Resp BP Pulse Ox O2 Del Method FiO2 07/24/22 08:57 110 H 07/24/22 08:29 38.8 C H 07/24/22 08:24 110 H 34 H 07/24/22 08:14 110 H 98 Mechanical Ventilation 50 07/24/22 08:09 110 H 36 H 07/24/22 06:00 38.1 C H 114 H 35 H 161/75 H 93
[2022-07-24] MEDS: DORNASE ALFA INH SOLN 1 MG/ML 2.5 ML AMP 2.5 MG INHALATION ×2 (10:44→20:05)
--- NOTE | 2022-07-24 10:44 | PCFNICU ---
ICU Rounding Note: Pt current nutrition is Nepro at 45ml/hr. Nutrition recommendation: Last recorded weight is 103.3 kg - down from 109kg yesterday, noted 4.5L of fluid removed from dialysis. Wt has significantly fluctuated. Bowel Motility: +BM /3 Labs Reviewed: hgb:8.0, HCT:24.1, BUN:38, Cr:2.3, Glu:165 Meds Noted:Versed, Fentanyl, Miralax,Heparin,Atrovent, Protonix, propofol restarted today at 25mics = 396kcals. Skin: Area to coccyx worsening - to be evaluated by wound nurse Additional Notes: Patient remains on mechanical vent and tube feedings of Nepro at 45 ml/hr over 22 hours. Tolerating tube feedings, which are providing 1782 kcals and 80 gms protein. Meeting 97% kcal needs and 89% protein needs. Free water flush 30 ml q 4 hours. Noted propofol increases caloric intake to 2178. Recommend to decrease tube feeds to 35ml/hr to provide 1782kcals total per day with propofol. Recommend to consider adding SARAH BID via tube for wound healing following wound nurse evaluation. Noted family to discuss retirement plans for care today. Following daily in ICU rounds. Will monitor daily in ICU rounds and reassessing every Tuesday and Tuesday..
[2022-07-24] MEDS: MICAFUNGIN SODIUM 100 MG in SODIUM CHLORIDE 0.9% IV 100 ML IVPB (12:10)
[2022-07-24 12:34] LABS: Glucose Point of Care 191 mg/dl (65-105)
[2022-07-24 12:34] LABS: Glucose Point of Care 206 mg/dl (65-105)
[2022-07-24] MEDS: PROPOFOL IV EMULSION 100 ML 15.5 MG IV CONT (14:00)
[2022-07-24 16:28] LABS: Glucose Point of Care 172 mg/dl (65-105)
[2022-07-24] MEDS: PROPOFOL IV EMULSION 100 ML 18.59 MG IV CONT (20:08)
[2022-07-24 20:28] LABS: Glucose Point of Care 165 mg/dl (65-105)
[2022-07-25] VITALS (34 sets, daily range): BP systolic 100–148; BP diastolic 62–87; PULSE 75–90; RESP 24–34; TEMP 36.8–37.3; O2SAT 93–100
[2022-07-25] MEDS: PROPOFOL IV EMULSION 100 ML 15.5 MG IV CONT ×2 (01:46→06:53)
[2022-07-25] MEDS: MIDAZOLAM 100MG/NS 100ML(*CRX) 100 MG/100 ML BAG IV CONT ×2 (01:46→19:46)
[2022-07-25 01:47] LABS: Glucose Point of Care 156 mg/dl (65-105)
[2022-07-25] MEDS: IPRATROPIUM BR 0.02% INH SOLN 0.5 MG/2.5 ML VIAL INHALATION ×4 (02:12→20:13)
[2022-07-25] MEDS: ALBUTEROL SULFATE NEB 2.5 MG/3 ML INH INHALATION ×4 (02:12→20:13)
[2022-07-25 05:02] LABS: Alveolar/Arterial O2 Gradient 187.9 mmHg; Base Excess ABG 0.1 mEq/l (+/-2.0); Carboxyhemoglobin 0.3 % THb (0-2.0); Fractional Inspired Oxygen 45 %; Methemoglobin ABG 0.5 %THb (0-1.5); Oxygen Content ABG 11.1 %vol (16.0-22.0); Oxygen Saturation ABG 96.5 % (95.0-100.0); Oxyhemoglobin 94.3 % THb (90.0-100.0); PCO2 ABG 41.3 mmHg (35.0-45.0); PO2 FiO2 Ratio Arterial Blood 1.91 %; Reduced Hemoglobin 4.9 %THb (0-5.0); Total Hemoglobin 8.3 g/dL (12.0-18.0); pH ABG 7.399 (7.350-7.450)
[2022-07-25 05:03] LABS: Device VENTILATOR; Modified Allen's Test Pass; Site Drawn RIGHT RADIAL
[2022-07-25 05:04] LABS: Arterial Blood Gas PEEP 10 cmH2O; Arterial Blood Gas Tidal Volume 440 ml; Arterial Blood Gas Vent Mode CMV; Arterial Blood Gas Ventilator rate 26 /MIN
[2022-07-25 05:31] LABS: Glucose Point of Care 183 mg/dl (65-105)
[2022-07-25] MEDS: CENTRAL LINE FLUSH 10 ML IV PUSH ×4 (06:02→19:57)
[2022-07-25 06:03] LABS: Hematocrit 23.6 % (42.0-52.0); Hemoglobin 7.5 g/dL (14.0-18.0); Mean Corpuscular HGB Conc 31.8 g/dl (32-36); Mean Corpuscular Hemoglobin 30.6 pg (26-34); Mean Corpuscular Volume 96.3 fl (80-100); Mean Platelet Volume 10.6 fl (7.4-10.4); Platelet Count Result 284 k/mm3 (150-375); Red Blood Count 2.45 M/mm3 (4.6-6.20); Red Cell Distribution Width 15.5 % (11.5-14.5)
[2022-07-25 06:18] LABS: Alanine Aminotransferase 48 U/L (6-50); Albumin Level 3.5 g/dL (3.5-5.1); Alkaline Phosphatase 149 U/L (38-126); Anion Gap 18 mmol/L (8-16); Aspartate Amino Transferase 69 U/L (17-59); Bilirubin,Total 0.6 mg/dL (0.2-1.3); Blood Urea Nitrogen 64 mg/dL (9-20); Calcium 8.6 mg/dL (8.4-10.2); Carbon Dioxide 27 mmol/L (22-30); Chloride 87 mmol/L (98-107); Estimated CRCL calculation 18 ml/min; Estimated Glomerular Filt Rate 15; Glucose 167 mg/dL (65-110); Magnesium 2.4 mg/dL (1.6-2.3); Potassium 4.2 mmol/L (3.4-5.0); Sodium 132 mmol/L (137-145)
[2022-07-25 07:27] LABS: Band Neutrophils Percent 12 % (0-6); Large Platelets Present; Lymphocytes Absolute Manual 0.98 K/mm3 (1.1-4.5); Metamyelocytes Percent 6 %; Monocytes Absolute Manual 0.84 K/mm3 (0.1-0.90); Monocytes Percent Manual 6 % (3-9); Neutrophils Absolute Manual 11.34 K/mm3 (1.3-6.7); Neutrophils Percent Manual 69 % (46-73); Platelet Clumps Present; Platelet Estimate Adequate (Adequate); Total Cells Counted 100
[2022-07-25 07:40] LABS: Glucose Point of Care 161 mg/dl (65-105)
[2022-07-25] MEDS: BETAMETHASONE/CLOTRIMAZOLE CR 15 GM TUBE 1 APPLIC TOPICAL ×2 (07:58→19:56)
[2022-07-25] MEDS: TOLNAFTATE 1% POWDER 45 GM BTL 1 APPLIC TOPICAL ×2 (07:58→19:56)
[2022-07-25] MEDS: MICAFUNGIN SODIUM 100 MG in SODIUM CHLORIDE 0.9% IV 100 ML IVPB (07:59)
[2022-07-25] MEDS: PANTOPRAZOLE SODIUM IV 40 MG VIAL IV PUSH ×2 (07:59→19:57)
[2022-07-25] MEDS: LORATADINE 10 MG TABLET PO ×2 (08:01→19:57)
[2022-07-25] MEDS: METOPROLOL TARTRATE 12.5 MG TABLET PO ×2 (08:01→19:57)
[2022-07-25] MEDS: polyethylene glycoL 3350 17 GM POWD.PACK PO (08:02)
[2022-07-25] MEDS: DORNASE ALFA INH SOLN 1 MG/ML 2.5 ML AMP 2.5 MG INHALATION ×2 (08:15→20:13)
--- NOTE | 2022-07-25 08:28 | WPDINTPN ---
Progress Note: A&P Assessment and Plan (1) Encephalopathy: Code(s): G93.40 - Encephalopathy, unspecified Status: Acute Assessment and Plan: Patient encephalopathy, likely multifactorial, patient has been hypoxic prior to being placed on mechanical ventilation, -patient was on Precedex infusion, did not open his eyes and follows simple commands the withdraw to pain. -patient was in respiratory distress was started on propofol and Versed, Precedex infusion has been discontinued -family has decided to make him comfort measures and withdraw support on 07/26/2022 (2) Septic shock: Code(s): A41.9 - Sepsis, unspecified organism; R65.21 - Severe sepsis with septic shock Status: Acute Assessment and Plan: Patient presented to the ED was hypotensive in the 60s, was given IV fluids and then was given Lasix after that in the ER Patient was started on vasopressors and eventually was weaned off but had to be restarted on 07/15 -currently OFF pressors -status post cefepime, levofloxacin and vancomycin -07/10/2022 blood cultures x2 are negative so far -07/11/2012 sputum cultures -gram stain show Gram-positive cocci but cultures have been negative except he has yeast -MRSA screen was positive - off stress dose steroids -Discontinued albumin -07/24 remains febrile with T-max of 102? F, elevated WBC, blood pressures are stable. -07/23: Blood cultures negative x2 so far -07/23: Urine negative -07/23: Sputum cultures pending -07/23: Fungal blood cultures are pending (3) Acute respiratory failure with hypoxia: Code(s): J96.01 - Acute respiratory failure with hypoxia Status: Acute Assessment and Plan: Patient presented to the ED on 07/09/2022 with increasing shortness of breath for the last 3 weeks which apparently worsened in the last 3 days.? He was admitted to the intermediate Unit where he was placed on BiPAP, oxygen requirements were increasing, I was asked to see the patient.? Patient was in impending respiratory failure, tachypneic, was breathing between 40-50 times a minute, O2 sats were in the upper 80s to low 90s. Patient was intubated on?07/10/2022 ARDS versus healthcare? associated pneumonia patient was on immunosuppressants which was later complicated by fluid over COVID PCR was negative -patient developed a right pneumothorax could be related to BiPAP, bag-mask ventilation.? 07/24 chest x-ray: ?No significant change in diffuse bilateral lung disease which could represent pneumonia, pulmonary edema, acute respiratory distress syndrome (ARDS) or combination thereof -currently on CMV mode of ventilation, peep of 10 and 45% FiO2, -patient has been febrile with T-max of 102.0?F with no change in chest x-ray even after 4 L fluid removal on 07/23/2022. -07/24: Started patient on Zosyn, vancomycin, Levaquin and micafungin -now afebrile -off all sedation, patient currently on Precedex infusion, not responding to pain, does not open his eyes or follow simple commands. Patient is tachypneic, will start propofol then discontinue Precedex -continue bronchodilators 07/24: Will obtain CT scan of the chest/abdomen and pelvis (4) Pneumothorax on right: Code(s): J93.9 - Pneumothorax, unspecified Status: Acute Assessment and Plan: Patient with a right pneumothorax currently multifactorial, patient has COPD, asthma, was on BiPAP, could be possibly secondary bag-mask ventilation -right chest tube was inserted by surgery on 07/10/2020 -chest x-ray this morning shows right chest tube in place, pneumothorax has resolved -no significant air leak -surgery managing the chest tube (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
--- NOTE | 2022-07-25 12:48 | PM.IMPN ---
Progress Note: A&P Assessment and Plan (1) Septic shock: Code(s): A41.9 - Sepsis, unspecified organism; R65.21 - Severe sepsis with septic shock Status: Acute Assessment and Plan: Patient was hypotensive on admission to 69/41. He had elevated lactic acid and elevated CRP all consistent with sepsis. Probably not tachycardic due to being on Coreg. Sepsis felt related to PNA. Blood pressures improved initially with IV fluid rehydration. As patient's respiratory failure worsened, his BP dropped again requiring Levophed. He did receive a dose of Lasix. Solu-Cortef started as well. Antihypertensives held. BCx, UCx and MRSA nasal swab negative. Eventually was weaned off pressors but had to be restarted on 07/15. Levophed weaned off again on 07/17. Currently remains off pressors. He completed cefepime on 07/20; levofloxacin discontinued 07/13 and vancomycin discontinued 07/14. Sputum growing yeast. Solu-Cortef stopped. Patient now with fevers again. Patient re-cultured 07/23. Abx and anti-fungal resumed. CT brain and Abd/pelvis not completed. Fever resolved with abx. Cx NGTD except sputum growing yeast. Family is now considering withdrawing care tomorrow. (2) Acute respiratory failure with hypoxia: Code(s): J96.01 - Acute respiratory failure with hypoxia Status: Acute Assessment and Plan: Patient presented to the ED on 07/09/2022 with increasing shortness of breath for the last 3 weeks which apparently worsened in the last 3 days prior to admission.? He was admitted to the IMU where he was placed on BiPAP. CTA chest showing no PE but does show multifocal pneumonia. COVID swab was negative (repeat COVID x2 also negative), Influenza negative. Respiratory failure associated with sepsis and HoTN all related to bacterial PNA. Patient's condition deteriorated (related to spontaneous PTX?) requiring intubation on 07/10. CXR reviewed from 07/24 and much wore on the left. Vent management per road service locksmith. (3) Multifocal pneumonia: Code(s): J18.9 - Pneumonia, unspecified organism Status: Acute Assessment and Plan: CTA chest showing no PE but does show multifocal pneumonia.? COVID swab was negative (repeat COVID test x2 also negative).? Influenza negative. He does have asthma/COPD treated with Fesenra 2 days prior to admission. Pneumococcal and Legionella Ag negative. MRSA nasal swab negative. Sputum growing Yeast. BCx negative. [place] his PNA related to the Fesenra. He completed abx course but now having fevers again. Birgit was re-cultured. Abx and antifungal treatment started and fevers have resolved again. (4) Pneumothorax on right: Code(s): J93.9 - Pneumothorax, unspecified Status: Acute Assessment and Plan: Patient with a right pneumothorax who was on BiPAP. Could be possibly secondary bag-mask ventilation. Right chest tube was inserted by surgery on 07/10/22. PTX has resolved by CXR. Surgery managing the chest tube (5) Acute kidney injury: Code(s): N17.9 - Acute kidney failure, unspecified Status: Acute Assessment and Plan: Acute kidney injury present on admission with Cr 2.0 likely related to hypoxia, hypotension and sepsis upon arrival. Cr improved initially before worsening. Urine output was low despite of Bumex dose on 07/15. Renal US showing normal sized kidneys without hydro. On 07/16, a hemodialysis catheter was placed and patient was started on hemodialysis. UOP remains low. HD performed on 07/21 and 07/23. Continue monitor renal function, electrolytes and urine output. Nephrology following and appreciate their input. (6) Atrial fibrillation: Code(s): I48.91 - Unspecified atrial fibrillation Status: Acute Assessment and Plan: Patient with intermittent AFib. Currently on metoprolol and toerlating this well. Was on Coreg on admission. He is also on Heparin drip as well. Continue the same. (7) Deep vein thrombosis, upper right extremity:
[2022-07-25] MEDS: HEPARIN SOD/D5W 100 UNITS/ML 25,000 UNITS/250 ML BAG 17 UNITS IV CONT (12:58)
[2022-07-25] MEDS: PROPOFOL IV EMULSION 100 ML 9.3 MG IV CONT (15:22)
[2022-07-25 16:15] LABS: Glucose Point of Care 121 mg/dl (65-105)
[2022-07-25 18:57] LABS: Glucose Point of Care 153 mg/dl (65-105)
[2022-07-25] MEDS: MINERAL OIL/WHITE PETROLATUM OINTMENT 1 APPLIC EACH EYE (20:06)
[2022-07-25 20:22] LABS: Glucose Point of Care 132 mg/dl (65-105)
[2022-07-25] MEDS: PROPOFOL IV EMULSION 100 ML 18.59 MG IV CONT (21:52)
[2022-07-26] VITALS (24 sets, daily range): BP systolic 109–144; BP diastolic 65–85; PULSE 76–97; RESP 27–34; TEMP 36.6–37; O2SAT 95–100
[2022-07-26 00:28] LABS: Glucose Point of Care 174 mg/dl (65-105)
[2022-07-26] MEDS: ALBUTEROL SULFATE NEB 2.5 MG/3 ML INH INHALATION ×2 (02:54→08:34)
[2022-07-26] MEDS: IPRATROPIUM BR 0.02% INH SOLN 0.5 MG/2.5 ML VIAL INHALATION ×2 (02:54→08:34)
[2022-07-26] MEDS: PROPOFOL IV EMULSION 100 ML 18.59 MG IV CONT ×3 (03:00→11:59)
[2022-07-26] MEDS: HEPARIN SOD/D5W 100 UNITS/ML 25,000 UNITS/250 ML BAG 17 UNITS IV CONT (03:09)
[2022-07-26] MEDS: CENTRAL LINE FLUSH 10 ML IV PUSH (05:08)
[2022-07-26 05:18] LABS: Hematocrit 24.6 % (42.0-52.0); Hemoglobin 7.8 g/dL (14.0-18.0); Mean Corpuscular HGB Conc 31.7 g/dl (32-36); Mean Corpuscular Hemoglobin 29.9 pg (26-34); Mean Corpuscular Volume 94.3 fl (80-100); Mean Platelet Volume 10.8 fl (7.4-10.4); Platelet Count Result 329 k/mm3 (150-375); Red Blood Count 2.61 M/mm3 (4.6-6.20); Red Cell Distribution Width 15.3 % (11.5-14.5); White Blood Count 14.4 K/mm3 (4.5-10.0)
[2022-07-26 05:30] LABS: Partial Thromboplastin Time 88.9 SECONDS (22.3-36.8)
[2022-07-26 05:39] LABS: Band Neutrophils Percent 5 % (0-6); Lymphocytes Absolute Manual 2.88 K/mm3 (1.1-4.5); Metamyelocytes Percent 5 %; Monocytes Absolute Manual 0.72 K/mm3 (0.1-0.90); Monocytes Percent Manual 5 % (3-9); Neutrophils Absolute Manual 10.08 K/mm3 (1.3-6.7); Neutrophils Percent Manual 65 % (46-73); Total Cells Counted 100
[2022-07-26 05:40] LABS: Alanine Aminotransferase 57 U/L (6-50); Albumin Level 3.3 g/dL (3.5-5.1); Alkaline Phosphatase 189 U/L (38-126); Anion Gap 15 mmol/L (8-16); Aspartate Amino Transferase 86 U/L (17-59); Bilirubin,Total 0.7 mg/dL (0.2-1.3); Blood Urea Nitrogen 79 mg/dL (9-20); Calcium 9.1 mg/dL (8.4-10.2); Carbon Dioxide 24 mmol/L (22-30); Chloride 86 mmol/L (98-107); Estimated CRCL calculation 15 ml/min; Estimated Glomerular Filt Rate 13; Glucose 134 mg/dL (65-110); Magnesium 2.4 mg/dL (1.6-2.3); Phosphorus 4.3 mg/dL (2.5-4.5); Platelet Clumps Present; Platelet Estimate Adequate (Adequate); Potassium 4.1 mmol/L (3.4-5.0); Sodium 125 mmol/L (137-145)
[2022-07-26 08:03] LABS: Glucose Point of Care 141 mg/dl (65-105)
[2022-07-26] MEDS: TOLNAFTATE 1% POWDER 45 GM BTL 1 APPLIC TOPICAL (08:31)
[2022-07-26] MEDS: BETAMETHASONE/CLOTRIMAZOLE CR 15 GM TUBE 1 APPLIC TOPICAL (08:31)
[2022-07-26] MEDS: LORATADINE 10 MG TABLET PO (08:32)
[2022-07-26] MEDS: polyethylene glycoL 3350 17 GM POWD.PACK PO (08:32)
[2022-07-26] MEDS: PANTOPRAZOLE SODIUM IV 40 MG VIAL IV PUSH (08:32)
[2022-07-26] MEDS: MINERAL OIL/WHITE PETROLATUM OINTMENT 1 APPLIC EACH EYE (08:32)
[2022-07-26] MEDS: METOPROLOL TARTRATE 12.5 MG TABLET PO (08:32)
--- NOTE | 2022-07-26 08:32 | WPDINTPN ---
Progress Note: A&P Assessment and Plan (1) Encephalopathy: Code(s): G93.40 - Encephalopathy, unspecified Status: Acute Assessment and Plan: Patient encephalopathy, likely multifactorial, patient has been hypoxic prior to being placed on mechanical ventilation, -patient was on Precedex infusion, did not open his eyes and follows simple commands the withdraw to pain. -patient was in respiratory distress was started on propofol and Versed, Precedex infusion has been discontinued -family has decided to make him comfort measures and withdraw support on 07/26/2022 (2) Septic shock: Code(s): A41.9 - Sepsis, unspecified organism; R65.21 - Severe sepsis with septic shock Status: Acute Assessment and Plan: Patient presented to the ED was hypotensive in the 60s, was given IV fluids and then was given Lasix after that in the ER Patient was started on vasopressors and eventually was weaned off but had to be restarted on 07/15 -currently OFF pressors -07/10/2022 blood cultures x2 are negative so far -07/11/2012 sputum cultures -gram stain show Gram-positive cocci but cultures have been negative except he has yeast -MRSA screen was positive - off stress dose steroids -Discontinued albumin -07/24 remains febrile with T-max of 102? F, elevated WBC, blood pressures are stable. -07/23: Blood cultures negative x2 so far -07/23: Urine negative -07/23: Sputum cultures growing yeast -07/23: Fungal blood cultures are pending -discontinue cefepime, vancomycin, Levaquin and micafungin (3) Acute respiratory failure with hypoxia: Code(s): J96.01 - Acute respiratory failure with hypoxia Status: Acute Assessment and Plan: Patient presented to the ED on 07/09/2022 with increasing shortness of breath for the last 3 weeks which apparently worsened in the last 3 days.? He was admitted to the intermediate Unit where he was placed on BiPAP, oxygen requirements were increasing, I was asked to see the patient.? Patient was in impending respiratory failure, tachypneic, was breathing between 40-50 times a minute, O2 sats were in the upper 80s to low 90s. Patient was intubated on?07/10/2022 ARDS versus healthcare? associated pneumonia patient was on immunosuppressants which was later complicated by fluid over COVID PCR was negative -patient developed a right pneumothorax could be related to BiPAP, bag-mask ventilation.? 07/24 chest x-ray: ?No significant change in diffuse bilateral lung disease which could represent pneumonia, pulmonary edema, acute respiratory distress syndrome (ARDS) or combination thereof -currently on CMV mode of ventilation, peep of 10 and 45% FiO2, -patient has been febrile with T-max of 102.0?F with no change in chest x-ray even after 4 L fluid removal on 07/23/2022. -07/24: Started patient on Zosyn, vancomycin, Levaquin and micafungin -will discontinue -now afebrile -sedated with propofol and Versed infusion -continue bronchodilators 07/24: Will obtain CT scan of the chest/abdomen and pelvis (4) Pneumothorax on right: Code(s): J93.9 - Pneumothorax, unspecified Status: Acute Assessment and Plan: Patient with a right pneumothorax currently multifactorial, patient has COPD, asthma, was on BiPAP, could be possibly secondary bag-mask ventilation -right chest tube was inserted by surgery on 07/10/2020 -chest x-ray this morning shows right chest tube in place, pneumothorax has resolved -no significant air leak -surgery managing the chest tube (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 likely related to hypoxia, hypotension, sepsis upon arrival to the ER -urine output continues to be low despite of Bumex dose o
[2022-07-26] MEDS: DORNASE ALFA INH SOLN 1 MG/ML 2.5 ML AMP 2.5 MG INHALATION (08:34)
--- NOTE | 2022-07-26 10:55 | PC.NURSE ---
Up to chair with minimal assist.
[2022-07-26] MEDS: LORazepam INJ (*CRX) 2 MG/ML VIAL IV PUSH (13:42)
[2022-07-26] MEDS: MORPHINE SULFATE INJ (*CRX) 10 MG/ML AMP 5 MG IV PUSH (13:43)
--- NOTE | 2022-07-26 14:06 | PC.NURSE ---
Patient extubated at 1345, at 1356.
--- NOTE | 2022-07-26 17:27 | PM.DDS ---
Discharge Summary Date and Time Date of : 07/26/22 Time of : 13:56 Provider Pronounced By: Kayla Vásquez RN and Johnny Alves RN Probable Cause of Probable Cause of : Septic shock and multifocal PNA Summary Hospital Course: Patient presented to the ED on 07/09/2022 with increasing shortness of breath for the last 3 weeks which worsened the last 3 days prior to admission.? He was admitted to the IMU where he was placed on BiPAP. CTA chest showing no PE but does show multifocal pneumonia. COVID swab was negative (repeat COVID x2 also negative), Influenza negative. Respiratory failure associated with sepsis and HoTN all related to bacterial PNA. Patient's condition deteriorated (related to spontaneous PTX?) requiring intubation on 07/10. Patient was hypotensive on admission to 69/41. He had elevated lactic acid and elevated CRP all consistent with sepsis. Sepsis felt related to PNA. As patient's respiratory failure worsened, his BP dropped again requiring Levophed. CTA chest showing no PE but does show multifocal pneumonia.? He does have asthma/COPD treated with Fesenra 2 days prior to admission. Pneumococcal and Legionella Ag negative. MRSA nasal swab negative. Sputum growing Yeast. BCx negative. [place] his PNA related to being on Fesenra. He completed abx course but then developed fevers again. Patient remained intubated. Plans were being made for tracheostomy placement and PEG placement. Family were made aware on multiple occasions of the patient's progression and the seriousness of his illness. Family did not want to proceed with tracheostomy or PEG placement. They wish to keep the patient comfortable at this time. Family gathered at the bedside. Patient was terminally weaned. He on 07/26/2022 at 1:56 p.m.. Additional Data Confirmation of as documented by pronouncing clinician: Pupillary Reflex, Palpable Pulses, Response to Stimuli, Heart Tones and Breath Sounds Name of Provider Notified: Drs. Lovelace and Ricardo Time Provider Notified: 13:56 Provider Requests Autopsy: No Family Requests Autopsy: No Chief Crna Notified: Yes Date [facility] Notified of : 07/26/22 Time [facility] Notified of : 14:01
== END 2022-07-26 13:56 | disposition expired | DRG 870 ==
LOC: ANHED 18:19 → ANHIMU 19:52 → ANHICU 07-10 13:19
PROVIDERS: Internal Medicine; Internal Medicine Nephrology; Internal Medicine Pulmonary Disease; Nurse Practitioner Family; Physician Assistant; Surgery; Admitting Provider Internal Medicine; Emergency Provider Emergency Medicine; PCP Internal Medicine; Visit Provider Internal Medicine
PROC: 0JH63XZ Insertion of Tunneled Vascular Access Device into Chest Subcutaneous Tissue and Fascia, Percutaneous Approach (ICD-10-PCS; CPT 36908; principal; 2022-07-16 14:00)
DX: A41.9 Sepsis, unspecified organism (principal); J96.01 Acute respiratory failure with hypoxia; J18.9 Pneumonia, unspecified organism; R65.21 Severe sepsis with septic shock; E87.2 Acidosis; N17.9 Acute kidney failure, unspecified; E87.1 Hypo-osmolality and hyponatremia; K86.2 Cyst of pancreas; I82.623 Acute embolism and thrombosis of deep veins of upper extremity, bilateral; G93.40 Encephalopathy, unspecified; J93.83 Other pneumothorax; J43.9 Emphysema, unspecified; J45.909 Unspecified asthma, uncomplicated; Z66 Do not resuscitate; Z20.822 Contact with and (suspected) exposure to COVID-19; D64.9 Anemia, unspecified; E87.5 Hyperkalemia; E86.0 Dehydration; I10 Essential (primary) hypertension; N40.0 Benign prostatic hyperplasia without lower urinary tract symptoms; K21.9 Gastro-esophageal reflux disease without esophagitis; R93.5 Abnormal findings on diagnostic imaging of other abdominal regions, including retroperitoneum; G47.33 Obstructive sleep apnea (adult) (pediatric); Z79.899 Other long term (current) drug therapy; Z86.718 Personal history of other venous thrombosis and embolism; Z87.891 Personal history of nicotine dependence; Z90.49 Acquired absence of other specified parts of digestive tract; Z98.49 Cataract extraction status, unspecified eye
CPT/HCPCS: 31500; 36415; 36600; 70450; 71045; 71275; 74019; 74177; 76775; 76937; 77001; 80048; 80053; 80202; 81001; 81003; 82274; 82375; 82436; 82533; 82550; 82570; 82728; 82805; 82948; 83050; 83605; 83615; 83690; 83735; 84100; 84145; 84300; 84478; 84484; 84540; 85014; 85018; 85025; 85027; 85380; 85610; 85730; 85999; 86140; 86704; 86706; 86738; 87040; 87070; 87081; 87086; 87103; 87205; 87340; 87449; 87486; 87502; 87581; 87633; 87899; 93005; 93970; 94002; 94003; 94640; 94660; 94667; 96361; 96374; 99285; A9270; C1750; C1751; C8929; C9113; C9803; G0257; J0456; J0610; J0692; J0696; J1644; J1650; J1720; J1815; J1940; J1956; J2060; J2248; J2250; J2270; J2543; J2704; J2765; J2930; J3010; J3370; J7030; J7512; P9047; Q5105; Q9957; Q9967; U0003; U0005